=== PATIENT | female | born 1940 | race Caucasian/White ===

== ENCOUNTER 2019-11-12 07:20 | Outpatient (CLI) | payer OTHER, SELFPAY ==
[2019-11-12] VITALS (15 sets, daily range): BP systolic 104–143; BP diastolic 44–66; PULSE 58–80; RESP 18–24; TEMP 36.6–36.9; O2SAT 90–100; BMI 25.9
--- NOTE | 2019-11-12 10:11 | PC.NURSE ---
INFORMED BY BLOOD BANK THAT PATIENTS HGB IS 8.2. MOLLY DOMESTIC HOUSEKEEPER WAS CALLED AND INFORMED. MOLLY REQUESTS TO RESUME WRITTEN ORDERS TO TRANSFUSE 2 UNITS OF PRBC PER WRITTEN ORDERS.
[2019-11-12] MEDS: acetaminophen 325 mg Tablet 650 MG PO (10:40)
[2019-11-12] MEDS: diphenhydrAMINE 25 mg Capsule PO (10:40)
[2019-11-12] MEDS: sodium chloride 0.9% 50 ML 30 ML (10:45)
--- NOTE | 2019-11-12 11:56 | PC.NURSE ---
[facility] UNIT #[id number] STARTED AT 10:50 AM.
[2019-11-12] MEDS: FUROsemide 40 mg Tablet PO (12:46)
[2019-11-12] MEDS: ipratropium-albuterol 3 mL Neb INHALATION (15:12)
--- NOTE | 2019-11-12 15:17 | PC.NURSE ---
PT WITH WHEEZES. MOLLY TOWER OBSERVER INFORMED. BREATHING TREATMENT GIVEN.
[2019-11-16 18:02] LABS: Basophils % 0.2 %; Eosinophils # 0.1 10^3/uL (0.0-0.8); Eosinophils % 1.5 %; Hematocrit 35.3 % (37.0-47.0); Hemoglobin 10.7 g/dL (11.5-15.3); Lymphocytes # 1.9 10^3/uL (0.8-4.8); Lymphocytes % 30.8 %; Mean Corpuscular HGB Conc 30.3 g/dL (30.0-36.0); Mean Corpuscular Hemoglobin 33.2 pg (28.0-34.0); Mean Corpuscular Volume 109.6 fL (81-99); Mean Platelet Volume 11.1 fL (7.4-10.4); Monocytes # 0.7 10^3/uL (0.2-0.9); Monocytes % 11.8 %; Neutrophils # 3.3 10^3/uL (1.8-7.7); Neutrophils % 55.4 %; Nucleated Red Blood Cells % 0 %; Platelet Count 169 10^3/cmm (130-400); Red Blood Count 3.22 10^6/uL (4.1-5.3); Red Cell Distribution Width 15.3 % (12.1-15.1)
== END 2019-11-12 15:34 | disposition home or self-care (01) ==
LOC: GILAB 07:31
PROVIDERS: Family Provider Family Medicine; PCP Family Medicine; Visit Provider Nurse Practitioner Family
DX: D63.1 Anemia in chronic kidney disease (principal)
CPT/HCPCS: 36430; 85025; 86850; 86900; 94640; P9016

== ENCOUNTER 2019-12-03 12:46 | Emergency (ER) | payer MEDICARE, MEDICAID, SELFPAY ==
[2019-12-03] VITALS (7 sets, daily range): BP systolic 88–140; BP diastolic 41–58; PULSE 66–78; RESP 16–20; TEMP 36.9; O2SAT 100; BMI 29.0
--- NOTE | 2019-12-03 12:51 | ED_ITS ---
Entered by Jackie Palma, acting as scribe for HPI - General Adult General: Chief complaint: Recheck/Abnormal Lab/Rx Stated complaint: LOW SODIUM/ ABNORMAL LABS Time Seen by Provider: 12/03/19 12:52 Source: patient and EMS Mode of arrival: EMS Limitations: no limitations History of Present Illness: HPI narrative: 79 yo female presents with abnormal sodium levels per pt the home health nurse told her the labs were critical and they sent her to the ED to be checked out and redraw of labs. pt has had a cough productive with brown sputum. pt states she felt tired and did not want to do her exercises today. pt denies any other symptoms at this time. MD complaint: low sodium, cough Onset (ago): day(s) (today sent from [facility] for abnormal labs) Radiation: non-radiation Severity: mild Pain Consistency: constant Relieving factors: none Exacerbating factors: none Associated symptoms: Reports cough (productive with brown sputum), short of breath and weakness; Deny chest pain, nausea, rash or vomiting Treatments prior to arrival: none Review of Systems General: Reports: 10 or more systems reviewed and unremarkable except in HPI and below Const: Reports: fatigue ENMT: Denies: throat pain, ear pain, nasal discharge or nasal congestion Card: Denies: chest pain, edema, shortness of breath on exertion or shortness of breath when lying down Resp: Reports: productive cough (brown) GI: Denies: abdominal pain, nausea, vomiting, vomiting blood, coffee grounds in vomit, diarrhea, constipation, bloating, blood in stool or black tarry stool : Denies: flank pain, difficulty urinating, painful urination, urinary frequency or urinary urgency Skin/Breast: Denies: rash or itching PFSH ED PFSH: Statuses (acute, chronic, etc) shown below reflect problem list status as previously entered and may not be historically accurate Social History Smoking and tobacco status: former smoker Physical Exam Const: COMMON NORMALS: no apparent distress GENERAL APPEARANCE: cooperative and comfortable ORIENTATION/CONSCIOUSNESS: Yes awake, Yes oriented to person, Yes oriented to place and Yes oriented to time HENMT: COMMON NORMALS: normocephalic, head/scalp atraumatic, hearing grossly normal bilaterally, external ears normal, EAC's normal, TM's normal bilaterally, nasal mucous membranes and turbinates normal, moist oral mucous membranes and oropharynx normal HEAD & SCALP: normocephalic and atraumatic NOSE: nasal mucous membranes and turbinates normal EXTERNAL EAR: Yes external ears normal EXTERNAL AUDITORY CANAL: EAC's normal TYMPANIC MEMBRANE: TM's normal bilaterally Eye: COMMON NORMALS: PERRL, EOMs intact bilaterally, conjunctivae normal and no scleral icterus CONJUNCTIVA: Yes conjunctivae normal PUPIL: Yes PERRL Neck/C-Spine: COMMON NORMALS: full ROM, no lymphadenopathy, supple and no JVD Lymph: LYMPHATIC: no lymphadenopathy noted and no lymphedema noted Cardio: COMMON NORMALS: no JVD, regular rate, regular rhythm and no murmurs RATE: regular rate RHYTHM: regular rhythm GI: COMMON NORMALS: soft to palpation and no hepatosplenomegaly AUSCULTATION: Yes normoactive bowel sounds PALPATION: Yes soft, No tender, No guarding and Yes no hepatosplenomegaly Extremity: COMMON NORMALS: normal to inspection, normal capillary refill, no clubbing, cyanosis or edema, no calf tenderness and no pedal edema Neuro: SENSORIUM/ORIENTATION: Yes oriented to person, Yes oriented to place and Yes oriented to time Skin: COMMON NORMALS: no rashes or lesions noted GENERAL SKIN EXAM: no rashes or lesions noted Course ED course: Recheck labs her sodium is normal at 139 she is mildly hyperkalemic her renal function is elevated but that is actually been a chronic thing for her. Gave her some fluids and albuterol to help lower her potassium recheck with her primary care doctor next week. Vital Signs: Vital signs: Vital Signs Temperature 98.4 F 12/03/19 13:01 Pulse Rate 78 12/03/19 16:31 Respiratory Rate 16 12/03/19 16:18 Blood Pressure 125/52 12/03/19 16:18 Pulse Oximetry 100 12/03/19 16:18 MDM - General Adult Lab Data: Labs: Lab Results 12/03/19 12/03/19 Range/Units 13:32 13:32 WBC 10.5 H (4.0-10.0) 10^3/ uL RBC 3.50 L (4.1-5.3) 10^6/u L Hgb 11.3 L (11.5-15.3) g/dL Hct 36.5 L (37.0-47.0) % MCV 104.3 H (81-99) fL MCH 32.3 (28.0-34.0) pg MCHC 31.0 (30.0-36.0) g/dL RDW 14.2 (12.1-15.1) % Plt Count 145 (130-400) 10^3/c mm MPV 11.7 H (7.4-10.4) fL Neut % (Auto) 51.5 % Lymph % (Auto) 37.3 % [place] % (Auto) 9.9 % Eos % (Auto) 0.8 % Baso % (Auto) 0.2 % Neut # (Auto) 5.4 (1.8-7.7) 10^3/u L Lymph # (Auto) 3.9 (0.8-4.8) 10^3/u L [place] # (Auto) 1.0 H (0.2-0.9) 10^3/u L Eos # (Auto) 0.1 (0.0-0.8) 10^3/u L Baso # (Auto) 0.0 (0.0-0.1) 10^3/u L Nucleated RBC % (a uto) 0 % Nucleated RBCs # 0.0 /100WBC Sodium 139 (136-145) mmol/L Potassium 5.2 H (3.5-5.1) mmol/L Chloride 103 (98-107) mmol/L Carbon Dioxide 27 (22-29) mmol/L Anion Gap 14.2 (5-19) BUN 64 H (8-23) mg/dL Creatinine 2.4 H (0.5-0.9) mg/dL Glucose 95 (74-106) mg/dL Calcium 10.3 (8.5-10.5) mg/dL Total Bilirubin 0.3 (0.15-1.2) mg/dL AST 13 (0-32) U/L ALT 7 (0-33) U/L Alkaline Phosphata se 86 (35-105) IU/L Total Protein 5.9 L (6.6-8.7) g/dL Albumin 3.4 L (3.5-5.2) g/dL Globulin 2.5 (1.3-4.6) g/dL Discharge Plan Discharge Patient Disposition: Home, Self-Care Clinical Impression: Chronic renal failure, Hyperkalemia Condition: Stable Prescriptions: No Action budesonide 0.5 mg/2 mL Suspension For Nebulization RF: 0 folic acid 1 mg Tablet 1 mg PO DAILY RF: 0 atorvastatin 20 mg PO DAILY RF: 0 Tubersol 5 tub. unit /0.1 mL Solution INTRADERMAL RF: 0 divalproex 250 mg Tablet,Delayed Release (Dr/Ec) 250 mg PO BID RF: 0 bisacodyl 10 mg Suppository 10 mg KS DAILY PRN (Reason: Constipation) RF: 0 ranitidine HCl 150 mg Capsule 150 mg PO BID RF: 0 furosemide 20 mg Tablet 20 mg PO DAILY RF: 0 thiamine HCl (vitamin B1) 50 mg Tablet 50 mg PO DAILY RF: 0 Senna-S RF: 0 citalopram 40 mg Tablet RF: 0 allopurinol 100 mg Tablet 100 mg PO DAILY RF: 0 Singulair 10 mg Tablet 10 mg PO DAILY RF: 0 Singulair 10 mg Tablet 10 mg PO DAILY RF: 0 Xopenex HFA 45 mcg/actuation Hfa Aerosol Inhaler INHALATION RF: 0 Zemplar 1 mcg Capsule 1 mcg PO DAILY RF: 0 Incruse Ellipta 62.5 mcg/actuation Blister With Device 1 inh INHALATION DAILY RF: 0 acetaminophen 325 mg Tablet 325 mg PO QID PRN (Reason: Pain, Mild) RF: 0 metoprolol succinate 25 mg Capsule,Sprinkle,Er 24hr 25 mg PO DAILY RF: 0 Discharge Orders: Discharge Order (Routine); Ordered 12/03/19 Ordered By: Ahsan Lacey Referrals: Dunia Rowan MD [Primary Care Provider] - Patient Instructions: Hyponatremia (ED), Hyperkalemia (ED) Activity Restrictions/Additional Instructions: Follow-up with Dr. Rowan in 2 to 3 days to recheck your potassium Discharge Date/Time: 12/03/19 16:57 Coding Level of Care Code ED Director [employer] Fwd Exam Problem Focused The documentation recorded by the Louie connell Bridget Annette, accurately reflects the service I personally performed and the decisions made by Abhijit friedman Curtis L, DO Dec 03, 2019 12:46
--- NOTE | 2019-12-03 13:03 | ECG_ITS ---
Measurements Intervals [place] Rate: 69 P: 53 FL: 157 QRS: 49 QRSD: 83 T: 61 QT: 416 QTc: 446 SINUS RHYTHM Compared to ECG 10/27/2019 14:02:13 No significant changes Electronically Signed On 12-03-2019 15:27:11 BENCH MACHINE OPERATOR by Francois Candelaria M.D. [id number]
--- NOTE | 2019-12-03 13:09 | PC.NURSE ---
RESP REG NONLABORED COMPLAINING OF FEELING TIRED TODAY COUGH NOTED STATES HAS HAD FOR AWHILE WITH BROWNISH COLOR SPUTUM LUNGS CLEAR SHANNON SL DEMINISHED LOWER LOBES SHANNON NO EDEMA NOTED ALERT AND ORIENTED X 4
[2019-12-03] MEDS: sodium chloride 0.9% 500 ML 999 ML IV (13:30)
[2019-12-03 13:36] LABS: Basophils % 0.2 %; Eosinophils # 0.1 10^3/uL (0.0-0.8); Eosinophils % 0.8 %; Hematocrit 36.5 % (37.0-47.0); Hemoglobin 11.3 g/dL (11.5-15.3); Lymphocytes # 3.9 10^3/uL (0.8-4.8); Lymphocytes % 37.3 %; Mean Corpuscular Hemoglobin 32.3 pg (28.0-34.0); Mean Corpuscular Volume 104.3 fL (81-99); Mean Platelet Volume 11.7 fL (7.4-10.4); Monocytes % 9.9 %; Neutrophils # 5.4 10^3/uL (1.8-7.7); Neutrophils % 51.5 %; Nucleated Red Blood Cells % 0 %; Platelet Count 145 10^3/cmm (130-400); Red Cell Distribution Width 14.2 % (12.1-15.1); White Blood Count 10.5 10^3/uL (4.0-10.0)
[2019-12-03 13:50] LABS: Alanine Aminotransferase 7 U/L (0-33); Albumin Level 3.4 g/dL (3.5-5.2); Alkaline Phosphatase 86 IU/L (35-105); Anion Gap 14.2 (5-19); Aspartate Amino Transferase 13 U/L (0-32); Blood Urea Nitrogen 64 mg/dL (8-23); Calcium 10.3 mg/dL (8.5-10.5); Carbon Dioxide 27 mmol/L (22-29); Chloride 103 mmol/L (98-107); Globulin 2.5 g/dL (1.3-4.6); Glucose 95 mg/dL (74-106); Potassium 5.2 mmol/L (3.5-5.1); Sodium 139 mmol/L (136-145); Total Bilirubin 0.3 mg/dL (0.15-1.2); Total Protein 5.9 g/dL (6.6-8.7)
--- NOTE | 2019-12-03 15:49 | PC.NURSE ---
Pt given BSC for voiding
--- NOTE | 2019-12-03 16:01 | XRR_ITS ---
PROCEDURE INFORMATION: Exam: XR Chest, 1 View Exam date and time: 12/03/2019 4:28 PM Age: 79 years old Clinical indication: Cough TECHNIQUE: Imaging protocol: XR of the chest Views: 1 view. COMPARISON: CR Chest 1 [place] [id number] 10/27/2019 2:01 PM FINDINGS: Lungs: Unremarkable. No consolidation. Lungs are hyperinflated. Probable mild basilar fibrosis is unchanged. There are unchanged calcified granulomas. Pleural space: Unremarkable. No pleural effusion. No pneumothorax. Heart/Mediastinum: Unchanged mild cardiomegaly. Bones/joints: No acute abnormality. XR/XR chest 1V portable [id number] IMPRESSION: No acute findings.
[2019-12-03] MEDS: ipratropium-albuterol 3 mL Neb 6 ML INHALATION (16:07)
--- NOTE | 2019-12-03 16:14 | PC.NURSE ---
RT at bedside
--- NOTE | 2019-12-04 12:05 | DCPLANNER ---
clinical laboratory manager was asked by nurse to help arrange for oxygen for patient to take home. Patient forgot to bring a portable oxygen tank with her to hospital. Case manger called [employer], who patient has oxygen with, to ask if they could bring patient portable oxygen to the ED for patient. [facility] stated that they would bring a portable machine to the ED for patient. clinical laboratory manager informed nurse and family that a portable machine was being brought to the patient.
== END 2019-12-03 16:57 | disposition home or self-care (01) ==
LOC: ER 16:08
PROVIDERS: Emergency Provider Family Medicine; Family Provider Family Medicine; PCP Family Medicine
DX: N18.9 Chronic kidney disease, unspecified (principal); E87.5 Hyperkalemia; Z87.891 Personal history of nicotine dependence
CPT/HCPCS: 71045; 80053; 85025; 93005; 94640; 96360; 96361; 99283; J7040

== ENCOUNTER 2019-12-14 08:50 | Outpatient (CLI) | payer MEDICARE, MEDICAID, SELFPAY ==
[2019-12-14 18:40] LABS: Basophils % 0.1 %; Eosinophils # 0.2 10^3/uL (0.0-0.8); Eosinophils % 2.2 %; Hemoglobin 10.5 g/dL (11.5-15.3); Lymphocytes # 2.6 10^3/uL (0.8-4.8); Lymphocytes % 38.6 %; Mean Corpuscular Hemoglobin 30.9 pg (28.0-34.0); Mean Corpuscular Volume 102.9 fL (81-99); Mean Platelet Volume 12.1 fL (7.4-10.4); Monocytes # 0.5 10^3/uL (0.2-0.9); Monocytes % 6.8 %; Neutrophils # 3.5 10^3/uL (1.8-7.7); Neutrophils % 52.2 %; Nucleated Red Blood Cells % 0 %; Platelet Count 148 10^3/cmm (130-400); Red Cell Distribution Width 13.9 % (12.1-15.1); White Blood Count 6.8 10^3/uL (4.0-10.0)
[2019-12-14 21:02] LABS: Albumin Level 3.5 g/dL (3.5-5.2); Blood Urea Nitrogen 36 mg/dL (8-23); Chloride 99 mmol/L (98-107); Glucose 151 mg/dL (74-106); Iron 79 ug/dL (37-145); Phosphorus 3.5 mg/dL (2.5-4.5); Potassium 6.5 mmol/L (3.5-5.1); Sodium 138 mmol/L (136-145)
[2019-12-14 21:28] LABS: Free T4 Free Thyroxine 1.14 ng/dL (0.82-1.77); Thyroid Stimulating Hormone 2.39 uIU/mL (0.27-4.20)
[2019-12-14 21:50] LABS: Anion Gap 23.5 (5-19); Carbon Dioxide 22 mmol/L (22-29)
== END 2019-12-14 08:51 | disposition home or self-care (01) ==
LOC: LAB 17:42
PROVIDERS: Family Provider Family Medicine; PCP Family Medicine; Visit Provider Internal Medicine Nephrology
DX: E87.1 Hypo-osmolality and hyponatremia (principal); D63.1 Anemia in chronic kidney disease; N18.4 Chronic kidney disease, stage 4 (severe)
CPT/HCPCS: 80069; 83540; 84439; 84443; 85025

== ENCOUNTER 2019-12-14 17:30 | Outpatient (CLI) | payer MEDICARE, MEDICAID, SELFPAY | END 2019-12-14 17:31 | disposition home or self-care (01) | PROVIDERS: Family Provider Family Medicine; PCP Family Medicine; Visit Provider Internal Medicine Nephrology | DX: Z76.89 Persons encountering health services in other specified circumstances (principal) ==

== ENCOUNTER 2020-01-19 09:26 | Outpatient (CLI) | payer MEDICARE, MEDICAID, SELFPAY ==
[2020-01-19 09:58] LABS: Basophils % 0.2 %; Eosinophils # 0.1 10^3/uL (0.0-0.8); Eosinophils % 1.4 %; Hematocrit 32.9 % (37.0-47.0); Lymphocytes # 1.1 10^3/uL (0.8-4.8); Lymphocytes % 25.2 %; Mean Corpuscular HGB Conc 30.4 g/dL (30.0-36.0); Mean Corpuscular Hemoglobin 32.7 pg (28.0-34.0); Mean Corpuscular Volume 107.5 fL (81-99); Mean Platelet Volume 10.5 fL (7.4-10.4); Monocytes # 0.6 10^3/uL (0.2-0.9); Monocytes % 13.5 %; Neutrophils # 2.5 10^3/uL (1.8-7.7); Neutrophils % 59.5 %; Nucleated Red Blood Cells % 0 %; Platelet Count 132 10^3/cmm (130-400); Red Blood Count 3.06 10^6/uL (4.1-5.3); White Blood Count 4.2 10^3/uL (4.0-10.0)
[2020-01-19 10:12] LABS: Alanine Aminotransferase 8 U/L (0-33); Albumin Level 3.5 g/dL (3.5-5.2); Alkaline Phosphatase 78 IU/L (35-105); Anion Gap 17.4 (5-19); Aspartate Amino Transferase 18 U/L (0-32); Blood Urea Nitrogen 44 mg/dL (8-23); Calcium 10.3 mg/dL (8.5-10.5); Carbon Dioxide 23 mmol/L (22-29); Chloride 104 mmol/L (98-107); Globulin 3.4 g/dL (1.3-4.6); Glucose 105 mg/dL (65-115); Osmolality Calculated 286 mOsm/kg (285-295); Potassium 5.4 mmol/L (3.5-5.1); Sodium 139 mmol/L (136-145); Total Bilirubin 0.2 mg/dL (0.15-1.2); Total Protein 6.9 g/dL (6.6-8.7)
[2020-01-19 14:15] LABS: Iron 72 ug/dL (37-145); Percent Saturation 31.8 % (20-50); Total Iron Binding Capacity 226 mcg/dl; Unsaturated Iron Binding 154 ug/dL (112-347)
[2020-01-19 14:31] LABS: Vitamin B12 376 pg/mL (232-1245)
--- NOTE | 2020-01-23 14:03 | ONC FU_ITS ---
Dr. Frazier Patient Follow-Up Note Patient: Velasquez Montano Unit #: [id number]: [id number] Dicatated By: Carlitos Frazier M.D.Date of Visit:Jan 19, 2020 Onc Med Follow-up/Prog Note Chief Complaint: Metastatic adenocarcinoma. History of Present Illness: This is a 79 year-old woman with metastatic adenocarcinoma involving the mesentery with no documented primary. The malignancy was discovered at exploratory laparotomy/low anterior resection in September of 2009. At that time, she had an inflammatory mass in the sigmoid colon, suspected to have been related to perforated diverticulitis. The surgery included low anterior resection with resection of the inflammatory mass in the mesentery. Pathology showed metastatic adenocarcinoma, but the excised portion of bowel showed no mucosal involvement, and there has been no evidence of any other primary malignancy. I did not feel there was any definite indication for postoperative chemotherapy. She has otherwise just been managed with observation, thus far with no evidence of recurrence/progression. She had a followup colonoscopy in May 2012. Findings were limited to an adenomatous polyp in the distal sigmoid colon and a hyperplastic polyp in the rectum. Both were excised endoscopically. She had been admitted to the hospital in October of 2011 with acute renal failure in association with Clostridium difficile colitis. She did recover from that illness, but with residual stage IV chronic kidney disease. Her other medical illnesses include COPD, obstructive sleep apnea, bipolar disorder/depression, and GERD. She has additional history of a stage IA, ER/IN positive infiltrating ductal carcinoma of the left breast treated in 1999 with lumpectomy/axillary lymph node dissection and radiation. She also did receive 5 years of adjuvant tamoxifen. There has been no evidence of recurrence of the breast cancer. She had previously smoked a pack and a half to 2 packs of cigarettes daily. She quit smoking in 1994. She has had significant alcohol use in the past, but she quit drinking in the early . I had seen her in December 2015 with a new complaint of hallucinations. These were mainly occurring at night. I was not certain of the cause. At the time she was taking hydrocodone/APAP and she also had oxycodone available, and I did advise him to refrain from using it as much as possible, though it did not seem to be clearly related. She also had alprazolam available, but she had been taking it very infrequently. She was seen by Dr. Alaniz, and her subsequent evaluation included MRI of the brain on 01/18/2016. It showed no evidence of mass or acute intracranial abnormality. There were a moderate degree of chronic small vessel ischemic changes and a moderate degree of central and peripheral brain parenchymal loss. There was evidence of right mastoid effusion/mastoiditis and right maxillary chronic sinusitis. The only other finding was a right inferior temporal lobe porencephalic cyst. She had a subsequent follow-up visit with Dr. Alaniz, and he felt that she had Parkinson's disease. She tolerated medication poorly, though. During subsequent followup those symptoms gradually improved. She has just remained on observation/expectant management for the adenocarcinoma. INTERIM HISTORY: She is seen for a scheduled visit. She has not been feeling too good. She has been anemic. She says she is awfully tired. Her activity is very limited. ECOG score is 3. Her appetite has been good. She has gained weight. She has not had fever. She reports having a lot of sweating at night, but she thinks that may just be due to her mattress. She has a little bit of sinus drainage. Her daughter says she tends to drool at night. She has shortness of breath. She is on continuous oxygen. She has chronic cough. She has started on a new breathing treatment, apparently because of side effects with albuterol. She does not complain of chest pain. She has heartburn occasionally. She occasionally has loose stools. She has not been aware of any blood in the stool, and 3 stool Hemoccults were reportedly negative. She has urinary frequency and nocturia. She has some incontinence. She has chronic back pain, which she says is bad. She also has pain in her hips and legs. She has occasional headache. She has little bit of dizziness. She has no focal neurologic symptoms. Medications: Acetaminophen 2 Tablet (of 325 mg) Capsule Oral q 6 hours PRN, Allopurinol 1 Tablet (of 100 mg) Oral daily, Cholecalciferol 1 Tablet (of 1000 Units) Capsule Oral daily, Citalopram Hydrobromide 1 (40 mg) Tablet Oral daily, Divalproex Sodium 1 (250 mg) Tablet, enteric coated Oral b.i.d., Folic Acid 1 (1 mg) Tablet Oral b.i.d., Incruse Ellipta 1 (62.5 mcg/inh) Aerosol Powder, Breath Activated Inhalation daily, Ipratropium-Albuterol 2 [place](s) (of 0.5-2.5 (3) mg/3mL) Solution Inhalation four times a day, Lipitor 1 (20 mg) Tablet Oral daily, Metoprolol Succinate 0.5 Tablet Oral daily, Montelukast Sodium 1 Tablet (of 10 mg) Oral daily, Pantoprazole Sodium 1 Tablet (of 40 mg) Tablet, enteric coated Oral b.i.d., Zemplar 1 (1 mcg) Capsule Oral q 1 week Allergies: IV contrast and Penicillins. Review of Systems: Constitutional - She has been feeling awfully tired. She has very limited activity. Her appetite is good. She has gained significant weight. She has not had fever. She reports having a lot of sweating. She thinks it may be from her mattress pad. ECOG score is 3, ENMT -She has a little bit of sinus drainage. She has a little bit of soreness in the mouth and throat. Her daughter says she drools at night. She has no difficulty swallowing. Hematologic/Lymphatic - She bruises easily, Respiratory - She has shortness of breath with activity. She is on continuous oxygen. She has started on a new breathing treatment. She has some chronic cough. She has no pleuritic pain or hemoptysis, Cardiovascular - No angina pain. No palpitations, Gastrointestinal - No nausea or vomiting. She has heartburn depending on what she eats. She has occasional episodes of diarrhea. No constipation. No blood in the stool or black stools. A recent stool Hemoccult was reportedly negative, Genitourinary (F) - No dysuria or hematuria. No urinary frequency. She does have occasional incontinence, Musculoskeletal - She has pain in her back, Integumentary - No skin complications, Neurologic - She has occasional headaches. She has a little bit of dizziness. No numbness/paresthesias or other focal neurologic symptoms, Psychiatric - No anxiety. She has some depression. Her daughter states that she usually takes a Xanax when she is feeling more depressed and that helps alot. No insomnia. Vital Signs: Performed on Jan 19, 2020 11:14 Height - 60.00 in Weight - 145.0 lbs (LOW) BSA - 1.63 sq.m BMI - 28.32 Temperature - 98.8 F Pulse - 67 /min Respiration - 24 /min BP - 97/43 mm(hg) O2 Sat - 100 % Pain - 5 Physical Examination: Constitutional - She appears somewhat weak generally, Eyes - Sclerae nonicteric. Conjunctivae clear, ENMT - No lesions noted in the oral cavity, Hematologic/Lymphatic - No cervical, clavicular, or axillary adenopathy, Respiratory - Lungs sound clear with diminished air movement bilaterally, Cardiovascular - Heart rhythm is regular. There is no murmur, gallop, or rub noted, Abdomen - Mildly distended. Liver and spleen are not enlarged. There is no abdominal mass or ascites noted and there is no inguinal adenopathy, Extremities - Mild edema. There are multiple purpuric lesions, Neurologic - No focal neurologic deficits noted. Lab/Imaging: Test performed on Jan 19, 2020 09:40 Iron 72 ug/dL Sodium 139 mmol/L Vitamin B12 376 pg/mL Iron Binding Capacity (TIBC) 226 mcg/dl Potassium 5.4 mmol/L % Iron Saturation 31.8 % Chloride 104 mmol/L CO2 23 mmol/L UIBC 154 ug/dL Anion Gap 17.4 BUN 44 mg/dL Creatinine 2.8 mg/dL Cr Clearance (Est) 17.47 mL/min Glucose 105 mg/dL Calcium 10.3 mg/dL Protein, Total 6.9 g/dL Albumin 3.5 g/dL Globulin 3.4 g/dL Bilirubin, Total 0.2 mg/dL ALT (SGPT) 8 U/L AST (SGOT) 18 U/L Alkaline Phosphatase 78 IU/L WBC 4.2 10 3/uL RBC 3.06 10 6/uL HGB 10.0 g/dL HCT 32.9 % MCV 107.5 fL MCH 32.7 pg MCHC 30.4 g/dL RDW 15.0 % Platelet Count 132 10 3/cmm MPV 10.5 fL Neutrophils 2.5 10 3/uL Lymphocytes 1.1 10 3/uL Monocytes 0.6 10 3/uL Eosinophils 0.1 10 3/uL Basophils 0.0 10 3/uL Neutrophil % 59.5 % Lymphocyte % 25.2 % Monocyte % 13.5 % Eosinophil % 1.4 % Basophils % 0.2 % Impression: 1. Patient with metastatic adenocarcinoma involving the mesentery, discovered as an incidental finding at exploratory laparotomy/low anterior resection in September 2009 for what was thought to have been an inflammatory process involving the sigmoid colon and mesentery. There has been no documented primary source for the malignancy and she did not receive any additional treatment. 2. She did have an adenomatous polyp in the distal sigmoid colon on surveillance colonoscopy in May 2012. 3. She has a previous history of cancer of the left breast with no recurrence following lumpectomy/radiation in 1999 followed by adjuvant tamoxifen. 4. She developed stage IV chronic kidney disease following an episode of C. difficile colitis in October 2011. Her other medical illnesses which include: 5. COPD, oxygen dependent. 6. Chronic fatigue and chronic pain in the back and lower extremities. 7. She has a history of bipolar disorder/depression. 8. In December 2015 she had presented with hallucinations. A specific cause was not determined, but during subsequent followup those symptoms gradually improved. During followup she has continued to have somewhat marginal performance status. She had been showing some further decline in her renal function, but that stabilized. As of October 2019 she had moderately severe macrocytic anemia. A specific cause has not been determined, but her stools were Hemoccult negative. Overall, she appears stable clinically, but she does have very marginal performance status. Plan: I will add a B12 level, and serum iron studies with her current labs. If those are adequate, I will just plan to see her again in 6 months. If her stools are heme-negative, I do not see any compelling reason for her to have a repeat colonoscopy. Signed By: Carlitos Frazier M.D. <<Signature on File>>
== END 2020-01-19 09:27 | disposition home or self-care (01) ==
LOC: ONCMED 09:31
PROVIDERS: Family Provider Family Medicine; PCP Family Medicine; Visit Provider Internal Medicine Medical Oncology
DX: Z08 Encounter for follow-up examination after completed treatment for malignant neoplasm (principal); Z85.9 Personal history of malignant neoplasm, unspecified; R53.82 Chronic fatigue, unspecified; N18.4 Chronic kidney disease, stage 4 (severe); J44.9 Chronic obstructive pulmonary disease, unspecified; G47.33 Obstructive sleep apnea (adult) (pediatric); F32.9 Major depressive disorder, single episode, unspecified; K21.9 Gastro-esophageal reflux disease without esophagitis; D64.9 Anemia, unspecified; J32.0 Chronic maxillary sinusitis; G20 Parkinson's disease; G89.29 Other chronic pain; M54.9 Dorsalgia, unspecified; Z99.81 Dependence on supplemental oxygen; Z79.899 Other long term (current) drug therapy; Z85.3 Personal history of malignant neoplasm of breast; Z92.3 Personal history of irradiation; Z92.23 Personal history of estrogen therapy; Z87.891 Personal history of nicotine dependence
CPT/HCPCS: 80053; 82607; 83540; 83550; 85025; 99214

== ENCOUNTER 2020-07-21 18:23 | Emergency (ER) | payer MEDICARE, MEDICAID, SELFPAY ==
[2020-07-21 18:35] VITALS: BP 129/64; PULSE 80; RESP 24; TEMP 37.1; O2SAT 95; BMI 25.7
--- NOTE | 2020-07-21 19:41 | PC.NURSE ---
patient left after being triaged but before seen by physician or brought back to a room in the ED
== END 2020-07-21 19:07 | disposition left against medical advice (07) ==
LOC: ER 19:12
PROVIDERS: PCP Family Medicine
DX: Z53.21 Procedure and treatment not carried out due to patient leaving prior to being seen by health care provider (principal)
CPT/HCPCS: 99281

== ENCOUNTER 2020-07-25 14:16 | Outpatient (CLI) | payer MEDICARE, MEDICAID, SELFPAY ==
[2020-07-25 15:02] LABS: Add Urine Microscopic? NO
[2020-07-25 15:08] LABS: Basophils % 0.2 %; Eosinophils # 0.2 10^3/uL (0.0-0.8); Eosinophils % 2.3 %; Hematocrit 30.6 % (37.0-47.0); Hemoglobin 9.1 g/dL (11.5-15.3); Lymphocytes # 2.3 10^3/uL (0.8-4.8); Lymphocytes % 35.3 %; Mean Corpuscular HGB Conc 29.7 g/dL (30.0-36.0); Mean Corpuscular Hemoglobin 34.2 pg (28.0-34.0); Mean Platelet Volume 10.8 fL (7.4-10.4); Monocytes # 0.6 10^3/uL (0.2-0.9); Monocytes % 9.4 %; Neutrophils # 3.42 10^3/uL (1.8-7.7); Neutrophils % 52.3 %; Nucleated Red Blood Cells % 0 %; Platelet Count 161 10^3/cmm (130-400); Red Blood Count 2.66 10^6/uL (4.1-5.3); Red Cell Distribution Width 12.5 % (12.1-15.1); White Blood Count 6.5 10^3/uL (4.0-10.0)
[2020-07-25 15:25] LABS: Alanine Aminotransferase < 5 U/L (0-33); Albumin Level 3.8 g/dL (3.5-5.2); Alkaline Phosphatase 65 IU/L (35-105); Anion Gap 14.1 (5-19); Aspartate Amino Transferase 13 U/L (0-32); Blood Urea Nitrogen 29 mg/dL (8-23); Calcium 9.2 mg/dL (8.5-10.5); Carbon Dioxide 29 mmol/L (22-29); Chloride 103 mmol/L (98-107); Globulin 2.4 g/dL (1.3-4.6); Glucose 109 mg/dL (65-115); Osmolality Calculated 290 mOsm/kg (285-295); Potassium 5.1 mmol/L (3.5-5.1); Sodium 141 mmol/L (136-145); Total Bilirubin 0.2 mg/dL (0.15-1.2); Total Protein 6.2 g/dL (6.6-8.7)
[2020-07-25 15:26] LABS: Bilirubin Urine Neg (Negative); Blood Urine Neg (Negative); Glucose Urine UA Norm (Normal); Ketones Urine Negative (Negative); Leukocyte Esterase Urine Negative (Negative); Nitrate Urine Negative (Negative); Protein Urine Neg (Negative); Specific Gravity, Urine 1.015 (1.005-1.030); Urine Appearance Clear (CLEAR); Urine Color Yellow (Yellow); Urobilinogen Urine Norm (Negative); pH Urine 5 (5-7)
[2020-07-26 09:04] LABS: Iron 49 ug/dL (37-145); Percent Saturation 25.9 % (20-50); Total Iron Binding Capacity 189 mcg/dl; Unsaturated Iron Binding 140 ug/dL (112-347)
[2020-07-26 09:20] LABS: Vitamin B12 418 pg/mL (232-1245)
== END 2020-07-25 14:17 | disposition home or self-care (01) ==
LOC: ONCMED 14:22
PROVIDERS: PCP Family Medicine; Visit Provider Internal Medicine Medical Oncology
DX: R41.82 Altered mental status, unspecified (principal); D64.9 Anemia, unspecified
CPT/HCPCS: 80053; 81003; 82607; 83540; 83550; 85025; 87086

== ENCOUNTER 2020-08-28 21:27 | Inpatient (IN) | payer MEDICARE, MEDICAID, SELFPAY ==
[2020-08-28 21:33] VITALS: BP 198/128; PULSE 78; RESP 20; TEMP 36.8; O2SAT 99; BMI 26.4
--- NOTE | 2020-08-28 21:55 | ED_ITS ---
Documented by User: FRANKO Juarez 08/29/20 03:07 HPI - Altered Mental Status General: Chief Complaint: Altered Mental Status Stated Complaint: UTI, CONFUSION Time Seen by Provider: 08/28/20 21:34 History of Present Illness: HPI narrative: Patient is a 80-year-old female comes to the ED with UTI symptoms and confusion. Past medical history of colon cancer, CKD, COPD, hypertension. Patient was seen by provider approximately 4 d ays ago and diagnosed with a UTI. She was put on Bactrim. Patient was not tolerating Bactrim well after taking it for 2 days and with her CKD they switched her to Cipro and has been taking that for the last 2 days. Patient's daughter is present and states that she just had patient move in with her so they can help take care of her. Daughter says that patient has had some episodes of confusion and hallucinations the past couple days. While here in the ED daughter says patient seems to be at her baseline mental status but still occasionally has episodes where she seems confused. Patient complaining of increased urine frequency and urgency to go. She says she has burning every time she urinates. Denies any hematuria. Patient also having decreased oral intake today. Review of Systems Const: Denies: fever(s), chills or fatigue Eyes: Denies: change in vision or eye discomfort ENMT: Denies: throat pain, odynophagia, nasal discharge or nasal congestion Card: Denies: chest pain, palpitations, edema, swelling of feet/ankles, dyspnea on exertion or orthopnea Resp: Denies: dyspnea, productive cough or non-productive cough GI: Denies: abdominal pain, nausea, vomiting, diarrhea, constipation or hematochezia : Reports: dysuria, urinary frequency and urinary urgency; Denies: flank pain or hematuria Musc: Denies: neck pain, back pain or extremity swelling Skin/Breast: Denies: rash or new lesions Neuro: Reports: confusion; Denies: headache(s), numbness in extremities or weakness in extremities PFS ED PFSH: Medical History Adenomatous polyp 2011 found on surveillance colonoscopy Bipolar disorder Breast cancer Status post lumpectomy/radiation 1999 followed by adjuvant tamoxifen C. 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 Chronic fatigue CKD (chronic kidney disease), stage IV COPD (chronic obstructive pulmonary disease) Oxygen dependent DNR (do not resuscitate) Hallucinations Did not tolerate Parkinson's medications in the past when this diagnosis was being entertained, discontinued hydrocodone, no organic etiology found Mastoiditis Right-sided mastoiditis, present on MRI 2016 as well Porencephalic cyst Temporal lobe Senile dementia Daughter has requested that dementia should not be mentioned to her mother because of risk of worsening of her depression considering bipolar disorder Sleep apnea Surgical History History of low anterior resection of rectum Family History Other Family history non-contributory Social History Smoking and tobacco status: former smoker Alcohol intake: never Substance/Drug Use: never Household members: family Housing: House Physical Exam Const: COMMON NORMALS: patient oriented x3 and alert GENERAL APPEARANCE: cooperative and comfortable HENMT: COMMON NORMALS: normocephalic HEAD & SCALP: normocephalic MOUTH: Normal oral and palatal mucosa present THROAT: posterior oropharynx normal and uvula midline Eye: COMMON NORMALS: Equal, round and reactive pupils present PUPIL: Yes Equal, round and reactive pupils present Neck/C-Spine: COMMON NORMALS: supple GENERAL: Yes normal visual inspection Resp: COMMON NORMALS: normal respiratory effort, No retractions, No use of accessory muscles and clear to auscultation bilaterally AUSCULTATION: clear to auscultation bilaterally Cardio: COMMON NORMALS: regular rate, regular rhythm, S1 normal heart sound present, S2 normal heart sound present, No gallops present (Cardio), No clicks present (Cardio), No murmurs present (Cardio) and Peripheral pulses 2+ throughout RATE: regular rate RHYTHM: regular rhythm HEART SOUNDS: S1 normal heart sound present and S2 normal heart sound present PERIPHERAL PULSES: Peripheral pulses 2+ throughout GI: COMMON NORMALS: Normal to inspection, nondistended, normoactive bowel sounds present, Soft to palpation, non-tender and no masses PALPATION: Yes Soft to palpation : COMMON NORMALS: Yes no CVA tenderness BLADDER/KIDNEY EXAM: Yes no CVA tenderness Back/Pelvis: COMMON NORMALS: no CVA tenderness Extremity: COMMON NORMALS: normal to inspection and no pedal edema Neuro: COMMON NORMALS: patient oriented x3 SENSORIUM/ORIENTATION: Yes alert Skin: GENERAL SKIN EXAM: dry skin Course Vital Signs: Vital signs: Vital Signs Temperature 98.2 F 08/28/20 21:33 Pulse Rate 78 08/29/20 01:04 Respiratory Rate 18 08/29/20 01:04 Blood Pressure 197/73 08/29/20 01:04 Pulse Oximetry 100 08/29/20 01:04 MDM - Altered Mental Status Lab Data: Attestation: I reviewed the patient's lab results. Labs: Lab Results 08/28/20 08/28/20 08/28/20 Range/Units 22:10 22:35 22:35 WBC 6.4 (4.0-10.0) 10^3/ uL RBC 2.41 L (4.1-5.3) 10^6/u L Hgb 8.2 L (11.5-15.3) g/dL Hct 27.7 L (37.0-47.0) % MCV 114.9 H (81-99) fL MCH 34.0 (28.0-34.0) pg MCHC 29.6 L (30.0-36.0) g/dL RDW 12.3 (12.1-15.1) % Plt Count 125 L (130-400) 10^3/c mm MPV 11.3 H (7.4-10.4) fL Neut % (Auto) 53.6 % Lymph % (Auto) 33.5 % [place] % (Auto) 11.2 % Eos % (Auto) 1.1 % Baso % (Auto) 0.3 % Neut # (Auto) 3.45 (1.8-7.7) 10^3/u L Lymph # (Auto) 2.2 (0.8-4.8) 10^3/u L [place] # (Auto) 0.7 (0.2-0.9) 10^3/u L Eos # (Auto) 0.1 (0.0-0.8) 10^3/u L Baso # (Auto) 0.0 (0.0-0.1) 10^3/u L Nucleated RBC % (a uto) 0 % Nucleated RBCs # 0.0 /100WBC Sodium 143 (136-145) mmol/L Potassium 5.9 H (3.5-5.1) mmol/L Chloride 104 (98-107) mmol/L Carbon Dioxide 33 H (22-29) mmol/L Anion Gap 11.9 (5-19) BUN 27 H (8-23) mg/dL Creatinine 2.2 H (0.5-0.9) mg/dL GFR Calculation Not Reportable Glucose 115 (65-115) mg/dL Calculated Osmolal ity 302 H (285-295) mOsm/k g Lactic Acid (0.5-2.2) mmol/L Calcium 10.7 H (8.5-10.5) mg/dL Total Bilirubin 0.2 (0.15-1.2) mg/dL AST 16 (0-32) U/L ALT 6 (0-33) U/L Alkaline Phosphata se 64 (35-105) IU/L Total Protein 6.1 L (6.6-8.7) g/dL Albumin 3.4 L (3.5-5.2) g/dL Globulin 2.7 (1.3-4.6) g/dL Urine Color Yellow (Yellow) Urine Appearance Clear (CLEAR) Urine pH 7 (5-7) Ur Specific Gravit y 1.005 (1.005-1.030) Urine Protein Trace (Negative) Urine Glucose (UA) Norm (Normal) Urine Ketones Negative (Negative) Urine Blood Neg (Negative) Urine Nitrate Negative (Negative) Urine Bilirubin Neg (Negative) Urine Urobilinogen Norm (Negative) mg/dL Ur Leukocyte Myrna ase Negative (Negative) Urine RBC 0-4 H (0-2) /hpf Urine WBC 0-4 H (0-5) /hpf Ur Squamous Epith Cells 5-10 H (0-5) /hpf Amorphous Sediment Not Reportable Urine Bacteria Trace (NONE) /hpf Urine Mucus Trace /hpf Blood Type Rho(D) Type Antibody Screen 08/29/20 08/29/20 Range/Units 00:02 00:45 WBC (4.0-10.0) 10^3/ uL RBC (4.1-5.3) 10^6/u L Hgb (11.5-15.3) g/dL Hct (37.0-47.0) % MCV (81-99) fL MCH (28.0-34.0) pg MCHC (30.0-36.0) g/dL RDW (12.1-15.1) % Plt Count (130-400) 10^3/c mm MPV (7.4-10.4) fL Neut % (Auto) % Lymph % (Auto) % [place] % (Auto) % Eos % (Auto) % Baso % (Auto) % Neut # (Auto) (1.8-7.7) 10^3/u L Lymph # (Auto) (0.8-4.8) 10^3/u L [place] # (Auto) (0.2-0.9) 10^3/u L Eos # (Auto) (0.0-0.8) 10^3/u L Baso # (Auto) (0.0-0.1) 10^3/u L Nucleated RBC % (a uto) % Nucleated RBCs # /100WBC Sodium (136-145) mmol/L Potassium (3.5-5.1) mmol/L Chloride (98-107) mmol/L Carbon Dioxide (22-29) mmol/L Anion Gap (5-19) BUN (8-23) mg/dL Creatinine (0.5-0.9) mg/dL GFR Calculation Glucose (65-115) mg/dL Calculated Osmolal ity (285-295) mOsm/k g Lactic Acid 0.5 (0.5-2.2) mmol/L Calcium (8.5-10.5) mg/dL Total Bilirubin (0.15-1.2) mg/dL AST (0-32) U/L ALT (0-33) U/L Alkaline Phosphata se (35-105) IU/L Total Protein (6.6-8.7) g/dL Albumin (3.5-5.2) g/dL Globulin (1.3-4.6) g/dL Urine Color (Yellow) Urine Appearance (CLEAR) Urine pH (5-7) Ur Specific Gravit y (1.005-1.030) Urine Protein (Negative) Urine Glucose (UA) (Normal) Urine Ketones (Negative) Urine Blood (Negative) Urine Nitrate (Negative) Urine Bilirubin (Negative) Urine Urobilinogen (Negative) mg/dL Ur Leukocyte Myrna ase (Negative) Urine RBC (0-2) /hpf Urine WBC (0-5) /hpf Ur Squamous Epith Cells (0-5) /hpf Amorphous Sediment Urine Bacteria (NONE) /hpf Urine Mucus /hpf Blood Type O Positive Rho(D) Type Positive Antibody Screen Negative Imaging Data^: CT Head: Attestation: I personally reviewed and interpreted this imaging study as follows: Radiologist's impression: [address] [place] [address] CT Scan Report Signed Patient: Velasquez Montano Unit #: [id number] : 1940 Age/Sex: 80 / F ADM Date: 08/28/20 Loc: ER Room/Bed: Attending Dr: Ordering Provider/Ordering MD: Emmanuel Trinidad Date of Service: 08/28/20 Procedure(s): CT head wo con* [id number] Accession Number(s): [id number] Report Number: [id number] PROCEDURE INFORMATION: Exam: CT Head Without Contrast Exam date and time: 08/28/2020 9:58 PM Age: 80 years old Clinical indication: Altered mental status/memory loss; Confusion or disorientation; Patient HX: AMS confusion hallucinations TECHNIQUE: Imaging protocol: Computed tomography of the head without contrast. Radiation optimization: All CT scans at this facility use at least one of these dose optimization techniques: automated exposure control; mA and/or kV adjustment per patient size (includes targeted exams where dose is matched to clinical indication); or iterative reconstruction. ADDITIONAL STUDY INFORMATION: Total DLP (mGy-cm): 716.31 COMPARISON: CT head wo con* [id number] 07/07/2019 8:17 PM FINDINGS: There is moderate low density in the bilateral periventricular white matter which may represent chronic small vessel ischemic disease in the appropriate clinical setting. The possibility of superimposed acute infarctions cannot be excluded; consider MRI brain (including diffusion images) for further assessment if clinically warranted and if patient has no contraindication to MRI. There are prominent intracranial arterial calcifications. Mild basal ganglia calcifications are likely physiologic. There is [id number] cerebral cortical volume loss. Ventricles do not appear significantly dilated. No depressed calvarial fracture is demonstrated. There is prominent opacification in visualized right mastoid air cells, may indicate fluid from inflammation/infection. Visualized paranasal sinuses and left mastoid air cells demonstrate no significant opacification. CT/CT head wo con* [id number] IMPRESSION: Probable chronic ischemic changes as discussed above. There is prominent opacification in visualized right mastoid air cells, may indicate fluid from inflammation/infection. Radiation Dose CTDIVOL = (mGy): DLP = 716.31 (mGy-cm) Dictated By: Chuy Valverde MD Signed By: Chuy Valverde MD Signed Date/Time: 08/28/202229 DD/ 28 EKG Data^: EKG 1: Attestation: I personally reviewed and interpreted this EKG as follows: EKG interpretation date: 08/29/20 Interpretation: No ST segment elevation or depression seen. Normal sinus rhythm, 76 bpm. Discharge Plan Discharge Admit Provider: Liliana Toledo Coding Level of Care Code ED Sales Operations Manager for Chg Fwd Exam Comprehensive Documented by User: Manish Akbar DO 08/29/20 02:27 HPI - Altered Mental Status General: Chief Complaint: Altered Mental Status Stated Complaint: UTI, CONFUSION Time Seen by Provider: 08/28/20 21:34 PFS ED PFSH: Medical History Adenomatous polyp 2011 found on surveillance colonoscopy Bipolar disorder Breast cancer Status post lumpectomy/radiation 1999 followed by adjuvant tamoxifen C. 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 Chronic fatigue CKD (chronic kidney disease), stage IV COPD (chronic obstructive pulmonary disease) Oxygen dependent DNR (do not resuscitate) Hallucinations Did not tolerate Parkinson's medications in the past when this diagnosis was being entertained, discontinued hydrocodone, no organic etiology found Mastoiditis Right-sided mastoiditis, present on MRI 2015 as well Porencephalic cyst Temporal lobe Senile dementia Daughter has requested that dementia should not be mentioned to her mother because of risk of worsening of her depression considering bipolar disorder Sleep apnea Surgical History History of low anterior resection of rectum Family History Other Family history non-contributory Social History Smoking and tobacco status: former smoker Alcohol intake: never Substance/Drug Use: never Household members: family Housing: House Course Consultations: Consultation #1: arleen Time: 02:14 Vital Signs: Vital signs: Vital Signs Temperature 98.2 F 08/28/20 21:33 Pulse Rate 78 08/29/20 01:04 Respiratory Rate 18 08/29/20 01:04 Blood Pressure 197/73 08/29/20 01:04 Pulse Oximetry 100 08/29/20 01:04 MDM - Altered Mental Status MDM Narrative: Medical decision making narrative: This patient was originally seen and evaluated by Mr. Vivi PA-C. I agree with his history, evaluation, and work-up. She is a 80-year-old female with chronic renal insufficiency. She presents with worsening mental status. She had been treated as an outpatient for urinary tract infection 2 days ago, and has had a couple of doses of antibiotics. She continued to have mental status changes and generalized weakness. Her hemoglobin is 8.2. Her potassium is 5.9. Her creatinine is 2.2. She has received some IV fluid here. Her urinalysis looks improved in terms of infection, but may be incompletely treated. She will be observed, potassium rechecked, hemoglobin rechecked in case of need for transfusion. Lab Data: Labs: Lab Results 08/28/20 08/28/20 08/28/20 Range/Units 22:10 22:35 22:35 WBC 6.4 (4.0-10.0) 10^3/ uL RBC 2.41 L (4.1-5.3) 10^6/u L Hgb 8.2 L (11.5-15.3) g/dL Hct 27.7 L (37.0-47.0) % MCV 114.9 H (81-99) fL MCH 34.0 (28.0-34.0) pg MCHC 29.6 L (30.0-36.0) g/dL RDW 12.3 (12.1-15.1) % Plt Count 125 L (130-400) 10^3/c mm MPV 11.3 H (7.4-10.4) fL Neut % (Auto) 53.6 % Lymph % (Auto) 33.5 % [place] % (Auto) 11.2 % Eos % (Auto) 1.1 % Baso % (Auto) 0.3 % Neut # (Auto) 3.45 (1.8-7.7) 10^3/u L Lymph # (Auto) 2.2 (0.8-4.8) 10^3/u L [place] # (Auto) 0.7 (0.2-0.9) 10^3/u L Eos # (Auto) 0.1 (0.0-0.8) 10^3/u L Baso # (Auto) 0.0 (0.0-0.1) 10^3/u L Nucleated RBC % (a uto) 0 % Nucleated RBCs # 0.0 /100WBC Sodium 143 (136-145) mmol/L Potassium 5.9 H (3.5-5.1) mmol/L Chloride 104 (98-107) mmol/L Carbon Dioxide 33 H (22-29) mmol/L Anion Gap 11.9 (5-19) BUN 27 H (8-23) mg/dL Creatinine 2.2 H (0.5-0.9) mg/dL GFR Calculation Not Reportable Glucose 115 (65-115) mg/dL Calculated Osmolal ity 302 H (285-295) mOsm/k g Lactic Acid (0.5-2.2) mmol/L Calcium 10.7 H (8.5-10.5) mg/dL Total Bilirubin 0.2 (0.15-1.2) mg/dL AST 16 (0-32) U/L ALT 6 (0-33) U/L Alkaline Phosphata se 64 (35-105) IU/L Total Protein 6.1 L (6.6-8.7) g/dL Albumin 3.4 L (3.5-5.2) g/dL Globulin 2.7 (1.3-4.6) g/dL Urine Color Yellow (Yellow) Urine Appearance Clear (CLEAR) Urine pH 7 (5-7) Ur Specific Gravit y 1.005 (1.005-1.030) Urine Protein Trace (Negative) Urine Glucose (UA) Norm (Normal) Urine Ketones Negative (Negative) Urine Blood Neg (Negative) Urine Nitrate Negative (Negative) Urine Bilirubin Neg (Negative) Urine Urobilinogen Norm (Negative) mg/dL Ur Leukocyte Myrna ase Negative (Negative) Urine RBC 0-4 H (0-2) /hpf Urine WBC 0-4 H (0-5) /hpf Ur Squamous Epith Cells 5-10 H (0-5) /hpf Amorphous Sediment Not Reportable Urine Bacteria Trace (NONE) /hpf Urine Mucus Trace /hpf Blood Type Rho(D) Type Antibody Screen 08/29/20 08/29/20 Range/Units 00:02 00:45 WBC (4.0-10.0) 10^3/ uL RBC (4.1-5.3) 10^6/u L Hgb (11.5-15.3) g/dL Hct (37.0-47.0) % MCV (81-99) fL MCH (28.0-34.0) pg MCHC (30.0-36.0) g/dL RDW (12.1-15.1) % Plt Count (130-400) 10^3/c mm MPV (7.4-10.4) fL Neut % (Auto) % Lymph % (Auto) % [place] % (Auto) % Eos % (Auto) % Baso % (Auto) % Neut # (Auto) (1.8-7.7) 10^3/u L Lymph # (Auto) (0.8-4.8) 10^3/u L [place] # (Auto) (0.2-0.9) 10^3/u L Eos # (Auto) (0.0-0.8) 10^3/u L Baso # (Auto) (0.0-0.1) 10^3/u L Nucleated RBC % (a uto) % Nucleated RBCs # /100WBC Sodium (136-145) mmol/L Potassium (3.5-5.1) mmol/L Chloride (98-107) mmol/L Carbon Dioxide (22-29) mmol/L Anion Gap (5-19) BUN (8-23) mg/dL Creatinine (0.5-0.9) mg/dL GFR Calculation Glucose (65-115) mg/dL Calculated Osmolal ity (285-295) mOsm/k g Lactic Acid 0.5 (0.5-2.2) mmol/L Calcium (8.5-10.5) mg/dL Total Bilirubin (0.15-1.2) mg/dL AST (0-32) U/L ALT (0-33) U/L Alkaline Phosphata se (35-105) IU/L Total Protein (6.6-8.7) g/dL Albumin (3.5-5.2) g/dL Globulin (1.3-4.6) g/dL Urine Color (Yellow) Urine Appearance (CLEAR) Urine pH (5-7) Ur Specific Gravit y (1.005-1.030) Urine Protein (Negative) Urine Glucose (UA) (Normal) Urine Ketones (Negative) Urine Blood (Negative) Urine Nitrate (Negative) Urine Bilirubin (Negative) Urine Urobilinogen (Negative) mg/dL Ur Leukocyte Myrna ase (Negative) Urine RBC (0-2) /hpf Urine WBC (0-5) /hpf Ur Squamous Epith Cells (0-5) /hpf Amorphous Sediment Urine Bacteria (NONE) /hpf Urine Mucus /hpf Blood Type O Positive Rho(D) Type Positive Antibody Screen Negative Discharge Plan Discharge Admit Provider: Liliana Toledo Coding Level of Care Code ED Sales Operations Manager for Chg Fwd Exam Comprehensive
[2020-08-28 22:22] VITALS: BP 188/92; PULSE 77; RESP 18; O2SAT 100
[2020-08-28 22:44] LABS: Basophils % 0.3 %; Eosinophils # 0.1 10^3/uL (0.0-0.8); Eosinophils % 1.1 %; Hematocrit 27.7 % (37.0-47.0); Hemoglobin 8.2 g/dL (11.5-15.3); Lymphocytes # 2.2 10^3/uL (0.8-4.8); Lymphocytes % 33.5 %; Mean Corpuscular HGB Conc 29.6 g/dL (30.0-36.0); Mean Corpuscular Volume 114.9 fL (81-99); Mean Platelet Volume 11.3 fL (7.4-10.4); Monocytes # 0.7 10^3/uL (0.2-0.9); Monocytes % 11.2 %; Neutrophils # 3.45 10^3/uL (1.8-7.7); Neutrophils % 53.6 %; Nucleated Red Blood Cells % 0 %; Platelet Count 125 10^3/cmm (130-400); Red Blood Count 2.41 10^6/uL (4.1-5.3); Red Cell Distribution Width 12.3 % (12.1-15.1); White Blood Count 6.4 10^3/uL (4.0-10.0)
[2020-08-28] MEDS: sodium chloride 0.9% 500 ML IV (22:49)
[2020-08-28 23:00] LABS: Alanine Aminotransferase 6 U/L (0-33); Albumin Level 3.4 g/dL (3.5-5.2); Alkaline Phosphatase 64 IU/L (35-105); Anion Gap 11.9 (5-19); Aspartate Amino Transferase 16 U/L (0-32); Blood Urea Nitrogen 27 mg/dL (8-23); Calcium 10.7 mg/dL (8.5-10.5); Carbon Dioxide 33 mmol/L (22-29); Chloride 104 mmol/L (98-107); Globulin 2.7 g/dL (1.3-4.6); Glucose 115 mg/dL (65-115); Osmolality Calculated 302 mOsm/kg (285-295); Potassium 5.9 mmol/L (3.5-5.1); Sodium 143 mmol/L (136-145); Total Bilirubin 0.2 mg/dL (0.15-1.2); Total Protein 6.1 g/dL (6.6-8.7)
[2020-08-28 23:02] LABS: Bilirubin Urine Neg (Negative); Blood Urine Neg (Negative); Glucose Urine UA Norm (Normal); Ketones Urine Negative (Negative); Leukocyte Esterase Urine Negative (Negative); Nitrate Urine Negative (Negative); Protein Urine Trace (Negative); Specific Gravity, Urine 1.005 (1.005-1.030); Urine Appearance Clear (CLEAR); Urine Color Yellow (Yellow); Urobilinogen Urine Norm (Negative); pH Urine 7 (5-7)
[2020-08-28 23:03] LABS: Add Urine Culture? No; Bacteria Urine TRACE /hpf; Mucus Urine TRACE /hpf; RBC Urine 0-4 /hpf (0-2); WBC Urine 0-4 /hpf (0-5)
[2020-08-28 23:14] VITALS: BP 163/74; PULSE 78; O2SAT 100
--- NOTE | 2020-08-28 23:40 | ECG_ITS ---
[facility] Test Date: 2020-08-29 Pat Name: Velasquez Montano Department: Room: Gender: Female Leadership Intern: : 1940 Requested By: Emmanuel Trinidad Order Number: [id number] Caroline MD: Yanick Cash M.D. Measurements Intervals [place] Rate: 72 P: -1 VA: 135 QRS: 45 QRSD: 86 T: 53 QT: 390 QTc: 427 Interpretive Statements SINUS RHYTHM WITH SINUS ARRHYTHMIA Compared to ECG 12/03/2019 13:18:41 No significant changes Electronically Signed On 08-29-2020 21:37:59 CDT by Yanick Cash M.D. [id number] [email or web address]
[2020-08-29] VITALS (13 sets, daily range): BP systolic 133–197; BP diastolic 59–82; PULSE 69–90; RESP 15–20; TEMP 36.2–36.9; O2SAT 94–100
[2020-08-29 01:13] LABS: Lactic Sepsis W/Reflex 0.5 mmol/L (0.5-2.2)
--- NOTE | 2020-08-29 02:21 | PM.HP ---
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 Daughter is at the bedside who is endorsing that for last 1 week she has not been eating well, her p.o. intake has been decreased, she has been experiencing dysuria, to void urinary frequency and dysuria she has decreased her fluid intake, she has been experiencing visual hallucinations which are chronic, she is endorsing subjective fevers/hot flashes otherwise no nausea, vomiting, severe headache or blurry vision. No recent falls but has stumbled twice because of extreme weakness. No recent diarrhea, chest pain, shortness of breath. On Saturday she was put on Bactrim after 2-3 doses her antibiotics were changed to ciprofloxacin because of the chronic kidney disease history, daughter brought her here because of her worsening fatigue and lethargy Diagnostics in the ER revealed normal hemodynamics, she is afebrile, no leukocytosis, she is not septic, CT head shows chronic changes, patient is complaining of dysuria and frequency, no active signs of meningitis, Review of Systems Const: Reports: chills, body aches, change in appetite and fatigue; Denies: fever(s) Eyes: Denies: change in vision ENMT: Denies: throat pain Card: Denies: chest pain Resp: Denies: dyspnea GI: Reports: diarrhea; Denies: abdominal pain or nausea : Reports: difficulty voiding, dysuria, urinary frequency and urinary urgency; Denies: flank pain Musc: Reports: back pain, limited range of motion and muscle cramps Skin/Breast: Denies: rash Neuro: Reports: confusion and behavioral changes Psych: Reports: memory loss and visual hallucinations Endo: Reports: polyuria [place]/Lymph: Denies: easy bruising All/Imm: Denies: urticaria Medications/Allergies Home Medications Medication Instructions Recorded Confirmed Last Taken Type Senna-S 11/12/19 Unknown History acetaminophen 325 mg PO QID PRN 11/12/19 11/12/19 Unknown History allopurinol 100 mg PO DAILY 11/12/19 11/12/19 Unknown History atorvastatin 20 mg PO DAILY 11/12/19 11/12/19 Unknown History bisacodyl 10 mg [place] DAILY PRN 11/12/19 11/12/19 Unknown History budesonide 11/12/19 Unknown History citalopram mg 11/12/19 Unknown History divalproex 250 mg PO BID 11/12/19 11/12/19 Unknown History folic acid 1 mg PO DAILY 11/12/19 11/12/19 Unknown History furosemide 20 mg PO DAILY 11/12/19 11/12/19 Unknown History levalbuterol tartrate [Xopenex HFA] INHALATION 11/12/19 Unknown History metoprolol succinate 25 mg PO DAILY 11/12/19 11/12/19 Unknown History montelukast [Singulair] 10 mg PO DAILY 11/12/19 11/12/19 Unknown History montelukast [Singulair] 10 mg PO DAILY 11/12/19 11/12/19 Unknown History paricalcitol [Zemplar] 1 mcg PO DAILY 11/12/19 11/12/19 Unknown History ranitidine HCl 150 mg PO BID 11/12/19 11/12/19 Unknown History thiamine HCl (vitamin B1) 50 mg PO DAILY 11/12/19 11/12/19 Unknown History tuberculin PPD [Tubersol] INTRADERMAL 11/12/19 Unknown History umeclidinium [Incruse Ellipta] 1 inh INHALATION DAILY 11/12/19 11/12/19 Unknown History Allergies Allergy/AdvReac Type Severity Reaction Status Date / Time amoxicillin Allergy ALGY-Rash Verified 07/21/20 18:42 codeine Allergy ALGY-Rash Verified 07/21/20 18:42 Penicillins Allergy ALGY-Rash Verified 07/21/20 18:42 PFSH Acute PFSH: Medical History Adenomatous polyp 2011 found on surveillance colonoscopy Bipolar disorder Breast cancer Status post lumpectomy/radiation 1999 followed by adjuvant tamoxifen C. 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 Chronic fatigue CKD (chronic kidney disease), stage IV COPD (chronic obstructive pulmonary disease) Oxygen dependent Hallucinations Did not tolerate Parkinson's medications in the past when this diagnosis was being entertained, discontinued hydrocodone, no organic etiology found Mastoiditis Right-sided mastoiditis, present on MRI 2016 as well Porencephalic cyst Temporal lobe Senile dementia Daughter has requested that dementia should not be mentioned to her mother because of risk of worsening of her depression considering bipolar disorder Sleep apnea Surgical History History of low anterior resection of rectum Family History Other Family history non-contributory Social History Smoking and tobacco status: former smoker Alcohol intake: never Substance/Drug Use: never Household members: family Housing: House Vitals/I&O/Wt Last Vital Signs Temp 98.2 F 08/28/20 21:33 Pulse 78 08/29/20 01:04 Resp 18 08/29/20 01:04 BP 197/73 08/29/20 01:04 Pulse Ox 100 08/29/20 01:04 08/28/20 08/28/20 08/29/20 14:59 22:59 06:59 Intake Total 500 / 500 Balance 500 / 500 Weight last 48 hrs Weight 63.503 kg Physical Exam Narrative: EXAM NARRATIVE: Elderly female, lying comfortable in her bed She looks mildly dehydrated Negative Kernig's and Brudzinski sign Awake alert oriented x3 GCS 15, NIH score 0 Right mastoid area without tenderness, I did not appreciate pre or postauricular lymphadenopathy or any collection of abscess, S1, S2, sinus rhythm Abdomen soft nontender bowel sound present Lungs are clear to auscultation Skin does not show gangrene edema or ulcer Appropriate mood and affect Patient is able to tell me above-mentioned HPI, he seemed very concerned about her visual hallucinations and right ear tinnitus Data : 08/28/20 22:35 08/28/20 22:35 Micro: Microbiology 08/28/20 22:35 Blood Culture - Preliminary Blood SPECIMEN COLLECTED A&P Assessment and plan (1) UTI (urinary tract infection): Status: Acute (2) Visual hallucination: Status: Acute (3) Chronic mastoiditis: Status: Acute (4) Acute worsening of stage 4 chronic kidney disease: Status: Acute (5) Dehydration: Status: Acute (6) Hyperkalemia: Status: Acute Additional A&P Information UTI without sepsis Patient has been experiencing worsening of her visual hallucinations CT head showing chronic changes UA negative nitrites and leukocyte Estrace but patient is endorsing dysuria, urgency, frequency She is afebrile, I would use ceftriaxone for now, send urine culture Acute on chronic kidney disease stage IV Patient does not want to be on dialysis, acute worsening secondary to dehydration and recent use of, baseline creatinine seems to be around1.7-2 Avoid nephrotoxic agents, treat hyperkalemia with calcium gluconate, Kayexalate, no EKG changes of hyperkalemia Chronic mastoiditis: No otorrhea, She has been complaining of tinnitus, no signs of meningitis, she is not septic Might benefit from an ENT consult Senile dementia: Daughter is requesting that her mother should not be notified about dementia for risk of worsening of her depression considering bipolar history In the past Parkinson's disease diagnosis has been entertained, apparently she did not tolerate the medications well, Temporal porencephalic cyst noted Goals of care discussed with the patient and her daughter, DNR/DNI Regular diet DVT prophylaxis hep Attestations Medical Necessity Statement*: Anticipating discharge in less than 48 hours currently need management because of dehydration requiring IV fluids and ceftriaxone for UTI failed outpatient therapy Time Spent in Patient Care: (>than 50% of time spent in counselling and/or direct pt care on unit). 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
[2020-08-29] MEDS: sodium chloride 0.9% 1,000 ML 75 ML IV ×2 (04:56→17:37)
[2020-08-29] MEDS: heparin 5,000 unit/mL INJ 1 mL 5000 UNIT SUBCUT ×3 (04:56→20:13)
[2020-08-29] MEDS: sodium polystyrene sulfonate 15 gm/60 mL Btl PO (04:56)
[2020-08-29 06:35] LABS: Basophils % 0.2 %; Eosinophils # 0.1 10^3/uL (0.0-0.8); Eosinophils % 1.3 %; Hematocrit 28.4 % (37.0-47.0); Hemoglobin 8.3 g/dL (11.5-15.3); Lymphocytes # 2.4 10^3/uL (0.8-4.8); Lymphocytes % 36.9 %; Mean Corpuscular HGB Conc 29.2 g/dL (30.0-36.0); Mean Corpuscular Hemoglobin 34.2 pg (28.0-34.0); Mean Corpuscular Volume 116.9 fL (81-99); Mean Platelet Volume 10.9 fL (7.4-10.4); Monocytes # 0.7 10^3/uL (0.2-0.9); Monocytes % 10.2 %; Neutrophils # 3.27 10^3/uL (1.8-7.7); Neutrophils % 51.2 %; Nucleated Red Blood Cells % 0 %; Platelet Count 128 10^3/cmm (130-400); Red Blood Count 2.43 10^6/uL (4.1-5.3); Red Cell Distribution Width 12.4 % (12.1-15.1); White Blood Count 6.4 10^3/uL (4.0-10.0)
[2020-08-29] MEDS: hyDRALAzine 20 mg/mL INJ 1 mL 10 MG IVP ×2 (06:48→18:02)
[2020-08-29 06:59] LABS: Anion Gap 9.4 (5-19); Blood Urea Nitrogen 25 mg/dL (8-23); Calcium 11.2 mg/dL (8.5-10.5); Carbon Dioxide 35 mmol/L (22-29); Chloride 104 mmol/L (98-107); Glucose 101 mg/dL (65-115); Osmolality Calculated 301 mOsm/kg (285-295); Potassium 5.4 mmol/L (3.5-5.1); Sodium 143 mmol/L (136-145)
[2020-08-29] MEDS: cefTRIAXone 1,000 MG in sodium chloride 0.9% (plus) 50 ML 100 MG IV (08:25)
[2020-08-29] MEDS: phenazopyridine 100 mg Tablet PO ×2 (08:25→17:37)
[2020-08-29] MEDS: allopurinol 100 mg Tablet PO (08:25)
[2020-08-29] MEDS: cyanocobalamin 1,000 mcg Tablet 500 MCG PO (08:26)
[2020-08-29] MEDS: metoprolol succinate ER (24 HR) 25 mg Tablet PO (08:26)
[2020-08-29] MEDS: acetaminophen 325 mg Tablet 650 MG PO ×2 (08:40→22:08)
--- NOTE | 2020-08-29 09:51 | PC.CHAP ---
Pastoral Care Encounter/Spiritual Assessment Type of Contact [] Declined solar energy systems designer visit [] Patient/Family/Request visit [] Outpatient visit [] Follow-up visit [] Physician referral [] Code/Alert [x] Routine visit [] Staff referral [] Actively dying [] Patient sleeping [] Family support [] [] Out of room [] Palliative care [] [] Receiving care in room [] Pre-surgical visit [] Trauma [] Long length of stay [] ICU visit [] Other: Relational/Emotional Strength [] Patient feels connected with others/family/visitors/staff [] Distress [] Loneliness/isolation [] Abandonment Spirituality of Patient [] Person of Brandy [] Attends Christian of their Brandy [] Believes in Prayer [] Reads Bible or Scientology materials [] There are Spiritual issues to be addressed Office Service Coordinator Interventions [x] Prayer [x] Active listening [x] Non-anxious presence [x] Spiritual/emotional support [] Crisis/trauma care [] Spiritual counseling [] Bereavement support [] Provided bereavement packet [] Provided Bible/devotional materials [] Provided toy/stuffed animal, coloring book to patient or family member [] Provided Communion [] Anointing/[place] [] Salvation [x] Completed spiritual assessment [] Other: Impact on Illness or Injury [] Angry [] Fearful [] Anxious [] Often cries [] Exhaustion [] Unable to work [] Unable to attend adventist [] Unable to walk/stand [] Unable to read [] Unable to drive [] Unable to eat/drink [] Unable to sleep [] Unable to be with family [] Patient intubated [] Other: Summary delightful patient. prayed for clarity and strength Time spent with patient 10 min
--- NOTE | 2020-08-29 11:31 | P.PN_ITS ---
Subjective Subjective: Interval history: Patient reports feeling much better. She is alert and oriented x3. She was able to recall name of president. Reports that she continues to have burning on urination. Denies shortness of breath or chest pain. Vitals/I&O/Wt Last Vital Signs Temp 98.3 F 08/29/20 11:14 Pulse 71 08/29/20 11:14 Resp 20 H 08/29/20 11:14 BP 135/59 08/29/20 11:14 Pulse Ox 98 08/29/20 11:14 08/28/20 08/29/20 08/29/20 22:59 06:59 14:59 Intake Total 500 / 500 120 / 120 Output Total 100 / 100 700 / 700 Balance 400 / 400 -580 / -580 Weight last 48 hrs Weight 63.503 kg Physical Exam Const: COMMON NORMALS: no acute distress and patient oriented x3 Resp: COMMON NORMALS: normal respiratory effort and clear to auscultation bilaterally AUSCULTATION: clear to auscultation bilaterally Cardio: COMMON NORMALS: regular rate, regular rhythm and S2 normal heart sound present RATE: regular rate RHYTHM: regular rhythm HEART SOUNDS: S2 normal heart sound present OTHER: No lower extremity edema GI: COMMON NORMALS: Normal to inspection, nondistended, normoactive bowel soun ds present, Soft to palpation and non-tender PALPATION: Yes Soft to palpation Neuro: COMMON NORMALS: patient oriented x3 and no focal motor deficits Data : 08/29/20 06:26 08/29/20 06:26 Micro: Microbiology 08/28/20 22:35 Blood Culture - Preliminary Blood SPECIMEN COLLECTED A&P Assessment and plan (1) UTI (urinary tract infection): Failed outpatient therapy. Status: Acute (2) Visual hallucination: This is likely due to UTI related toxic metabolic encephalopathy Status: Acute (3) Chronic mastoiditis: Status: Acute (4) Dehydration: Status: Acute (5) Hyperkalemia: Status: Acute (6) Acute kidney injury superimposed on chronic kidney disease: Present on admission. Status: Acute Additional A&P Information UTI without sepsis Patient has been experiencing worsening of her visual hallucinations CT head showing chronic changes UA negative nitrites and leukocyte Estrace but patient is endorsing dysuria, urgency, frequency She is afebrile, I would use ceftriaxone for now, send urine culture Acute on chronic kidney disease stage IV Patient does not want to be on dialysis, acute worsening secondary to dehydration and recent use of, baseline creatinine seems to be around1.7-2 Avoid nephrotoxic agents, treat hyperkalemia with calcium gluconate, Kayexalate, no EKG changes of hyperkalemia Chronic mastoiditis: No otorrhea, She has been complaining of tinnitus, no signs of meningitis, she is not septic Might benefit from an ENT consult Senile dementia: Daughter is requesting that her mother should not be notified about dementia for risk of worsening of her depression considering bipolar history In the past Parkinson's disease diagnosis has been entertained, apparently she did not tolerate the medications well, Temporal porencephalic cyst noted Thrombocytopenia, likely secondary to infection Chronic macrocytic anemia. Hypercalcemia, most likely due to dehydration Goals of care discussed with the patient and her daughter, DNR/DNI Regular diet DVT prophylaxis hep PLAN: Patient failed outpatient therapy therefore I will change admission status to inpatient as I expect patient will require more than 2 midnights. Request physical therapy and continue close monitoring and treatment. Switch B12 to injections while she is hospitalized. Continue ceftriaxone and monitoring patient's response to try transitioning to oral antibiotic. If blood pressure improves will try Flomax to hopefully avoid future UTIs. Continue IV fluids and monitor urinary output. Attestations Medical Necessity Statement*: Patient with UTI failing outpatient therapy as well as what appears to be related toxic metabolic encephalopathy requires close inpatient monitoring and treatment. 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 Fwd Diagnoses UTI (urinary tract infection) N39.0 Visual hallucination R44.1 Chronic mastoiditis H70.10 Dehydration E86.0 Hyperkalemia E87.5 Acute kidney injury superimposed on chronic kidney disease N17.9; N18.9
--- NOTE | 2020-08-29 11:46 | PC.RESP ---
PULMONARY REHAB INFORMATION SENT TO PATIENT.
--- NOTE | 2020-08-29 18:00 | PC.PT ---
PT NOTE; UNABLE TO AROUSE Pt X 2 ATTEMPTS,SLEEPING SOUNDLY,WILL RE-ATTEMPT IN AM.
--- NOTE | 2020-08-29 18:06 | PC.NURSE ---
End of Shift note: Patient is alert and oriented x4. BP has been elevated and received a PRN order to treat BP's above 160/100. One dose was given at 1800. Patient has c/o headache x2 today and given tylenol. Patient remains tired and has slept off and on all day today. Side note is that patient was in ER until 4am. Physical Therapy will see patient tomorrow due to patients fatigue. Patient is up to commode with assistance and walker. She is continent of bowels and bladder. Patient did have a medium formed BM this shift. Patient did not eat breakfast well only 25% and Lunch only 25% with good oral intake. Patient did eat 75% of dinner and oral intake was 720ml. Daughter called patient and this nurse was in the room and daughter Funmilayo spoke with me and requested to be called tonight with any updates or increased confusion. She states she does not know she Dementia and states she asked physician last noc to not say Dementia in front of the patient. Will continue to closely monitor patient. DERECK, SUMIT
[2020-08-30] VITALS (8 sets, daily range): BP systolic 124–177; BP diastolic 57–74; PULSE 74–87; RESP 14–22; TEMP 36.5–37; O2SAT 97–100
[2020-08-30] MEDS: hyDRALAzine 20 mg/mL INJ 1 mL 10 MG IVP (01:16)
[2020-08-30] MEDS: heparin 5,000 unit/mL INJ 1 mL 5000 UNIT SUBCUT ×3 (03:17→20:52)
[2020-08-30] MEDS: acetaminophen 325 mg Tablet 650 MG PO (03:50)
[2020-08-30] MEDS: sodium chloride 0.9% 1,000 ML 75 ML IV ×2 (05:26→20:51)
--- NOTE | 2020-08-30 05:28 | PC.NURSE ---
SHIFT SUMMARY Has rested for intervals. Has c/o throbbing headache and received po Tylenol X2. prn Hydralazine was given X1 for BP with good result. Says she just generally does not feel well and sometimes just asks that the nurse stay with her for awhile. Is easily SOB when up to BSC. Unsteady with walker and one assist. IV infusing at 75ml/hr rate. Has not been confused.
[2020-08-30 09:31] LABS: Basophils % 0.2 %; Eosinophils # 0.1 10^3/uL (0.0-0.8); Eosinophils % 1.2 %; Hematocrit 28.8 % (37.0-47.0); Hemoglobin 8.4 g/dL (11.5-15.3); Lymphocytes # 1.4 10^3/uL (0.8-4.8); Lymphocytes % 25.5 %; Mean Corpuscular HGB Conc 29.2 g/dL (30.0-36.0); Mean Corpuscular Hemoglobin 34.3 pg (28.0-34.0); Mean Corpuscular Volume 117.6 fL (81-99); Mean Platelet Volume 11.1 fL (7.4-10.4); Monocytes # 0.4 10^3/uL (0.2-0.9); Monocytes % 7.5 %; Neutrophils # 3.66 10^3/uL (1.8-7.7); Neutrophils % 65.2 %; Nucleated Red Blood Cells % 0 %; Platelet Count 140 10^3/cmm (130-400); Red Blood Count 2.45 10^6/uL (4.1-5.3); Red Cell Distribution Width 12.6 % (12.1-15.1); White Blood Count 5.6 10^3/uL (4.0-10.0)
--- NOTE | 2020-08-30 09:46 | PC.CHAP ---
Pastoral Care Encounter/Spiritual Assessment Type of Contact [] Declined brand ambassadors promotional sales visit [] Patient/Family/Request visit [] Outpatient visit [] Follow-up visit [] Physician referral [] Code/Alert x[x] Routine visit [] Staff referral [] Actively dying [] Patient sleeping [] Family support [] [] Out of room [] Palliative care [] [] Receiving care in room [] Pre-surgical visit [] Trauma [] Long length of stay [] ICU visit [] Other: Relational/Emotional Strength [x] Patient feels connected with others/family/visitors/staff [] Distress [] Loneliness/isolation [] Abandonment Spirituality of Patient [] Person of Brandy [] Attends Orthodox of their Brandy [x] Believes in Prayer [] Reads Bible or Sikhism materials [] There are Spiritual issues to be addressed Wound/Ostomy Clinical Nurse Specialist Interventions [x] Prayer [] Active listening [] Non-anxious presence [] Spiritual/emotional support [] Crisis/trauma care [] Spiritual counseling [] Bereavement support [] Provided bereavement packet [] Provided Bible/devotional materials [] Provided toy/stuffed animal, coloring book to patient or family member [] Provided Communion [] Anointing/[place] [] Salvation [] Completed spiritual assessment [] Other: Impact on Illness or Injury [] Angry [] Fearful [] Anxious [] Often cries [] Exhaustion [] Unable to work [] Unable to attend adventist [] Unable to walk/stand [] Unable to read [] Unable to drive [] Unable to eat/drink [] Unable to sleep [] Unable to be with family [] Patient intubated [] Other: Summary patient eating better today and feel better Time spent with patient 20 min
[2020-08-30 09:53] LABS: Alanine Aminotransferase 6 U/L (0-33); Albumin Level 3.5 g/dL (3.5-5.2); Alkaline Phosphatase 62 IU/L (35-105); Anion Gap 11.6 (5-19); Aspartate Amino Transferase 15 U/L (0-32); Blood Urea Nitrogen 24 mg/dL (8-23); Calcium 10.5 mg/dL (8.5-10.5); Carbon Dioxide 32 mmol/L (22-29); Chloride 104 mmol/L (98-107); Globulin 2.6 g/dL (1.3-4.6); Glucose 123 mg/dL (65-115); Osmolality Calculated 301 mOsm/kg (285-295); Potassium 4.6 mmol/L (3.5-5.1); Sodium 143 mmol/L (136-145); Total Bilirubin 0.2 mg/dL (0.15-1.2); Total Protein 6.1 g/dL (6.6-8.7)
[2020-08-30] MEDS: cyanocobalamin 1,000 mcg Tablet 500 MCG PO (10:06)
[2020-08-30] MEDS: cyanocobalamin 1,000 mcg/mL SDV 1000 MCG IM (10:06)
[2020-08-30] MEDS: metoprolol succinate ER (24 HR) 25 mg Tablet PO (10:07)
[2020-08-30] MEDS: cefTRIAXone 1,000 MG in sodium chloride 0.9% (plus) 50 ML 100 MG IV (10:07)
[2020-08-30] MEDS: phenazopyridine 100 mg Tablet PO ×2 (10:07→18:59)
[2020-08-30] MEDS: allopurinol 100 mg Tablet PO (10:07)
--- NOTE | 2020-08-30 14:24 | P.PN_ITS ---
Subjective Subjective: Interval history: Denies shortness of breath or chest pain. Reports generally being weak but otherwise denies any complaints. She required assistance per PT notes. Reports normal appetite and was eating breakfast this morning during my evaluation. Platelets further improved and appears that patient is responding to antibiotic well. Vitals/I&O/Wt Last Vital Signs Temp 98.4 F 08/30/20 12:00 Pulse 77 08/30/20 12:00 Resp 14 08/30/20 12:00 BP 154/71 08/30/20 12:00 Pulse Ox 100 08/30/20 12:00 08/29/20 08/30/20 08/30/20 22:59 06:59 14:59 Intake Total 1791.25 / 1961.25 1086.25 / 3047.50 480 / 480 Output Total 500 / 1500 500 / 2000 300 / 300 Balance 1291.25 / 461.25 586.25 / 1047.50 180 / 180 Weight last 48 hrs Weight 63.503 kg Physical Exam Const: COMMON NORMALS: no acute distress and patient oriented x3 Resp: COMMON NORMALS: normal respiratory effort and clear to auscultation bilaterally AUSCULTATION: clear to auscultation bilaterally Cardio: COMMON NORMALS: regular rate, regular rhythm and S2 normal heart sound present RATE: regular rate RHYTHM: regular rhythm HEART SOUNDS: S2 normal heart sound present OTHER: No lower extremity edema GI: COMMON NORMALS: Normal to inspection, nondistended, normoactive bowel sounds present, Soft to palpation and non-tender PALPATION: Yes Soft to palpation Neuro: COMMON NORMALS: patient oriented x3 and no focal motor deficits Data : 08/30/20 09:20 08/30/20 09:20 Micro: Microbiology 08/28/20 22:35 Blood Culture - Preliminary Blood NEGATIVE TO DATE A&P Assessment and plan (1) UTI (urinary tract infection): Failed outpatient therapy. Status: Acute (2) Visual hallucination: This is likely due to UTI related toxic metabolic encephalopathy Status: Acute (3) Chronic mastoiditis: Status: Acute (4) Dehydration: Status: Acute (5) Hyperkalemia: Status: Acute (6) Acute kidney injury superimposed on chronic kidney disease: Present on admission. Status: Acute Additional A&P Information UTI without sepsis Patient has been experiencing worsening of her visual hallucinations CT head showing chronic changes UA negative nitrites and leukocyte Estrace but patient is endorsing dysuria, urgency, frequency She is afebrile, I would use ceftriaxone for now, send urine culture Acute on chronic kidney disease stage IV Patient does not want to be on dialysis, acute worsening secondary to dehydration and recent use of, baseline creatinine seems to be around1.7-2 Avoid nephrotoxic agents, treat hyperkalemia with calcium gluconate, Kayexalate, no EKG changes of hyperkalemia Chronic mastoiditis: No otorrhea, She has been complaining of tinnitus, no signs of meningitis, she is not septic Might benefit from an ENT consult Senile dementia: Daughter is requesting that her mother should not be notified about dementia for risk of worsening of her depression considering bipolar history In the past Parkinson's disease diagnosis has been entertained, apparently she did not tolerate the medications well, Temporal porencephalic cyst noted Thrombocytopenia, likely secondary to infection Chronic macrocytic anemia. Hypercalcemia, most likely due to dehydration Generalized weakness. Goals of care discussed with the patient and her daughter, DNR/DNI Regular diet DVT prophylaxis hep PLAN: Continue current antibiotic. Discontinue IV fluids. Encouraged oral intake. Continue physical therapy. Attestations Medical Necessity Statement*: Patient with generalized weakness and UTI requires close inpatient monitoring and treatment till deemed safe for discharge. Coding Level of Care Code Acute Package Delivery Driver for [facility] [place] Diagnoses UTI (urinary tract infection) N39.0 Visual hallucination R44.1 Chronic mastoiditis H70.10 Dehydration E86.0 Hyperkalemia E87.5 Acute kidney injury superimposed on chronic kidney disease N17.9; N18.9
[2020-08-31] VITALS (9 sets, daily range): BP systolic 153–185; BP diastolic 61–76; PULSE 65–92; RESP 16–23; TEMP 36.4–37.2; O2SAT 94–100
[2020-08-31] MEDS: heparin 5,000 unit/mL INJ 1 mL 5000 UNIT SUBCUT ×2 (03:16→11:02)
[2020-08-31] MEDS: acetaminophen 325 mg Tablet 650 MG PO (04:15)
[2020-08-31 04:46] LABS: Basophils % 0.4 %; Eosinophils # 0.1 10^3/uL (0.0-0.8); Eosinophils % 1.1 %; Hematocrit 27.2 % (37.0-47.0); Hemoglobin 7.8 g/dL (11.5-15.3); Lymphocytes # 1.5 10^3/uL (0.8-4.8); Lymphocytes % 27.2 %; Mean Corpuscular HGB Conc 28.7 g/dL (30.0-36.0); Mean Corpuscular Hemoglobin 34.2 pg (28.0-34.0); Mean Corpuscular Volume 119.3 fL (81-99); Mean Platelet Volume 11.9 fL (7.4-10.4); Monocytes # 0.5 10^3/uL (0.2-0.9); Monocytes % 8.8 %; Neutrophils # 3.45 10^3/uL (1.8-7.7); Neutrophils % 62.1 %; Nucleated Red Blood Cells % 0 %; Platelet Count 109 10^3/cmm (130-400); Red Blood Count 2.28 10^6/uL (4.1-5.3); Red Cell Distribution Width 12.7 % (12.1-15.1); White Blood Count 5.6 10^3/uL (4.0-10.0)
[2020-08-31 05:08] LABS: Alanine Aminotransferase 12 U/L (0-33); Albumin Level 3.3 g/dL (3.5-5.2); Alkaline Phosphatase 62 IU/L (35-105); Blood Urea Nitrogen 23 mg/dL (8-23); Calcium 9.9 mg/dL (8.5-10.5); Carbon Dioxide 31 mmol/L (22-29); Chloride 105 mmol/L (98-107); Globulin 2.4 g/dL (1.3-4.6); Glucose 101 mg/dL (65-115); Magnesium 1.5 mg/dL (1.7-2.3); Osmolality Calculated 296 mOsm/kg (285-295); Sodium 141 mmol/L (136-145); Total Bilirubin 0.2 mg/dL (0.15-1.2); Total Protein 5.7 g/dL (6.6-8.7)
[2020-08-31 05:12] LABS: Anion Gap 9.6 (5-19); Aspartate Amino Transferase 15 U/L (0-32); Potassium 4.6 mmol/L (3.5-5.1)
[2020-08-31] MEDS: cyanocobalamin 1,000 mcg Tablet 500 MCG PO (08:29)
[2020-08-31] MEDS: cefTRIAXone 1,000 MG in sodium chloride 0.9% (plus) 50 ML 100 MG IV (08:29)
[2020-08-31] MEDS: phenazopyridine 100 mg Tablet PO ×2 (08:30→17:09)
[2020-08-31] MEDS: metoprolol succinate ER (24 HR) 25 mg Tablet PO (08:30)
[2020-08-31] MEDS: cyanocobalamin 1,000 mcg/mL SDV 1000 MCG IM (08:30)
[2020-08-31] MEDS: allopurinol 100 mg Tablet PO (08:30)
[2020-08-31] MEDS: sodium chloride 0.9% 1,000 ML 75 ML IV (08:41)
--- NOTE | 2020-08-31 09:12 | PC.RESP ---
PULMONARY REHAB INFORMATION SENT TO PATIENT.
--- NOTE | 2020-08-31 11:04 | PM.PN ---
Subjective Subjective: Interval history: Patient had some episodes of confusion this morning as per nursing personnel. She thought that she went down to eat. During my evaluation patient denies any shortness of breath or chest pain. Denies any abdominal pain. Reports that she has diarrhea although she did not have any bowel movement in the last 2 days per nursing personnel. She has been unsteady with physical therapy. She denies lightheadedness or dizziness. Reports that her appetite is getting better. She noted to have decline in her hemoglobin and platelets. Her kidney function slightly improved. Patient's history also significant for breast cancer and colon cancer. She had 30 radiation therapy to her breast. She had only partial colectomy but did not have any chemoradiation for her colon cancer. It appears that the patient's hallucinations improved. Patient likely has some dementia related episodic confusion which appears to be at baseline. I had discussion with patient's daughter Deb and updated her of patient's progress. Vitals/I&O/Wt Last Vital Signs Temp 97.9 F 08/31/20 11:02 Pulse 65 08/31/20 11:02 Resp 18 08/31/20 11:02 BP 153/75 08/31/20 11:02 Pulse Ox 100 08/31/20 11:02 08/30/20 08/31/20 08/31/20 22:59 06:59 14:59 Intake Total 925 / 1455 1007.5 / 1007.5 Output Total 400 / 700 900 / 1600 200 / 200 Balance 525 / 755 -900 / -145 807.5 / 807.5 Physical Exam Const: COMMON NORMALS: no acute distress and patient oriented x3 Resp: COMMON NORMALS: normal respiratory effort and clear to auscultation bilaterally AUSCULTATION: clear to auscultation bilaterally Cardio: COMMON NORMALS: regular rate, regular rhythm and S2 normal heart sound present RATE: regular rate RHYTHM: regular rhythm HEART SOUNDS: S2 normal heart sound present OTHER: No lower extremity edema GI: COMMON NORMALS: Normal to inspection, nondistended, normoactive bowel sounds present, Soft to palpation and non-tender PALPATION: Yes Soft to palpation Neuro: COMMON NORMALS: patient oriented x3 and no focal motor deficits Data : 08/31/20 04:14 08/31/20 04:14 A&P Assessment and plan (1) UTI (urinary tract infection): Failed outpatient therapy. Status: Acute (2) Visual hallucination: This is likely due to UTI related toxic metabolic encephalopathy Status: Acute (3) Chronic mastoiditis: Status: Acute (4) Dehydration: Status: Acute (5) Hyperkalemia: Status: Acute (6) Acute kidney injury superimposed on chronic kidney disease: Present on admission. Status: Acute Additional A&P Information UTI without sepsis Patient has been experiencing worsening of her visual hallucinations CT head showing chronic changes UA negative nitrites and leukocyte Estrace but patient is endorsing dysuria, urgency, frequency She is afebrile, I would use ceftriaxone for now, send urine culture Acute on chronic kidney disease stage IV Patient does not want to be on dialysis, acute worsening secondary to dehydration and recent use of, baseline creatinine seems to be around1.7-2 Avoid nephrotoxic agents, treat hyperkalemia with calcium gluconate, Kayexalate, no EKG changes of hyperkalemia Chronic mastoiditis: No otorrhea, She has been complaining of tinnitus, no signs of meningitis, she is not septic Might benefit from an ENT consult 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 Acute GI bleed on top of chronic anemia cannot be ruled out. Hypercalcemia, most likely due to dehydration Generalized weakness. Goals of care discussed with the patient and her daughter, DNR/DNI Regular diet DVT prophylaxis hep PLAN: Continue current antibiotic. We will try to call Dr. Rowan's office to find out urine culture results. Will discontinue heparin and continue monitoring hemoglobin and platelets. Patient's daughter Crystal reports that occasionally patient requires blood transfusion. If hemoglobin or platelets continue to decline will consider giving patient 1 unit of PRBC. Patient had previous history of folic acid deficiency therefore will start on replacement considering worsening macrocytosis Continue physical therapy. We will request patient's daughter be allowed to visit patient. Attestations Medical Necessity Statement*: Patient with complicated UTI and generalized weakness requires close inpatient monitoring and treatment until placement to nursing facility is arranged. Coding Level of Care Code Acute Equine Pharmacology Technician for g Fwd Diagnoses UTI (urinary tract infection) N39.0 Visual hallucination R44.1 Chronic mastoiditis H70.10 Dehydration E86.0 Hyperkalemia E87.5 Acute kidney injury superimposed on chronic kidney disease N17.9; N18.9
[2020-08-31] MEDS: magnesium sulfate premix 2 GM/50 ML PIGGYBACK IV (11:44)
[2020-08-31] MEDS: folic acid 1 mg Tablet PO (11:44)
[2020-08-31 14:09] LABS: SARS Covid-2 Antigen Negative (Negative)
[2020-09-01] VITALS (11 sets, daily range): BP systolic 107–190; BP diastolic 50–78; PULSE 65–91; RESP 16–32; TEMP 36.4–36.9; O2SAT 96–100
[2020-09-01] MEDS: hyDRALAzine 25 mg Tablet PO ×3 (01:05→14:24)
[2020-09-01] MEDS: sodium chloride 0.9% 1,000 ML 75 ML IV (01:05)
[2020-09-01] MEDS: acetaminophen 325 mg Tablet 650 MG PO ×2 (01:05→16:49)
--- NOTE | 2020-09-01 01:08 | PC.NURSE ---
Patient's blood pressure elevated. Nurse notified
[2020-09-01 05:13] LABS: Basophils % 0.1 %; Eosinophils % 0.1 %; Hematocrit 28.4 % (37.0-47.0); Hemoglobin 8.2 g/dL (11.5-15.3); Lymphocytes # 1.1 10^3/uL (0.8-4.8); Lymphocytes % 16.3 %; Mean Corpuscular HGB Conc 28.9 g/dL (30.0-36.0); Mean Corpuscular Volume 117.8 fL (81-99); Mean Platelet Volume 11.6 fL (7.4-10.4); Monocytes # 0.5 10^3/uL (0.2-0.9); Monocytes % 7.9 %; Neutrophils # 5.09 10^3/uL (1.8-7.7); Neutrophils % 74.9 %; Nucleated Red Blood Cells % 0 %; Platelet Count 124 10^3/cmm (130-400); Red Blood Count 2.41 10^6/uL (4.1-5.3); Red Cell Distribution Width 12.6 % (12.1-15.1); White Blood Count 6.8 10^3/uL (4.0-10.0)
[2020-09-01 05:45] LABS: Alanine Aminotransferase 17 U/L (0-33); Albumin Level 3.4 g/dL (3.5-5.2); Alkaline Phosphatase 70 IU/L (35-105); Anion Gap 10.7 (5-19); Aspartate Amino Transferase 23 U/L (0-32); Blood Urea Nitrogen 19 mg/dL (8-23); Calcium 10.6 mg/dL (8.5-10.5); Carbon Dioxide 31 mmol/L (22-29); Chloride 105 mmol/L (98-107); Globulin 2.7 g/dL (1.3-4.6); Glucose 131 mg/dL (65-115); Magnesium 1.9 mg/dL (1.7-2.3); Osmolality Calculated 298 mOsm/kg (285-295); Potassium 4.7 mmol/L (3.5-5.1); Sodium 142 mmol/L (136-145); Total Bilirubin 0.2 mg/dL (0.15-1.2); Total Protein 6.1 g/dL (6.6-8.7)
[2020-09-01] MEDS: ipratropium-albuterol 3 mL Neb INHALATION ×2 (07:57→15:20)
--- NOTE | 2020-09-01 08:03 | P.PN_ITS ---
Subjective Subjective: Interval history: Patient reports feeling better although noticed today to have audible expiratory wheezing. On exam she has significantly decreased air movement. She denies being in pain. Hemoglobin and platelets slightly improved. Vitals/I&O/Wt Last Vital Signs Temp 97.5 F L 09/01/20 07:36 Pulse 82 09/01/20 07:36 Resp 24 H 09/01/20 07:36 BP 178/76 09/01/20 07:36 Pulse Ox 96 09/01/20 07:36 08/31/20 09/01/20 09/01/20 22:59 06:59 14:59 Intake Total 1120 / 2127.5 230 / 2357.5 Output Total 300 / 700 250 / 950 100 / 100 Balance 820 / 1427.5 -20 / 1407.5 -100 / -100 Physical Exam Const: COMMON NORMALS: no acute distress and patient oriented x3 Resp: COMMON NORMALS: normal respiratory effort OTHER: Significant decreased air movement throughout with very mild expiratory wheezing. Cardio: COMMON NORMALS: regular rate, regular rhythm and S2 normal heart sound present RATE: regular rate RHYTHM: regular rhythm HEART SOUNDS: S2 normal heart sound present OTHER: Trace bilateral lower extremity edema GI: COMMON NORMALS: Normal to inspection, nondistended, normoactive bowel s ounds present, Soft to palpation and non-tender PALPATION: Yes Soft to palpation Neuro: COMMON NORMALS: patient oriented x3 and no focal motor deficits Data : 09/01/20 04:41 09/01/20 04:41 A&P Assessment and plan (1) UTI (urinary tract infection): Failed outpatient therapy. Status: Acute (2) Visual hallucination: This is likely due to UTI related toxic metabolic encephalopathy Status: Acute (3) Chronic mastoiditis: Status: Acute (4) Dehydration: Status: Acute (5) Hyperkalemia: Status: Acute (6) Acute kidney injury superimposed on chronic kidney disease: Present on admission. Status: Acute (7) COPD with acute exacerbation: Not present on admission. Status: Acute Additional A&P Information UTI without sepsis Patient has been experiencing worsening of her visual hallucinations CT head showing chronic changes UA negative nitrites and leukocyte Estrace but patient is endorsing dysuria, urgency, frequency She is afebrile, I would use ceftriaxone for now, send urine culture Acute on chronic kidney disease stage IV Patient does not want to be on dialysis, acute worsening secondary to dehydration and recent use of, baseline creatinine seems to be around1.7-2 Avoid nephrotoxic agents, treat hyperkalemia with calcium gluconate, Kayexalate, no EKG changes of hyperkalemia Chronic mastoiditis: No otorrhea, She has been complaining of tinnitus, no signs of meningitis, she is not septic Might benefit from an ENT consult 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 Acute GI bleed on top of chronic anemia cannot be ruled out. Hypercalcemia, most likely due to dehydration Generalized weakness. Goals of care discussed with the patient and her daughter, DNR/DNI Regular diet DVT prophylaxis hep PLAN: Continue current antibiotic but discontinue IV fluids Continue nebulized respiratory treatments which patient was receiving during my evaluation. Continue monitoring CBC. Continue physical therapy Attestations Medical Necessity Statement*: Patient with acute COPD exacerbation requires close inpatient monitoring and treatment. Coding Level of Care Code Acute Director Of Search Engine Marketing for Chg Fwd Diagnoses UTI (urinary tract infection) N39.0 Visual hallucination R44.1 Chronic mastoiditis H70.10 Dehydration E86.0 Hyperkalemia E87.5 Acute kidney injury superimposed on chronic kidney disease N17.9; N18.9 COPD with acute exacerbation J44.1
--- NOTE | 2020-09-01 08:51 | DCPLANNER ---
Pg 2 of IM updated and reviewed with Pt. She does not have questions. Copy provided.
[2020-09-01] MEDS: cefTRIAXone 1,000 MG in sodium chloride 0.9% (plus) 50 ML 100 MG IV (08:58)
[2020-09-01] MEDS: allopurinol 100 mg Tablet PO (08:58)
[2020-09-01] MEDS: cyanocobalamin 1,000 mcg/mL SDV 1000 MCG IM (09:00)
[2020-09-01] MEDS: metoprolol succinate ER (24 HR) 25 mg Tablet PO (09:01)
[2020-09-01] MEDS: phenazopyridine 100 mg Tablet PO (09:01)
[2020-09-01] MEDS: folic acid 1 mg Tablet PO (09:01)
[2020-09-01] MEDS: citalopram 20 mg Tablet 40 MG PO (16:07)
[2020-09-01] MEDS: divalproex DR 500 mg Tablet PO (16:07)
[2020-09-01] MEDS: ondansetron 2 mg/ML SDV 2 mL 4 MG IVP (18:16)
[2020-09-02] VITALS (15 sets, daily range): BP systolic 136–169; BP diastolic 56–77; PULSE 73–115; RESP 15–24; TEMP 36.5–37.1; O2SAT 92–100
[2020-09-02 05:30] LABS: Basophils % 0.2 %; Eosinophils # 0.1 10^3/uL (0.0-0.8); Eosinophils % 1.2 %; Hematocrit 24.3 % (37.0-47.0); Hemoglobin 7.1 g/dL (11.5-15.3); Lymphocytes # 1.6 10^3/uL (0.8-4.8); Lymphocytes % 30.7 %; Mean Corpuscular HGB Conc 29.2 g/dL (30.0-36.0); Mean Corpuscular Hemoglobin 34.1 pg (28.0-34.0); Mean Corpuscular Volume 116.8 fL (81-99); Mean Platelet Volume 11.4 fL (7.4-10.4); Monocytes # 0.5 10^3/uL (0.2-0.9); Monocytes % 9.9 %; Neutrophils # 2.91 10^3/uL (1.8-7.7); Neutrophils % 57.6 %; Nucleated Red Blood Cells % 0 %; Platelet Count 126 10^3/cmm (130-400); Red Blood Count 2.08 10^6/uL (4.1-5.3); Red Cell Distribution Width 12.8 % (12.1-15.1); White Blood Count 5.1 10^3/uL (4.0-10.0)
[2020-09-02 06:15] LABS: Alanine Aminotransferase 16 U/L (0-33); Alkaline Phosphatase 56 IU/L (35-105); Anion Gap 9.6 (5-19); Aspartate Amino Transferase 21 U/L (0-32); Blood Urea Nitrogen 21 mg/dL (8-23); Carbon Dioxide 31 mmol/L (22-29); Chloride 105 mmol/L (98-107); Globulin 2.3 g/dL (1.3-4.6); Glucose 99 mg/dL (65-115); Magnesium 1.8 mg/dL (1.7-2.3); Osmolality Calculated 295 mOsm/kg (285-295); Potassium 4.6 mmol/L (3.5-5.1); Sodium 141 mmol/L (136-145); Total Bilirubin 0.2 mg/dL (0.15-1.2); Total Protein 5.3 g/dL (6.6-8.7)
[2020-09-02 06:42] LABS: Valproic Acid Level 26.2 ug/mL (50-100)
--- NOTE | 2020-09-02 08:31 | P.PN_ITS ---
Subjective Subjective: Interval history: Patient reports feeling slightly better. She reports chronic shortness of breath which is unchanged. Denies chest pain or abdominal pain although noted this morning to have tender upper abdominal on exam. She reports that her headache is better this morning. Because of persistent headache for many month decision was made yesterday to proceed with MRI after discussion with patient's family. Unfortunately patient was unable to tolerate procedure. Reports this morning again that she will not be able to get it done. She is somnolent but oriented x3 and was able to recall name of president. Patient did not have bowel movement for several days. This morning reports that she needs to urinate. Her hemoglobin dropped down to 7.1. Platelets slightly improved. Kidney function further improving. Vitals/I&O/Wt Last Vital Signs Temp 98.4 F 09/02/20 07:12 Pulse 77 09/02/20 07:12 Resp 15 09/02/20 07:12 BP 169/68 09/02/20 07:12 Pulse Ox 93 09/02/20 07:12 09/01/20 09/02/20 09/02/20 22:59 06:59 14:59 Intake Total 100 / 1510 Output Total 350 / 850 Balance 100 / 1010 -350 / 660 Physical Exam Const: COMMON NORMALS: no acute distress and patient oriented x3 Resp: COMMON NORMALS: normal respiratory effort OTHER: Significant decreased air movement throughout with very mild expiratory wheezing. Cardio: COMMON NORMALS: regular rate, regular rhythm and S2 normal heart sound present RATE: regular rate RHYTHM: regular rhythm HEART SOUNDS: S2 normal heart sound present OTHER: Trace bilateral lower extremity edema GI: COMMON NORMALS: Normal to inspection, nondistended, normoactive bowel sounds present and Soft to palpation PALPATION: Yes Soft to palpation OTHER: Tender mostly upper abdomen. Neuro: COMMON NORMALS: patient oriented x3 and no focal motor deficits Data : 09/02/20 05:00 09/02/20 05:00 A&P Assessment and plan (1) UTI (urinary tract infection): Failed outpatient therapy. Status: Acute (2) Visual hallucination: This is likely due to UTI related toxic metabolic encephalopathy Status: Acute (3) Chronic mastoiditis: Status: Acute (4) Dehydration: Status: Acute (5) Hyperkalemia: Status: Acute (6) Acute kidney injury superimposed on chronic kidney disease: Present on admission. Status: Acute (7) COPD with acute exacerbation: Not present on admission. Status: Acute Additional A&P Information UTI without sepsis Patient has been experiencing worsening of her visual hallucinations CT head showing chronic changes UA negative nitrites and leukocyte Estrace but patient is endorsing dysuria, urgency, frequency She is afebrile, I would use ceftriaxone for now, send urine culture Acute on chronic kidney disease stage IV Patient does not want to be on dialysis, acute worsening secondary to dehydration and recent use of, baseline creatinine seems to be around1.7-2 Avoid nephrotoxic agents, treat hyperkalemia with calcium gluconate, Kayexalate, no EKG changes of hyperkalemia Chronic mastoiditis: No otorrhea, She has been complaining of tinnitus, no signs of meningitis, she is not septic Might benefit from an ENT consult 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 Acute GI bleed on top of chronic anemia cannot be ruled out. Hypercalcemia, most likely due to dehydration Generalized weakness. Goals of care discussed with the patient and her daughter, DNR/DNI Regular diet DVT prophylaxis hep PLAN: We will gently hydrate patient with half-normal saline. Proceed with CT scan of abdomen pelvis with contrast given previous history of malignancy. We will give patient 1 unit of PRBC and switch H2 jemima to PPI. Continue physical therapy. We will also request occupational therapy. Continue antibiotic for now. Attestations Medical Necessity Statement*: Patient with generalized weakness as well as abdominal pain and previous history of cancer requires close inpatient monitoring, treatment and evaluation. Coding Level of Care Code Acute Venetian Blind Cleaner And Repairer for Chg Fwd Diagnoses UTI (urinary tract infection) N39.0 Visual hallucination R44.1 Chronic mastoiditis H70.10 Dehydration E86.0 Hyperkalemia E87.5 Acute kidney injury superimposed on chronic kidney disease N17.9; N18.9 COPD with acute exacerbation J44.1
--- NOTE | 2020-09-02 08:39 | CTR_ITS ---
PROCEDURE INFORMATION: Exam: CT Abdomen And Pelvis With Contrast Exam date and time: 09/02/2020 10:43 AM Age: 80 years old Clinical indication: Abdominal pain; Prior surgery; Surgery type: Rectal resection; Additional info: Abdominal pain, previous history of abdominal malignancy TECHNIQUE: Imaging protocol: Computed tomography of the abdomen and pelvis with intravenous contrast. Radiation optimization: All CT scans at this facility use at least one of these dose optimization techniques: automated exposure control; mA and/or kV adjustment per patient size (includes targeted exams where dose is matched to clinical indication); or iterative reconstruction. Contrast material: VISIPAQUE; Contrast volume: 95 ml; Contrast route: INTRAVENOUS (IV); COMPARISON: CT Abdomen/Pelvis Renal [id number] 10/27/2019 5:38 PM RADIATION DOSE METRICS: Total DLP (mGy-cm): 602.14 FINDINGS: Pleural space: Bilateral moderate pleural effusions are present with bibasilar atelectasis. A benign calcified granuloma is present in the right base. Liver: Small benign calcified granulomas are present in the liver which is otherwise unremarkable. Gallbladder and bile ducts: Small stones calliope player on the dependent wall of the gallbladder. The bile ducts are normal. Pancreas: Normal. No ductal dilation. Spleen: Small benign cysts are present in the spleen along with a tiny benign calcified granuloma. Adrenals: There are stable bilateral adrenal nodules consistent with bilateral adenomas and a left mild lipoma. Kidneys and ureters: There is stable lobulated contour of the kidneys with a small benign right renal cyst. There is a punctate nonobstructing calcification in the right kidney. There is no hydronephrosis.. Stomach and bowel: The patient has undergone a sigmoid resection. Few diverticuli present on the colon. Bowel is otherwise unremarkable with no obstruction or dilatation. Appendix: No evidence of appendicitis. Intraperitoneal space: Unremarkable. No free air. No significant fluid collection. Vasculature: The aorta is calcified but there is no aneurysm. Lymph nodes: Unremarkable. No enlarged lymph nodes. Urinary bladder: Unremarkable as visualized. Reproductive: Unremarkable as visualized. Bones/joints: Degenerative changes are present in the spine with sclerosis and osteophyte formation. Soft tissues: Unremarkable. CT/CT abdomen pelvis w con* [id number] IMPRESSION: 1. Bilateral pleural effusions with bibasilar atelectasis. 2. Right nephrolithiasis. 3. Cholelithiasis. 4. No acute abnormalities are seen in the abdomen and pelvis. Radiation Dose CTDIVOL = (mGy): DLP = 602.14 (mGy-cm)
[2020-09-02] MEDS: ipratropium-albuterol 3 mL Neb INHALATION ×3 (08:44→23:50)
[2020-09-02] MEDS: dextrose 5%-sod chloride 0.45% 1,000 ML 30 ML IV (09:12)
[2020-09-02] MEDS: cyanocobalamin 1,000 mcg/mL SDV 1000 MCG IM (09:12)
[2020-09-02] MEDS: polyethylene glycol 3350 Pkt 17 gm PO (09:13)
[2020-09-02] MEDS: folic acid 1 mg Tablet PO (09:13)
[2020-09-02] MEDS: pantoprazole DR 40 mg Tablet PO ×2 (09:13→18:06)
[2020-09-02] MEDS: citalopram 20 mg Tablet 40 MG PO (09:13)
[2020-09-02] MEDS: metoprolol succinate ER (24 HR) 25 mg Tablet PO (09:13)
[2020-09-02] MEDS: allopurinol 100 mg Tablet PO (09:13)
[2020-09-02] MEDS: divalproex DR 250 mg Tablet PO ×2 (09:13→18:06)
[2020-09-02] MEDS: cefTRIAXone 1,000 MG in sodium chloride 0.9% (plus) 50 ML 100 MG IV (09:14)
[2020-09-02] MEDS: iodixanol 320 mg/mL 100mL Btl IV (11:08)
[2020-09-03] VITALS (9 sets, daily range): BP systolic 154–188; BP diastolic 64–69; PULSE 72–87; RESP 17–28; TEMP 36.7–37.1; O2SAT 95–98
[2020-09-03] MEDS: hyDRALAzine 25 mg Tablet PO ×2 (02:27→06:19)
[2020-09-03 04:52] LABS: Basophils % 0.3 %; Eosinophils # 0.1 10^3/uL (0.0-0.8); Eosinophils % 1.4 %; Hematocrit 31.1 % (37.0-47.0); Hemoglobin 9.2 g/dL (11.5-15.3); Lymphocytes # 1.7 10^3/uL (0.8-4.8); Lymphocytes % 28.5 %; Mean Corpuscular HGB Conc 29.6 g/dL (30.0-36.0); Mean Corpuscular Hemoglobin 32.2 pg (28.0-34.0); Mean Corpuscular Volume 108.7 fL (81-99); Mean Platelet Volume 11.1 fL (7.4-10.4); Monocytes # 0.6 10^3/uL (0.2-0.9); Monocytes % 10.9 %; Neutrophils # 3.46 10^3/uL (1.8-7.7); Neutrophils % 58.7 %; Nucleated Red Blood Cells % 0 %; Platelet Count 123 10^3/cmm (130-400); Red Blood Count 2.86 10^6/uL (4.1-5.3); Red Cell Distribution Width 17.7 % (12.1-15.1); White Blood Count 5.9 10^3/uL (4.0-10.0)
[2020-09-03 05:17] LABS: Alanine Aminotransferase 22 U/L (0-33); Albumin Level 3.1 g/dL (3.5-5.2); Alkaline Phosphatase 66 IU/L (35-105); Anion Gap 7.2 (5-19); Aspartate Amino Transferase 22 U/L (0-32); Blood Urea Nitrogen 21 mg/dL (8-23); Carbon Dioxide 36 mmol/L (22-29); Chloride 103 mmol/L (98-107); Globulin 2.6 g/dL (1.3-4.6); Glucose 89 mg/dL (65-115); Magnesium 1.8 mg/dL (1.7-2.3); Osmolality Calculated 294 mOsm/kg (285-295); Potassium 5.2 mmol/L (3.5-5.1); Sodium 141 mmol/L (136-145); Total Bilirubin 0.2 mg/dL (0.15-1.2); Total Protein 5.7 g/dL (6.6-8.7)
--- NOTE | 2020-09-03 07:51 | USCV_ITS ---
Velasquez Montano Age: 80 Gender: F : 1940 Exam Date: 09/03/2020 12:08 Ordering Phys: Demetri Santacruz MD Technologist: Walker Isidro Exam Location: [facility] [place] Indication: CHF BP: 132 / 68 HR: 80 Rhythm: Sinus Technical Quality: Poor MEASUREMENTS (Male / Female) Normal Values 2D ECHO LV Diastolic Diameter PLAX 3.5 cm 4.2 - 5.9 / 3.9 - 5.3 cm LV Systolic Diameter PLAX 2.7 cm IVS Diastolic Thickness 1.0 cm 0.6 - 1.0 / 0.6 - 0.9 cm IVS Systolic Thickness 1.6 cm LVPW Diastolic Thickness 0.9 cm 0.6 - 1.0 / 0.6 - 0.9 cm LVPW Systolic Thickness 1.4 cm LVOT Diameter 2.0 cm LV Ejection Fraction 2D Teich 47.7 % LV Ejection Fraction MOD 2C 65.3 % LV Ejection Fraction 2C AL 65.0 % LA Diameter 3.8 cm LA Width 3.9 cm LA Height 4.7 cm RA Width 3.9 cm RA Height 5.2 cm Aorta at Sinotubular Diameter 0.8 cm M-MODE LV Diastolic Diameter MM 4.0 cm 4.2 - 5.9 / 3.9 - 5.3 cm LV Systolic Diameter MM 2.5 cm LV Ejection Fraction MM Teich 67.5 % IVS Diastolic Thickness MM 0.8 cm 0.6 - 1.0 / 0.6 - 0.9 cm IVS Systolic Thickness MM 1.6 cm LVPW Diastolic Thickness MM 1.1 cm 0.6 - 1.0 / 0.6 - 0.9 cm LVPW Systolic Thickness MM 1.5 cm RV Diastolic Diameter MM 1.5 cm Aortic Annulus Diameter 3.1 cm LA Ao Ratio MM 1.3 MV E Point Septal Separation 0.7 cm DOPPLER AV Peak Velocity 155.0 cm/s LVOT Peak Velocity 129.7 cm/s AV Area Cont Eq vti 2.3 cm squared AV Area Cont Eq pk 2.6 cm squared MV Area PHT 5.0 cm squared Mitral E to A Ratio 0.9 MV E' Velocity 56.0 cm/s Mitral E to MV E' Ratio 14.6 Mitral E to LV E' Lateral Ratio 13.6 Mitral E to LV E' Septal Ratio 15.7 TR Peak Velocity 154.7 cm/s TR Peak Gradient 9.6 mmHg TV Peak E Velocity 85.0 cm/s Right Atrial Pressure 3.0 mmHg Pulmonary Artery Systolic Pressu 12.6 mmHg FINDINGS Left Ventricle Normal left ventricular size, systolic function and wall thickness, with no regional wall motion abnormalities. Left ventricular ejection fraction is estimated at 70 %. Normal diastolic function. Right Ventricle Probably normal right ventricular size and systolic function. Right ventricular systolic pressure 12.6 mmHg. Right Atrium Normal right atrial size. Right atrial pressure estimated at 3 mmHg. Left Atrium Left atrium not well visualized. Mitral Valve Mildly thickened mitral valve. No mitral valve stenosis. No mitral valve regurgitation. Aortic Valve Aortic valve not well visualized. No aortic valve stenosis. No aortic valve regurgitation. Tricuspid Valve Tricuspid valve not well visualized. Pulmonic Valve Pulmonic valve not well visualized. Pericardium No pericardial effusion. Aorta Aorta not well visualized. CONCLUSIONS 1. Normal left ventricular size, systolic function and wall thickness, with no regional wall motion abnormalities. Left ventricular ejection fraction is estimated at 70 %. Normal diastolic function. 2. Probably normal right ventricular size and systolic function. 3. Normal pulmonary artery pressure. 4. No prior similar studies to compare. Vicky Ness MD (Electronically Signed) Final Date: 04 September 2020 12:19 S
[2020-09-03] MEDS: ipratropium-albuterol 3 mL Neb INHALATION (08:00)
[2020-09-03] MEDS: cyanocobalamin 1,000 mcg/mL SDV 1000 MCG IM (08:32)
[2020-09-03] MEDS: polyethylene glycol 3350 Pkt 17 gm PO (08:32)
[2020-09-03] MEDS: pantoprazole DR 40 mg Tablet PO ×2 (08:33→17:44)
[2020-09-03] MEDS: metoprolol succinate ER (24 HR) 25 mg Tablet PO (08:33)
[2020-09-03] MEDS: citalopram 20 mg Tablet 40 MG PO (08:33)
[2020-09-03] MEDS: allopurinol 100 mg Tablet PO (08:33)
[2020-09-03] MEDS: folic acid 1 mg Tablet PO (08:33)
[2020-09-03] MEDS: divalproex DR 250 mg Tablet PO ×2 (08:33→17:44)
[2020-09-03] MEDS: cefTRIAXone 1,000 MG in sodium chloride 0.9% (plus) 50 ML 100 MG IV (08:41)
[2020-09-03] MEDS: FUROsemide 10 mg/mL SDV 4mL 40 MG IVP (09:46)
--- NOTE | 2020-09-03 10:00 | PC.SOCIAL ---
IMM Updated Page 2 of IMM updated and given to patient. Initialed, dated, and timed and placed back in chart.
--- NOTE | 2020-09-03 10:49 | P.PN_ITS ---
Subjective Subjective: Interval history: Patient is doing much better this morning. Denies chest or abdominal pain. Slightly short of breath. She did well eating her breakfast. Reports that she does not like dry uribe but otherwise ate most of her eggs. She walked with physical therapy which is a significant improvement. She denies headache this morning. She is alert and oriented x3. She is able to recall name of president. Hemoglobin nicely responded to blood transfusion. Platelets are stable. Vitals/I&O/Wt Last Vital Signs Temp 98.3 F 09/03/20 07:27 Pulse 81 09/03/20 08:07 Resp 17 09/03/20 08:00 BP 159/64 09/03/20 07:27 Pulse Ox 95 09/03/20 08:00 09/02/20 09/03/20 09/03/20 22:59 06:59 14:59 Intake Total 350 / 880 360 / 1240 Output Total 600 / 1000 1175 / 2175 200 / 200 Balance -250 / -120 -815 / -935 -200 / -200 Physical Exam Const: COMMON NORMALS: no acute distress and patient oriented x3 Resp: COMMON NORMALS: normal respiratory effort OTHER: Much improved air movement. Very minimal bibasilar Rales. Cardio: COMMON NORMALS: regular rate, regular rhythm and S2 normal heart sound present RATE: regular rate RHYTHM: regular rhythm HEART SOUNDS: S2 normal heart sound present OTHER: No lower extremity edema GI: COMMON NORMALS: Normal to inspection, nondistended, normoactive bowel sounds present, Soft to palpation and non-tender PALPATION: Yes Soft to palpation Neuro: COMMON NORMALS: patient oriented x3 and no focal motor deficits Data : 09/03/20 04:15 09/03/20 04:15 Micro: Microbiology 08/28/20 22:35 Blood Culture - Final Blood NO GROWTH AFTER 5 DAYS A&P Assessment and plan (1) UTI (urinary tract infection): Failed outpatient therapy. Status: Acute (2) Visual hallucination: This is likely due to UTI related toxic metabolic encephalopathy Status: Acute (3) Chronic mastoiditis: Status: Acute (4) Dehydration: Status: Acute (5) Hyperkalemia: Status: Acute (6) Acute kidney injury superimposed on chronic kidney disease: Present on admission. Status: Acute (7) COPD with acute exacerbation: Not present on admission. Status: Acute Additional A&P Information UTI without sepsis Patient has been experiencing worsening of her visual hallucinations CT head showing chronic changes UA negative nitrites and leukocyte Estrace but patient is endorsing dysuria, urgency, frequency She is afebrile, I would use ceftriaxone for now, send urine culture Acute on chronic kidney disease stage IV Patient does not want to be on dialysis, acute worsening secondary to dehydration and recent use of, baseline creatinine seems to be around1.7-2 Avoid nephrotoxic agents, treat hyperkalemia with calcium gluconate, Kayexalate, no EKG changes of hyperkalemia Chronic mastoiditis: No otorrhea, She has been complaining of tinnitus, no signs of meningitis, she is not septic Might benefit from an ENT consult 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 Acute GI bleed on top of chronic anemia cannot be ruled out. Hypercalcemia, most likely due to dehydration Generalized weakness. Goals of care discussed with the patient and her daughter, DNR/DNI Regular diet DVT prophylaxis hep PLAN: We will hold IV fluids and give patient 1 dose of Lasix. Further evaluate wall motion ejection fraction with echocardiogram. Continue physical therapy. If continues to improve we can likely discharge patient to nursing facility tomorrow. Attestations Medical Necessity Statement*: Patient with suspected CHF requires close inpatient monitoring, treatment and evaluation. Coding Level of Care Code Acute Linux Admin Engineer for g Fwd Diagnoses UTI (urinary tract infection) N39.0 Visual hallucination R44.1 Chronic mastoiditis H70.10 Dehydration E86.0 Hyperkalemia E87.5 Acute kidney injury superimposed on chronic kidney disease N17.9; N18.9 COPD with acute exacerbation J44.1
[2020-09-04] VITALS (8 sets, daily range): BP systolic 131–187; BP diastolic 50–81; PULSE 74–118; RESP 16–24; TEMP 36.3–36.8; O2SAT 90–99
[2020-09-04] MEDS: hyDRALAzine 25 mg Tablet PO (00:12)
[2020-09-04] MEDS: hyDRALAzine 20 mg/mL INJ 1 mL 10 MG IVP (01:47)
[2020-09-04] MEDS: ipratropium-albuterol 3 mL Neb INHALATION (02:04)
[2020-09-04 06:18] LABS: Alanine Aminotransferase 16 U/L (0-33); Albumin Level 3.1 g/dL (3.5-5.2); Alkaline Phosphatase 62 IU/L (35-105); Aspartate Amino Transferase 18 U/L (0-32); Blood Urea Nitrogen 23 mg/dL (8-23); Calcium 11.3 mg/dL (8.5-10.5); Carbon Dioxide 37 mmol/L (22-29); Chloride 100 mmol/L (98-107); Globulin 2.6 g/dL (1.3-4.6); Glucose 94 mg/dL (65-115); Magnesium 1.8 mg/dL (1.7-2.3); Osmolality Calculated 297 mOsm/kg (285-295); Sodium 142 mmol/L (136-145); Total Bilirubin 0.2 mg/dL (0.15-1.2); Total Protein 5.7 g/dL (6.6-8.7)
[2020-09-04 06:19] LABS: Anion Gap 9.5 (5-19); Potassium 4.5 mmol/L (3.5-5.1)
[2020-09-04 07:20] LABS: Basophils % 0.4 %; Eosinophils # 0.1 10^3/uL (0.0-0.8); Eosinophils % 1.5 %; Hemoglobin 8.9 g/dL (11.5-15.3); Lymphocytes # 1.7 10^3/uL (0.8-4.8); Lymphocytes % 35.3 %; Mean Corpuscular HGB Conc 29.7 g/dL (30.0-36.0); Mean Corpuscular Hemoglobin 32.5 pg (28.0-34.0); Mean Corpuscular Volume 109.5 fL (81-99); Mean Platelet Volume 10.9 fL (7.4-10.4); Monocytes # 0.6 10^3/uL (0.2-0.9); Monocytes % 13.3 %; Neutrophils # 2.37 10^3/uL (1.8-7.7); Neutrophils % 49.3 %; Nucleated Red Blood Cells % 0 %; Platelet Count 143 10^3/cmm (130-400); Red Blood Count 2.74 10^6/uL (4.1-5.3); Red Cell Distribution Width 16.2 % (12.1-15.1); White Blood Count 4.8 10^3/uL (4.0-10.0)
[2020-09-04 08:01] LABS: Blood Urea Nitrogen 23 mg/dL (8-23); Calcium 10.8 mg/dL (8.5-10.5); Carbon Dioxide 34 mmol/L (22-29); Chloride 100 mmol/L (98-107); Glucose 93 mg/dL (65-115); Osmolality Calculated 295 mOsm/kg (285-295); Sodium 141 mmol/L (136-145)
[2020-09-04 08:23] LABS: Anion Gap 11.3 (5-19); Potassium 4.3 mmol/L (3.5-5.1)
[2020-09-04] MEDS: polyethylene glycol 3350 Pkt 17 gm PO (08:42)
[2020-09-04] MEDS: metoprolol succinate ER (24 HR) 25 mg Tablet PO (08:43)
[2020-09-04] MEDS: citalopram 20 mg Tablet 40 MG PO (08:43)
[2020-09-04] MEDS: folic acid 1 mg Tablet PO (08:43)
[2020-09-04] MEDS: allopurinol 100 mg Tablet PO (08:43)
[2020-09-04] MEDS: pantoprazole DR 40 mg Tablet PO ×2 (08:43→17:43)
[2020-09-04] MEDS: divalproex DR 250 mg Tablet PO ×2 (08:43→17:45)
[2020-09-04] MEDS: cyanocobalamin 1,000 mcg/mL SDV 1000 MCG IM (08:44)
[2020-09-04] MEDS: cefTRIAXone 1,000 MG in sodium chloride 0.9% (plus) 50 ML 100 MG IV (08:44)
--- NOTE | 2020-09-04 09:22 | PM.PN ---
Subjective Subjective: Interval history: Patient reports that she has right mastoid process tenderness. She was eating breakfast this morning. Her kidney function is stable. Hemoglobin is slightly down to 8.9. Platelets appear to be gradually improving. Overall patient appears to be responding to antibiotic treatment well. Discussed with patient's daughter yesterday who wants patient to be discharged to a specific nursing facility. Social workers are trying to arrange placement. Vitals/I&O/Wt Last Vital Signs Temp 98.1 F 09/04/20 07:26 Pulse 118 H 09/04/20 07:26 Resp 20 H 09/04/20 07:26 BP 142/59 09/04/20 07:26 Pulse Ox 99 09/04/20 07:26 09/03/20 09/04/20 09/04/20 22:59 06:59 14:59 Intake Total 480 / 530 100 / 100 Output Total 1000 / 1800 725 / 2525 Balance -520 / -1270 -725 / -1995 100 / 100 Physical Exam Const: COMMON NORMALS: no acute distress and patient oriented x3 Neck/C-Spine: OTHER: Tenderness on palpation of the right mastoid process. Left side nontender. Resp: COMMON NORMALS: normal respiratory effort OTHER: Much improved air movement. Very minimal bibasilar Rales. Cardio: COMMON NORMALS: regular rate, regular rhythm and S2 normal heart sound present RATE: regular rate RHYTHM: regular rhythm HEART SOUNDS: S2 normal heart sound present OTHER: No lower extremity edema GI: COMMON NORMALS: Normal to inspection, nondistended, normoactive bowel sounds present, Soft to palpation and non-tender PALPATION: Yes Soft to palpation Neuro: COMMON NORMALS: patient oriented x3 and no focal motor deficits Data : 09/04/20 06:57 09/04/20 06:57 A&P Assessment and plan (1) UTI (urinary tract infection): Failed outpatient therapy. Status: Acute (2) Visual hallucination: This is likely due to UTI related toxic metabolic encephalopathy Status: Acute (3) Chronic mastoiditis: Status: Acute (4) Dehydration: Status: Acute (5) Hyperkalemia: Status: Acute (6) Acute kidney injury superimposed on chronic kidney disease: Present on admission. Status: Acute (7) COPD with acute exacerbation: Not present on admission. Status: Acute Additional A&P Information UTI without sepsis Patient has been experiencing worsening of her visual hallucinations CT head showing chronic changes UA negative nitrites and leukocyte Estrace but patient is endorsing dysuria, urgency, frequency She is afebrile, I would use ceftriaxone for now, send urine culture Acute on chronic kidney disease stage IV Patient does not want to be on dialysis, acute worsening secondary to dehydration and recent use of, baseline creatinine seems to be around1.7-2 Avoid nephrotoxic agents, treat hyperkalemia with calcium gluconate, Kayexalate, no EKG changes of hyperkalemia Chronic mastoiditis related right-sided headache: No otorrhea, She has been complaining of tinnitus, no signs of meningitis, she is not septic Might benefit from an ENT consult 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 Acute GI bleed on top of chronic anemia cannot be ruled out. Hypercalcemia, most likely due to dehydration Generalized weakness. Goals of care discussed with the patient and her daughter, DNR/DNI Regular diet DVT prophylaxis hep PLAN: We will continue current monitoring and treatment including antibiotic. Awaiting echocardiogram. Trying again MRI of the head on outpatient basis could be considered if patient continues to have headache. Consider outpatient ID follow-up. May consider small dose Soma. Attestations Medical Necessity Statement*: Patient with what appears to be mastoiditis requires close inpatient monitoring and treatment till placement to nursing facility is arranged. Coding Level of Care Code Acute Bonding And Composite Fabricator for g Fwd Diagnoses UTI (urinary tract infection) N39.0 Visual hallucination R44.1 Chronic mastoiditis H70.10 Dehydration E86.0 Hyperkalemia E87.5 Acute kidney injury superimposed on chronic kidney disease N17.9; N18.9 COPD with acute exacerbation J44.1
--- NOTE | 2020-09-04 11:19 | PC.PT ---
Patient refused Physical Therapy at 9:22 due to fatigue. Returned at 10:33, but patient unable to be aroused to participate.
--- NOTE | 2020-09-04 15:27 | PC.NURSE ---
Patient's daughter had brought in outside food from [employer] and requested that scientific technical writer try to get patient to eat around 3 pm. Spinning Supervisor finds patient asleep in bed. When patient was woken up and told that her daughter wanted her to try to eat something patient refused and said maybe later . Will continue to monitor.
[2020-09-05] VITALS (9 sets, daily range): BP systolic 113–171; BP diastolic 63–77; PULSE 69–84; RESP 15–24; TEMP 36.4–37; O2SAT 93–100
[2020-09-05] MEDS: ipratropium-albuterol 3 mL Neb INHALATION (05:45)
[2020-09-05 05:49] LABS: Basophils % 0.2 %; Eosinophils # 0.1 10^3/uL (0.0-0.8); Eosinophils % 2.5 %; Hematocrit 31.5 % (37.0-47.0); Hemoglobin 9.2 g/dL (11.5-15.3); Lymphocytes # 1.6 10^3/uL (0.8-4.8); Lymphocytes % 33.5 %; Mean Corpuscular HGB Conc 29.2 g/dL (30.0-36.0); Mean Corpuscular Hemoglobin 32.3 pg (28.0-34.0); Mean Corpuscular Volume 110.5 fL (81-99); Monocytes # 0.7 10^3/uL (0.2-0.9); Monocytes % 13.4 %; Neutrophils # 2.43 10^3/uL (1.8-7.7); Neutrophils % 50.2 %; Nucleated Red Blood Cells % 0 %; Platelet Count 157 10^3/cmm (130-400); Red Blood Count 2.85 10^6/uL (4.1-5.3); Red Cell Distribution Width 15.2 % (12.1-15.1); White Blood Count 4.8 10^3/uL (4.0-10.0)
[2020-09-05 06:09] LABS: Alanine Aminotransferase 13 U/L (0-33); Alkaline Phosphatase 62 IU/L (35-105); Aspartate Amino Transferase 17 U/L (0-32); Blood Urea Nitrogen 29 mg/dL (8-23); Calcium 10.8 mg/dL (8.5-10.5); Carbon Dioxide 38 mmol/L (22-29); Chloride 100 mmol/L (98-107); Globulin 2.8 g/dL (1.3-4.6); Glucose 94 mg/dL (65-115); Magnesium 1.9 mg/dL (1.7-2.3); Osmolality Calculated 298 mOsm/kg (285-295); Sodium 141 mmol/L (136-145); Total Bilirubin 0.2 mg/dL (0.15-1.2); Total Protein 5.8 g/dL (6.6-8.7)
--- NOTE | 2020-09-05 06:17 | PC.NURSE ---
SHIFT SUMMARY c/o being very weak and tired tonight. Is SOB with exertion and then gets quite anxious and wants nurse to stay with her. Gets up to BSC with assist and is quite weak. Coughing up alot of clear phlegm this am and says chokes her trying to get it up. Keeps saying she is goiong to from all this Had breathing tx this am per request and helped her get secretions up but pt wants her inhaler. She says it works twice as fast as the neb tx.
[2020-09-05] MEDS: cefTRIAXone 1,000 MG in sodium chloride 0.9% (plus) 50 ML 100 MG IV (08:13)
[2020-09-05] MEDS: allopurinol 100 mg Tablet PO (08:13)
[2020-09-05] MEDS: divalproex DR 250 mg Tablet PO ×2 (08:14→18:03)
[2020-09-05] MEDS: folic acid 1 mg Tablet PO (08:14)
[2020-09-05] MEDS: citalopram 20 mg Tablet 40 MG PO (08:14)
[2020-09-05] MEDS: polyethylene glycol 3350 Pkt 17 gm PO (08:14)
[2020-09-05] MEDS: pantoprazole DR 40 mg Tablet PO ×2 (08:14→18:03)
[2020-09-05] MEDS: metoprolol succinate ER (24 HR) 25 mg Tablet PO (08:14)
[2020-09-05] MEDS: cyanocobalamin 1,000 mcg/mL SDV 1000 MCG IM (08:14)
--- NOTE | 2020-09-05 09:26 | P.PN_ITS ---
Subjective Subjective: Interval history: Patient lying in bed this morning. She reported that she was having pain in her head and neck and into her ears and eyes. She stated that this is been going on for months. She reports that it seems to be unchanged, agreeable to MRI at this time. Denies any chest pain or shortness of breath. Vitals/I&O/Wt Last Vital Signs Temp 98.5 F 09/05/20 07:33 Pulse 76 09/05/20 07:33 Resp 15 09/05/20 07:33 BP 129/77 09/05/20 07:33 Pulse Ox 99 09/05/20 07:33 09/04/20 09/05/20 09/05/20 22:59 06:59 14:59 Intake Total 120 / 510 Output Total 200 / 200 675 / 875 Balance -200 / 190 -555 / -365 Physical Exam Const: COMMON NORMALS: alert GENERAL APPEARANCE: cooperative ORIENTATION/CONSCIOUSNESS: Yes awake, Yes oriented to person and Yes oriented to place HENMT: OTHER: Normocephalic, atraumatic, patient has tenderness to palpation over the frontal, maxillary sinuses. Also has tenderness over the anterior and posterior neck and along the temporomandibular joint bilaterally Eye: COMMON NORMALS: Equal, round and reactive pupils present PUPIL: Yes Equal, round and reactive pupils present Neck/C-Spine: COMMON NORMALS: supple GENERAL: Yes normal visual inspection Resp: COMMON NORMALS: normal respiratory effort and clear to auscultation bilaterally EFFORT & INSPECTION: Yes able to speak in complete sentences AUSCULTATION: clear to auscultation bilaterally, no rhonchi and no wheezes Cardio: COMMON NORMALS: regular rate and regular rhythm RATE: regular rate RHYTHM: regular rhythm OTHER: No appreciable murmur GI: COMMON NORMALS: Soft to palpation and non-tender INSPECTION: No abdominal distension AUSCULTATION: Yes normoactive bowel sounds PALPATION: Yes Soft to palpation Extremity: COMMON NORMALS: no clubbing, cyanosis or edema Neuro: COMMON NORMALS: CN's II-XII intact bilaterally and no focal motor deficits SENSORIUM/ORIENTATION: Yes alert, Yes oriented to person and Yes oriented to place SPEECH: speech normal Psych: COMMON NORMALS: cooperative OTHER: Cooperative, anxious Data : 09/05/20 04:20 09/05/20 04:20 A&P Assessment and plan (1) UTI (urinary tract infection): Has been on IV rocephin and urine culture shows no growth Continue antibiotics for below concern but UTI ruled out. Status: Acute (2) Visual hallucination: Reported no hallucinations today. CT head showing chronic changes MRI head ordered Status: Acute (3) Chronic mastoiditis: Has been on Rocephin, more continued pain we will add vancomycin and plan for MRI of the head, patient is agreeable today. Would benefit from ENT evaluation after discharge No otorrhea Status: Acute (4) Dehydration: Gentle IVF NS @ 50ml/hr Status: Acute (5) Hyperkalemia: Resolved Status: Acute (6) Acute kidney injury superimposed on chronic kidney disease: Creatinine at baseline, increased BUN today. Gentle IVF as above Status: Acute Additional A&P Information Senile dementia: Daughter had requested that her mother should not be notified about dementia for risk of worsening of her depression considering bipolar history. Has been worked up for Parkinson's in the past but did not tolerate medication. Thrombocytopenia: Resolved Chronic macrocytic anemia of folate deficiency. Continue to monitor for any evidence of active bleeding. Recheck folate and B12. Hypercalcemia: Secondary to dehydration, improved to 10.8 Generalized weakness: Continue physical therapy and Occupational Therapy. Patient will require detention facility placement Code status: DNR/DNI Diet: Regular diet DVT prophylaxis: SCDs, no pharmacologic prophylaxis due to concern for anemia, thrombocytopenia and fall risk Attestations Medical Necessity Statement*: Patient requires continued hospitalization due to concern for mastoiditis Coding Level of Care Code Acute Semi Truck Driver for Chg Fwd Exam Comprehensive Diagnoses UTI (urinary tract infection) N39.0 Visual hallucination R44.1 Chronic mastoiditis H70.10 Dehydration E86.0 Hyperkalemia E87.5 Acute kidney injury superimposed on chronic kidney disease N17.9; N18.9
[2020-09-05] MEDS: vancomycin 1,000 MG in sodium chloride 0.9% 250 ML 250 MG IV (10:22)
[2020-09-05] MEDS: sodium chloride 0.9% 1,000 ML 50 ML IV (12:10)
--- NOTE | 2020-09-05 12:36 | PC.SOCIAL ---
IMM Updated Page 2 of IMM updated with daughter by phone. Initialed, dated, and timed and placed back in chart and copy provided to patient's bedside.
[2020-09-05 14:42] LABS: C Reactive Protein 3.3 mg/L (0.0-4.9)
[2020-09-05 14:54] LABS: Erythrocyte Sedimentation Rate 39 mm/hr (0-15)
[2020-09-05] MEDS: albuterol 8 gm MDI 2 PUFF INHALATION (15:06)
[2020-09-05 15:23] LABS: Folate Level > 20.0 ng/mL (4.8-37.3)
[2020-09-05 15:24] LABS: Vitamin B12 > 2000 pg/mL (232-1245)
[2020-09-06] VITALS (8 sets, daily range): BP systolic 146–185; BP diastolic 62–84; PULSE 73–82; RESP 18–24; TEMP 36.5–36.9; O2SAT 93–100
[2020-09-06 05:42] LABS: Basophils % 0.5 %; Eosinophils # 0.1 10^3/uL (0.0-0.8); Eosinophils % 2.7 %; Hematocrit 30.4 % (37.0-47.0); Hemoglobin 8.7 g/dL (11.5-15.3); Lymphocytes # 1.5 10^3/uL (0.8-4.8); Lymphocytes % 32.9 %; Mean Corpuscular HGB Conc 28.6 g/dL (30.0-36.0); Mean Corpuscular Hemoglobin 32.5 pg (28.0-34.0); Mean Corpuscular Volume 113.4 fL (81-99); Mean Platelet Volume 10.4 fL (7.4-10.4); Monocytes # 0.6 10^3/uL (0.2-0.9); Monocytes % 14.1 %; Neutrophils # 2.19 10^3/uL (1.8-7.7); Neutrophils % 49.6 %; Nucleated Red Blood Cells % 0 %; Platelet Count 158 10^3/cmm (130-400); Red Blood Count 2.68 10^6/uL (4.1-5.3); Red Cell Distribution Width 14.8 % (12.1-15.1); White Blood Count 4.4 10^3/uL (4.0-10.0)
[2020-09-06 06:16] LABS: Alanine Aminotransferase 9 U/L (0-33); Albumin Level 3.2 g/dL (3.5-5.2); Alkaline Phosphatase 59 IU/L (35-105); Anion Gap 6.7 (5-19); Aspartate Amino Transferase 11 U/L (0-32); Blood Urea Nitrogen 27 mg/dL (8-23); Calcium 10.8 mg/dL (8.5-10.5); Carbon Dioxide 38 mmol/L (22-29); Chloride 103 mmol/L (98-107); Globulin 2.1 g/dL (1.3-4.6); Glucose 87 mg/dL (65-115); Osmolality Calculated 300 mOsm/kg (285-295); Potassium 4.7 mmol/L (3.5-5.1); Sodium 143 mmol/L (136-145); Total Bilirubin 0.2 mg/dL (0.15-1.2); Total Protein 5.3 g/dL (6.6-8.7)
[2020-09-06] MEDS: albuterol 8 gm MDI 2 PUFF INHALATION (08:38)
[2020-09-06] MEDS: polyethylene glycol 3350 Pkt 17 gm PO (08:55)
[2020-09-06] MEDS: citalopram 20 mg Tablet 40 MG PO (08:56)
[2020-09-06] MEDS: folic acid 1 mg Tablet PO (08:56)
[2020-09-06] MEDS: divalproex DR 250 mg Tablet PO ×2 (08:56→17:10)
[2020-09-06] MEDS: allopurinol 100 mg Tablet PO (08:56)
[2020-09-06] MEDS: cyanocobalamin 1,000 mcg/mL SDV 1000 MCG IM (08:57)
[2020-09-06] MEDS: metoprolol succinate ER (24 HR) 25 mg Tablet PO (08:57)
[2020-09-06] MEDS: pantoprazole DR 40 mg Tablet PO ×2 (08:57→17:10)
[2020-09-06] MEDS: cefTRIAXone 1,000 MG in sodium chloride 0.9% (plus) 50 ML 100 MG IV (09:02)
[2020-09-06] MEDS: sodium chloride 0.9% 1,000 ML 50 ML IV (09:04)
--- NOTE | 2020-09-06 20:26 | P.PN_ITS ---
Subjective Subjective: Interval history: 80-year-old female with a past medical history significant for dementia, O2 dependent COPD, adenocarcinoma of the sigmoid colon, breast cancer, obstructive sleep apnea, hypertension, dyslipidemia, chronic stage 3 to 4 kidney disease, bipolar disorder, C diff colitis, porencephaic cyst and chronic mastoiditis who presented to the hospital with altered mental status. Patient was recently treated with bactrim which was subsequently changed to ciprofloxacin for urinary. It appeared patient was complaining of dysuria.Upon arrival to ER her initial laboratory workup showed a WBC 6.4, hemoglobin 8.2, hematocrit 27.7 and platelet count of 125. Sodium 143, potassium 5.9, chloride 104, bicarb 33, BUN 27 and creatinine of 2.2. Glucose was 115. Urinalysis was negative for WBC, nitrate or leukocyte esterase. imaging studies included a CT head which did not show any evidence of chronic changes. Patient was started on IV Rocephin 1 g Q 24 hour on 08/29/2020. This was continued throughout hospitalization. 08/28/2020 blood cultures had not shown an y growth. No urine culture was sent due to normal urine analysis. On 09/05 vancomycin was added to regimen. Patient remained afebrile with out any leukocytosis. Further imaging studies performed during hospitalization included a abdominal CT which showed bilateral pleural effusion with bibasilar atelectasis, right nephrolithiasis, cholelithiasis without any evidence of acute abnormality. On ECHO was performed which showed EF of 70%. 09/06/2020 In discussion with patient's daughter who was at bedside patient has progressively worsened as far as her mental status and confusion. Medications: Reviewed: Yes Vitals/I&O/Wt Last Vital Signs Temp 98.3 F 09/06/20 19:36 Pulse 82 09/06/20 19:36 Resp 21 H 09/06/20 19:36 BP 162/62 09/06/20 19:36 Pulse Ox 93 09/06/20 19:36 09/06/20 09/06/20 09/06/20 06:59 14:59 22:59 Intake Total 180 / 605 1240 / 1240 200 / 1440 Output Total 400 / 400 100 / 100 Balance -220 / 205 1240 / 1240 100 / 1340 Physical Exam Narrative: EXAM NARRATIVE: General : Alert, awake however confused. HEENT : EOMI, PERR, no mastoid tenderness Chest : Decreased at bases, No wheezing, crackles or rales CVS: RRR, No obvious murmurs Abd: Soft non-tenderness, non-distended Extremity: Edema trace bilateral LE Data : 09/06/20 04:43 09/06/20 04:43 A&P Assessment and plan (1) Acute encephalopathy: Status: Acute (2) Acute worsening of stage 4 chronic kidney disease: Status: Acute (3) Chronic mastoiditis: Status: Acute (4) Bipolar 1 disorder, depressed: Status: Acute (5) COPD (chronic obstructive pulmonary disease): Status: Acute (6) Hypertension: Status: Acute (7) Dyslipidemia: Status: Acute (8) UTI (urinary tract infection): Status: Acute (9) Visual hallucination: Status: Acute (10) Dehydration: Status: Acute (11) Hyperkalemia: Status: Acute (12) Acute kidney injury superimposed on chronic kidney disease: Status: Acute Additional A&P Information Altered mental status - Etiology multifactorial - infectious vs metabolic - Underlying dementia - Similar complaint in 2016 with hallucination - Previously suspected parkinson disease - Avoid any benzo / narcotics - CT head - no acute abnormality - May consider MRI - See below for management of differential dx Chronic Mastoiditis / Sinusitis - MRI 2016 - right mastoid effsuion. - No mastoid pain/tenderness - Afebrile / No leukocytosis / ESR 39 - 09/05 - Vancomycin started pharmacy to dose - Unlikely acute even as previously noted - Will discuss with ENT in AM - Low threshold to discontinue vancomycin Suspected Urinary tract infection - Dx prior to arrival. - Culture not avaiable - Bactrim x 3 days, Ciprofloxacin - unknown number of days prior to arrival. - Rocephin 1g IV q24hr on day 10 - UA - negative on arrival - Blood culture x 2 - NGTD - Stop Rocephin and monitor off abx - SARs - CoV - ag negative. Acute on chronic stage 4 kidney disease - Creatinine baseline around 2.0 - 2.3 - Cr. 2.2 on arrival - Improved to 1.4 - Monitor u/o - Renally dose medication - On NS IVF at 50 cc/hr - Can likely stop IVF - Repeat BMP in AM Hypertension - Metoprolol 25 mg XL daily Bipolar Disorder / Depression / Anxiety - Celexa 40 mg PO daily - Depakote 250 mg PO BID - 09/02/20 - Level 26.2 O2 dependent COPD - No exacerbation - Continue 2L of o2 via NC - Bronchodilator PRN Dyslipidemia - Lipitor 20 mg po daily Chronic Macrocytic anemia - Hb of 8.9 - Vit. B12 level > 2000 - D/C 1,000 mch IM daily - Folic acid 1 g daily - Check Iron studies in am - Check stool for occult blood Additional medical history Adenocarcinoma of sigmoid Breast cancer DVT ppx - Currently on SCD only Disposition: Patient will require work up for management of persistent mental change. Anticipate additional 1-2 days in hospital.Consider discharge to SNF Assessment and Plan (1) UTI (urinary tract infection): Status: Acute (2) Visual hallucination: Status: Acute (3) Chronic mastoiditis: Status: Acute (4) Dehydration: Status: Acute (5) Hyperkalemia: Status: Acute (6) Acute kidney injury superimposed on chronic kidney disease: Status: Acute Attestations Medical Necessity Statement*: As mentioned above in additional A&P Coding Level of Care Code Acute School Bus Driver/Teacher Assistant for g Fwd Diagnoses Acute encephalopathy G93.40 Acute worsening of stage 4 chronic kidney disease N18.4 Chronic mastoiditis H70.10 Bipolar 1 disorder, depressed F31.9 COPD (chronic obstructive pulmonary disease) J44.9 Hypertension I10 Dyslipidemia E78.5 UTI (urinary tract infection) N39.0 Visual hallucination R44.1 Dehydration E86.0 Hyperkalemia E87.5 Acute kidney injury superimposed on chronic kidney disease N17.9; N18.9
[2020-09-06] MEDS: vancomycin 1,000 MG in sodium chloride 0.9% 250 ML 250 MG IV (22:56)
[2020-09-07] VITALS (8 sets, daily range): BP systolic 144–190; BP diastolic 65–84; PULSE 77–87; RESP 16–20; TEMP 36.2–37.1; O2SAT 96–98
[2020-09-07 02:49] LABS: Basophils % 0.2 %; Eosinophils # 0.1 10^3/uL (0.0-0.8); Eosinophils % 2.8 %; Hematocrit 31.3 % (37.0-47.0); Lymphocytes # 1.7 10^3/uL (0.8-4.8); Lymphocytes % 32.7 %; Mean Corpuscular HGB Conc 28.8 g/dL (30.0-36.0); Mean Corpuscular Volume 111.4 fL (81-99); Mean Platelet Volume 10.8 fL (7.4-10.4); Monocytes # 0.8 10^3/uL (0.2-0.9); Monocytes % 15.1 %; Neutrophils # 2.47 10^3/uL (1.8-7.7); Nucleated Red Blood Cells % 0 %; Platelet Count 149 10^3/cmm (130-400); Red Blood Count 2.81 10^6/uL (4.1-5.3); Red Cell Distribution Width 14.5 % (12.1-15.1)
[2020-09-07 03:24] LABS: Ammonia 42 umol/L (11-51)
[2020-09-07 03:29] LABS: Alanine Aminotransferase 11 U/L (0-33); Albumin Level 3.1 g/dL (3.5-5.2); Alkaline Phosphatase 70 IU/L (35-105); Anion Gap 6.9 (5-19); Aspartate Amino Transferase 15 U/L (0-32); Blood Urea Nitrogen 29 mg/dL (8-23); Carbon Dioxide 39 mmol/L (22-29); Chloride 103 mmol/L (98-107); Globulin 2.6 g/dL (1.3-4.6); Glucose 102 mg/dL (65-115); Osmolality Calculated 304 mOsm/kg (285-295); Potassium 4.9 mmol/L (3.5-5.1); Sodium 144 mmol/L (136-145); Thyroid Stimulating Hormone 3.39 uIU/mL (0.27-4.20); Total Bilirubin 0.2 mg/dL (0.15-1.2); Total Protein 5.7 g/dL (6.6-8.7)
[2020-09-07] MEDS: metoprolol succinate ER (24 HR) 25 mg Tablet PO (05:18)
--- NOTE | 2020-09-07 05:20 | PC.NURSE ---
Elevated blood pressure Patients blood pressure was 190/75. Dr. Plaza was notified. She allowed metoprolol to be given early.
[2020-09-07] MEDS: hyDRALAzine 25 mg Tablet PO ×2 (06:47→19:44)
[2020-09-07] MEDS: divalproex DR 250 mg Tablet PO ×2 (08:37→17:04)
[2020-09-07] MEDS: allopurinol 100 mg Tablet PO (08:37)
[2020-09-07] MEDS: polyethylene glycol 3350 Pkt 17 gm PO (08:37)
[2020-09-07] MEDS: citalopram 20 mg Tablet 40 MG PO (08:37)
[2020-09-07] MEDS: pantoprazole DR 40 mg Tablet PO ×2 (08:37→17:05)
[2020-09-07] MEDS: folic acid 1 mg Tablet PO (08:37)
[2020-09-07] MEDS: ipratropium-albuterol 3 mL Neb INHALATION (09:40)
--- NOTE | 2020-09-07 11:01 | PC.SOCIAL ---
IMM Update Pg. 2 of IMM updated. Initialed, dated, and timed and placed in chart. Copy provided.
--- NOTE | 2020-09-07 12:21 | PM.PN ---
Subjective Subjective: Interval history: 80-year-old female with a past medical history significant for dementia, O2 dependent COPD, adenocarcinoma of the sigmoid colon, breast cancer, obstructive sleep apnea, hypertension, dyslipidemia, chronic stage 3 to 4 kidney disease, bipolar disorder, C diff colitis, porencephaic cyst and chronic mastoiditis who presented to the hospital with altered mental status. Patient was recently treated with bactrim which was subsequently changed to ciprofloxacin for urinary. It appeared patient was complaining of dysuria.Upon arrival to ER her initial laboratory workup showed a WBC 6.4, hemoglobin 8.2, hematocrit 27.7 and platelet count of 125. Sodium 143, potassium 5.9, chloride 104, bicarb 33, BUN 27 and creatinine of 2.2. Glucose was 115. Urinalysis was negative for WBC, nitrate or leukocyte esterase. imaging studies included a CT head which did not show any evidence of chronic changes. Patient was started on IV Rocephin 1 g Q 24 hour on 08/29/2020. This was continued throughout hospitalization. 08/28/2020 blood cultures had not shown any growth. No urine culture was sent due to normal urine analysis. On 09/05 vancomycin was added to regimen. Patient remained afebrile with out any leukocytosis. Further imaging studies performed during hospitalization included a abdominal CT which showed bilateral pleural effusion with bibasilar atelectasis, right nephrolithiasis, cholelithiasis without any evidence of acute abnormality. On 09/03 ECHO was performed which showed EF of 70%. 09/06/2020 In discussion with patient's daughter who was at bedside patient has progressively worsened as far as her mental status and confusion. 09/06/2020 No new clinical events overnight. Patient remained comfortable with out any distress. No fever, chills, nausea or vomiting. Medications: Reviewed: Yes Vitals/I&O/Wt Last Vital Signs Temp 97.8 F 09/07/20 10:58 Pulse 87 09/07/20 10:58 Resp 20 H 09/07/20 10:58 BP 178/70 09/07/20 10:58 Pulse Ox 97 09/07/20 10:58 09/06/20 09/07/20 09/07/20 22:59 06:59 14:59 Intake Total 200 / 1440 240 / 240 Output Total 350 / 350 250 / 600 Balance -150 / 1090 -250 / 840 240 / 240 Physical Exam Narrative: EXAM NARRATIVE: General : Alert, awake however pleasently confused. HEENT : EOMI, PERR, no mastoid tenderness Chest : Decreased at bases, No wheezing, crackles or rales CVS: RRR, No obvious murmurs Abd: Soft non-tenderness, non-distended Extremity: Edema trace bilateral LE Data : 09/07/20 02:20 09/07/20 02:20 A&P Assessment and plan (1) Acute encephalopathy: Status: Acute (2) Acute worsening of stage 4 chronic kidney disease: Status: Acute (3) Chronic mastoiditis: Status: Acute (4) Bipolar 1 disorder, depressed: Status: Acute (5) COPD (chronic obstructive pulmonary disease): Status: Acute (6) Hypertension: Status: Acute (7) Dyslipidemia: Status: Acute (8) UTI (urinary tract infection): Status: Acute (9) Visual hallucination: Status: Acute (10) Dehydration: Status: Acute (11) Hyperkalemia: Status: Acute (12) Acute kidney injury superimposed on chronic kidney disease: Status: Acute Additional A&P Information Altered mental status - Etiology multi-factorial - infectious vs metabolic - Underlying dementia - Similar complaint in 2016 with hallucination - Previously suspected parkinson disease - Avoid any benzo / narcotics - CT head - no acute abnormality - May consider MRI as outpatiet - no urgent need - Appears to likely be as baseline - See below for management of differential dx Chronic Mastoiditis / Sinusitis - MRI 2016 - right mastoid effsuion. - No mastoid pain/tenderness - Afebrile / No leukocytosis / ESR 39 - 09/05 - Vancomycin started pharmacy to dose - discontinue - Unlikely acute even as previously noted - Can follow up with ENT as outpatient - Monitor off abx - No tenderness or erythema of r. mastoid process. - Inconsistent exam however Hx of Urinary tract infection - Dx prior to arrival. - Culture not reported in EMR - Bactrim x 3 days, Ciprofloxacin - unknown number of days prior to arrival. - Rocephin 1g IV q24hr s/p 10 days - UA - negative on arrival - Blood culture x 2 - NGTD - Stop Rocephin and monitor off abx - SARs - CoV - ag negative. Acute on chronic stage 4 kidney disease - Creatinine baseline around 2.0 - 2.3 - Cr. 2.2 on arrival - Improved to 1.4 - Monitor u/o - Renally dose medication - D/C NS IVF at 50 cc/hr - Repeat BMP in AM if remains in hospital Hypertension - Metoprolol 25 mg XL daily Bipolar Disorder / Depression / Anxiety - Celexa 40 mg PO daily - Depakote 250 mg PO BID - 09/02/20 - Level 26.2 O2 dependent COPD - No exacerbation - Continue 2L of o2 via NC - Bronchodilator PRN Dyslipidemia - Lipitor 20 mg po daily Chronic Macrocytic anemia - Hb of 8.9 - Vit. B12 level > 2000 - D/C 1,000 mch IM daily - Folic acid 1 g daily - Check Iron studies in am - Check stool for occult blood Additional medical history Adenocarcinoma of sigmoid Breast cancer DVT ppx - Currently on SCD only Disposition: Discharge orderes placed - to discuss with family regarding home with home care vs SNF Attestations Medical Necessity Statement*: Patient likely to discharge today. Coding Level of Care Code Acute Cashier Host/Hostess for Rosario [employer] Diagnoses Acute encephalopathy G93.40 Acute worsening of stage 4 chronic kidney disease N18.4 Chronic mastoiditis H70.10 Bipolar 1 disorder, depressed F31.9 COPD (chronic obstructive pulmonary disease) J44.9 Hypertension I10 Dyslipidemia E78.5 UTI (urinary tract infection) N39.0 Visual hallucination R44.1 Dehydration E86.0 Hyperkalemia E87.5 Acute kidney injury superimposed on chronic kidney disease N17.9; N18.9
--- NOTE | 2020-09-07 13:50 | P.DS_ITS ---
Discharge Providers Date of Admission: 08/29/20 11:49 Date of Discharge: September 07, 2020 Attending Provider at Admission: Liliana Toledo MD Attending Provider at Discharge: Cherelle Wagner Primary Care Provider: Dunia Rowan MD Diagnoses at Discharge Discharge Diagnosis (1) Acute encephalopathy: Status: Acute (2) Acute worsening of stage 4 chronic kidney disease: Status: Acute (3) Chronic mastoiditis: Status: Acute (4) Bipolar 1 disorder, depressed: Status: Acute (5) COPD (chronic obstructive pulmonary disease): Status: Acute (6) Hypertension: Status: Acute (7) Dyslipidemia: Status: Acute (8) UTI (urinary tract infection): Status: Acute (9) Visual hallucination: Status: Acute (10) Dehydration: Status: Acute (11) Hyperkalemia: Status: Acute (12) Acute kidney injury superimposed on chronic kidney disease: Status: Acute Reason for Visit Reason for Visit: UTI, CONFUSION 26261 n39.0 r44.1 Hospital Course Hospital Course: 80-year-old female with a past medical history significant for dementia, O2 dependent COPD, adenocarcinoma of the sigmoid colon, breast cancer, obstructive sleep apnea, hypertension, dyslipidemia, chronic stage 3 to 4 kidney disease, bipolar disorder, C diff colitis, porencephaic cyst and chronic mastoiditis who presented to the hospital with altered mental status. Patient was recently treated with bactrim which was subsequently changed to ciprofloxacin for urinary. It appeared patient was complaining of dysuria.Upon arrival to ER her initial laboratory workup showed a WBC 6.4, hemoglobin 8.2, hematocrit 27.7 and platelet count of 125. Sodium 143, potassium 5.9, chloride 104, bicarb 33, BUN 27 and creatinine of 2.2. Glucose was 115. Urinalysis was negative for WBC, nitrate or leukocyte esterase. imaging studies included a CT head which did not show any evidence of chronic changes. Further imaging studies performed during hospitalization included a abdominal CT which showed bilateral pleural effusion with bibasilar atelectasis, right nephrolithiasis, cholelithiasis without any evidence of acute abnormality. On 09/03 ECHO was performed which showed EF of 70%. Patient was started on IV Rocephin 1 g Q 24 hour on 08/29/2020. This was continued throughout hospitalization. 08/28/2020 blood cultures had not shown any growth. No urine culture was sent due to normal urine analysis. On 09/05 vancomycin was added to regimen. Patient remained afebrile with out any leukocytosis. Patient did not have any notable tenderness or erythema overlying mastoid process on right or left. With similar findings noted to on 2016 imaging and now new abscess or mastoid distruction acute infection was less likely. Provencal patients mental status is likley at baseline. Vancomycin was discontinued. MRI was ordered multiple times however discontinued as patient would require sedatives to perform. No lateralizing neurological deficits were noted. Recommended to be follow up with neurology as well as ENT soon after discharge. Additionally patients renal function returned to below previously known baseline to 1.4. She was tolerating PO intake. Physical Exam Narrative: EXAM NARRATIVE: General : Alert, awake however pleasently confused. HEENT : EOMI, PERR, no mastoid tenderness Chest : Decreased at bases, No wheezing, crackles or rales CVS: RRR, No obvious murmurs Abd: Soft non-tenderness, non-distended Extremity: Edema trace bilateral LE Discharge Data Data Completed and Pending: Completed Studies During Hospitalization Category Date Time Status CT abdomen pelvis w con* [id number] Rout ine Cat Scan 09/02/20 08:[address] head wo con* [id number] Urgent Cat Scan 08/28/20 21:53 Completed CV echo complete* [id number] Routine Ultrasound 09/03/20 07:51 Completed Pending at discharge Category Date Time Status MR head wo con* [id number] Routine MRI 09/01/20 18:00 Unverified MR head wo con* [id number] Routine MRI 09/07/20 10:15 Unverified Labs from last 24 hours 09/07/20 09/07/20 09/07/20 02:20 02:20 02:20 WBC 5.0 RBC 2.81 L Hgb 9.0 L Hct 31.3 L MCV 111.4 H MCH 32.0 MCHC 28.8 L RDW 14.5 Plt Count 149 MPV 10.8 H Neut % (Auto) 49.0 Lymph % (Auto) 32.7 Kemper % (Auto) 15.1 Eos % (Auto) 2.8 Baso % (Auto) 0.2 Neut # (Auto) 2.47 Lymph # (Auto) 1.7 Kemper # (Auto) 0.8 Eos # (Auto) 0.1 Baso # (Auto) 0.0 Nucleated RBC % (a uto) 0 Nucleated RBCs # 0.0 Sodium 144 Potassium 4.9 Chloride 103 Carbon Dioxide 39 H Anion Gap 6.9 BUN 29 H Creatinine 1.4 H GFR Calculation Not Reportable Glucose 102 Calculated Osmolal ity 304 H Calcium 11.0 H Total Bilirubin 0.2 AST 15 ALT 11 Alkaline Phosphata se 70 Ammonia 42 Total Protein 5.7 L Albumin 3.1 L Globulin 2.6 TSH 3.39 Vitals: Last Vital Signs Temp 97.8 F 09/07/20 10:58 Pulse 87 09/07/20 10:58 Resp 20 H 09/07/20 10:58 BP 178/70 09/07/20 10:58 Pulse Ox 97 09/07/20 10:58 Discharge Plan Discharge Patient Disposition: Xfer SNF Condition: Stable Prescriptions: New metoprolol succinate 25 mg Tablet Extended Release 24 Hr 25 mg PO DAILY 30 Days Qty: 30 RF: 0 Paricalcitol [Z 1 mcg PO DAILY 30 Days RF: 0 Continued pantoprazole [Protonix] 40 mg Tablet,Delayed Release (Dr/Ec) 40 mg PO BID RF: 0 atorvastatin [Lipitor] 20 mg Tablet 20 mg PO DAILY RF: 0 levalbuterol tartrate [Xopenex HFA] 45 mcg/actuation Hfa Aerosol Inhaler 1 puff INHALATION Q6H RF: 0 Vitamin D3 tablet 250 mcg PO DAILY RF: 0 folic acid 1 mg Tablet 100 mg PO BID RF: 0 divalproex 250 mg Tablet,Delayed Release (Dr/Ec) 250 mg PO BID RF: 0 citalopram 40 mg Tablet 40 mg PO DAILY RF: 0 allopurinol 100 mg Tablet 100 mg PO DAILY RF: 0 montelukast [Singulair] 10 mg Tablet 10 mg PO DAILY RF: 0 Discontinued metoprolol succinate 12.5 mg PO DAILY RF: 0 Discharge Orders: Discharge Order (Routine); Ordered 09/07/20 Ordered By: Cherelle Wagner Referrals: [facility] [Outside] Discharge Diet: Regular Discharge Activity: Resume usual activity and Oxygen as instructed Discharge Attestations Time Spent in Discharge Care*: greater than 30 min Quality Metrics Clinical Quality Measures During this hospital stay, did patient experience: None Coding Level of Care Code Acute [employer] for [employer] Diagnoses Acute encephalopathy G93.40 Acute worsening of stage 4 chronic kidney disease N18.4 Chronic mastoiditis H70.10 Bipolar 1 disorder, depressed F31.9 COPD (chronic obstructive pulmonary disease) J44.9 Hypertension I10 Dyslipidemia E78.5 UTI (urinary tract infection) N39.0 Visual hallucination R44.1 Dehydration E86.0 Hyperkalemia E87.5 Acute kidney injury superimposed on chronic kidney disease N17.9; N18.9
[2020-09-08] VITALS (13 sets, daily range): BP systolic 160–198; BP diastolic 63–79; PULSE 64–92; RESP 15–24; TEMP 36.1–36.7; O2SAT 96–99
--- NOTE | 2020-09-08 02:21 | PC.NURSE ---
Blood pressure elevated. Nurse notified.
[2020-09-08] MEDS: hyDRALAzine 25 mg Tablet PO ×2 (05:39→14:55)
--- NOTE | 2020-09-08 05:44 | PC.NURSE ---
SHIFT SUMMARY Has done well tonight. Remains weak and tired but getting up better with one assist. Had couple of soft BM's tonight. Have medicated with po Hydralazine X2 for BP tonight. Has not c/o any pain or headache tonight. Is confused but pleasant. Have observered her talking to herself and people who are not in the room on occasion.
[2020-09-08] MEDS: divalproex DR 250 mg Tablet PO ×2 (08:37→17:50)
[2020-09-08] MEDS: pantoprazole DR 40 mg Tablet PO ×2 (08:38→17:50)
[2020-09-08] MEDS: citalopram 20 mg Tablet 40 MG PO (08:39)
[2020-09-08] MEDS: metoprolol succinate ER (24 HR) 25 mg Tablet PO (08:40)
[2020-09-08] MEDS: allopurinol 100 mg Tablet PO (08:40)
[2020-09-08] MEDS: acetaminophen 325 mg Tablet 650 MG PO (08:41)
[2020-09-08] MEDS: folic acid 1 mg Tablet PO (08:41)
[2020-09-08] MEDS: albuterol 8 gm MDI 2 PUFF INHALATION ×2 (09:26→21:10)
--- NOTE | 2020-09-08 10:26 | CT_ITS ---
WS: [id number] CT HEAD NONCONTRAST HISTORY: rule out stroke TECHNIQUE: Contiguous axial imaging performed through the brain in 2.5 mm imaging. Bone and soft tiss ue windows. Sagittal and coronal reformats reviewed. All CT scans at [facility] use at ast one of these dose optimization techniques: automated exposure control; mA and/or kV adjustment pe r patient size (includes targeted exams where dose is matched to clinical indication); or iterative r econstruction. DLP: 805.94 mGy.cm COMPARISON: 08/28/2020 No acute intracranial hemorrhage, midline shift or mass effect. Mild atrophy and moderate chronic microvascular ischemic changes. Extensive confluent white matter ch anges surrounding the ventricles. Ventricles: Mildly dilated ventricles and extra-axial spaces on the basis of atrophy. Paranasal sinuses: As visualized are clear. Mastoid air cells: Mildly sclerotic mastoid air cells. Calvarium and scalp: Skull is intact with no soft tissue edema or swelling.
--- NOTE | 2020-09-08 10:30 | PC.OT ---
OT treatment attempted twice today. First time she was to tired to wake up, and second time the Doctor was in the room and ordered a stat MRI due to her relative unresponsiveness. OT will hold treatment today and attempt again tomorrow. Co-sign: SOLIS Fay/Mariella
--- NOTE | 2020-09-08 11:00 | USCV_ITS ---
Charmaine Stew Age: 80 Gender: F : 1940 Exam Date: 09/08/2020 13:28 Ordering Phys: Reilly Ferrari MD Technologist: Walker Isidro Exam Location: [facility] [place] Indication: AMS Risk Factors: Previous Vascular Surgery: Right Brachial BP: / Left Brachial BP: / Right Left Velocity (cm/s) Spectral Plaque Velocity (cm/s) Spectral Plaque Syst/Diast Broadening Syst/Diast Broadening 81.60/ 14.30 Prox CCA 69.70 / 21.00 90.40/ 18.70 Mid CCA 90.70 / 18.40 148.10/50.10 Distal CCA 82.80 / 21.00 186.80/52.40 Prox ICA 165.25/ 38.70 184.60/52.40 Mid ICA 232.40/ 54.70 180.00/57.00 Distal ICA 218.80/ 57.00 116.20 ECA 131.50 1.26 ICA/CCA 2.56 Antegrade Vertebral Antegrade 85.40/ 18.40 cm/s 109.4/ 31.90 cm/s 0 Tri Subclavian Tri 80.20 164.1 0 FINDINGS Comparison: none available. Mixture of calcified and noncalcified plaque in the bifurcations. Moderate elevation of left ICA velocity, with turbulence. Bilateral antegrade vertebral arteries. CONCLUSIONS Left ICA stenosis 50-69%. Right ICA stenosis < 50%. Dr. Maite Kline DO (Electronically Signed) Final Date: 08 September 2020 14:40 S
[2020-09-08 11:38] LABS: Basophils % 0.3 %; Eosinophils # 0.1 10^3/uL (0.0-0.8); Hematocrit 30.1 % (37.0-47.0); Hemoglobin 8.7 g/dL (11.5-15.3); Lymphocytes # 2.3 10^3/uL (0.8-4.8); Lymphocytes % 39.3 %; Mean Corpuscular HGB Conc 28.9 g/dL (30.0-36.0); Mean Corpuscular Volume 110.7 fL (81-99); Mean Platelet Volume 10.3 fL (7.4-10.4); Monocytes # 0.7 10^3/uL (0.2-0.9); Monocytes % 11.7 %; Neutrophils # 2.71 10^3/uL (1.8-7.7); Neutrophils % 47.5 %; Nucleated Red Blood Cells % 0 %; Platelet Count 153 10^3/cmm (130-400); Red Blood Count 2.72 10^6/uL (4.1-5.3); Red Cell Distribution Width 14.7 % (12.1-15.1); White Blood Count 5.7 10^3/uL (4.0-10.0)
[2020-09-08 11:58] LABS: Lactic Sepsis W/Reflex 0.4 mmol/L (0.5-2.2)
--- NOTE | 2020-09-08 12:00 | MR_ITS ---
WS: [id number] MRI BRAIN WITHOUT CONTRAST HISTORY: ams COMPARISON: 01/18/2016 and 08/28/2020 TECHNIQUE: Diffusion imaging, multiplanar T1, T2 and FLAIR imaging obtained. Examination is limited by motion artifact. No evidence for acute infarct or hemorrhage. Sharpe-white matter differentiation is normal. Moderate atrophy and moderate chronic microvascular ischemic changes throughout the white matter. No prior large territory infarct. Prior lacunar infarct or perivascular space in the RIGHT inferior temp oral region. Present on the prior study from 2016. Ventricles and extra-axial spaces are prominent on the basis of atrophy. No inferior displacement of cerebellar tonsils. The sella turcica and pituitary gland are unremarkabl e. Posterior fossa is also unremarkable. Dural venous sinuses and [employer] demonstrate no abnormality on this unenhanced studies. Paranasal sinuses: Mucoperiosteal thickening RIGHT maxillary sinus. Mastoid air cells: Severe RIGHT mastoiditis. Calvarium and scalp: Intact. MR/MR head wo con* [id number] IMPRESSION: 1. No acute infarct or hemorrhage. 2. Moderate atrophy and chronic ischemic microvascular disease. Mild progressi on of the chronic microvascular changes since 01/18/2016. 3. RIGHT mastoiditis.
[2020-09-08 12:08] LABS: Procalcitonin 0.21 ng/mL (0-0.5)
[2020-09-08 12:19] LABS: Alanine Aminotransferase 9 U/L (0-33); Albumin Level 3.1 g/dL (3.5-5.2); Alkaline Phosphatase 60 IU/L (35-105); Anion Gap 5.9 (5-19); Aspartate Amino Transferase 14 U/L (0-32); Blood Urea Nitrogen 27 mg/dL (8-23); C Reactive Protein 1.7 mg/L (0.0-4.9); Calcium 11.1 mg/dL (8.5-10.5); Chloride 102 mmol/L (98-107); Globulin 2.3 g/dL (1.3-4.6); Glucose 89 mg/dL (65-115); Magnesium 1.8 mg/dL (1.7-2.3); Osmolality Calculated 303 mOsm/kg (285-295); Phosphorus 2.2 mg/dL (2.5-4.5); Potassium 4.9 mmol/L (3.5-5.1); Sodium 144 mmol/L (136-145); Total Bilirubin 0.2 mg/dL (0.15-1.2); Total Protein 5.4 g/dL (6.6-8.7)
[2020-09-08 12:40] LABS: Erythrocyte Sedimentation Rate 35 mm/hr (0-15)
[2020-09-08 12:45] LABS: Carbon Dioxide 41 mmol/L (22-29)
--- NOTE | 2020-09-08 13:06 | P.PN_ITS ---
Subjective Subjective: Interval history: This morning patient was examined with nursing staff at bedside patient remained afebrile overnight, hypertensive, saturating high 90s on 3 L, early in the morning she was able to get up to the commode with nursing staff, they did not notice any changes in her behavior, however during my examination, patient would only say a few words, said she was okay, but does not respond to questions at other times, I have to really stimulate her for her to open up her eyes, she did follow commands such as sticking out her tongue, squeezing my fingers bilaterally, wiggling her toes, but is fairly withdrawn, not acting appropriately, I am not sure of her baseline status, but according to family members she is alert oriented x3, lives alone with her daughter, has been complaining of weakness, poor appetite Vitals/I&O/Wt Last Vital Signs Temp 97.9 F 09/08/20 11:11 Pulse 65 09/08/20 11:11 Resp 15 09/08/20 11:11 BP 170/79 09/08/20 11:11 Pulse Ox 99 09/08/20 11:11 09/07/20 09/08/20 09/08/20 22:59 06:59 14:59 Intake Total 300 / 1020 150 / 1170 100 / 100 Output Total 625 / 625 650 / 1275 Balance -325 / 395 -500 / -105 100 / 100 Physical Exam Const: COMMON NORMALS: no acute distress ORIENTATION/CONSCIOUSNESS: Yes awake, Yes oriented to person and Yes confused; not oriented to place and not oriented to time HENMT: COMMON NORMALS: normocephalic HEAD & SCALP: normocephalic Neck/C-Spine: COMMON NORMALS: no JVD Resp: COMMON NORMALS: normal respiratory effort, No retractions, No use of accessory muscles and clear to auscultation bilaterally AUSCULTATION: clear to auscultation bilaterally Cardio: COMMON NORMALS: no JVD, regular rate, regular rhythm, S1 normal heart sound present and S2 normal heart sound present RATE: regular rate RHYTHM: regular rhythm HEART SOUNDS: S1 normal heart sound present and S2 normal heart sound present GI: COMMON NORMALS: Normal to inspection, nondistended, normoactive bowel sounds present, Soft to palpation, non-tender, No hepatosplenomegaly present, no masses and no bruits PALPATION: Yes Soft to palpation and Yes No hepatosplenomegaly present Extremity: COMMON NORMALS: capillary refill normal, no clubbing, cyanosis or edema, no calf tenderness and no pedal edema Neuro: SENSORIUM/ORIENTATION: Yes oriented to person, No oriented to place and No oriented to time OTHER: Does not follow a full neurologic exam, but does squeeze my fingers bilaterally, she sticks out her tongue, she wiggles her toes, pupils are equal round reactive to light, she says a couple of words here and there, no facial droop, no seizure-like episodes that I can notice Psych: COMMON NORMALS: mental status grossly normal Data : 09/08/20 11:23 09/08/20 11:23 A&P Assessment and plan (1) Acute encephalopathy: Status: Acute (2) Acute worsening of stage 4 chronic kidney disease: Status: Acute (3) Chronic mastoiditis: Has been on Rocephin, more continued pain we will add vancomycin and plan for MRI of the head, patient is agreeable today. Would benefit from ENT evaluation after discharge No otorrhea Status: Acute (4) Bipolar 1 disorder, depressed: Status: Acute (5) COPD (chronic obstructive pulmonary disease): Status: Acute (6) Hypertension: Status: Acute (7) Dyslipidemia: Status: Acute (8) UTI (urinary tract infection): Has been on IV rocephin and urine culture shows no growth Continue antibiotics for below concern but UTI ruled out. Status: Acute (9) Visual hallucination: Reported no hallucinations today. CT head showing chronic changes MRI head ordered Status: Acute (10) Dehydration: Gentle IVF NS @ 50ml/hr Status: Acute (11) Hyperkalemia: Resolved Status: Acute (12) Acute kidney injury superimposed on chronic kidney disease: Creatinine at baseline, increased BUN today. Gentle IVF as above Status: Acute Additional A&P Information Altered mental status - Etiology multi-factorial - infectious, metabolic, dementia - Underlying dementia - Similar complaint in 2016 with hallucination - Previously suspected parkinson disease - Avoid any benzo / narcotics - CT head - no acute abnormality -MRI no acute infarct or hemorrhage -Carotid ultrasound pending -This morning is quite confused, she does follow commands - See below for management of differential dx -We will start her on broad-spectrum antibiotics vancomycin and Primaxin, neurochecks, seizure precautions Chronic Mastoiditis / Sinusitis - MRI 2016 - right mastoid effsuion. - No mastoid pain/tenderness - Afebrile / No leukocytosis / ESR 39 - 09/05 - Vancomycin started pharmacy to dose - Unlikely acute even as previously noted - Can follow up with ENT as outpatient - Monitor off abx - No tenderness or erythema of r. mastoid process. - Inconsistent exam however Hx of Urinary tract infection - Dx prior to arrival. - Culture not reported in EMR - Bactrim x 3 days, Ciprofloxacin - unknown number of days prior to arrival. - Rocephin 1g IV q24hr s/p 10 days - UA - negative on arrival - Blood culture x 2 - NGTD -A full - SARs - CoV - ag negative. Acute on chronic stage 4 kidney disease - Creatinine baseline around 2.0 - 2.3 - Cr. 2.2 on arrival - Improved to 1.3 - Monitor u/o - Renally dose medication - D/C NS IVF at 50 cc/hr - Repeat BMP in AM if remains in hospital Hypertension - Metoprolol 25 mg XL daily Bipolar Disorder / Depression / Anxiety - Celexa 40 mg PO daily - Depakote 250 mg PO BID - 09/02/20 - Level 26.2 O2 dependent COPD - No exacerbation - Continue 2L of o2 via NC - Bronchodilator PRN Dyslipidemia - Lipitor 20 mg po daily Chronic Macrocytic anemia - Hb of 8.9 - Vit. B12 level > 2000 - D/C 1,000 mch IM daily - Folic acid 1 g daily - Check Iron studies in am - Check stool for occult blood Additional medical history Adenocarcinoma of sigmoid Breast cancer DVT ppx - Currently on SCD only Disposition: Discharge orderes placed - to discuss with family regarding home with home care vs SNF Attestations Medical Necessity Statement*: Patient requires hospitalization, inpatient for altered mental status, etiology unclear at this point Coding Level of Care Code Acute Fast Food Shift Lead for [facility] Fwd Diagnoses Acute encephalopathy G93.40 Acute worsening of stage 4 chronic kidney disease N18.4 Chronic mastoiditis H70.10 Bipolar 1 disorder, depressed F31.9 COPD (chronic obstructive pulmonary disease) J44.9 Hypertension I10 Dyslipidemia E78.5 UTI (urinary tract infection) N39.0 Visual hallucination R44.1 Dehydration E86.0 Hyperkalemia E87.5 Acute kidney injury superimposed on chronic kidney disease N17.9; N18.9
[2020-09-08] MEDS: vancomycin 1,000 MG in sodium chloride 0.9% 250 ML 250 MG IV (14:57)
[2020-09-08] MEDS: ipratropium-albuterol 3 mL Neb INHALATION ×2 (15:50→21:06)
--- NOTE | 2020-09-08 16:40 | PC.SOCIAL ---
Krystyna from [facility] returned call and indicates Physician reviewer does agree with determination of services. Patient can be discharged anytime on 09/09/2020 if provider still feels is appropriate. Anytime after charges may incur. Updated Aimee Cornell RN CM and patient daughter in room.
[2020-09-08] MEDS: methylphenidate 10 mg Tablet 5 MG PO (17:50)
[2020-09-08] MEDS: predniSONE 20 mg Tablet 40 MG PO (17:51)
--- NOTE | 2020-09-08 18:53 | PC.NURSE ---
SHIFT SUMMARY PT RESTED MOST OF THE DAY AND WAS HARD TO AROSE, BUT WOULD FOLLOW COMMANDS WHEN ASKED TO SQUEEZE HANDS AND MOVE LEGS. PT HAD MRI SCAN DONE, RESULTS ARE IN REPORTS, FAMILY NOTIFIED AND UPDATED OF RESULTS AND PLAN OF PT CARE BY DR DOSHI. PT WAS AWAKE, ALERT, AND ORIENTED WHILE DAUGHTER TAQUERIA WAS HERE WITH . DIET WAS CHANGED TO DYSPHASIA.
[2020-09-09] VITALS: BP 174/64; PULSE 74; RESP 20; TEMP 36.6; O2SAT 100
[2020-09-09 04:00] VITALS: BP 162/64; PULSE 89; RESP 19; TEMP 36.4; O2SAT 98
[2020-09-09 05:34] LABS: Basophils % 0.3 %; Eosinophils % 0.3 %; Hemoglobin 8.5 g/dL (11.5-15.3); Lymphocytes # 0.6 10^3/uL (0.8-4.8); Lymphocytes % 16.4 %; Mean Corpuscular HGB Conc 28.3 g/dL (30.0-36.0); Mean Corpuscular Hemoglobin 31.5 pg (28.0-34.0); Mean Corpuscular Volume 111.1 fL (81-99); Mean Platelet Volume 10.8 fL (7.4-10.4); Monocytes # 0.1 10^3/uL (0.2-0.9); Monocytes % 2.7 %; Neutrophils # 2.98 10^3/uL (1.8-7.7); Nucleated Red Blood Cells % 0 %; Platelet Count 152 10^3/cmm (130-400); Red Cell Distribution Width 14.4 % (12.1-15.1); White Blood Count 3.7 10^3/uL (4.0-10.0)
[2020-09-09 06:21] LABS: Alanine Aminotransferase 8 U/L (0-33); Alkaline Phosphatase 59 IU/L (35-105); Anion Gap 9.3 (5-19); Aspartate Amino Transferase 12 U/L (0-32); Blood Urea Nitrogen 29 mg/dL (8-23); Calcium 10.9 mg/dL (8.5-10.5); Carbon Dioxide 37 mmol/L (22-29); Chloride 98 mmol/L (98-107); Globulin 2.5 g/dL (1.3-4.6); Glucose 127 mg/dL (65-115); Magnesium 1.8 mg/dL (1.7-2.3); Osmolality Calculated 295 mOsm/kg (285-295); Phosphorus 3.1 mg/dL (2.5-4.5); Potassium 5.3 mmol/L (3.5-5.1); Sodium 139 mmol/L (136-145); Total Bilirubin 0.2 mg/dL (0.15-1.2); Total Protein 5.5 g/dL (6.6-8.7)
[2020-09-09 06:32] LABS: Procalcitonin 0.17 ng/mL (0-0.5)
[2020-09-09 07:10] VITALS: BP 155/64; PULSE 66; RESP 18; TEMP 37.1; O2SAT 98
[2020-09-09 08:20] VITALS: PULSE 71; RESP 16; O2SAT 96
[2020-09-09] MEDS: albuterol 8 gm MDI 2 PUFF INHALATION (08:35)
[2020-09-09] MEDS: predniSONE 20 mg Tablet 40 MG PO (10:39)
[2020-09-09] MEDS: citalopram 20 mg Tablet 40 MG PO (10:39)
[2020-09-09] MEDS: pantoprazole DR 40 mg Tablet PO (10:40)
[2020-09-09] MEDS: folic acid 1 mg Tablet PO (10:40)
[2020-09-09] MEDS: methylphenidate 10 mg Tablet 5 MG PO (10:40)
[2020-09-09] MEDS: allopurinol 100 mg Tablet PO (10:40)
[2020-09-09] MEDS: metoprolol succinate ER (24 HR) 25 mg Tablet PO (10:41)
[2020-09-09] MEDS: divalproex DR 250 mg Tablet PO (10:41)
--- NOTE | 2020-09-09 11:13 | PM.DCS ---
Discharge Providers Date of Admission: 08/29/20 11:49 Date of Discharge: September 09, 2020 Attending Provider at Admission: Liliana Toledo MD Attending Provider at Discharge: Reilly Ferrari MD Primary Care Provider: Dunia Rowan MD Diagnoses at Discharge Discharge Diagnosis (1) Acute encephalopathy: Status: Acute (2) Acute worsening of stage 4 chronic kidney disease: Status: Acute (3) Chronic mastoiditis: Status: Acute (4) Bipolar 1 disorder, depressed: Status: Acute (5) COPD (chronic obstructive pulmonary disease): Status: Acute (6) Hypertension: Status: Acute (7) Dyslipidemia: Status: Acute (8) UTI (urinary tract infection): Status: Acute (9) Visual hallucination: Status: Acute (10) Dehydration: Status: Acute (11) Hyperkalemia: Status: Acute (12) Acute kidney injury superimposed on chronic kidney disease: Status: Acute Reason for Visit Reason for Visit: UTI, CONFUSION 25216 n39.0 r44.1 Hospital Course Hospital Course: 80-year-old female with a past medical history significant for dementia, O2 dependent COPD, adenocarcinoma of the sigmoid colon, breast cancer, obstructive sleep apnea, hypertension, dyslipidemia, chronic stage 3 to 4 kidney disease, bipolar disorder, C diff colitis, porencephaic cyst and chronic mastoiditis who presented to the hospital with altered mental status. Patient was recently treated with bactrim which was subsequently changed to ciprofloxacin for urinary. It appeared patient was complaining of dysuria.Upon arrival to ER her initial laboratory workup showed a WBC 6.4, hemoglobin 8.2, hematocrit 27.7 and platelet count of 125. Sodium 143, potassium 5.9, chloride 104, bicarb 33, BUN 27 and creatinine of 2.2. Glucose was 115. Urinalysis was negative for WBC, nitrate or leukocyte esterase. imaging studies included a CT head which did not show any evidence of chronic changes. Further imaging studies performed during hospitalization included a abdominal CT which showed bilateral pleural effusion with bibasilar atelectasis, right nephrolithiasis, cholelithiasis without any evidence of acute abnormality. On 09/03 ECHO was performed which showed EF of 70%. Patient was started on IV Rocephin 1 g Q 24 hour on 08/29/2020. This was continued throughout hospitalization. 08/28/2020 blood cultures had not shown any growth. No urine culture was sent due to normal urine analysis. On 09/05 vancomycin was added to regimen. Patient remained afebrile with out any leukocytosis. Patient did not have any notable tenderness or erythema overlying mastoid process on right or left. With similar findings noted to on 2016 imaging and now new abscess or mastoid distruction acute infection was less likely. [place] patients mental status is likley at baseline. Vancomycin was discontinued. MRI was ordered multiple times however discontinued as patient would require sedatives to perform. No lateralizing neurological deficits were noted. Recommended to be follow up with neurology as well as ENT soon after discharge. Additionally patients renal function returned to below previously known baseline to 1.4. She was tolerating PO intake. Discharge Data Data Completed and Pending: Completed Studies During Hospitalization Category Date Time Status CT abdomen pelvis w con* [id number] Rout ine Cat Scan 09/02/20 08:[address] head wo con* 7 0450 Urgent Cat Scan 08/28/20 21:53 Completed FL barium swallow modifd 04521 Rout ine Exams 09/09/20 16:39 Completed MR head wo con* 7 0551 Stat MRI 09/08/20 12:00 Completed CV carotid duplex BI* [id number] Stat Ultrasound 09/08/20 11:00 Completed CV echo complete* [id number] Routine Ultrasound 09/03/20 07:51 Completed Pending at discharge Category Date Time Status Blood Culture Sta t Lab 09/08/20 14:15 Results Complete Blood Co unt w/Auto AM LABS Lab 09/10/20 04:00 Ordered Complete Blood Co unt w/Auto AM LABS Lab 09/11/20 04:00 Ordered Comprehensive Met abolic Panel AM LA BS Lab 09/10/20 04:00 Ordered Comprehensive Met abolic Panel AM LA BS Lab 09/11/20 04:00 Ordered Magnesium AM LABS Lab 09/10/20 04:00 Ordered Magnesium AM LABS Lab 09/11/20 04:00 Ordered Phosphorus AM LAB S Lab 09/10/20 04:00 Ordered Phosphorus AM LAB S Lab 09/11/20 04:00 Ordered Procalcitonin AM LABS Lab 09/10/20 04:00 Ordered Procalcitonin AM LABS Lab 09/11/20 04:00 Ordered Urine Culture Sta t Lab 09/08/20 13:22 Uncollected MR head wo con* 7 [id number] Routine MRI 09/01/20 18:00 Unverified MR head wo con* 7 0551 Routine MRI 09/07/20 10:15 Unverified MR head wo con* 7 0551 Stat MRI 09/08/20 12:00 Unverified Labs from last 24 hours 09/09/20 09/09/20 09/09/20 04:18 04:18 04:18 WBC 3.7 L RBC 2.70 L Hgb 8.5 L Hct 30.0 L MCV 111.1 H MCH 31.5 MCHC 28.3 L RDW 14.4 Plt Count 152 MPV 10.8 H Neut % (Auto) 80.0 Lymph % (Auto) 16.4 [place] % (Auto) 2.7 Eos % (Auto) 0.3 Baso % (Auto) 0.3 Neut # (Auto) 2.98 Lymph # (Auto) 0.6 L [place] # (Auto) 0.1 L Eos # (Auto) 0.0 Baso # (Auto) 0.0 Nucleated RBC % (a uto) 0 Nucleated RBCs # 0.0 ESR Sodium 139 Potassium 5.3 H Chloride 98 Carbon Dioxide 37 H Anion Gap 9.3 BUN 29 H Creatinine 1.3 H GFR Calculation Not Reportable Glucose 127 H Calculated Osmolal ity 295 Lactic Acid Calcium 10.9 H Phosphorus 3.1 Magnesium 1.8 Total Bilirubin 0.2 AST 12 ALT 8 Alkaline Phosphata se 59 C-Reactive Protein Total Protein 5.5 L Albumin 3.0 L Globulin 2.5 Procalcitonin 0.17 09/08/20 09/08/20 09/08/20 11:23 11:23 11:23 WBC RBC Hgb Hct MCV MCH MCHC RDW Plt Count MPV Neut % (Auto) Lymph % (Auto) [place] % (Auto) Eos % (Auto) Baso % (Auto) Neut # (Auto) Lymph # (Auto) [place] # (Auto) Eos # (Auto) Baso # (Auto) Nucleated RBC % (a uto) Nucleated RBCs # ESR 35 H Sodium 144 Potassium 4.9 Chloride 102 Carbon Dioxide 41 H Anion Gap 5.9 BUN 27 H Creatinine 1.3 H GFR Calculation Not Reportable Glucose 89 Calculated Osmolal ity 303 H Lactic Acid 0.4 L Calcium 11.1 H Phosphorus 2.2 L Magnesium 1.8 Total Bilirubin 0.2 AST 14 ALT 9 Alkaline Phosphata se 60 C-Reactive Protein 1.7 Total Protein 5.4 L Albumin 3.1 L Globulin 2.3 Procalcitonin 0.21 09/08/20 11:23 WBC 5.7 RBC 2.72 L Hgb 8.7 L Hct 30.1 L MCV 110.7 H MCH 32.0 MCHC 28.9 L RDW 14.7 Plt Count 153 MPV 10.3 Neut % (Auto) 47.5 Lymph % (Auto) 39.3 [place] % (Auto) 11.7 Eos % (Auto) 1.0 Baso % (Auto) 0.3 Neut # (Auto) 2.71 Lymph # (Auto) 2.3 [place] # (Auto) 0.7 Eos # (Auto) 0.1 Baso # (Auto) 0.0 Nucleated RBC % (a uto) 0 Nucleated RBCs # 0.0 ESR Sodium Potassium Chloride Carbon Dioxide Anion Gap BUN Creatinine GFR Calculation Glucose Calculated Osmolal ity Lactic Acid Calcium Phosphorus Magnesium Total Bilirubin AST ALT Alkaline Phosphata se C-Reactive Protein Total Protein Albumin Globulin Procalcitonin Vitals: Last Vital Signs Temp 98.7 F 09/09/20 07:10 Pulse 71 09/09/20 08:20 Resp 16 09/09/20 08:20 BP 155/64 09/09/20 07:10 Pulse Ox 96 09/09/20 08:20 Discharge Plan Discharge Patient Disposition: Xfer SNF Condition: Stable Prescriptions: New metoprolol succinate 25 mg Tablet Extended Release 24 Hr 25 mg PO DAILY 30 Days Qty: 30 RF: 0 Paricalcitol [Z 1 mcg PO DAILY 30 Days RF: 0 folic acid 1 mg Tablet 1 mg PO DAILY 30 Days Qty: 30 RF: 0 cyanocobalamin (vitamin B-12) 1,000 mcg capsule 1,000 mcg PO BID 30 Days Qty: 60 RF: 0 clindamycin HCl 300 mg capsule 450 mg PO TID 5 Days Qty: 22.5 RF: 0 prednisone 20 mg tablet 20 mg PO BID 5 Days Qty: 10 RF: 0 Continued pantoprazole [Protonix] 40 mg Tablet,Delayed Release (Dr/Ec) 40 mg PO BID RF: 0 atorvastatin [Lipitor] 20 mg Tablet 20 mg PO DAILY RF: 0 levalbuterol tartrate [Xopenex HFA] 45 mcg/actuation Hfa Aerosol Inhaler 1 puff INHALATION Q6H RF: 0 Vitamin D3 tablet 250 mcg PO DAILY RF: 0 divalproex 250 mg Tablet,Delayed Release (Dr/Ec) 250 mg PO BID RF: 0 citalopram 40 mg Tablet 40 mg PO DAILY RF: 0 allopurinol 100 mg Tablet 100 mg PO DAILY RF: 0 montelukast [Singulair] 10 mg Tablet 10 mg PO DAILY RF: 0 Discontinued metoprolol succinate 12.5 mg PO DAILY RF: 0 folic acid 1 mg Tablet 100 mg PO BID RF: 0 Discharge Orders: Discharge Order (Routine); Ordered 09/07/20 Ordered By: Cherelle Wagner Other Ambulatory Orders: Complete Blood Count w/Auto (Routine) Timeframe: 1 Day Location: Determined by Patient Ordered By: Reilly Ferrari Comprehensive Metabolic Panel (Routine) Timeframe: 1 Day Facility: [facility] - Location: Lab - Main Lab Ordered By: Reilly Ferrari Referrals: [facility] [Outside] Silverio Frazier [Referring] - 1 week Discharge Diet: Regular Discharge Activity: Resume usual activity and Oxygen as instructed Discharge Attestations Time Spent in Discharge Care*: less than 30 min Quality Metrics Clinical Quality Measures During this hospital stay, did patient experience: None Coding Level of Care Code Acute 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
--- NOTE | 2020-09-09 11:14 | PC.NURSE ---
Carey, daughter, called this nurse into room and requested pt not to be transferred until all of the family arrives.
--- NOTE | 2020-09-09 11:26 | PC.CHAP ---
Pastoral Care Encounter/Spiritual Assessment Type of Contact [] Declined kosher dietary service supervisor visit [] Patient/Family/Request visit [] Outpatient visit [xx] Follow-up visit [] Physician referral [] Code/Alert [] Routine visit [] Staff referral [] Actively dying [xx] Patient sleeping [] Family support [] [] Out of room [] Palliative care [] [] Receiving care in room [] Pre-surgical visit [] Trauma [xx] Long length of stay [] ICU visit [xx] Other: Follow up needed Relational/Emotional Strength [] Patient feels connected with others/family/visitors/staff [] Distress [] Loneliness/isolation [] Abandonment Spirituality of Patient [] Person of Brandy [] Attends Orthodox of their Brandy [] Believes in Prayer [] Reads Bible or Taoist materials [] There are Spiritual issues to be addressed Nurse'S Assistant Interventions [] Prayer [] Active listening [] Non-anxious presence [] Spiritual/emotional support [] Crisis/trauma care [] Spiritual counseling [] Bereavement support [] Provided bereavement packet [] Provided Bible/devotional materials [] Provided toy/stuffed animal, coloring book to patient or family member [] Provided Communion [] Anointing/[place] [] Salvation [] Completed spiritual assessment [] Other: Impact on Illness or Injury [] Angry [] Fearful [] Anxious [] Often cries [] Exhaustion [] Unable to work [] Unable to attend mandaen [] Unable to walk/stand [] Unable to read [] Unable to drive [] Unable to eat/drink [] Unable to sleep [] Unable to be with family [] Patient intubated [] Other: Summary Pt has been in hospital nearly 2 weeks. Nurse'S Assistant attempted to visit but patient was asleep. Medical staff said she sleeps most of the time. Another attempt at follow up should be made. Time spent with patient 2 minutes Nurse'S Assistant Belinda Hammonds
[2020-09-09 11:48] VITALS: BP 119/51; PULSE 75; RESP 18; TEMP 36.7; O2SAT 100
--- NOTE | 2020-09-09 15:36 | PC.NURSE ---
MENA Zarate, notified family of pts transportation to [facility]. this nurse witnessed. all questions answered.
--- NOTE | 2020-09-09 15:37 | PC.NURSE ---
Carey, daughter, notified MENA Zarate, and this nurse that she would be bringing pts clothes to [facility].
--- NOTE | 2020-09-09 15:53 | PC.NURSE ---
pt leaving with medical transportation with custodial packet, necklace, hanna bear, blanket, lotion, cream, and all other personal belongings in pts hand. family notified of pts transportation. all questions answered.
[2020-09-09 15:55] VITALS: BP 119/51; PULSE 75; RESP 18; TEMP 36.7; O2SAT 100
--- NOTE | 2020-09-09 16:39 | FL_ITS ---
WS: [id number] MODIFIED BARIUM SWALLOW HISTORY: Oral dysphagia FLUOROSCOPY TIME: 1 minutes. Modified barium swallow was performed by the speech pathologist. Fluoroscopy was provided with the pa tient in a lateral projection. Multiple food consistencies were provided. Patient swallowed all food consistencies. There is minimal delay in emptying the piriform sinuses. No aspiration or laryngeal penetration. Patient swallowed the barium tablet without difficulty. FL/FL barium swallow modifd 28893 IMPRESSION: No aspiration or laryngeal penetration. Please see speech therapist report also for recommendations.
== END 2020-09-09 15:57 | disposition skilled nursing facility (03) | DRG 689 ==
LOC: ER 08-29 02:25 → MEDSURG 08-29 02:58
PROVIDERS: Family Medicine; Hospitalist; Internal Medicine; Physician Assistant; Admitting Provider Internal Medicine; PCP Family Medicine; Visit Provider Family Medicine
DX: N39.0 Urinary tract infection, site not specified (principal); G93.41 Metabolic encephalopathy; C18.9 Malignant neoplasm of colon, unspecified; C78.6 Secondary malignant neoplasm of retroperitoneum and peritoneum; E87.3 Alkalosis; Q04.6 Congenital cerebral cysts; N18.4 Chronic kidney disease, stage 4 (severe); J44.1 Chronic obstructive pulmonary disease with (acute) exacerbation; J90 Pleural effusion, not elsewhere classified; N17.9 Acute kidney failure, unspecified; D53.9 Nutritional anemia, unspecified; E86.0 Dehydration; Z90.49 Acquired absence of other specified parts of digestive tract; Z85.3 Personal history of malignant neoplasm of breast; J32.8 Other chronic sinusitis; F31.9 Bipolar disorder, unspecified; R53.82 Chronic fatigue, unspecified; I12.9 Hypertensive chronic kidney disease with stage 1 through stage 4 chronic kidney disease, or unspecified chronic kidney disease; Z99.81 Dependence on supplemental oxygen; F03.90 Unspecified dementia, unspecified severity, without behavioral disturbance, psychotic disturbance, mood disturbance, and anxiety; G47.30 Sleep apnea, unspecified; Z87.891 Personal history of nicotine dependence; I65.22 Occlusion and stenosis of left carotid artery; E78.5 Hyperlipidemia, unspecified; K80.20 Calculus of gallbladder without cholecystitis without obstruction; N20.0 Calculus of kidney; Z66 Do not resuscitate; D69.59 Other secondary thrombocytopenia
CPT/HCPCS: 12345; 36415; 36430; 70450; 70551; 74177; 74230; 80048; 80053; 80164; 81001; 82140; 82607; 82746; 83605; 83735; 84100; 84145; 84443; 85025; 85651; 86140; 86850; 86900; 86920; 87040; 87426; 92611; 93005; 93306; 93880; 94640; 96372; 96375; 97110; 97116; 97161; 97167; 97530; 97535; 99284; G0378; J0360; J0610; J0696; J0743; J1644; J1940; J2405; J3370; J3420; J3475; J3535; J7030; J7040; J7050; J7512; J7799; P9016; Q9967

== ENCOUNTER 2020-09-27 02:20 | Emergency (ER) | payer MEDICARE, MEDICAID, SELFPAY ==
[2020-09-27 02:26] VITALS: BP 184/52; PULSE 63; RESP 18; TEMP 37; O2SAT 100; BMI 25.4
--- NOTE | 2020-09-27 02:38 | W.ED.FALL ---
Documented by User: [email or web address] Cordova 09/27/20 19:24 HPI - Fall General: Chief Complaint: Fall Stated Complaint: fall Time Seen by Provider: 09/27/20 02:26 Source: patient and EMS Mode of arrival: EMS Limitations: no limitations History of Present Illness: HPI Narrative: 80-year-old female patient presents to the emergency department with head injury status post fall. She reports was trying to get back in bed when her foot got caught causing her to fall, she reports hit her head on something hard. Reports egg-shaped not to the back of her head. She reports does not take blood thinners, But is on aspirin she did not lose consciousness. Reports became nauseated but did not vomit. She is also complaining with mild neck tenderness as well. Denies loss of bladder or bowel, denies extremity weakness. complaint: fall Onset (ago): minute(s) (45) Fall from: out of bed Fall witnessed: no Place fall occurred: home Loss of consciousness: None Symptoms prior to fall: none Context: tripped/slipped Location of injury: head and neck Severity: moderate Quality: aching Associated symptoms-after fall: Reports no associated symptoms, headache(s) and neck pain; Denies abdominal pain, chest pain or confusion Review of Systems General: Reports: 10 or more systems reviewed and unremarkable except in HPI and below Const: Denies: fever(s), chills or diaphoresis Eyes: Denies: blurry vision or eye redness ENMT: Denies: throat pain, dental pain or disequilibrium Card: Denies: chest pain, palpitations or irregular heart rhythm Resp: Denies: dyspnea, productive cough, non-productive cough or wheezing GI: Denies: abdominal pain, nausea or vomiting : Denies: difficulty voiding or dysuria Musc: Reports: neck pain; Denies: back pain, joint swelling, joint warmth or joint stiffness Skin/Breast: Denies: rash or pruritus Neuro: Reports: headache(s); Denies: weakness in extremities, confusion, behavioral changes, Slurred speech present or difficulty communicating thoughts Psych: Denies: anxiety or depression [place]/Lymph: Denies: easy bruising PFSH ED PFSH: Medical History (Updated 09/27/20 @ 03:46 by Alisha Fuentes MD) Adenomatous polyp 2012 found on surveillance colonoscopy Bipolar disorder Breast cancer Status post lumpectomy/radiation 1999 followed by adjuvant tamoxifen C. 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 Chronic fatigue CKD (chronic kidney disease), stage IV COPD (chronic obstructive pulmonary disease) Oxygen dependent DNR (do not resuscitate) Hallucinations Did not tolerate Parkinson's medications in the past when this diagnosis was being entertained, discontinued hydrocodone, no organic etiology found Mastoiditis Right-sided mastoiditis, present on MRI 2015 as well Porencephalic cyst Temporal lobe Senile dementia Daughter has requested that dementia should not be mentioned to her mother because of risk of worsening of her depression considering bipolar disorder Sleep apnea Surgical History History of low anterior resection of rectum Family History Other Family history non-contributory Social History Smoking and tobacco status: former smoker Alcohol intake: never Household members: family Housing: House Physical Exam Const: COMMON NORMALS: no acute distress, patient oriented x3, healthy appearing and alert GENERAL APPEARANCE: cooperative, comfortable and well hydrated HENMT: COMMON NORMALS: Normal external nose present and moist oral mucous membranes HEAD & SCALP: contusion (4 cm x 4 cm hematoma to the left occipital scalp) FACE & SINUS: normal facial exam, sinuses nontender and face symmetric NOSE: Normal external nose present MOUTH: Normal oral and palatal mucosa present Eye: COMMON NORMALS: Equal, round and reactive pupils present and EOMs intact bilaterally GENERAL EYE: appearance normal, both eyes and all related structures ALIGNMENT: Yes alignment normal EYELID: eyelids normal PUPIL: Yes Equal, round and reactive pupils present Neck/C-Spine: COMMON NORMALS: full ROM and no lymphadenopathy GENERAL: Yes normal visual inspection and Yes trachea midline CERVICAL SPINE: Yes cervical ROM normal, No pain with cervical ROM, No Cervical spine tenderness, Yes Paracervical muscle tenderness left>right, No Paracervical spasm and No Trapezius muscle tenderness Lymph: LYMPHATIC: no lymphadenopathy noted Chest: COMMONS NORMALS: normal inspection of the chest and normal palpation of entire chest wall Resp: COMMON NORMALS: normal respiratory effort and clear to auscultation bilaterally EFFORT & INSPECTION: Yes able to speak in complete sentences AUSCULTATION: clear to auscultation bilaterally Cardio: COMMON NORMALS: regular rhythm, S1 normal heart sound present, S2 normal heart sound present and Peripheral pulses 2+ throughout RHYTHM: regular rhythm HEART SOUNDS: S1 normal heart sound present and S2 normal heart sound present PERIPHERAL PULSES: Peripheral pulses 2+ throughout GI: COMMON NORMALS: Normal to inspection, nondistended, normoactive bowel sounds present, Soft to palpation and non-tender INSPECTION: Yes normal to inspection PALPATION: Yes Soft to palpation : COMMON NORMALS: Yes no CVA tenderness BLADDER/KIDNEY EXAM: Yes no CVA tenderness Back/Pelvis: COMMON NORMALS: no CVA tenderness and thoracic and lumbar spine normal to inspection Extremity: COMMON NORMALS: normal to inspection and capillary refill normal Neuro: SUE COMA SCALE: document GCS findings Lohn coma scale eye opening: Spontaneous Lohn coma scale verbal response: Orientated Sue coma scale motor response: Obey commands Sue coma scale total score: 15 COMMON NORMALS: patient oriented x3 and no focal motor deficits SENSORIUM/ORIENTATION: Yes alert GAIT: Yes Unable to assess gait Psych: COMMON NORMALS: mental status grossly normal, Normal thought process present and cooperative ACTIVITY/MOTOR BEHAVIOR: Yes appropriate eye contact THOUGHT PROCESS: Normal thought process present Skin: COMMON NORMALS: no rashes or lesions noted and turgor normal GENERAL SKIN EXAM: no rashes or lesions noted and turgor normal Course ED course: 80-year-old female patient presents to the emergency department with head injury. CT scan of the head and neck pending at this time. Transfer of care to Dr. Fuentes. Patient administered Tylenol for pain. Vital Signs: Vital signs: Vital Signs Temperature 98.6 F 09/27/20 02:26 Pulse Rate 61 09/27/20 04:27 Respiratory Rate 16 09/27/20 04:11 Blood Pressure 157/47 09/27/20 04:27 Pulse Oximetry 92 09/27/20 04:27 MDM - Fall Lab Data: Labs: Lab Results 09/27/20 09/27/20 09/27/20 Range/Units 02:50 02:50 02:50 WBC 5.5 (4.0-10.0) 10^3/ uL RBC 2.43 L (4.1-5.3) 10^6/u L Hgb 7.7 L (11.5-15.3) g/dL Hct 26.6 L (37.0-47.0) % MCV 109.5 H (81-99) fL MCH 31.7 (28.0-34.0) pg MCHC 28.9 L (30.0-36.0) g/dL RDW 14.1 (12.1-15.1) % Plt Count 116 L (130-400) 10^3/c mm MPV 11.3 H (7.4-10.4) fL Neut % (Auto) 53.0 % Lymph % (Auto) 34.6 % Elliott % (Auto) 10.0 % Eos % (Auto) 2.0 % Baso % (Auto) 0.2 % Neut # (Auto) 2.91 (1.8-7.7) 10^3/u L Lymph # (Auto) 1.9 (0.8-4.8) 10^3/u L Elliott # (Auto) 0.6 (0.2-0.9) 10^3/u L Eos # (Auto) 0.1 (0.0-0.8) 10^3/u L Baso # (Auto) 0.0 (0.0-0.1) 10^3/u L Nucleated RBC % (a uto) 0 % Nucleated RBCs # 0.0 /100WBC Sodium 145 (136-145) mmol/L Potassium 4.3 (3.5-5.1) mmol/L Chloride 104 (98-107) mmol/L Carbon Dioxide 40 H (22-29) mmol/L Anion Gap 5.3 (5-19) BUN 19 (8-23) mg/dL Creatinine 1.6 H (0.5-0.9) mg/dL GFR Calculation Not Reportable Glucose 100 (65-115) mg/dL Calculated Osmolal ity 302 H (285-295) mOsm/k g Calcium 10.7 H (8.5-10.5) mg/dL Total Bilirubin 0.2 (0.15-1.2) mg/dL AST 12 (0-32) U/L ALT < 5 (0-33) U/L Alkaline Phosphata se 66 (35-105) IU/L Total Protein 5.4 L (6.6-8.7) g/dL Albumin 3.3 L (3.5-5.2) g/dL Globulin 2.1 (1.3-4.6) g/dL Valproic Acid 48.2 L (50-100) ug/mL Discharge Plan Discharge Patient Disposition: Home Clinical Impression: Acute kidney injury superimposed on chronic kidney disease Fall Qualifiers: Encounter type: initial encounter Qualified Code(s): W19.XXXA - Unspecified fall, initial encounter Hematoma of scalp Qualifiers: Encounter type: initial encounter Qualified Code(s): S00.03XA - Contusion of scalp, initial encounter Anemia Qualifiers: Anemia type: unspecified type Qualified Code(s): D64.9 - Anemia, unspecified Condition: Stable Prescriptions: No Action pantoprazole [Protonix] 40 mg Tablet,Delayed Release (Dr/Ec) 40 mg PO BID RF: 0 levalbuterol tartrate [Xopenex HFA] 45 mcg/actuation Hfa Aerosol Inhaler 1 puff INHALATION Q6H RF: 0 Vitamin D3 tablet 250 mcg PO DAILY RF: 0 metoprolol succinate 25 mg Tablet Extended Release 24 Hr 25 mg PO DAILY 30 Days Qty: 30 RF: 0 Paricalcitol [Z 1 mcg PO DAILY 30 Days RF: 0 folic acid 1 mg Tablet 1 mg PO DAILY 30 Days Qty: 30 RF: 0 cyanocobalamin (vitamin B-12) 1,000 mcg capsule 1,000 mcg PO BID 30 Days Qty: 60 RF: 0 aspirin 81 mg tablet,delayed release (DR/EC) 81 mg PO DAILY 30 Days Qty: 30 RF: 0 Lipitor 20 mg Tablet 40 mg PO DAILY Qty: 0 RF: 0 divalproex 250 mg Tablet,Delayed Release (Dr/Ec) 250 mg PO BID RF: 0 citalopram 40 mg Tablet 40 mg PO DAILY RF: 0 allopurinol 100 mg Tablet 100 mg PO DAILY RF: 0 montelukast [Singulair] 10 mg Tablet 10 mg PO DAILY RF: 0 Discharge Orders: Discharge Order (Routine); Ordered 09/27/20 Ordered By: Alisha Fuentes Referrals: Dunia Rowan MD [Primary Care Provider] - Discharge Diet: Advance as tolerated Discharge Activity: Resume usual activity Patient Instructions: Fall Prevention for Older Adults (ED) Activity Restrictions/Additional Instructions: Follow-up with your primary care doctor regarding your kidney function and anemia. Return to the ER if any new or worse symptoms occur. Coding Level of Care Code ED Operator/Assistant Foreman for Chg Fwd Exam Comprehensive Documented by User: Alisha Fuentes MD 09/27/20 04:19 HPI - Fall General: Chief Complaint: Fall Stated Complaint: fall Time Seen by Provider: 09/27/20 02:26 PFS ED PFSH: Medical History (Updated 09/27/20 @ 03:46 by Alisha Fuentes MD) Adenomatous polyp 2011 found on surveillance colonoscopy Bipolar disorder Breast cancer Status post lumpectomy/radiation 1999 followed by adjuvant tamoxifen C. 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 Chronic fatigue CKD (chronic kidney disease), stage IV COPD (chronic obstructive pulmonary disease) Oxygen dependent DNR (do not resuscitate) Hallucinations Did not tolerate Parkinson's medications in the past when this diagnosis was being entertained, discontinued hydrocodone, no organic etiology found Mastoiditis Right-sided mastoiditis, present on MRI 2015 as well Porencephalic cyst Temporal lobe Senile dementia Daughter has requested that dementia should not be mentioned to her mother because of risk of worsening of her depression considering bipolar disorder Sleep apnea Surgical History History of low anterior resection of rectum Family History Other Family history non-contributory Social History Smoking and tobacco status: former smoker Alcohol intake: never Household members: family Housing: House Course ED course: I saw this patient with Adelaide Kinney nurse practitioner. The patient fell at home while trying to get back in bed. Her daughter says that she just recently took her home from [facility] residential where she had been for rehab. She is very unhappy that the patient was discharged from the residential and she feels like she was not ready to be discharged. She said she has too much trouble getting around. The patient's daughter works and is not able to be there 24 hours a day with her. She would like her to go back to the residential or be admitted. We discussed that there were really no indications for admission. She does have some anemia but it is chronic and that can be managed as an outpatient. She also can get back into the residential at this hour and I offered to let her remain in the ER until morning when we can have her counter caser work on that. She understands that there would be no guarantees that that would be successful effort. The patient's daughter decided that she would take the patient home tonight and will follow up through their primary care provider. Vital Signs: Vital signs: Vital Signs Temperature 98.6 F 09/27/20 02:26 Pulse Rate 61 09/27/20 04:27 Respiratory Rate 16 09/27/20 04:11 Blood Pressure 157/47 09/27/20 04:27 Pulse Oximetry 92 09/27/20 04:27 MDM - Fall Lab Data: Labs: Lab Results 09/27/20 09/27/20 09/27/20 Range/Units 02:50 02:50 02:50 WBC 5.5 (4.0-10.0) 10^3/ uL RBC 2.43 L (4.1-5.3) 10^6/u L Hgb 7.7 L (11.5-15.3) g/dL Hct 26.6 L (37.0-47.0) % MCV 109.5 H (81-99) fL MCH 31.7 (28.0-34.0) pg MCHC 28.9 L (30.0-36.0) g/dL RDW 14.1 (12.1-15.1) % Plt Count 116 L (130-400) 10^3/c mm MPV 11.3 H (7.4-10.4) fL Neut % (Auto) 53.0 % Lymph % (Auto) 34.6 % Elliott % (Auto) 10.0 % Eos % (Auto) 2.0 % Baso % (Auto) 0.2 % Neut # (Auto) 2.91 (1.8-7.7) 10^3/u L Lymph # (Auto) 1.9 (0.8-4.8) 10^3/u L Elliott # (Auto) 0.6 (0.2-0.9) 10^3/u L Eos # (Auto) 0.1 (0.0-0.8) 10^3/u L Baso # (Auto) 0.0 (0.0-0.1) 10^3/u L Nucleated RBC % (a uto) 0 % Nucleated RBCs # 0.0 /100WBC Sodium 145 (136-145) mmol/L Potassium 4.3 (3.5-5.1) mmol/L Chloride 104 (98-107) mmol/L Carbon Dioxide 40 H (22-29) mmol/L Anion Gap 5.3 (5-19) BUN 19 (8-23) mg/dL Creatinine 1.6 H (0.5-0.9) mg/dL GFR Calculation Not Reportable Glucose 100 (65-115) mg/dL Calculated Osmolal ity 302 H (285-295) mOsm/k g Calcium 10.7 H (8.5-10.5) mg/dL Total Bilirubin 0.2 (0.15-1.2) mg/dL AST 12 (0-32) U/L ALT < 5 (0-33) U/L Alkaline Phosphata se 66 (35-105) IU/L Total Protein 5.4 L (6.6-8.7) g/dL Albumin 3.3 L (3.5-5.2) g/dL Globulin 2.1 (1.3-4.6) g/dL Valproic Acid 48.2 L (50-100) ug/mL Discharge Plan Discharge Patient Disposition: Home Clinical Impression: Acute kidney injury superimposed on chronic kidney disease Fall Qualifiers: Encounter type: initial encounter Qualified Code(s): W19.XXXA - Unspecified fall, initial encounter Hematoma of scalp Qualifiers: Encounter type: initial encounter Qualified Code(s): S00.03XA - Contusion of scalp, initial encounter Anemia Qualifiers: Anemia type: unspecified type Qualified Code(s): D64.9 - Anemia, unspecified Condition: Stable Prescriptions: No Action pantoprazole [Protonix] 40 mg Tablet,Delayed Release (Dr/Ec) 40 mg PO BID RF: 0 levalbuterol tartrate [Xopenex HFA] 45 mcg/actuation Hfa Aerosol Inhaler 1 puff INHALATION Q6H RF: 0 Vitamin D3 tablet 250 mcg PO DAILY RF: 0 metoprolol succinate 25 mg Tablet Extended Release 24 Hr 25 mg PO DAILY 30 Days Qty: 30 RF: 0 Paricalcitol [Z 1 mcg PO DAILY 30 Days RF: 0 folic acid 1 mg Tablet 1 mg PO DAILY 30 Days Qty: 30 RF: 0 cyanocobalamin (vitamin B-12) 1,000 mcg capsule 1,000 mcg PO BID 30 Days Qty: 60 RF: 0 aspirin 81 mg tablet,delayed release (DR/EC) 81 mg PO DAILY 30 Days Qty: 30 RF: 0 Lipitor 20 mg Tablet 40 mg PO DAILY Qty: 0 RF: 0 divalproex 250 mg Tablet,Delayed Release (Dr/Ec) 250 mg PO BID RF: 0 citalopram 40 mg Tablet 40 mg PO DAILY RF: 0 allopurinol 100 mg Tablet 100 mg PO DAILY RF: 0 montelukast [Singulair] 10 mg Tablet 10 mg PO DAILY RF: 0 Discharge Orders: Discharge Order (Routine); Ordered 09/27/20 Ordered By: Alisha Fuentes Referrals: Dunia Rowan MD [Primary Care Provider] - Discharge Diet: Advance as tolerated Discharge Activity: Resume usual activity Patient Instructions: Fall Prevention for Older Adults (ED) Activity Restrictions/Additional Instructions: Follow-up with your primary care doctor regarding your kidney function and anemia. Return to the ER if any new or worse symptoms occur. Coding Level of Care Code ED Operator/Assistant Foreman for Rosario Woodard Exam Comprehensive
--- NOTE | 2020-09-27 02:39 | CTR_ITS ---
PROCEDURE INFORMATION: Exam: CT Head Without Contrast Exam date and time: 09/27/2020 2:45 AM Age: 80 years old Clinical indication: Injury or trauma; Fall; Blunt trauma (contusions or hematomas); Without loss of consciousness; Additional info: Head injury TECHNIQUE: Imaging protocol: Computed tomography of the head without contrast. Radiation optimization: All CT scans at this facility use at least one of these dose optimization techniques: automated exposure control; mA and/or kV adjustment per patient size (includes targeted exams where dose is matched to clinical indication); or iterative reconstruction. COMPARISON: CT head wo con* [id number] 08/28/2020 10:09 PM RADIATION DOSE METRICS: Total DLP (mGy-cm): 739.55 FINDINGS: Brain: Hypodensity is seen in the periventricular cerebral white matter. This change is nonspecific but is most likely secondary to chronic ischemia within microvascular distributions. Sharpe white matter distinction is maintained throughout the brain. No radiographic evidence of intracranial hemorrhage. Cerebral ventricles: Ventricles are enlarged on the basis of mild diffuse cerebral volume loss. Bones/joints: Unremarkable. No acute fracture. Paranasal sinuses: Visualized sinuses are unremarkable. No fluid levels. Mastoid air cells: Visualized mastoid air cells are well aerated. Soft tissues: Unremarkable. Other findings: No intra or extra-axial masses, lesions or collections. CT/CT head wo con* [id number] IMPRESSION: No radiographic evidence of acute intracranial pathology. Radiation Dose CTDIVOL = (mGy): DLP = 739.55 (mGy-cm)
--- NOTE | 2020-09-27 02:47 | CTR_ITS ---
PROCEDURE INFORMATION: Exam: CT Cervical Spine Without Contrast Exam date and time: 09/27/2020 2:57 AM Age: 80 years old Clinical indication: Injury or trauma; Fall; Blunt trauma; Additional info: Fall, cerivcal spine point tenderness TECHNIQUE: Imaging protocol: Computed tomography images of the cervical spine without contrast. Radiation optimization: All CT scans at this facility use at least one of these dose optimization techniques: automated exposure control; mA and/or kV adjustment per patient size (includes targeted exams where dose is matched to clinical indication); or iterative reconstruction. COMPARISON: CT Cervical Spine wo* [id number] 07/07/2019 8:20 PM RADIATION DOSE METRICS: Total DLP (mGy-cm): 446.41 FINDINGS: Bones/joints: alignment is normal. posterior vertebral line and the spinal laminar line normal odontoid process normal no fracture Prior avulsion injuries spinous process of C7 Discs/Spinal canal/Neural foramina: Degenerative disc disease C5-C6 Soft tissues: Unremarkable. Lungs: The lung apices are normal. CT/CT cervical spin wo con* [id number] IMPRESSION: No acute fracture. Radiation Dose CTDIVOL = (mGy): DLP = 446.41 (mGy-cm)
[2020-09-27 02:56] VITALS: BP 157/51; PULSE 61; O2SAT 100
[2020-09-27] MEDS: acetaminophen 325 mg Tablet 650 MG PO (03:00)
[2020-09-27 03:05] LABS: Basophils % 0.2 %; Eosinophils # 0.1 10^3/uL (0.0-0.8); Hematocrit 26.6 % (37.0-47.0); Hemoglobin 7.7 g/dL (11.5-15.3); Lymphocytes # 1.9 10^3/uL (0.8-4.8); Lymphocytes % 34.6 %; Mean Corpuscular HGB Conc 28.9 g/dL (30.0-36.0); Mean Corpuscular Hemoglobin 31.7 pg (28.0-34.0); Mean Corpuscular Volume 109.5 fL (81-99); Mean Platelet Volume 11.3 fL (7.4-10.4); Monocytes # 0.6 10^3/uL (0.2-0.9); Neutrophils # 2.91 10^3/uL (1.8-7.7); Nucleated Red Blood Cells % 0 %; Platelet Count 116 10^3/cmm (130-400); Red Blood Count 2.43 10^6/uL (4.1-5.3); Red Cell Distribution Width 14.1 % (12.1-15.1); White Blood Count 5.5 10^3/uL (4.0-10.0)
[2020-09-27 03:22] LABS: Valproic Acid Level 48.2 ug/mL (50-100)
[2020-09-27 03:23] LABS: Alanine Aminotransferase < 5 U/L (0-33); Albumin Level 3.3 g/dL (3.5-5.2); Alkaline Phosphatase 66 IU/L (35-105); Anion Gap 5.3 (5-19); Aspartate Amino Transferase 12 U/L (0-32); Blood Urea Nitrogen 19 mg/dL (8-23); Calcium 10.7 mg/dL (8.5-10.5); Carbon Dioxide 40 mmol/L (22-29); Chloride 104 mmol/L (98-107); Globulin 2.1 g/dL (1.3-4.6); Glucose 100 mg/dL (65-115); Osmolality Calculated 302 mOsm/kg (285-295); Potassium 4.3 mmol/L (3.5-5.1); Sodium 145 mmol/L (136-145); Total Bilirubin 0.2 mg/dL (0.15-1.2); Total Protein 5.4 g/dL (6.6-8.7)
[2020-09-27 04:11] VITALS: BP 157/47; PULSE 60; RESP 16; O2SAT 100
--- NOTE | 2020-09-27 04:24 | PC.NURSE ---
pt requires O2, but pt daughter refused to travel home to get O2 tank. stated her mother would do fine. notified. pt test performed pt statting in the s without O2. PT sent home with daughter
[2020-09-27 04:27] VITALS: BP 157/47; PULSE 61; O2SAT 92
== END 2020-09-27 04:29 | disposition home or self-care (01) ==
PROVIDERS: Emergency Provider Nurse Practitioner Family; PCP Family Medicine
DX: S00.03XA Contusion of scalp, initial encounter (principal); D64.9 Anemia, unspecified; N17.9 Acute kidney failure, unspecified; N18.4 Chronic kidney disease, stage 4 (severe); Z85.3 Personal history of malignant neoplasm of breast; Z85.038 Personal history of other malignant neoplasm of large intestine; J44.9 Chronic obstructive pulmonary disease, unspecified; F03.90 Unspecified dementia, unspecified severity, without behavioral disturbance, psychotic disturbance, mood disturbance, and anxiety; Z90.49 Acquired absence of other specified parts of digestive tract; Z87.891 Personal history of nicotine dependence; W19.XXXA Unspecified fall, initial encounter
CPT/HCPCS: 12345; 70450; 72125; 80053; 80164; 85025; 99283

== ENCOUNTER 2020-10-03 13:30 | Outpatient (CLI) | payer MEDICARE, MEDICAID, SELFPAY ==
--- NOTE | 2020-10-05 07:30 | ONC FU_ITS ---
Dr. Frazier Patient Follow-Up Note Patient: Velasquez Montano Unit #: [id number]: 1940 Dicatated By: Carlitos Frazier M.D.Date of Visit:Oct 03, 2020 Onc Med Follow-up/Prog Note Chief Complaint: Metastatic adenocarcinoma. History of Present Illness: This is a 80 year-old woman with metastatic adenocarcinoma involving the mesentery with no documented primary. The malignancy was discovered at exploratory laparotomy/low anterior resection in September of 2009. At that time, she had an inflammatory mass in the sigmoid colon, suspected to have been related to perforated diverticulitis. The surgery included low anterior resection with resection of the inflammatory mass in the mesentery. Pathology showed metastatic adenocarcinoma, but the excised portion of bowel showed no mucosal involvement, and there has been no evidence of any other primary malignancy. I did not feel there was any definite indication for postoperative chemotherapy. She has otherwise just been managed with observation, thus far with no evidence of recurrence/progression. She had a followup colonoscopy in May 2012. Findings were limited to an adenomatous polyp in the distal sigmoid colon and a hyperplastic polyp in the rectum. Both were excised endoscopically. She had been admitted to the hospital in October of 2011 with acute renal failure in association with Clostridium difficile colitis. She did recover from that illness, but with residual stage IV chronic kidney disease. Her other medical illnesses include COPD, obstructive sleep apnea, bipolar disorder/depression, and GERD. She has additional history of a stage IA, ER/AR positive infiltrating ductal carcinoma of the left breast treated in 1999 with lumpectomy/axillary lymph node dissection and radiation. She also did receive 5 years of adjuvant tamoxifen. There has been no evidence of recurrence of the breast cancer. She had previously smoked a pack and a half to 2 packs of cigarettes daily. She quit smoking in 1994. She has had significant alcohol use in the past, but she quit drinking in the early . I had seen her in December 2015 with a new complaint of hallucinations. These were mainly occurring at night. I was not certain of the cause. At the time she was taking hydrocodone/APAP and she also had oxycodone available, and I did advise him to refrain from using it as much as possible, though it did not seem to be clearly related. She also had alprazolam available, but she had been taking it very infrequently. She was seen by Dr. Alaniz, and her subsequent evaluation included MRI of the brain on 01/18/2016. It showed no evidence of mass or acute intracranial abnormality. There were a moderate degree of chronic small vessel ischemic changes and a moderate degree of central and peripheral brain parenchymal loss. There was evidence of right mastoid effusion/mastoiditis and right maxillary chronic sinusitis. The only other finding was a right inferior temporal lobe porencephalic cyst. She had a subsequent follow-up visit with Dr. Alaniz, and he felt that she had Parkinson's disease. She tolerated medication poorly, though. During subsequent followup those symptoms gradually improved. As of her follow-up visit on 01/19/2020 she still had very marginal performance status, but she appeared stable clinically with no evidence of recurrence of the adenocarcinoma. She is continued on observation/expectant management. INTERIM HISTORY: On 08/29/2020 she was admitted to the hospital with acute encephalopathy. She had recently started Bactrim for urinary tract infection, that had been changed to ciprofloxacin after 2-3 doses. During the hospitalization she improved on antibiotic coverage with IV Rocephin, though a specific infection was not identified. It was suspected that she was having aspiration. Her abdominal CT scan did show evidence of bilateral pleural effusion with by basilar atelectasis. It did not show any acute abdominal findings. Her brain MRI showed moderate atrophy and moderate chronic microvascular ischemic changes throughout the white matter. There was prior lacunar infarct or perivascular space in the right inferior temporal region, but unchanged compared to a prior study from 2016. There was evidence of severe right mastoiditis and there was mucoperiosteal thickening in the right maxillary sinus. Her modified barium swallow failed to document any aspiration or laryngeal penetration. Her laboratory studies did show that she was significantly anemic with her hemoglobin levels typically in the range of 9 to 10 g. She had significantly macrocytic red blood cell indices, But her B12 level is greater than 2000 pg/mL. She had mild hypercalcemia, thought to be related to dehydration. She was transfused a total of 3 units of PRBC. She was initially discharged home with her daughter, but she was subsequently admitted to [facility], as her daughter was not able to adequately provide care for her. She is seen for a followup visit. She is still very weak generally and her activity is very limited. Her ECOG score is 3. Her appetite comes and goes. Her weight is down just a couple pounds since January. She has not had fever. She does tend to feel cold at night, she sometimes has sweating. Her breathing has been okay with oxygen and an inhaler. She has a little bit of cough. She sometimes chokes on food. She does not complain of chest pain. She sometimes has nausea. She has had constipation intermittently, but her bowels have been okay the past 3 days. She says her bladder is running like crazy. She is urinary frequency and some urgency/incontinence. She has pain in her neck and back. At times she aches all over. She has had pain in the back of her head on both sides, recently worse on the right. She has dizziness. She reports having some numbness in her hands. Her daughter indicates that she has poor mobility. She has had confusion, and she is having issues with memory. She sometimes has hallucinations. Medications: Acetaminophen 2 Tablet (of 325 mg) Capsule Oral q 6 hours PRN, Allopurinol 1 Tablet (of 100 mg) Oral daily, Bisacodyl 1 Suppository (of 10 mg) Rectal daily PRN, Cholecalciferol 2 Capsule Oral daily, Cholecalciferol 1 Tablet (of 1000 Units) Capsule Oral daily, Citalopram Hydrobromide 1 (40 mg) Tablet Oral daily, Divalproex Sodium 1 (250 mg) Tablet, enteric coated Oral b.i.d., Enema Disposable 1 Enema Rectal daily PRN, Folic Acid 1 (1 mg) Tablet Oral b.i.d., Levalbuterol Tartrate 1 Puff(s) (of 45 mcg/act) Aerosol Inhalation q 6 hours, Lipitor 1 (20 mg) Tablet Oral daily, Metoprolol Succinate ER 1 Tablet (of 25 mg) Tablet SR 24 HR Oral daily, MiraLax 1 Dose(s) (of 17 ) Powder Oral daily PRN, Montelukast Sodium 1 Tablet (of 10 mg) Oral daily, Pantoprazole Sodium 1 Tablet (of 40 mg) Tablet, enteric coated Oral b.i.d., Paricalcitol 1 Capsule (of 1 mcg) Oral daily, Senna S 1 Tablet (of 8.6-50 mg) Oral b.i.d. PRN, Tubersol 1 Dose(s) (of 5 Units/0.1 mL) Solution Intradermal once Allergies: IV contrast and Penicillins. Review of Systems: Constitutional - She is generally weak and she has very limited activity. Appetite comes and goes. She has not had fever. She complains that she feels cold at night. She sometimes has a little sweating. ECOG score is 3, ENMT - She complains that her nose runs a lot. No mouth sores. No sore throat. She sometimes has difficulty swallowing, Hematologic/Lymphatic - She has easy bruising, Respiratory - She has some shortness of breath, but her breathing is generally okay with oxygen and with her inhaler. She has only a little bit of cough. No pleuritic pain or hemoptysis, Cardiovascular - No angina pain. No palpitations, Gastrointestinal - She sometimes has nausea. She has heartburn at times. She has had constipation intermittently. Her bowel function has been okay for the past 3 days. No blood in the stool or black stools, Genitourinary (F) - He says her bladder is running crazy . She has frequency and she has some urgency/incontinence. No dysuria or hematuria, Musculoskeletal - She has pain in her neck and back and she sometimes aches all over, Integumentary - No skin rash, Neurologic - She has had headache in the back of her head on both sides, recently more on the right. She has dizziness. She has some numbness in her hands. Her daughter indicates that her mobility is not very good and she also has been having some problems with memory. She has had occasional hallucinations, Psychiatric - She has prior history of anxiety/depression. She has been sleeping okay, and she has not recently been having vivid dreams or nightmares. Vital Signs: Performed on Oct 03, 2020 15:30 Height - 60.00 in Weight - 143.0 lbs (LOW) BSA - 1.62 sq.m BMI - 27.93 Temperature - 97.4 F (LOW) Pulse - 73 /min Respiration - 18 /min BP - 182/77 mm(hg) (HIGH) O2 Sat - 97 % Pain - 0 Physical Examination: Constitutional - She appears generally weak, but not acutely ill, Eyes - Sclerae nonicteric. Conjunctivae clear, ENMT - No lesions noted in the oral cavity, Hematologic/Lymphatic - No cervical, clavicular, or axillary adenopathy, Respiratory - Lungs sound clear with diminished air movement bilaterally, Cardiovascular - Heart rhythm is regular. There is no murmur, gallop, or rub noted, Abdomen - Soft and non-tender. Liver and spleen are not enlarged. There is no abdominal mass or ascites noted and there is no inguinal adenopathy, Extremities - No edema, Integumentary - No rashes. No suspicious skin lesions noted, Neurologic - She does not appear to have any focal neurologic deficit. Lab/Imaging: Test performed on Oct 03, 2020 06:58 Sed Rate 36 mm/hr WBC 5.5 10^9/L RBC 2.5 10^12/L HGB 8.1 g/dL HCT 26.3 % MCV 104.0 fl MCH 32.0 pg MCHC 30.8 g/dL RDW 13.6 % Platelet Count 146.0 10^9/L MPV 8.6 fL Neutrophils (Gran) 2.91 10^9/L Lymphocytes 1.94 10^9/L Monocytes 0.52 10^9/L Eosinophils 0.7 10^9/L Basophils 0.02 10^9/L Manual Lymphocytes 35.6 % Manual Monocytes 9.5 % Manual Eosinophils 1.3 % Manual Basophils 0.3 % Test performed on Jul 25, 2020 14:30 Iron 49 mcg/dL Sodium 141 mmol/L Vitamin B12 418 pg/mL Iron Binding Capacity (TIBC) 189 mcg/dl Potassium 5.1 mmol/L % Iron Saturation 25.9 % Chloride 103 mmol/L CO2 29 mmol/L UIBC 140 mcg/dL Anion Gap 14.1 BUN 29 mg/dL Creatinine 1.7 mg/dL Cr Clearance (Est) 28.3200 mL/min Glucose 109 mg/dL Calcium 9.2 mg/dL Osmolality - Calculated 290 mOsm/kg Protein, Total 6.2 g/dL Albumin 3.8 g/dL Globulin 2.4 g/dL Bilirubin, Total 0.2 mg/dL ALT (SGPT) < 5 U/L AST (SGOT) 13 U/L Alkaline Phosphatase 65 IU/L Neutrophil % 52.3 % Lymphocyte % 35.3 % Monocyte % 9.4 % Eosinophil % 2.3 % Basophils % 0.2 % NRBC % 0 % Impression: 1. Patient with metastatic adenocarcinoma involving the mesentery, discovered as an incidental finding at exploratory laparotomy/low anterior resection in September 2009 for what was thought to have been an inflammatory process involving the sigmoid colon and mesentery. There has been no documented primary source for the malignancy and she did not receive any additional treatment. 2. She did have an adenomatous polyp in the distal sigmoid colon on surveillance colonoscopy in May 2012. 3. She has a previous history of cancer of the left breast with no recurrence following lumpectomy/radiation in 1999 followed by adjuvant tamoxifen. 4. She developed stage IV chronic kidney disease following an episode of C. difficile colitis in October 2011. Her other medical illnesses which include: 5. COPD, oxygen dependent. 6. Chronic fatigue and chronic pain in the back and lower extremities. 7. She has a history of bipolar disorder/depression. 8. In December 2015 she had presented with hallucinations. A specific cause was not determined, but during subsequent followup those symptoms gradually improved. During followup she has continued to have somewhat marginal performance status. She had been showing some further decline in her renal function, but that stabilized. As of October 2019 she had moderately severe macrocytic anemia. A specific cause was not determined. Her stools were Hemoccult negative. As of her follow-up visit in January 2020 she continued to have very marginal performance status, but she appeared stable clinically. Since then she has become more severely anemic. The red cell indices are macrocytic. A specific cause has not been determined, but with her B12 level being normal, the most likely cause would be myelodysplastic syndrome. Associated with this, there has been further decline in her cognitive function and in her performance status. Plan: I will request additional laboratory studies to be done next week. However, if there is no indication as to a specific cause for the anemia, we will have to decide whether to proceed with bone marrow aspiration/biopsy or to just manage her symptomatically with transfusion. Signed By: Carlitos Frazier M.D. <<Signature on File>>
== END 2020-10-03 13:31 | disposition home or self-care (01) ==
LOC: ONCMED 13:33
PROVIDERS: PCP Family Medicine; Visit Provider Internal Medicine Medical Oncology
DX: D64.9 Anemia, unspecified (principal); Z85.3 Personal history of malignant neoplasm of breast; Z85.89 Personal history of malignant neoplasm of other organs and systems; J44.9 Chronic obstructive pulmonary disease, unspecified; N18.4 Chronic kidney disease, stage 4 (severe); R53.82 Chronic fatigue, unspecified; M79.605 Pain in left leg; M79.604 Pain in right leg; M54.9 Dorsalgia, unspecified; F32.9 Major depressive disorder, single episode, unspecified; Z99.81 Dependence on supplemental oxygen; Z92.3 Personal history of irradiation
CPT/HCPCS: 99214

== ENCOUNTER 2020-10-13 14:57 | Inpatient (IN) | payer MEDICARE, MEDICAID, SELFPAY ==
--- NOTE | 2020-10-13 15:04 | XR_ITS ---
WS: [id number] Portable AP upright chest, 10/13/2020 Clinical Data: sob Comparison: Portable chest, 12/03/2019. Findings: No nodules, masses or effusions are seen. The heart is normal. The pulmonary vascularity is not increased. No pneumonia or pneumothorax is seen. The aortic arch shows minimal calcification XR/XR chest 1V portable [id number] Impression: Atherosclerosis.
[2020-10-13 15:07] VITALS: BP 125/67; PULSE 77; RESP 20; TEMP 36.2; O2SAT 100; BMI 26.2
[2020-10-13 16:00] VITALS: BP 124/68; PULSE 81; RESP 18; O2SAT 94
--- NOTE | 2020-10-13 16:19 | ECG_ITS ---
[facility] Test Date: 2020-10-13 Pat Name: Velasquez Montano Department: Room: Gender: Female Pest Locator: : 1940 Requested By: Elly Fraire I Order Number: [id number] Caroline MD: Harley Santana M.D. Measurements Intervals Keller Rate: 73 P: -36 UT: 164 QRS: -43 QRSD: 85 T: 15 QT: 410 QTc: 454 Interpretive Statements SINUS RHYTHM WITH OCCASIONAL SUPRAVENTRICULAR PREMATURE COMPLEXES LEFT AXIS DEVIATION [QRS AXIS < -30] POSSIBLE RIGHT VENTRICULAR CONDUCTION DELAY [RSR (QR) IN V1/V2] Compared to ECG 08/29/2020 00:01:04 Left-axis deviation now present Sinus arrhythmia no longer present Electronically Signed On 10-13-2020 17:13:43 RN OFFICE by Harley Santana M.D. [id number]
--- NOTE | 2020-10-13 16:45 | ED_ITS ---
HPI - SOB/Dyspnea General: Chief Complaint: Shortness of Breath/Dyspnea Stated Complaint: Pneumonia/Trouble SOB Time Seen by Provider: 10/13/20 15:54 Source: patient and family (daughter) Mode of arrival: ambulatory Limitations: no limitations History of Present Illness: HPI Narrative: Patient was brought in to the ED by her daughter with complaints of shortness of breath. She was recently treated for pneumonia in a hospital and discharged to a NH. In the NH she says she has not been feeling well and yesterday when her daughter spoke to her she sounded really bad, was coughing and complained of shortness of breath. No fever. No chest pain MD elicited complaint: shortness of breath Pertinent past history: pneumonia Associated symptoms: Reports chest congestion and cough; Deny abdominal pain, chest pain, diaphoresis, dizziness, extremity pain, fever(s), hemoptysis, lightheadedness, myalgias, nausea, orthopnea, palpitations, paresthesias, polydipsia, polyuria, rash, syncope or vomiting Review of Systems General: Reports: 10 or more systems reviewed and unremarkable except in HPI and below Const: Denies: fever(s) or diaphoresis Eyes: Denies: change in vision or blurry vision ENMT: Denies: throat pain, enlarged tonsils, odynophagia, hoarseness, mouth pain or swelling of lips/tongue Card: Denies: chest pain, palpitations, lightheadedness, syncope or orthopnea Resp: Reports: chest congestion; Denies: hemoptysis GI: Denies: abdominal pain, nausea or vomiting : Denies: flank pain, difficulty voiding, dysuria, urinary frequency, urinary urgency or urinary hesitancy Musc: Denies: extremity pain Skin/Breast: Denies: rash, pruritus or erythema Neuro: Reports: confusion; Denies: dizziness Endo: Denies: polyuria or polydipsia PFSH ED PFSH: Medical History (Updated 10/13/20 @ 23:06 by Elly Fraire [place] [facility] [place] Adenomatous polyp 2011 found on surveillance colonoscopy Bipolar disorder Breast cancer Status post lumpectomy/radiation 1999 followed by adjuvant tamoxifen C. 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 Chronic fatigue CKD (chronic kidney disease), stage IV COPD (chronic obstructive pulmonary disease) Oxygen dependent DNR (do not resuscitate) Hallucinations Did not tolerate Parkinson's medications in the past when this diagnosis was being entertained, discontinued hydrocodone, no organic etiology found Mastoiditis Right-sided mastoiditis, present on MRI 2016 as well Porencephalic cyst Temporal lobe Senile dementia Daughter has requested that dementia should not be mentioned to her mother because of risk of worsening of her depression considering bipolar disorder Sleep apnea Surgical History History of low anterior resection of rectum Family History Other Family history non-contributory Social History Smoking and tobacco status: former smoker Alcohol intake: never Household members: family Housing: House Physical Exam Const: COMMON NORMALS: no acute distress, average body habitus, patient oriented x3, no limitations, healthy appearing, alert and well nourished HENMT: COMMON NORMALS: normocephalic, atraumatic and moist oral mucous membranes HEAD & SCALP: normocephalic and atraumatic Neck/C-Spine: COMMON NORMALS: no meningeal signs and no JVD Resp: COMMON NORMALS: normal respiratory effort, No retractions, No use of accessory muscles and percussion normal AUSCULTATION: rales PERCUSSION: percussion normal Cardio: COMMON NORMALS: no JVD, regular rate, regular rhythm, S1 normal heart sound present, S2 normal heart sound present, No gallops present (Cardio), No clicks present (Cardio), No murmurs present (Cardio), No rub (Cardio) and Peripheral pulses 2+ throughout RATE: regular rate RHYTHM: regular rhythm HEART SOUNDS: S1 normal heart sound present and S2 normal heart sound present PERIPHERAL PULSES: Peripheral pulses 2+ throughout GI: COMMON NORMALS: Normal to inspection, nondistended, normoactive bowel sounds present, Soft to palpation, non-tender, No hepatosplenomegaly present, no masses and no bruits PALPATION: Yes Soft to palpation and Yes No hepatosplenomegaly present Extremity: COMMON NORMALS: normal to inspection, full ROM, capillary refill normal, no calf tenderness and no pedal edema Neuro: COMMON NORMALS: patient oriented x3 SENSORIUM/ORIENTATION: Yes alert MENINGEAL SIGNS: Yes no meningeal signs Skin: COMMON NORMALS: no rashes or lesions noted, no wounds, turgor normal, no jaundice, no petechiae and no mottling GENERAL SKIN EXAM: no rashes or lesions noted and turgor normal Course ED course: 80 year old female with COPD and 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 She is also with some mild confusion. She is admitted to the hospital for further evaluation and management. Consultations: Consultation #1: Discussed the patient with Dr. Alaniz and he kindly accepted the patient to his service. Time: 19:31 Vital Signs: Vital signs: Vital Signs Temperature 98.2 F 10/13/20 22:30 Pulse Rate 68 10/13/20 22:30 Respiratory Rate 18 10/13/20 22:30 Blood Pressure 187/71 10/13/20 22:30 Pulse Oximetry 100 10/13/20 22:30 MDM - SOB/Dyspnea MDM Narrative: Medical decision making narrative: 80 year od high risk patient with COVID-19 pneumonia and worsening hypoxia and confusion. Risk factors are malignancy and COPD on home oxygen. She is admitted to the hospital for further evaluation and management. Differential Diagnosis: Shortness of Breath Differential Diagnosis: Likely acute exacerbation of chronic obstructive airways disease, congestive heart failure and community acquired pneumonia Medical Records: Attestation: I reviewed the patient's medical records. Lab Data: Attestation: I reviewed the patient's lab results. Labs: Lab Results 10/13/20 10/13/20 10/13/20 Range/Units 17:36 17:38 17:38 WBC 5.7 (4.0-10.0) 10^3/ uL RBC 2.37 L (4.1-5.3) 10^6/u L Hgb 7.7 L (11.5-15.3) g/dL Hct 25.5 L (37.0-47.0) % MCV 107.6 H (81-99) fL MCH 32.5 (28.0-34.0) pg MCHC 30.2 (30.0-36.0) g/dL RDW 14.6 (12.1-15.1) % Plt Count 104 L (130-400) 10^3/c mm MPV 11.4 H (7.4-10.4) fL Neut % (Auto) 49.3 % Lymph % (Auto) 31.8 % [place] % (Auto) 18.3 % Eos % (Auto) 0.2 % Baso % (Auto) 0.2 % Neut # (Auto) 2.83 (1.8-7.7) 10^3/u L Lymph # (Auto) 1.8 (0.8-4.8) 10^3/u L [place] # (Auto) 1.1 H (0.2-0.9) 10^3/u L Eos # (Auto) 0.0 (0.0-0.8) 10^3/u L Baso # (Auto) 0.0 (0.0-0.1) 10^3/u L Nucleated RBC % (a uto) 0 % Nucleated RBCs # 0.0 /100WBC Sodium 139 (136-145) mmol/L Potassium 5.1 (3.5-5.1) mmol/L Chloride 96 L (98-107) mmol/L Carbon Dioxide 38 H (22-29) mmol/L Anion Gap 10.1 (5-19) BUN 25 H (8-23) mg/dL Creatinine 2.0 H (0.5-0.9) mg/dL GFR Calculation Not Reportable Glucose 75 (65-115) mg/dL Calculated Osmolal ity 291 (285-295) mOsm/k g Lactate (0.5-2.2) mmol/L Calcium 11.3 H (8.5-10.5) mg/dL Total Bilirubin 0.2 (0.15-1.2) mg/dL AST 11 (0-32) U/L ALT < 5 (0-33) U/L Alkaline Phosphata se 66 (35-105) IU/L Troponin T Baselin e (0-10) ng/L Troponin T 120 Min benton (0-10) ng/L Delta Troponin T (0-10) ABS# C-Reactive Protein 6.7 H (0.0-4.9) mg/L NT-Pro-B Natriuret Pep 636 H (0-450) pg/mL Total Protein 5.3 L (6.6-8.7) g/dL Albumin 3.5 (3.5-5.2) g/dL Globulin 1.8 (1.3-4.6) g/dL Urine Color (Yellow) Urine Appearance (CLEAR) Urine pH (5-7) Ur Specific Gravit y (1.005-1.030) Urine Protein (Negative) Urine Glucose (UA) (Normal) Urine Ketones (Negative) Urine Blood (Negative) Urine Nitrate (Negative) Urine Bilirubin (Negative) Prot Sulfosalicyli c Acd (Negative) Urine Urobilinogen (Negative) mg/dL Ur Leukocyte Myrna ase (Negative) Influenza Type A A g (Negative) Influenza Type B A g (Negative) SARS-CoV-2 Ag (Rap id) Positive H (Negative) 10/13/20 10/13/20 10/13/20 Range/Units 17:38 17:38 17:38 WBC (4.0-10.0) 10^3/ uL RBC (4.1-5.3) 10^6/u L Hgb (11.5-15.3) g/dL Hct (37.0-47.0) % MCV (81-99) fL MCH (28.0-34.0) pg MCHC (30.0-36.0) g/dL RDW (12.1-15.1) % Plt Count (130-400) 10^3/c mm MPV (7.4-10.4) fL Neut % (Auto) % Lymph % (Auto) % [place] % (Auto) % Eos % (Auto) % Baso % (Auto) % Neut # (Auto) (1.8-7.7) 10^3/u L Lymph # (Auto) (0.8-4.8) 10^3/u L [place] # (Auto) (0.2-0.9) 10^3/u L Eos # (Auto) (0.0-0.8) 10^3/u L Baso # (Auto) (0.0-0.1) 10^3/u L Nucleated RBC % (a uto) % Nucleated RBCs # /100WBC Sodium (136-145) mmol/L Potassium (3.5-5.1) mmol/L Chloride (98-107) mmol/L Carbon Dioxide (22-29) mmol/L Anion Gap (5-19) BUN (8-23) mg/dL Creatinine (0.5-0.9) mg/dL GFR Calculation Glucose (65-115) mg/dL Calculated Osmolal ity (285-295) mOsm/k g Lactate 0.7 (0.5-2.2) mmol/L Calcium (8.5-10.5) mg/dL Total Bilirubin (0.15-1.2) mg/dL AST (0-32) U/L ALT (0-33) U/L Alkaline Phosphata se (35-105) IU/L Troponin T Baselin e 53 H (0-10) ng/L Troponin T 120 Min benton (0-10) ng/L Delta Troponin T (0-10) ABS# C-Reactive Protein (0.0-4.9) mg/L NT-Pro-B Natriuret Pep (0-450) pg/mL Total Protein (6.6-8.7) g/dL Albumin (3.5-5.2) g/dL Globulin (1.3-4.6) g/dL Urine Color (Yellow) Urine Appearance (CLEAR) Urine pH (5-7) Ur Specific Gravit y (1.005-1.030) Urine Protein (Negative) Urine Glucose (UA) (Normal) Urine Ketones (Negative) Urine Blood (Negative) Urine Nitrate (Negative) Urine Bilirubin (Negative) Prot Sulfosalicyli c Acd (Negative) Urine Urobilinogen (Negative) mg/dL Ur Leukocyte Myrna ase (Negative) Influenza Type A A g Negative (Negative) Influenza Type B A g Negative (Negative) SARS-CoV-2 Ag (Rap id) (Negative) 10/13/20 10/13/20 Range/Units 19:10 19:35 WBC (4.0-10.0) 10^3/ uL RBC (4.1-5.3) 10^6/u L Hgb (11.5-15.3) g/dL Hct (37.0-47.0) % MCV (81-99) fL MCH (28.0-34.0) pg MCHC (30.0-36.0) g/dL RDW (12.1-15.1) % Plt Count (130-400) 10^3/c mm MPV (7.4-10.4) fL Neut % (Auto) % Lymph % (Auto) % [place] % (Auto) % Eos % (Auto) % Baso % (Auto) % Neut # (Auto) (1.8-7.7) 10^3/u L Lymph # (Auto) (0.8-4.8) 10^3/u L [place] # (Auto) (0.2-0.9) 10^3/u L Eos # (Auto) (0.0-0.8) 10^3/u L Baso # (Auto) (0.0-0.1) 10^3/u L Nucleated RBC % (a uto) % Nucleated RBCs # /100WBC Sodium (136-145) mmol/L Potassium (3.5-5.1) mmol/L Chloride (98-107) mmol/L Carbon Dioxide (22-29) mmol/L Anion Gap (5-19) BUN (8-23) mg/dL Creatinine (0.5-0.9) mg/dL GFR Calculation Glucose (65-115) mg/dL Calculated Osmolal ity (285-295) mOsm/k g Lactate (0.5-2.2) mmol/L Calcium (8.5-10.5) mg/dL Total Bilirubin (0.15-1.2) mg/dL AST (0-32) U/L ALT (0-33) U/L Alkaline Phosphata se (35-105) IU/L Troponin T Baselin e (0-10) ng/L Troponin T 120 Min benton 54.33 H (0-10) ng/L Delta Troponin T 1.33 (0-10) ABS# C-Reactive Protein (0.0-4.9) mg/L NT-Pro-B Natriuret Pep (0-450) pg/mL Total Protein (6.6-8.7) g/dL Albumin (3.5-5.2) g/dL Globulin (1.3-4.6) g/dL Urine Color Straw (Yellow) Urine Appearance Clear (CLEAR) Urine pH 8 H (5-7) Ur Specific Gravit y 1.010 (1.005-1.030) Urine Protein Neg (Negative) Urine Glucose (UA) Norm (Normal) Urine Ketones Negative (Negative) Urine Blood Neg (Negative) Urine Nitrate Negative (Negative) Urine Bilirubin Neg (Negative) Prot Sulfosalicyli c Acd Positive (Negative) Urine Urobilinogen Norm (Negative) mg/dL Ur Leukocyte Myrna ase Negative (Negative) Influenza Type A A g (Negative) Influenza Type B A g (Negative) SARS-CoV-2 Ag (Rap id) (Negative) Imaging Data^: CXR: Attestation: I personally reviewed and interpreted this imaging study as follows: Radiologist's impression: [place] [address] XRay Report Signed Patient: Velasquez Montano #: [id number] : 1940cct#:[id number] Age/Sex: 80 / FADM Date: 10/13/20 [facility] Attending Dr: Ordering Provider/Ordering MD: Jermaine Cherry MD Date of Service: 10/13/20 Procedure(s): XR chest 1V portable [id number] Accession Number(s): [id number] Report Number: [id number] WS: [id number] Portable AP upright chest, 10/13/2020 Clinical Data: sob Comparison: Portable chest, 12/03/2019. Findings: No nodules, masses or effusions are seen. The heart is normal. The pulmonary vascularity is not increased. No pneumonia or pneumothorax is seen. The aortic arch shows minimal calcification XR/XR chest 1V portable [id number] Impression: Atherosclerosis. Dictated By:Sandra Maynard MD Signed By:Sandra Maynard MDSigned Date/Time:10/13/20 161 DD/ 1611 CT Chest: Radiologist's impression: [facility] [address] [address] Scan Report Signed Patient: Velasquez Montano AUnit #: [id number] : 1940cct#:[id number] Age/Sex: 80 / FADM Date: 10/13/20 Loc: [facility]/Bed: [facility] Attending Dr: Yoan Alaniz MD Ordering Provider/Ordering MD: Elly Fraire [place] [facility] [place] of Service: 10/13/20 Procedure(s): CT chest wo con [id number] Accession Number(s): [id number] Report Number: [id number] PROCEDURE INFORMATION: Exam: CT Chest Without Contrast; Diagnostic Exam date and time: 10/13/2020 9:59 PM Age: 80 years old Clinical indication: Shortness of breath; Additional info: Hypoxia, covid + TECHNIQUE: Imaging protocol: Diagnostic computed tomography of the chest without contrast. Radiation optimization: All CT scans at this facility use at least one of these dose optimization techniques: automated exposure control; mA and/or kV adjustment per patient size (includes targeted exams where dose is matched to clinical indication); or iterative reconstruction. COMPARISON: CR XR chest 1V portable [id number] 10/13/2020 3:25 PM RADIATION DOSE METRICS: Total DLP (mGy-cm): 585.8 FINDINGS: Lungs: 5 mm calcified granuloma right lung base. Noncalcified 3 mm nodule, left lower lobe, series 2, image 26. 3 mm left upper lobe calcified granuloma. No ground-glass pulmonary infiltrates demonstrated. Pleural space: No pneumothorax. No pleural effusion. Heart: Mild cardiomegaly is noted. Aorta: Atherosclerosis of the thoracic aorta without aneurysm. Lymph nodes: Calcified mediastinal and hilar lymph nodes, consistent with old granulomatous disease. Bones/joints: Degenerative thoracic spine changes are noted. No acute fracture. Soft tissues: No acute abnormality. CT/CT chest con [id number] IMPRESSION: 1. Mild cardiomegaly is noted. 2. The lungs appear clear. No ground-glass pulmonary infiltrates demonstrated. No CT findings present to indicate pneumonia. (Note: CT may be negative in the early stages of COVID-19.) (Reference: Goyo) 3. Changes of old granulomatous disease are identified. 4. Single noncalcified left lower lobe pulmonary nodule. All of the visualized nodules are calcified. No further follow-up required regarding the small noncalcified nodule. REFERENCES: [place] Underwood, et al., Radiological Society of [place] Expert Consensus Statement on Reporting Chest CT Findings Related to COVID-19. Endorsed by the Society of Thoracic Radiology, the [place] [employer], and RSNA. Published February 03, 2020. Radiation Dose CTDIVOL = (mGy): DLP = 585.8 (mGy-cm) Dictated By:Xavier Fraser MD Signed By:Xavier Fraser MDSigned Date/Time:10/13/202242 DD/ 40 EKG Data^: EKG 1: Attestation: I personally reviewed and interpreted this EKG as follows: EKG Interpretation Date: 10/13/20 EKG interpretation time: 16:02 Prior EKG tracings: not available for review Interpretation: sinus rhythm with ocassional premature complexes HR [address] changes EKG 2: Attestation: I personally reviewed and interpreted this EKG as follows: EKG Interpretation Date: 10/13/20 EKG interpretation time: 18:52 Prior EKG tracings: available for review Interpretation: NSR with sinus arrhythmia HR [address] changes normal axis Discharge Plan Discharge Patient Disposition: Admitted As Inpatient Admit Provider: Yoan Alaniz Clinical Impression: Pneumonia due to 2019 novel coronavirus, Hypoxia Condition: Stable Coding Level of Care Code ED Casting Operator for Chg Fwd Exam Comprehensive
[2020-10-13 18:08] LABS: Basophils % 0.2 %; Eosinophils % 0.2 %; Hematocrit 25.5 % (37.0-47.0); Hemoglobin 7.7 g/dL (11.5-15.3); Lymphocytes # 1.8 10^3/uL (0.8-4.8); Lymphocytes % 31.8 %; Mean Corpuscular HGB Conc 30.2 g/dL (30.0-36.0); Mean Corpuscular Hemoglobin 32.5 pg (28.0-34.0); Mean Corpuscular Volume 107.6 fL (81-99); Mean Platelet Volume 11.4 fL (7.4-10.4); Monocytes # 1.1 10^3/uL (0.2-0.9); Monocytes % 18.3 %; Neutrophils # 2.83 10^3/uL (1.8-7.7); Neutrophils % 49.3 %; Nucleated Red Blood Cells % 0 %; Platelet Count 104 10^3/cmm (130-400); Red Blood Count 2.37 10^6/uL (4.1-5.3); Red Cell Distribution Width 14.6 % (12.1-15.1); White Blood Count 5.7 10^3/uL (4.0-10.0)
[2020-10-13 18:15] LABS: Lactate (Lactic Acid level) 0.7 mmol/L (0.5-2.2)
[2020-10-13 18:17] LABS: Influenza A by IFA Negative (Negative); Influenza B by IFA Negative (Negative)
[2020-10-13 18:17] LABS: SARS Covid-2 Antigen Positive (Negative)
--- NOTE | 2020-10-13 18:19 | ECG_ITS ---
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 Measurements Intervals [place] Rate: 72 P: 33 SC: 152 QRS: 62 QRSD: 91 T: 65 QT: 405 QTc: 445 Interpretive Statements SINUS RHYTHM WITH SINUS ARRHYTHMIA Compared to ECG 10/13/2020 16:01:55 Left-axis deviation no longer present Electronically Signed On 10-14-2020 19:36:24 MULTISENSOR INTELLIGENCE OFFICER by Yanick Cash M.D. [id number] f
[2020-10-13 18:29] LABS: Alanine Aminotransferase < 5 U/L (0-33); Albumin Level 3.5 g/dL (3.5-5.2); Alkaline Phosphatase 66 IU/L (35-105); Anion Gap 10.1 (5-19); Aspartate Amino Transferase 11 U/L (0-32); Blood Urea Nitrogen 25 mg/dL (8-23); C Reactive Protein 6.7 mg/L (0.0-4.9); Calcium 11.3 mg/dL (8.5-10.5); Carbon Dioxide 38 mmol/L (22-29); Chloride 96 mmol/L (98-107); Globulin 1.8 g/dL (1.3-4.6); Glucose 75 mg/dL (65-115); NT Pro B Type Natriuretic Pept 636 pg/mL (0-450); Osmolality Calculated 291 mOsm/kg (285-295); Potassium 5.1 mmol/L (3.5-5.1); Sodium 139 mmol/L (136-145); Total Bilirubin 0.2 mg/dL (0.15-1.2); Total Protein 5.3 g/dL (6.6-8.7)
[2020-10-13 18:45] LABS: Troponin(5th) Baseline 53 ng/L (0-10)
[2020-10-13 19:15] VITALS: BP 170/78; PULSE 78; RESP 18; O2SAT 100
[2020-10-13 19:18] LABS: Add Urine Microscopic? NO
[2020-10-13 19:22] LABS: Bilirubin Urine Neg (Negative); Blood Urine Neg (Negative); Glucose Urine UA Norm (Normal); Ketones Urine Negative (Negative); Leukocyte Esterase Urine Negative (Negative); Nitrate Urine Negative (Negative); Protein Urine Neg (Negative); Sulfosalicylic Acid Urine Positive (Negative); Urine Appearance Clear (CLEAR); Urine Color Straw (Yellow); Urobilinogen Urine Norm (Negative); pH Urine 8 (5-7)
--- NOTE | 2020-10-13 19:37 | CTR_ITS ---
PROCEDURE INFORMATION: Exam: CT Chest Without Contrast; Diagnostic Exam date and time: 10/13/2020 9:59 PM Age: 80 years old Clinical indication: Shortness of breath; Additional info: Hypoxia, covid + TECHNIQUE: Imaging protocol: Diagnostic computed tomography of the chest without contrast. Radiation optimization: All CT scans at this facility use at least one of these dose optimization techniques: automated exposure control; mA and/or kV adjustment per patient size (includes targeted exams where dose is matched to clinical indication); or iterative reconstruction. COMPARISON: CR XR chest 1V portable [id number] 10/13/2020 3:25 PM RADIATION DOSE METRICS: Total DLP (mGy-cm): 585.8 FINDINGS: Lungs: 5 mm calcified granuloma right lung base. Noncalcified 3 mm nodule, left lower lobe, series 2, image 26. 3 mm left upper lobe calcified granuloma. No ground-glass pulmonary infiltrates demonstrated. Pleural space: No pneumothorax. No pleural effusion. Heart: Mild cardiomegaly is noted. Aorta: Atherosclerosis of the thoracic aorta without aneurysm. Lymph nodes: Calcified mediastinal and hilar lymph nodes, consistent with old granulomatous disease. Bones/joints: Degenerative thoracic spine changes are noted. No acute fracture. Soft tissues: No acute abnormality. CT/CT chest wo con [id number] IMPRESSION: 1. Mild cardiomegaly is noted. 2. The lungs appear clear. No ground-glass pulmonary infiltrates demonstrated. No CT findings present to indicate pneumonia. (Note: CT may be negative in the early stages of COVID-19.) (Reference: Goyo) 3. Changes of old granulomatous disease are identified. 4. Single noncalcified left lower lobe pulmonary nodule. All of the visualized nodules are calcified. No further follow-up required regarding the small noncalcified nodule. REFERENCES: [place] Underwood et al., Radiological Society of [place] Expert Consensus Statement on Reporting Chest CT Findings Related to COVID-19. Endorsed by the Society of Thoracic Radiology, the [place] [employer], and RSNA. Published February 03, 2020. Radiation Dose CTDIVOL = (mGy): DLP = 585.8 (mGy-cm)
[2020-10-13 20:07] LABS: Troponin 5 2HR 54.33 ng/L (0-10); Troponin 5 2HR Delta 1.33 ABS# (0-10)
[2020-10-13] MEDS: dexamethasone 4 mg/mL INJ 6 MG IVP (21:13)
[2020-10-13 21:56] VITALS: BP 141/58; PULSE 85; RESP 18; TEMP 36.8; O2SAT 99
--- NOTE | 2020-10-13 22:05 | P.HP_ITS ---
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 Upon arrival in the ER she was worked up for pneumonia. Rapid Covid test is positive, influenza is negative, her prior rapid Covid test done on 1020 was negative. Of note: History taking was a little difficult as the patient is currently slightly confused likely secondary to sundowning Pertinent imaging studies: CT chest without contrast: Mild cardiomegaly is noted. The lungs appear clear. No ground-glass pulmonary infiltrates demonstrated. EKG: SINUS RHYTHM WITH SINUS ARRHYTHMIA Pertinent labs: D-dimer: 1.02 ESR: 46, ferritin: 600 , CRP: 8 troponin: 53, 2-hour: 54, delta: 1.33 6-hour: 50 delta 6-hour: - 2.49, proBNP: 652 BUN/creatinine: 25/2 (baseline serum creatinine: 1.2-1.7 ) H&H: 7.7/ 25 , ECA medication: She was started on remdesivir and Decadron Review of Systems Const: Denies: change in appetite or diaphoresis Card: Denies: edema, swelling of feet/ankles or leg pain with exertion Resp: Denies: dyspnea or pain on inspiration GI: Denies: abdominal pain, nausea, vomiting, diarrhea or constipation : Denies: flank pain Musc: Denies: back pain, extremity pain or extremity swelling Neuro: Denies: headache(s), difficulty walking or confusion Medications/Allergies Home Medications Medication Instructions Recorded Confirmed Last Taken Type allopurinol 100 mg PO DAILY@11/12/19 10/13/20 10/13/20 History citalopram 40 mg PO DAILY@11/12/19 10/13/20 10/13/20 History divalproex 250 mg PO BID@11/12/19 10/13/20 10/13/20 08:00 History montelukast [Singulair] 10 mg PO DAILY@11/12/19 10/13/20 10/13/20 History levalbuterol tartrate [Xopenex HFA] 1 puff INHALATION Q6H 08/29/20 10/13/20 10/13/20 12:00 History pantoprazole [Protonix] 40 mg PO BID@08/29/20 10/13/20 10/13/20 08:00 History Lipitor 20 mg PO DAILY@10/13/20 10/13/20 10/12/20 History acetaminophen 650 mg PO Q6H PRN 10/13/20 10/13/20 Unknown History amino acids-protein hydrolys See Rx Instructions .ROUTE .COMPLEX 10/13/20 10/13/20 10/13/20 08:00 History [Pro-Stat AWC] bisacodyl 10 mg TX DAILY PRN 10/13/20 10/13/20 Unknown History cholecalciferol (vitamin D3) 250 mcg PO DAILY@10/13/20 10/13/20 10/12/20 Hi story [Vitamin D3] folic acid 1 mg PO BID@10/13/20 10/13/20 10/13/20 08:00 History metoprolol succinate 25 mg PO DAILY@08 10/13/20 10/13/20 10/13/20 History paricalcitol 1 mcg PO DAILY@10/13/20 10/13/20 10/13/20 History polyethylene glycol 3350 [Miralax] 17 g PO DAILY PRN 10/13/20 10/13/20 Unknown History sennosides-docusate sodium 1 tab PO BID PRN 10/13/20 10/13/20 Unknown History [Senna-S] sodium phosphates [Enema 118 ml TX DAILY PRN 10/13/20 10/13/20 Unknown History Disposable] Allergies Allergy/AdvReac Type Severity Reaction Status Date / Time amoxicillin Allergy ALGY-Rash Verified 10/13/20 17:13 codeine Allergy ALGY-Rash Verified 10/13/20 17:13 Penicillins Allergy ALGY-Rash Verified 10/13/20 17:13 sulfamethoxazole Allergy Unknown Verified 10/13/20 17:13 [From Bactrim] trimethoprim [From Bactrim] Allergy Unknown Verified 10/13/20 17:13 PFSH Acute PFSH: Medical History (Updated 10/14/20 @ 01:39 by Yoan Alaniz MD) Adenomatous polyp 2011 found on surveillance colonoscopy Bipolar disorder Breast cancer Status post lumpectomy/radiation 1999 followed by adjuvant tamoxifen C. 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 Chronic fatigue CKD (chronic kidney disease), stage IV COPD (chronic obstructive pulmonary disease) Oxygen dependent DNR (do not resuscitate) Hallucinations Did not tolerate Parkinson's medications in the past when this diagnosis was being entertained, discontinued hydrocodone, no organic etiology found Mastoiditis Right-sided mastoiditis, present on MRI 2015 as well Porencephalic cyst Temporal lobe Senile dementia Daughter has requested that dementia should not be mentioned to her mother because of risk of worsening of her depression considering bipolar disorder Sleep apnea Surgical History History of low anterior resection of rectum Family History Other Family history non-contributory Social History Smoking and tobacco status: former smoker Alcohol intake: never Household members: family Housing: House Vitals/I&O/Wt Last Vital Signs Temp 98.3 F 10/13/20 21:56 Pulse 85 10/13/20 21:56 Resp 18 10/13/20 21:56 BP 141/58 10/13/20 21:56 Pulse Ox 99 10/13/20 21:56 Weight last 48 hrs Weight 63.049 kg Physical Exam Narrative: EXAM NARRATIVE: Currently alert oriented x2(self and place) HENMT: COMMON NORMALS: normocephalic, atraumatic and hearing grossly normal bilaterally HEAD & SCALP: normocephalic and atraumatic Eye: COMMON NORMALS: no scleral icterus Chest: CHEST: Yes Symmetrical chest wall rise Resp: COMMON NORMALS: normal respiratory effort, No retractions, No use of accessory muscles and clear to auscultation bilaterally EFFORT & INSPECTION: Yes symmetric chest movement AUSCULTATION: clear to auscultation bilaterally Cardio: COMMON NORMALS: regular rate, regular rhythm, S1 normal heart sound present, S2 normal heart sound present, No gallops present (Cardio), No murmurs present (Cardio), No rub (Cardio) and Peripheral pulses 2+ throughout RATE: regular rate RHYTHM: regular rhythm HEART SOUNDS: S1 normal heart sound present and S2 normal heart sound present PERIPHERAL PULSES: Peripheral pulses 2+ throughout GI: COMMON NORMALS: Normal to inspection, nondistended, normoactive bowel sounds present, Soft to palpation, non-tender, No hepatosplenomegaly present and no masses AUSCULTATION: Yes normoactive bowel sounds PALPATION: Yes Soft to palpation and Yes No hepatosplenomegaly present RECTAL EXAM: deferred Extremity: COMMON NORMALS: no clubbing, cyanosis or edema and no pedal edema Neuro: COMMON NORMALS: patient oriented x3 Data : 10/13/20 17:38 10/13/20 17:38 A&P Assessment and plan (1) Pneumonia due to 2019 novel coronavirus: Patient came in with chief complaint of worsening shortness of breath and increasing oxygen requirement. On Covid protocol (REM, DEXA) Continue azithromycin 500 mg IV daily Trend markers of cytokine rich Supplemental oxygen as needed Zinc Vitamin C Nebs Status: Acute (2) COPD (chronic obstructive pulmonary disease): Supplemental oxygen as needed Nebs as needed Dexamethasone Status: Acute (3) Hypertension: Continue metoprolol 25 mg oral daily Status: Acute (4) Gout: Continue allopurinol 100 mg orally Status: Acute (5) Bipolar 1 disorder, depressed: Continue citalopram 40 mg p.o. daily Status: Acute (6) CKD (chronic kidney disease): Avoid nephrotoxic Monitor BMP Status: Acute (7) Cancer of sigmoid: Status: Acute (8) Breast cancer: Status: Acute Additional A&P Information DVT prophylaxis: Heparin 5000 every 12 h daily CODE STATUS: AND Disposition: residential Attestations Medical Necessity Statement*: Patient needs to be in hospital for management of Covid pneumonia. Anticipated length of stay greater than 2 midnight Coding Level of Care Code Acute School Custodian for Rosario Fwlibrado Diagnoses Pneumonia due to 2019 novel coronavirus U07.1; J12.89 COPD (chronic obstructive pulmonary disease) J44.9 Hypertension I10 Gout M10.9 Bipolar 1 disorder, depressed F31.9 CKD (chronic kidney disease) N18.9 Cancer of sigmoid C18.7 Breast cancer C50.919
[2020-10-13 22:30] VITALS: BP 187/71; PULSE 68; RESP 18; TEMP 36.8; O2SAT 100
[2020-10-13 22:50] LABS: Troponin 5 6HR 50.51 ng/L (0-10)
[2020-10-13 22:53] LABS: Troponin 5 6HR Delta -2.49 ng/L (0-12)
[2020-10-13 22:57] VITALS: BP 187/71; PULSE 68; RESP 18; TEMP 36.8; O2SAT 100
[2020-10-13 23:12] LABS: D Dimer 1.02 ug/mIFEU (0-0.59)
[2020-10-13 23:27] LABS: NT Pro B Type Natriuretic Pept 652 pg/mL (0-450)
[2020-10-13 23:44] LABS: Erythrocyte Sedimentation Rate 46 mm/hr (0-15)
[2020-10-13 23:59] LABS: Ferritin 600 ng/mL (15-150)
[2020-10-14] VITALS (13 sets, daily range): BP systolic 130–191; BP diastolic 52–76; PULSE 3–87; RESP 17–22; TEMP 36.5–36.9; O2SAT 91–100
[2020-10-14] MEDS: azithromycin 500 MG in sodium chloride 0.9% 250 ML 250 MG IV (00:02)
[2020-10-14] MEDS: heparin 5,000 unit/mL INJ 1 mL 5000 UNIT SUBCUT ×2 (00:14→10:29)
[2020-10-14] MEDS: albuterol 8 gm MDI 2 PUFF INHALATION ×4 (00:35→21:05)
[2020-10-14 05:01] LABS: Hematocrit 24.9 % (37.0-47.0); Hemoglobin 7.5 g/dL (11.5-15.3); Lymphocytes # 0.8 10^3/uL (0.8-4.8); Lymphocytes % 31.7 %; Mean Corpuscular HGB Conc 30.1 g/dL (30.0-36.0); Mean Corpuscular Hemoglobin 32.2 pg (28.0-34.0); Mean Corpuscular Volume 106.9 fL (81-99); Monocytes # 0.1 10^3/uL (0.2-0.9); Monocytes % 4.5 %; Neutrophils # 1.54 10^3/uL (1.8-7.7); Neutrophils % 63.4 %; Nucleated Red Blood Cells % 0 %; Platelet Count 95 10^3/cmm (130-400); Red Blood Count 2.33 10^6/uL (4.1-5.3); Red Cell Distribution Width 14.2 % (12.1-15.1); White Blood Count 2.4 10^3/uL (4.0-10.0)
[2020-10-14 05:13] LABS: INR 0.94 (0.8-1.2)
[2020-10-14 05:14] LABS: Partial Thromboplastin Time 31.2 SECONDS (23.9-36.7)
[2020-10-14 05:25] LABS: Alanine Aminotransferase < 5 U/L (0-33); Albumin Level 3.1 g/dL (3.5-5.2); Alkaline Phosphatase 54 IU/L (35-105); Anion Gap 8.3 (5-19); Aspartate Amino Transferase 18 U/L (0-32); Blood Urea Nitrogen 25 mg/dL (8-23); Calcium 11.1 mg/dL (8.5-10.5); Carbon Dioxide 37 mmol/L (22-29); Chloride 101 mmol/L (98-107); Globulin 2.5 g/dL (1.3-4.6); Glucose 142 mg/dL (65-115); Magnesium 1.6 mg/dL (1.7-2.3); Osmolality Calculated 297 mOsm/kg (285-295); Phosphorus 3.7 mg/dL (2.5-4.5); Potassium 6.3 mmol/L (3.5-5.1); Sodium 140 mmol/L (136-145); Total Bilirubin 0.2 mg/dL (0.15-1.2); Total Protein 5.6 g/dL (6.6-8.7)
[2020-10-14] MEDS: FUROsemide 10 mg/mL SDV 2mL 20 MG IVP (06:01)
[2020-10-14] MEDS: metoprolol succinate ER (24 HR) 25 mg Tablet PO (09:03)
[2020-10-14] MEDS: montelukast sodium 10 mg Tablet PO (09:03)
[2020-10-14] MEDS: citalopram 20 mg Tablet 40 MG PO (09:03)
[2020-10-14] MEDS: allopurinol 100 mg Tablet PO (09:03)
[2020-10-14] MEDS: divalproex DR 250 mg Tablet PO ×2 (09:03→20:10)
[2020-10-14] MEDS: zinc gluconate 50 mg Tablet PO (09:03)
[2020-10-14] MEDS: ascorbic acid 500 mg Tablet PO (09:03)
[2020-10-14] MEDS: folic acid 1 mg Tablet PO ×2 (09:03→20:10)
[2020-10-14] MEDS: pantoprazole DR 40 mg Tablet PO ×2 (09:10→20:10)
[2020-10-14] MEDS: sennosides-docusate Tablet 1 TAB PO (09:10)
[2020-10-14] MEDS: dextrose 50% syringe 50 mL 25 ML IVP (10:26)
[2020-10-14 10:42] LABS: LAB Peripheral Smear Sent for Review
--- NOTE | 2020-10-14 13:26 | P.PN_ITS ---
Subjective Subjective: Interval history: This morning patient is quite surprised when I tell her that she has Covid pneumonia, she is here for hospital Covid pneumonia, she tells me that nobody told me had Covid, she is on 2 L, denying any shortness of breath, no fevers, chills, no nausea, no vomiting she does feel weak and fatigued, has a poor appetite which she attributes to Covid, she is complaining of severe left knee pain Vitals/I&O/Wt Last Vital Signs Temp 98.1 F 10/14/20 12:00 Pulse 61 10/14/20 12:00 Resp 18 10/14/20 12:00 BP 130/52 10/14/20 12:00 Pulse Ox 100 10/14/20 12:00 10/13/20 10/14/20 10/14/20 22:59 06:59 14:59 Intake Total 240 / 240 Output Total 350 / 350 425 / 425 Balance -350 / -350 -185 / -185 Weight last 48 hrs Weight 59.783 kg Weight 63.049 kg Physical Exam Const: COMMON NORMALS: no acute distress ORIENTATION/CONSCIOUSNESS: Yes awake, Yes oriented to person and Yes oriented to place; not oriented to time HENMT: COMMON NORMALS: normocephalic HEAD & SCALP: normocephalic Neck/C-Spine: COMMON NORMALS: no JVD Resp: COMMON NORMALS: normal respiratory effort, No retractions and No use of accessory muscles AUSCULTATION: crackles Cardio: COMMON NORMALS: no JVD, regular rate, regular rhythm, S1 normal heart sound present and S2 normal heart sound present RATE: regular rate RHYTHM: regular rhythm HEART SOUNDS: S1 normal heart sound present and S2 normal heart sound present GI: COMMON NORMALS: Normal to inspection, nondistended, normoactive bowel sounds present, Soft to palpation, non-tender, No hepatosplenomegaly present, no masses and no bruits PALPATION: Yes Soft to palpation and Yes No hepatosplenomegaly present Extremity: COMMON NORMALS: capillary refill normal, no clubbing, cyanosis or edema, no calf tenderness and no pedal edema Neuro: SENSORIUM/ORIENTATION: Yes oriented to person, Yes oriented to place and No oriented to time Psych: COMMON NORMALS: mental status grossly normal Data : 10/14/20 04:45 10/14/20 04:45 A&P Assessment and plan (1) Pneumonia due to 2019 novel coronavirus: Patient came in with chief complaint of worsening shortness of breath and increasing oxygen requirement. Currently on 2 L, denying any shortness of breath Continue Decadron 6 mg IV push daily Hold remdesivir, as creatinine clearance less than 30 Continue azithromycin 500 mg IV daily, will consider expanding antibiotic coverage for secondary bacterial infection if clinical status worsens Vitamin C, zinc, incentive spirometer, flutter valve Albuterol, Advair, spriva Trend markers of cytokine rich Supplemental oxygen as needed Zinc Vitamin C Anticoagulated with heparin twice daily, for hypercoagulability prophylaxis for COVID-19, however patient's thrombocytopenia, anemia, which is concerning, will continue to monitor Status: Acute (2) COPD (chronic obstructive pulmonary disease): Supplemental oxygen as needed Nebs as needed Dexamethasone Status: Acute (3) Hypertension: Continue metoprolol 25 mg oral daily Status: Acute (4) Gout: Continue allopurinol 100 mg orally Status: Acute (5) Bipolar 1 disorder, depressed: Continue citalopram 40 mg p.o. daily Status: Acute (6) CKD (chronic kidney disease): Creatinine down to 1.8 today Avoid nephrotoxic Monitor BMP Status: Acute (7) Cancer of sigmoid: Status: Acute (8) Breast cancer: Status: Acute (9) Pancytopenia: -Hemoglobin 7.5, baseline is between 8-9, no hemodynamic compromise, no bloody or black stools -White blood cell count 2.4, neutropenia -Platelet count 95 -Etiology concerning for bone marrow suppression related to COVID-19, some could be related to remdesivir -Protonix 40 twice daily, peripheral smear, vitamin B12, folic acid Status: Acute (10) NSTEMI (non-ST elevated myocardial infarction): -6-hour troponin 50.5, 6-hour 2.49 -EKG no acute ST-T wave changes -Echo on last admission shows EF of 70%, no regional wall motion abnormalities -Continue statin, continue aspirin 81 Status: Acute Additional A&P Information DVT prophylaxis: Heparin 5000 every 12 h daily CODE STATUS: AND Disposition: senior care Left knee pain: Ultram, topical Voltaren gel Attestations 2 Medical Necessity Statement*: Patient requires hospitalization, inpatient, greater than 2 midnights, for COVID-19 pneumonia, NSTEMI, pancytopenia Time Spent in Patient Care: Greater than 35 minutes (>than 50% of time spent in counselling and/or direct pt care on unit) . Coding Level of Care Code Acute Alarm Mechanism Adjuster for Chg Fwd Diagnoses Pneumonia due to 2019 novel coronavirus U07.1; J12.89 COPD (chronic obstructive pulmonary disease) J44.9 Hypertension I10 Gout M10.9 Bipolar 1 disorder, depressed F31.9 CKD (chronic kidney disease) N18.9 Cancer of sigmoid C18.7 Breast cancer C50.919 Pancytopenia D61.818 NSTEMI (non-ST elevated myocardial infarction) I21.4
[2020-10-14 13:37] LABS: Alanine Aminotransferase 6 U/L (0-33); Albumin Level 3.6 g/dL (3.5-5.2); Alkaline Phosphatase 66 IU/L (35-105); Anion Gap 11.3 (5-19); Aspartate Amino Transferase 14 U/L (0-32); Blood Urea Nitrogen 29 mg/dL (8-23); Calcium 11.9 mg/dL (8.5-10.5); Carbon Dioxide 37 mmol/L (22-29); Chloride 96 mmol/L (98-107); Globulin 2.6 g/dL (1.3-4.6); Glucose 57 mg/dL (65-115); Osmolality Calculated 294 mOsm/kg (285-295); Potassium 4.3 mmol/L (3.5-5.1); Sodium 140 mmol/L (136-145); Total Bilirubin 0.2 mg/dL (0.15-1.2); Total Protein 6.2 g/dL (6.6-8.7)
[2020-10-14 14:13] LABS: D Dimer 1.41 ug/mIFEU (0-0.59)
[2020-10-14 15:17] LABS: Basophils % 0.2 %; Hematocrit 24.9 % (37.0-47.0); Hemoglobin 7.6 g/dL (11.5-15.3); Lymphocytes # 1.5 10^3/uL (0.8-4.8); Lymphocytes % 33.3 %; Mean Corpuscular HGB Conc 30.5 g/dL (30.0-36.0); Mean Corpuscular Hemoglobin 32.5 pg (28.0-34.0); Mean Corpuscular Volume 106.4 fL (81-99); Mean Platelet Volume 11.3 fL (7.4-10.4); Monocytes # 0.8 10^3/uL (0.2-0.9); Monocytes % 17.3 %; Neutrophils # 2.18 10^3/uL (1.8-7.7); Nucleated Red Blood Cells % 0 %; Platelet Count 107 10^3/cmm (130-400); Red Blood Count 2.34 10^6/uL (4.1-5.3); Red Cell Distribution Width 14.2 % (12.1-15.1); White Blood Count 4.5 10^3/uL (4.0-10.0)
[2020-10-14] MEDS: aspirin 81 mg EC Tablet PO (20:09)
[2020-10-14] MEDS: cholecalciferol (vitamin D3) 5,000 unit Tablet 5000 UNIT PO (20:10)
[2020-10-14] MEDS: atorvastatin 40 mg Tablet 20 MG PO (20:10)
[2020-10-14] MEDS: dexamethasone 4 mg/mL INJ 6 MG IVP (22:12)
[2020-10-15] VITALS (12 sets, daily range): BP systolic 154–191; BP diastolic 62–75; PULSE 62–78; RESP 16–18; TEMP 36.6–37; O2SAT 92–100
[2020-10-15] MEDS: heparin 5,000 unit/mL INJ 1 mL 5000 UNIT SUBCUT ×3 (00:44→23:09)
[2020-10-15] MEDS: azithromycin 500 MG in sodium chloride 0.9% 250 ML 250 MG IV ×2 (00:44→23:09)
[2020-10-15] MEDS: nitrofurantoin SR (BID) 100 mg Capsule PO ×3 (00:47→17:44)
[2020-10-15 00:58] LABS: Add Urine Microscopic? YES; Bilirubin Urine Neg (Negative); Blood Urine Neg (Negative); Glucose Urine UA Norm (Normal); Ketones Urine Negative (Negative); Leukocyte Esterase Urine Negative (Negative); Nitrate Urine Negative (Negative); Protein Urine Trace (Negative); Urine Appearance Clear (CLEAR); Urine Color Straw (Yellow); Urobilinogen Urine Norm (Negative); pH Urine 6.5 (5-7)
[2020-10-15 01:36] LABS: Add Urine Culture? No; Bacteria Urine TRACE /hpf; Calcium Oxalate Crystals Urine 0-4 /hpf; RBC Urine 0-4 /hpf (0-2); Squamous Epithelial Cell Urine 0-4 /hpf (0-5)
--- NOTE | 2020-10-15 05:40 | PC.NURSE ---
SHIFT SUMMARY: THE PATIENT SHOWED SIGNS OF A POTENTIAL UTI WITH URINARY FREQUENCY AND URGENCY, BUT DENIED ANY BURNING WITH URINATION. BUTTON CUTTER PHYSICIAN NOTIFIED AND HE PLACED ORDERS FOR MACROBID TO BE STARTED. THE PATIENT IS MAINTAINING WNL V/S AND DENIES ANY DISTRESS OR DIFFICULTY BREATHING.
[2020-10-15 05:44] LABS: Hematocrit 25.3 % (37.0-47.0); Hemoglobin 7.6 g/dL (11.5-15.3); Lymphocytes # 0.7 10^3/uL (0.8-4.8); Lymphocytes % 26.1 %; Mean Corpuscular Hemoglobin 31.9 pg (28.0-34.0); Mean Corpuscular Volume 106.3 fL (81-99); Mean Platelet Volume 12.3 fL (7.4-10.4); Monocytes # 0.1 10^3/uL (0.2-0.9); Neutrophils # 1.77 10^3/uL (1.8-7.7); Neutrophils % 69.9 %; Nucleated Red Blood Cells % 0 %; Platelet Count 85 10^3/cmm (130-400); Red Blood Count 2.38 10^6/uL (4.1-5.3); Red Cell Distribution Width 13.9 % (12.1-15.1); White Blood Count 2.5 10^3/uL (4.0-10.0)
[2020-10-15 06:40] LABS: Alanine Aminotransferase 6 U/L (0-33); Alkaline Phosphatase 57 IU/L (35-105); Blood Urea Nitrogen 35 mg/dL (8-23); Calcium 11.5 mg/dL (8.5-10.5); Carbon Dioxide 31 mmol/L (22-29); Chloride 98 mmol/L (98-107); Globulin 2.5 g/dL (1.3-4.6); Glucose 126 mg/dL (65-115); Magnesium 1.5 mg/dL (1.7-2.3); Osmolality Calculated 296 mOsm/kg (285-295); Phosphorus 3.1 mg/dL (2.5-4.5); Sodium 138 mmol/L (136-145); Total Bilirubin 0.2 mg/dL (0.15-1.2); Total Protein 5.5 g/dL (6.6-8.7)
[2020-10-15 06:47] LABS: Anion Gap 14.7 (5-19)
[2020-10-15 06:48] LABS: Aspartate Amino Transferase 17 U/L (0-32); Potassium 5.7 mmol/L (3.5-5.1)
[2020-10-15 06:50] LABS: D Dimer 1.97 ug/mIFEU (0-0.59)
[2020-10-15 06:53] LABS: NT Pro B Type Natriuretic Pept 393 pg/mL (0-450)
--- NOTE | 2020-10-15 07:00 | XRR_ITS ---
PROCEDURE INFORMATION: Exam: XR Chest, 1 View Exam date and time: 10/15/2020 7:04 AM Age: 80 years old Clinical indication: Shortness of breath; Additional info: SOB TECHNIQUE: Imaging protocol: XR of the chest Views: 1 view. COMPARISON: CT chest [facility] [id number] 10/13/2020 10:09 PM FINDINGS: Lungs: Unremarkable. No consolidation. Pleural space: Unremarkable. No pleural effusion. No pneumothorax. Heart/Mediastinum: Unremarkable. No cardiomegaly. Bones/joints: Unremarkable. XR/XR chest 1V portable [id number] IMPRESSION: No acute findings.
[2020-10-15 07:47] LABS: Creatine Phosphokinase 47 U/L (26-192); Ferritin 668 ng/mL (15-150); Procalcitonin 0.17 ng/mL (0-0.5)
[2020-10-15] MEDS: albuterol 8 gm MDI 2 PUFF INHALATION (08:20)
[2020-10-15] MEDS: metoprolol succinate ER (24 HR) 25 mg Tablet PO (08:26)
[2020-10-15] MEDS: divalproex DR 250 mg Tablet PO ×2 (08:26→19:32)
[2020-10-15] MEDS: pantoprazole DR 40 mg Tablet PO ×2 (08:26→19:33)
[2020-10-15] MEDS: folic acid 1 mg Tablet PO ×2 (08:26→19:33)
[2020-10-15] MEDS: citalopram 20 mg Tablet 40 MG PO (08:26)
[2020-10-15] MEDS: montelukast sodium 10 mg Tablet PO (08:26)
[2020-10-15] MEDS: ascorbic acid 500 mg Tablet PO (08:27)
[2020-10-15] MEDS: aspirin 81 mg EC Tablet PO (08:27)
[2020-10-15] MEDS: cyanocobalamin 1,000 mcg Tablet 1000 MCG PO (08:27)
[2020-10-15] MEDS: allopurinol 100 mg Tablet PO (08:27)
[2020-10-15] MEDS: zinc gluconate 50 mg Tablet PO (08:27)
[2020-10-15] MEDS: magnesium oxide 400 mg tablet PO ×2 (09:51→20:23)
[2020-10-15] MEDS: sodium chloride 0.9% 1,000 ML 75 ML IV (09:51)
[2020-10-15] MEDS: sodium polystyrene sulfonate 15 gm/60 mL Btl PO ×2 (09:51→20:23)
[2020-10-15] MEDS: dextrose 50% syringe 50 mL 25 ML IVP (10:45)
--- NOTE | 2020-10-15 11:03 | P.PN_ITS ---
Subjective Subjective: Interval history: This morning patient was examined, she tells me that she just feels weak, fatigue, tired, poor appetite, multiple joint aches or pains Vitals/I&O/Wt Last Vital Signs Temp 97.8 F 10/15/20 08:00 Pulse 65 10/15/20 08:28 Resp 18 10/15/20 08:26 BP 188/63 10/15/20 08:00 Pulse Ox 98 10/15/20 08:26 10/14/20 10/15/20 10/15/20 22:59 06:59 14:59 Output Total 200 / 625 340 / 965 500 / 500 Balance -200 / -385 -340 / -725 -500 / -500 Weight last 48 hrs Weight 63.049 kg Weight 59.783 kg Weight 63.049 kg Physical Exam Const: COMMON NORMALS: no acute distress and patient oriented x3 HENMT: COMMON NORMALS: normocephalic HEAD & SCALP: normocephalic Neck/C-Spine: COMMON NORMALS: no JVD Resp: COMMON NORMALS: normal respiratory effort, No retractions, No use of accessory muscles and clear to auscultation bilaterally AUSCULTATION: clear to auscultation bilaterally Cardio: COMMON NORMALS: no JVD, regular rate, regular rhythm, S1 normal heart sound present and S2 normal heart sound present RATE: regular rate RHYTHM: regular rhythm HEART SOUNDS: S1 normal heart sound present and S2 normal heart sound present GI: COMMON NORMALS: Normal to inspection, nondistended, normoactive bowel sounds present, Soft to palpation, non-tender, No hepatosplenomegaly present, no masses and no bruits PALPATION: Yes Soft to palpation and Yes No hepatosplenomegaly present Extremity: COMMON NORMALS: capillary refill normal, no clubbing, cyanosis or edema, no calf tenderness and no pedal edema Neuro: COMMON NORMALS: patient oriented x3 Psych: COMMON NORMALS: mental status grossly normal Data : 10/15/20 05:20 10/15/20 05:20 A&P Assessment and plan (1) Pneumonia due to 2019 novel coronavirus: Patient came in with chief complaint of worsening shortness of breath and increasing oxygen requirement. Currently on 2 L, denying any shortness of breath Continue Decadron 6 mg IV push daily Not a candidate for remdesivir as creatinine clearance less than 30 Will give 2 doses of convalescent plasma today Continue azithromycin 500 mg IV daily, will consider expanding antibiotic coverage for secondary bacterial infection if clinical status worsens Vitamin C, zinc, incentive spirometer, flutter valve Albuterol, Advair, spriva Trend markers of cytokine rich Supplemental oxygen as needed Zinc Vitamin C Anticoagulated with heparin twice daily, for hypercoagulability prophylaxis for COVID-19, however patient's thrombocytopenia, anemia, which is concerning, will continue to monitor Status: Acute (2) COPD (chronic obstructive pulmonary disease): Supplemental oxygen as needed Nebs as needed Dexamethasone Status: Acute (3) Hypertension: Continue metoprolol 25 mg oral daily Status: Acute (4) Gout: Continue allopurinol 100 mg orally Status: Acute (5) Bipolar 1 disorder, depressed: Continue citalopram 40 mg p.o. daily Status: Acute (6) CKD (chronic kidney disease): Creatinine down to 2.0 today Avoid nephrotoxic Monitor BMP Status: Acute (7) Cancer of sigmoid: Status: Acute (8) Breast cancer: Status: Acute (9) Pancytopenia: -Hemoglobin 7.6, baseline is between 8-9, no hemodynamic compromise, no bloody or black stools -White blood cell count 2.5, neutropenia -Platelet count 85 -Etiology concerning for bone marrow suppression related to COVID-19, some could be related to remdesivir -Protonix 40 twice daily, peripheral smear, vitamin B12, folic acid Status: Acute (10) NSTEMI (non-ST elevated myocardial infarction): -6-hour troponin 50.5, 6-hour 2.49 -EKG no acute ST-T wave changes -Echo on last admission shows EF of 70%, no regional wall motion abnormalities -Continue statin, continue aspirin 81 Status: Acute Additional A&P Information DVT prophylaxis: Heparin 5000 every 12 h daily CODE STATUS: AND Disposition: skilled nursing Left knee pain: Ultram, topical Voltaren gel Plan for today monitor clinical status, start convalescent plasma, replaced magnesium, up to a bed, incentive spirometer use Attestations Medical Necessity Statement*: Patient requires hospitalization for COVID-19 pneumonia, pancytopenia, DHRUV Time Spent in Patient Care: Greater than 35 minutes (>than 50% of time spent in counselling and/or direct pt care on unit) . Coding Level of Care Code Acute Repairer Finished Metal for Chg Fwd Exam Comprehensive Diagnoses Pneumonia due to 2019 novel coronavirus U07.1; J12.89 COPD (chronic obstructive pulmonary disease) J44.9 Hypertension I10 Gout M10.9 Bipolar 1 disorder, depressed F31.9 CKD (chronic kidney disease) N18.9 Cancer of sigmoid C18.7 Breast cancer C50.919 Pancytopenia D61.818 NSTEMI (non-ST elevated myocardial infarction) I21.4
[2020-10-15] MEDS: TRAMadol 50 mg Tablet 25 MG PO ×2 (17:44→21:44)
[2020-10-15] MEDS: amlodipine 10 mg Tablet PO (19:32)
[2020-10-15] MEDS: atorvastatin 40 mg Tablet 20 MG PO (19:33)
[2020-10-15] MEDS: cholecalciferol (vitamin D3) 5,000 unit Tablet 5000 UNIT PO (19:33)
[2020-10-15] MEDS: dexamethasone 4 mg/mL INJ 6 MG IVP (22:10)
--- NOTE | 2020-10-15 22:11 | PC.NURSE ---
patient going little bits at a time and asking to be changed
[2020-10-16] VITALS (15 sets, daily range): BP systolic 153–176; BP diastolic 50–85; PULSE 56–105; RESP 16–18; TEMP 36.4–37.2; O2SAT 91–100
--- NOTE | 2020-10-16 03:30 | PC.NURSE ---
wets bed then asks for bedpan
--- NOTE | 2020-10-16 05:04 | PC.NURSE ---
void once on pad and once in bedpan
[2020-10-16 05:40] LABS: Basophils % 0.3 %; Hematocrit 27.9 % (37.0-47.0); Lymphocytes # 0.8 10^3/uL (0.8-4.8); Lymphocytes % 24.4 %; Mean Corpuscular HGB Conc 28.7 g/dL (30.0-36.0); Mean Corpuscular Hemoglobin 32.4 pg (28.0-34.0); Mean Platelet Volume 11.5 fL (7.4-10.4); Monocytes # 0.1 10^3/uL (0.2-0.9); Monocytes % 2.3 %; Neutrophils # 2.25 10^3/uL (1.8-7.7); Neutrophils % 72.4 %; Nucleated Red Blood Cells % 0 %; Platelet Count 95 10^3/cmm (130-400); Red Blood Count 2.47 10^6/uL (4.1-5.3); Red Cell Distribution Width 13.8 % (12.1-15.1); White Blood Count 3.1 10^3/uL (4.0-10.0)
[2020-10-16 06:09] LABS: Alanine Aminotransferase 9 U/L (0-33); Alkaline Phosphatase 60 IU/L (35-105); Anion Gap 10.8 (5-19); Aspartate Amino Transferase 18 U/L (0-32); Blood Urea Nitrogen 30 mg/dL (8-23); Calcium 10.7 mg/dL (8.5-10.5); Carbon Dioxide 34 mmol/L (22-29); Chloride 98 mmol/L (98-107); Creatinine Clr Calc Pharmacy 21.6225; Globulin 2.5 g/dL (1.3-4.6); Glucose 111 mg/dL (65-115); Magnesium 1.4 mg/dL (1.7-2.3); Osmolality Calculated 293 mOsm/kg (285-295); Phosphorus 3.2 mg/dL (2.5-4.5); Potassium 4.8 mmol/L (3.5-5.1); Sodium 138 mmol/L (136-145); Total Bilirubin 0.2 mg/dL (0.15-1.2); Total Protein 5.5 g/dL (6.6-8.7)
[2020-10-16 06:20] LABS: NT Pro B Type Natriuretic Pept 689 pg/mL (0-450); Procalcitonin 0.19 ng/mL (0-0.5)
[2020-10-16 06:31] LABS: Creatine Phosphokinase 30 U/L (26-192); Ferritin 870 ng/mL (15-150)
[2020-10-16 06:32] LABS: D Dimer 0.86 ug/mIFEU (0-0.59)
[2020-10-16] MEDS: sodium chloride 0.9% 1,000 ML 50 ML IV (07:38)
[2020-10-16] MEDS: cyanocobalamin 1,000 mcg Tablet 1000 MCG PO (08:05)
[2020-10-16] MEDS: zinc gluconate 50 mg Tablet PO (08:05)
[2020-10-16] MEDS: allopurinol 100 mg Tablet PO (08:05)
[2020-10-16] MEDS: citalopram 20 mg Tablet 40 MG PO (08:05)
[2020-10-16] MEDS: ascorbic acid 500 mg Tablet PO (08:05)
[2020-10-16] MEDS: metoprolol succinate ER (24 HR) 25 mg Tablet PO (08:05)
[2020-10-16] MEDS: montelukast sodium 10 mg Tablet PO (08:05)
[2020-10-16] MEDS: nitrofurantoin SR (BID) 100 mg Capsule PO ×2 (08:05→18:09)
[2020-10-16] MEDS: aspirin 81 mg EC Tablet PO (08:05)
[2020-10-16] MEDS: divalproex DR 250 mg Tablet PO ×2 (08:15→20:04)
[2020-10-16] MEDS: pantoprazole DR 40 mg Tablet PO ×2 (08:15→20:05)
[2020-10-16] MEDS: folic acid 1 mg Tablet PO ×2 (08:16→20:04)
[2020-10-16] MEDS: albuterol 8 gm MDI 2 PUFF INHALATION ×3 (08:47→23:59)
--- NOTE | 2020-10-16 10:42 | PM.PN ---
Subjective Subjective: Interval history: This morning patient was examined, she sitting in a chair, she is on 2 L nasal cannula, she says that she continues to feel fatigued, weak, has joint pains, muscle aches, does not really feel short of breath, no fevers overnight, no cough. She is really worried about her daughter, she also tested positive for Covid Vitals/I&O/Wt Last Vital Signs Temp 98.1 F 10/16/20 08:00 Pulse 71 10/16/20 08:55 Resp 18 10/16/20 08:49 BP 164/73 10/16/20 08:00 Pulse Ox 95 10/16/20 08:49 10/15/20 10/16/20 10/16/20 22:59 06:59 14:59 Intake Total 684 / 924 250 / 1174 500 / 500 Output Total 401 / 1251 100 / 100 Balance 283 / -327 250 / -77 400 / 400 Weight last 48 hrs Weight 61.235 kg Weight 63.049 kg Physical Exam Const: COMMON NORMALS: no acute distress and patient oriented x3 HENMT: COMMON NORMALS: normocephalic HEAD & SCALP: normocephalic Neck/C-Spine: COMMON NORMALS: no JVD Resp: COMMON NORMALS: normal respiratory effort, No retractions, No use of accessory muscles and clear to auscultation bilaterally AUSCULTATION: clear to auscultation bilaterally Cardio: COMMON NORMALS: no JVD, regular rate, regular rhythm, S1 normal heart sound present and S2 normal heart sound present RATE: regular rate RHYTHM: regular rhythm HEART SOUNDS: S1 normal heart sound present and S2 normal heart sound present GI: COMMON NORMALS: Normal to inspection, nondistended, normoactive bowel sounds present, Soft to palpation, non-tender, No hepatosplenomegaly present, no masses and no bruits PALPATION: Yes Soft to palpation and Yes No hepatosplenomegaly present Extremity: COMMON NORMALS: capillary refill normal, no clubbing, cyanosis or edema, no calf tenderness and no pedal edema Neuro: COMMON NORMALS: patient oriented x3 Psych: COMMON NORMALS: mental status grossly normal Data : 10/16/20 05:00 10/16/20 05:00 A&P Assessment and plan (1) Pneumonia due to 2019 novel coronavirus: Patient came in with chief complaint of worsening shortness of breath and increasing oxygen requirement. Currently on 2 L, denying any shortness of breath Continue Decadron 6 mg IV push daily Not a candidate for remdesivir as creatinine clearance less than 30 Convalescent plasma day to 2 Continue azithromycin 500 mg IV daily, will consider expanding antibiotic coverage for secondary bacterial infection if clinical status worsens Vitamin C, zinc, incentive spirometer, flutter valve Albuterol, Advair, spriva Trend markers of cytokine rich Supplemental oxygen as needed Zinc Vitamin C Anticoagulated with heparin twice daily, for hypercoagulability prophylaxis for COVID-19, however patient's thrombocytopenia, anemia, which is concerning, will continue to monitor Status: Acute (2) COPD (chronic obstructive pulmonary disease): Supplemental oxygen as needed Nebs as needed Dexamethasone Status: Acute (3) Hypertension: Blood pressures got as high as 190s over 70s yesterday Continue metoprolol 25 mg oral daily Norvasc 10 mg daily Clonidine 0.1 twice daily Monitor blood pressures carefully Status: Acute (4) Gout: Continue allopurinol 100 mg orally Status: Acute (5) Bipolar 1 disorder, depressed: Continue citalopram 40 mg p.o. daily Status: Acute (6) CKD (chronic kidney disease): Creatinine down to 1.8 today, discontinue fluids Avoid nephrotoxic Monitor BMP Status: Acute (7) Cancer of sigmoid: Status: Acute (8) Breast cancer: Status: Acute (9) Pancytopenia: -Hemoglobin 8.0, baseline is between 8-9, no hemodynamic compromise, no bloody or black stools -White blood cell count 3.1, neutropenia -Platelet count 95 -Etiology concerning for bone marrow suppression related to COVID-19, some could be related to remdesivir dose that she received in the ER -No hemodynamic compromise, no bloody or black stools, no fevers -Protonix 40 twice daily, peripheral smear, vitamin B12, folic acid Status: Acute (10) NSTEMI (non-ST elevated myocardial infarction): -6-hour troponin 50.5, 6-hour 2.49 -EKG no acute ST-T wave changes -Echo on last admission shows EF of 70%, no regional wall motion abnormalities -Continue statin, continue aspirin 81 Status: Acute Additional A&P Information DVT prophylaxis: Heparin 5000 every 12 h daily CODE STATUS: AND Disposition: detention Left knee pain: Ultram, topical Voltaren gel Plan for today monitor clinical status, continue convalescent plasma, replace magnesium, up out of bed, incentive spirometer use, monitor blood pressures Attestations Medical Necessity Statement*: Patient requires hospitalization for COVID-19 pneumonia, pancytopenia, DHRUV Time Spent in Patient Care: Greater than 35 minutes (>than 50% of time spent in counselling and/or direct pt care on unit). Coding Level of Care Code Acute Metal Melter for Rosario Woodard Diagnoses Pneumonia due to 2019 novel coronavirus U07.1; J12.89 COPD (chronic obstructive pulmonary disease) J44.9 Hypertension I10 Gout M10.9 Bipolar 1 disorder, depressed F31.9 CKD (chronic kidney disease) N18.9 Cancer of sigmoid C18.7 Breast cancer C50.919 Pancytopenia D61.818 NSTEMI (non-ST elevated myocardial infarction) I21.4
--- NOTE | 2020-10-16 10:46 | PC.SOCIAL ---
IMM Update PG. 2 of IMM updated. Voicemail left for daughter.
[2020-10-16] MEDS: amlodipine 10 mg Tablet PO (11:18)
[2020-10-16] MEDS: heparin 5,000 unit/mL INJ 1 mL 5000 UNIT SUBCUT ×2 (11:18→23:17)
[2020-10-16] MEDS: cloNIDine 0.1 mg Tablet PO ×2 (11:19→23:17)
[2020-10-16] MEDS: magnesium oxide 400 mg tablet PO (18:09)
[2020-10-16] MEDS: cholecalciferol (vitamin D3) 5,000 unit Tablet 5000 UNIT PO (20:04)
[2020-10-16] MEDS: atorvastatin 40 mg Tablet 20 MG PO (20:05)
[2020-10-16] MEDS: dexamethasone 4 mg/mL INJ 6 MG IVP (21:22)
[2020-10-16] MEDS: azithromycin 500 MG in sodium chloride 0.9% 250 ML 250 MG IV (23:17)
[2020-10-17] VITALS (15 sets, daily range): BP systolic 121–185; BP diastolic 49–73; PULSE 58–79; RESP 15–24; TEMP 36.4–37.2; O2SAT 94–100
[2020-10-17 06:56] LABS: Alanine Aminotransferase 10 U/L (0-33); Albumin Level 3.2 g/dL (3.5-5.2); Alkaline Phosphatase 66 IU/L (35-105); Anion Gap 13.6 (5-19); Aspartate Amino Transferase 16 U/L (0-32); Blood Urea Nitrogen 30 mg/dL (8-23); C Reactive Protein 1.7 mg/L (0.0-4.9); Calcium 10.7 mg/dL (8.5-10.5); Carbon Dioxide 33 mmol/L (22-29); Chloride 98 mmol/L (98-107); D Dimer 0.73 ug/mIFEU (0-0.59); Globulin 2.5 g/dL (1.3-4.6); Glucose 152 mg/dL (65-115); Magnesium 1.4 mg/dL (1.7-2.3); Osmolality Calculated 299 mOsm/kg (285-295); Phosphorus 2.9 mg/dL (2.5-4.5); Potassium 4.6 mmol/L (3.5-5.1); Sodium 140 mmol/L (136-145); Total Bilirubin 0.2 mg/dL (0.15-1.2); Total Protein 5.7 g/dL (6.6-8.7)
[2020-10-17 07:06] LABS: NT Pro B Type Natriuretic Pept 828 pg/mL (0-450); NT Pro B Type Natriuretic Pept 903 pg/mL (0-450); Procalcitonin 0.15 ng/mL (0-0.5)
[2020-10-17 07:17] LABS: Creatine Phosphokinase 22 U/L (26-192); Ferritin 813 ng/mL (15-150)
[2020-10-17 07:26] LABS: Hematocrit 25.6 % (37.0-47.0); Hemoglobin 7.8 g/dL (11.5-15.3); Lymphocytes # 0.6 10^3/uL (0.8-4.8); Lymphocytes % 23.4 %; Mean Corpuscular HGB Conc 30.5 g/dL (30.0-36.0); Mean Corpuscular Hemoglobin 32.2 pg (28.0-34.0); Mean Corpuscular Volume 105.8 fL (81-99); Mean Platelet Volume 12.3 fL (7.4-10.4); Monocytes # 0.1 10^3/uL (0.2-0.9); Monocytes % 1.9 %; Neutrophils # 1.97 10^3/uL (1.8-7.7); Neutrophils % 74.3 %; Nucleated Red Blood Cells % 0 %; Platelet Count 106 10^3/cmm (130-400); Red Blood Count 2.42 10^6/uL (4.1-5.3); Red Cell Distribution Width 13.6 % (12.1-15.1); White Blood Count 2.7 10^3/uL (4.0-10.0)
[2020-10-17] MEDS: albuterol 8 gm MDI 2 PUFF INHALATION ×2 (07:40→20:31)
[2020-10-17] MEDS: allopurinol 100 mg Tablet PO (08:45)
[2020-10-17] MEDS: pantoprazole DR 40 mg Tablet PO ×2 (08:46→20:39)
[2020-10-17] MEDS: citalopram 20 mg Tablet 40 MG PO (08:46)
[2020-10-17] MEDS: divalproex DR 250 mg Tablet PO ×2 (08:46→20:39)
[2020-10-17] MEDS: folic acid 1 mg Tablet PO ×2 (08:46→20:39)
[2020-10-17] MEDS: montelukast sodium 10 mg Tablet PO (08:46)
[2020-10-17] MEDS: amlodipine 10 mg Tablet PO (08:47)
[2020-10-17] MEDS: nitrofurantoin SR (BID) 100 mg Capsule PO ×2 (08:47→18:27)
[2020-10-17] MEDS: aspirin 81 mg EC Tablet PO (08:47)
[2020-10-17] MEDS: cyanocobalamin 1,000 mcg Tablet 1000 MCG PO (08:47)
[2020-10-17] MEDS: ascorbic acid 500 mg Tablet PO (08:47)
[2020-10-17] MEDS: magnesium oxide 400 mg tablet PO (08:47)
[2020-10-17] MEDS: zinc gluconate 50 mg Tablet PO (08:48)
--- NOTE | 2020-10-17 09:28 | PC.NURSE ---
pt stated that she was seeing things fly in the room again , stated she either seen something fly across the room or she was asleep and dreaming again .
[2020-10-17] MEDS: heparin 5,000 unit/mL INJ 1 mL 5000 UNIT SUBCUT ×2 (11:25→23:05)
[2020-10-17] MEDS: cloNIDine 0.1 mg Tablet PO ×2 (11:28→23:04)
--- NOTE | 2020-10-17 17:15 | P.PN_ITS ---
Subjective Subjective: Interval history: No new complaints today, patient has been asleep for most of the day, wakes up easily to calling name and answers to simple questions, though is confused at baseline. Medications: Reviewed: Yes Vitals/I&O/Wt Last Vital Signs Temp 97.8 F 10/17/20 15:58 Pulse 63 10/17/20 15:58 Resp 15 10/17/20 15:58 BP 131/68 10/17/20 15:58 Pulse Ox 100 10/17/20 15:58 10/17/20 10/17/20 10/17/20 06:59 14:59 22:59 Intake Total 250 / 1820 0 / 0 Output Total 500 / 1500 400 / 400 Balance -250 / 320 -400 / -400 Weight last 48 hrs Weight 61.235 kg Weight 61.235 kg Physical Exam Narrative: EXAM NARRATIVE: GEN: Awake, alert, no distress CVS: S1S2 N RS: CTA B/L except crackles over RUL Abd: Soft, nt/nd , bs+ Data : 10/17/20 04:00 10/17/20 04:00 A&P Assessment and plan (1) Pneumonia due to 2019 novel coronavirus: Patient came in with chief complaint of worsening shortness of breath and increasing oxygen requirement. Currently on 2 L, denying any shortness of breath Continue Decadron 6 mg IV push daily Not a candidate for remdesivir as creatinine clearance less than 30 Convalescent plasma given over 2 days, tolerated well Vitamin C, zinc, incentive spirometer, flutter valve Albuterol, Advair, spriva Trend markers of cytokine rich Supplemental oxygen as needed Zinc Vitamin C Anticoagulated with heparin twice daily, for hypercoagulability prophylaxis for COVID-19, however patient's thrombocytopenia, anemia, which is concerning, will continue to monitor Status: Acute (2) COPD (chronic obstructive pulmonary disease): Supplemental oxygen as needed Nebs as needed Dexamethasone Status: Acute (3) Hypertension: Blood pressures got as high as 190s over 70s yesterday Continue metoprolol 25 mg oral daily Norvasc 10 mg daily Clonidine 0.1 twice daily Monitor blood pressures carefully Status: Acute (4) Gout: Continue allopurinol 100 mg orally Status: Acute (5) Bipolar 1 disorder, depressed: Continue citalopram 40 mg p.o. daily Status: Acute (6) CKD (chronic kidney disease): Creatinine down to 1.8 today, discontinue fluids Avoid nephrotoxic Monitor BMP Status: Acute (7) Cancer of sigmoid: Status: Acute (8) Breast cancer: Status: Acute (9) Pancytopenia: -Hemoglobin 8.0, baseline is between 8-9, no hemodynamic compromise, no bloody or black stools -White blood cell count 3.1, neutropenia -Platelet count 95 Status: Acute (10) NSTEMI (non-ST elevated myocardial infarction): -6-hour troponin 50.5, 6-hour 2.49 -EKG no acute ST-T wave changes -Echo on last admission shows EF of 70%, no regional wall motion abnormalities -Continue statin, continue aspirin 81 Status: Acute Additional A&P Information DVT prophylaxis: Heparin 5000 every 12 h daily CODE STATUS: AND Disposition: shelter Left knee pain: Ultram, topical Voltaren gel Plan for today monitor clinical status, if remains stable to improving, anticipate discharge in the upcoming 24 Attestations Medical Necessity Statement*: Completed convulsant plasma for COVID-19, thus far with stable oxygen requirement, anticipate discharge in the upcoming 24 hours if remaining stable Coding Level of Care Code Acute Account Development Manager for [facility] Fwd Diagnoses Pneumonia due to 2019 novel coronavirus U07.1; J12.89 COPD (chronic obstructive pulmonary disease) J44.9 Hypertension I10 Gout M10.9 Bipolar 1 disorder, depressed F31.9 CKD (chronic kidney disease) N18.9 Cancer of sigmoid C18.7 Breast cancer C50.919 Pancytopenia D61.818 NSTEMI (non-ST elevated myocardial infarction) I21.4
[2020-10-17] MEDS: sodium chloride 0.9% 1,000 ML 50 ML IV ×2 (18:26→20:41)
--- NOTE | 2020-10-17 18:35 | PC.NURSE ---
SHIFT SUMMARY PT HAS BEEN CONFUSED AT TIMES, THIS AM SHE WAS HALLUCINATING AND SEEING THINGS FLY ACROSS THE ROOM, BUT KNEW WHERE SHE WAS. WHEREAS LATER IN THE DAY SHE TOLD ME SHE WAS IN [facility], BUT WAS NOT HALLUCINATING AT ALL. SHE HAS BEEN CONTINENT MOST OF THE DAY WITH HAVING 500 ML OUTPUT THIS SHIFT. NO OTHER CHANGES THIS SHIFT.
[2020-10-17] MEDS: cholecalciferol (vitamin D3) 5,000 unit Tablet 5000 UNIT PO (20:38)
[2020-10-17] MEDS: atorvastatin 40 mg Tablet 20 MG PO (20:38)
[2020-10-17] MEDS: dexamethasone 4 mg/mL INJ 6 MG IVP (21:34)
[2020-10-17] MEDS: azithromycin 500 MG in sodium chloride 0.9% 250 ML 250 MG IV (23:05)
[2020-10-18] VITALS (9 sets, daily range): BP systolic 148–176; BP diastolic 68–77; PULSE 55–70; RESP 15–24; TEMP 36.6–36.8; O2SAT 95–100
[2020-10-18 04:58] LABS: Hematocrit 23.1 % (37.0-47.0); Hemoglobin 7.1 g/dL (11.5-15.3); Lymphocytes # 0.5 10^3/uL (0.8-4.8); Lymphocytes % 13.7 %; Mean Corpuscular HGB Conc 30.7 g/dL (30.0-36.0); Mean Corpuscular Hemoglobin 31.7 pg (28.0-34.0); Mean Corpuscular Volume 103.1 fL (81-99); Monocytes # 0.1 10^3/uL (0.2-0.9); Monocytes % 1.8 %; Neutrophils # 2.74 10^3/uL (1.8-7.7); Neutrophils % 83.6 %; Nucleated Red Blood Cells % 0 %; Platelet Count 112 10^3/cmm (130-400); Red Blood Count 2.24 10^6/uL (4.1-5.3); Red Cell Distribution Width 13.9 % (12.1-15.1); White Blood Count 3.3 10^3/uL (4.0-10.0)
[2020-10-18 05:10] LABS: D Dimer 0.78 ug/mIFEU (0-0.59)
[2020-10-18 05:25] LABS: NT Pro B Type Natriuretic Pept 992 pg/mL (0-450); Procalcitonin 0.15 ng/mL (0-0.5)
[2020-10-18 05:59] LABS: Alanine Aminotransferase 9 U/L (0-33); Alkaline Phosphatase 59 IU/L (35-105); Anion Gap 16.3 (5-19); Aspartate Amino Transferase 12 U/L (0-32); Blood Urea Nitrogen 30 mg/dL (8-23); C Reactive Protein 0.9 mg/L (0.0-4.9); Calcium 10.3 mg/dL (8.5-10.5); Carbon Dioxide 28 mmol/L (22-29); Chloride 100 mmol/L (98-107); Globulin 2.1 g/dL (1.3-4.6); Glucose 129 mg/dL (65-115); Magnesium 1.3 mg/dL (1.7-2.3); Osmolality Calculated 298 mOsm/kg (285-295); Phosphorus 2.5 mg/dL (2.5-4.5); Potassium 4.3 mmol/L (3.5-5.1); Sodium 140 mmol/L (136-145); Total Bilirubin 0.2 mg/dL (0.15-1.2); Total Protein 5.1 g/dL (6.6-8.7)
[2020-10-18] MEDS: albuterol 8 gm MDI 2 PUFF INHALATION (08:19)
[2020-10-18] MEDS: divalproex DR 250 mg Tablet PO ×2 (08:40→20:41)
[2020-10-18] MEDS: metoprolol succinate ER (24 HR) 25 mg Tablet PO (08:40)
[2020-10-18] MEDS: pantoprazole DR 40 mg Tablet PO ×2 (08:40→20:41)
[2020-10-18] MEDS: amlodipine 10 mg Tablet PO (08:40)
[2020-10-18] MEDS: cyanocobalamin 1,000 mcg Tablet 1000 MCG PO (08:40)
[2020-10-18] MEDS: folic acid 1 mg Tablet PO ×2 (08:40→20:41)
[2020-10-18] MEDS: citalopram 20 mg Tablet 40 MG PO (08:40)
[2020-10-18] MEDS: zinc gluconate 50 mg Tablet PO (08:41)
[2020-10-18] MEDS: montelukast sodium 10 mg Tablet PO (08:41)
[2020-10-18] MEDS: nitrofurantoin SR (BID) 100 mg Capsule PO ×2 (08:41→16:57)
[2020-10-18] MEDS: ascorbic acid 500 mg Tablet PO (08:41)
[2020-10-18] MEDS: aspirin 81 mg EC Tablet PO (08:41)
[2020-10-18] MEDS: allopurinol 100 mg Tablet PO (08:41)
--- NOTE | 2020-10-18 09:09 | PC.SOCIAL ---
IMM Update Pg. 2 of IMM Updated and reviewed with patient's daughter over the phone.
[2020-10-18] MEDS: cloNIDine 0.1 mg Tablet PO (11:40)
[2020-10-18] MEDS: heparin 5,000 unit/mL INJ 1 mL 5000 UNIT SUBCUT ×2 (11:44→22:14)
[2020-10-18] MEDS: FUROsemide 10 mg/mL SDV 4mL 40 MG IVP (12:53)
--- NOTE | 2020-10-18 16:38 | P.PN_ITS ---
Subjective Subjective: Interval history: Appears more dyspneic today, tachypnea at 25- 20/min , states feeling very weak and fatigued, does not get out of bed today Medications: Reviewed: Yes Vitals/I&O/Wt Last Vital Signs Temp 98.1 F 10/18/20 12:00 Pulse 65 10/18/20 12:00 Resp 17 10/18/20 12:00 BP 176/77 10/18/20 12:00 Pulse Ox 99 10/18/20 12:00 10/18/20 10/18/20 10/18/20 06:59 14:59 22:59 Intake Total 490 / 722.5 360 / 360 Output Total 550 / 1850 400 / 400 Balance -60 / -1127.5 -40 / -40 Weight last 48 hrs Weight 66.814 kg Weight 61.235 kg Physical Exam Narrative: EXAM NARRATIVE: GEN: Awake, alert and oriented, tachypneic CVS: S1S2 N RS: Crepts to auscultation B/L axillary areas Abd: Soft, nt/nd , bs+ ORACLE MANUFACTURING CONSULTANT: no focal neuro deficits Data : 10/19/20 03:45 10/19/20 03:45 A&P Assessment and plan (1) Pneumonia due to 2019 novel coronavirus: Patient came in with chief complaint of worsening shortness of breath and increasing oxygen requirement. 02 requirements stable this morning at 1.5lpm however visibly more tachypenic today and with reales on exam D/c IVF today, lasix 40mg IVP CXR without gross progression Continue Decadron 6 mg IV push daily Not a candidate for remdesivir as creatinine clearance less than 30 Convalescent plasma given over 2 days, tolerated well Vitamin C, zinc, incentive spirometer, flutter valve Albuterol, Advair, spriva Trend markers of cytokine rich Supplemental oxygen as needed Zinc Vitamin C Anticoagulated with heparin twice daily, for hypercoagulability prophylaxis for COVID-19, however patient's thrombocytopenia, anemia, which is concerning, will continue to monitor Status: Acute (2) COPD (chronic obstructive pulmonary disease): Supplemental oxygen as needed Nebs as needed Dexamethasone Status: Acute (3) Hypertension: Blood pressure better controlled today Continue metoprolol 25 mg oral daily Norvasc 10 mg daily Clonidine 0.1 twice daily Status: Acute (4) Gout: Continue allopurinol 100 mg orally Status: Acute (5) Bipolar 1 disorder, depressed: Continue citalopram 40 mg p.o. daily Status: Acute (6) CKD (chronic kidney disease): Creatinine down to 1.8 today, discontinue fluids Avoid nephrotoxic Monitor BMP Status: Acute (7) Cancer of sigmoid: Status: Acute (8) Breast cancer: Status: Acute (9) Pancytopenia: -Hemoglobin 8.0, baseline is between 8-9, no hemodynamic compromise, no bloody or black stools -White blood cell count 3.1, neutropenia -thrombocytopenia, stable Status: Acute (10) NSTEMI (non-ST elevated myocardial infarction): -6-hour troponin 50.5, 6-hour 2.49 -EKG no acute ST-T wave changes -Echo on last admission shows EF of 70%, no regional wall motion abnormalities -Continue statin, continue aspirin 81 Status: Acute Additional A&P Information DVT prophylaxis: Heparin 5000 every 12 h daily CODE STATUS: AND Disposition: assisted Left knee pain: Ultram, topical Voltaren gel Visibly more tachypneic today, crepts on exam,stop IVF, lasix 40mg IVP, fatigued from multiple attempts to move to commode for urination, Hoff for now with aim for early removal, encouraged PT/OT Attestations Medical Necessity Statement*: more dyspneic today, needs iv diuresis , increased fatigue, encouraging PT and ambulation Coding Level of Care Code Acute Quality Assurance Specialist for [facility] Fwd Diagnoses Pneumonia due to 2019 novel coronavirus U07.1; J12.89 COPD (chronic obstructive pulmonary disease) J44.9 Hypertension I10 Gout M10.9 Bipolar 1 disorder, depressed F31.9 CKD (chronic kidney disease) N18.9 Cancer of sigmoid C18.7 Breast cancer C50.919 Pancytopenia D61.818 NSTEMI (non-ST elevated myocardial infarction) I21.4
--- NOTE | 2020-10-18 18:08 | PC.NURSE ---
SHIFT SUMMARY PT FLUIDS WERE STOPPED, LASIX 40MG IVP WAS GIVEN ALONG WITH TOMLINSON CATHETER WAS PLACED DUE TO PT BEING VERY INCONTINENT AND HAVING TO USE TO BEDPAN DUE TO PT STATING SHE IS VERY WEAK. PT HAD 1900 ML OUT AFTER TOMLINSON WAS PLACED AT APPROXIMATELY 1200. PT IN THE AM WAS AWARE OF TIME OF DAY, MONTH, YEAR, AND WHO SHE WAS, BUT THOUGHT SHE WAS IN [place]. NO OTHER CHANGES AT THIS TIME.
[2020-10-18] MEDS: cholecalciferol (vitamin D3) 5,000 unit Tablet 5000 UNIT PO (20:41)
[2020-10-18] MEDS: CLONazepam 0.5 mg Tablet 0.25 MG PO (20:41)
[2020-10-18] MEDS: atorvastatin 40 mg Tablet 20 MG PO (20:41)
[2020-10-18] MEDS: azithromycin 250 mg Tablet 500 MG PO (22:13)
[2020-10-18] MEDS: dexamethasone 4 mg/mL INJ 6 MG IVP (23:11)
[2020-10-19] VITALS (12 sets, daily range): BP systolic 130–172; BP diastolic 62–68; PULSE 51–72; RESP 16–20; TEMP 35.9–37.2; O2SAT 92–98
[2020-10-19 04:15] LABS: Hematocrit 23.7 % (37.0-47.0); Hemoglobin 7.6 g/dL (11.5-15.3); Lymphocytes # 0.7 10^3/uL (0.8-4.8); Lymphocytes % 17.1 %; Mean Corpuscular HGB Conc 32.1 g/dL (30.0-36.0); Mean Corpuscular Hemoglobin 32.3 pg (28.0-34.0); Mean Corpuscular Volume 100.9 fL (81-99); Mean Platelet Volume 11.4 fL (7.4-10.4); Monocytes # 0.1 10^3/uL (0.2-0.9); Monocytes % 3.2 %; Neutrophils # 3.24 10^3/uL (1.8-7.7); Nucleated Red Blood Cells % 0 %; Platelet Count 131 10^3/cmm (130-400); Red Blood Count 2.35 10^6/uL (4.1-5.3); Red Cell Distribution Width 13.9 % (12.1-15.1); White Blood Count 4.1 10^3/uL (4.0-10.0)
[2020-10-19 04:31] LABS: D Dimer 0.91 ug/mIFEU (0-0.59)
[2020-10-19 04:40] LABS: Alanine Aminotransferase 8 U/L (0-33); Albumin Level 3.1 g/dL (3.5-5.2); Alkaline Phosphatase 61 IU/L (35-105); Anion Gap 11.2 (5-19); Aspartate Amino Transferase 12 U/L (0-32); Blood Urea Nitrogen 33 mg/dL (8-23); C Reactive Protein 0.6 mg/L (0.0-4.9); Calcium 10.9 mg/dL (8.5-10.5); Carbon Dioxide 32 mmol/L (22-29); Chloride 96 mmol/L (98-107); Globulin 2.3 g/dL (1.3-4.6); Glucose 120 mg/dL (65-115); Magnesium 1.7 mg/dL (1.7-2.3); Osmolality Calculated 288 mOsm/kg (285-295); Phosphorus 2.5 mg/dL (2.5-4.5); Potassium 4.2 mmol/L (3.5-5.1); Sodium 135 mmol/L (136-145); Total Bilirubin 0.3 mg/dL (0.15-1.2); Total Protein 5.4 g/dL (6.6-8.7)
[2020-10-19 04:49] LABS: NT Pro B Type Natriuretic Pept 1056 pg/mL (0-450); Procalcitonin 0.17 ng/mL (0-0.5)
--- NOTE | 2020-10-19 08:06 | PC.NURSE ---
nurse notified about patients blood pressure
[2020-10-19] MEDS: albuterol 8 gm MDI 2 PUFF INHALATION ×2 (10:00→19:50)
[2020-10-19] MEDS: nitrofurantoin SR (BID) 100 mg Capsule PO (10:22)
[2020-10-19] MEDS: montelukast sodium 10 mg Tablet PO (10:22)
[2020-10-19] MEDS: ascorbic acid 500 mg Tablet PO (10:22)
[2020-10-19] MEDS: zinc gluconate 50 mg Tablet PO (10:23)
[2020-10-19] MEDS: amlodipine 10 mg Tablet PO (10:23)
[2020-10-19] MEDS: divalproex DR 250 mg Tablet PO ×2 (10:23→20:42)
[2020-10-19] MEDS: aspirin 81 mg EC Tablet PO (10:24)
[2020-10-19] MEDS: citalopram 20 mg Tablet 40 MG PO (10:24)
[2020-10-19] MEDS: cyanocobalamin 1,000 mcg Tablet 1000 MCG PO (10:24)
[2020-10-19] MEDS: allopurinol 100 mg Tablet PO (10:24)
[2020-10-19] MEDS: folic acid 1 mg Tablet PO ×2 (10:24→20:42)
[2020-10-19] MEDS: heparin 5,000 unit/mL INJ 1 mL 5000 UNIT SUBCUT ×2 (10:25→22:25)
[2020-10-19] MEDS: pantoprazole DR 40 mg Tablet PO ×2 (10:29→20:43)
--- NOTE | 2020-10-19 11:10 | PC.NURSE ---
Pt's HR consistently in low 50's. Multiple blood pressure meds due. Dr Plaza notified. Clonidine and Metoprolol to be held. Norvasc safe to be given. Also inquired about Divalproex administration and lab results. Med to be given.
--- NOTE | 2020-10-19 16:41 | P.PN_ITS ---
Subjective Subjective: Interval history: c/o increasing cough and generalized weakness, refusing to get out of bed to chair stating she is tired, had a coghing bout while being examined ,has difficulty expectiratng. Medications: Reviewed: Yes Vitals/I&O/Wt Last Vital Signs Temp 96.6 F L 10/19/20 15:39 Pulse 54 L 10/19/20 15:39 Resp 16 10/19/20 15:39 BP 156/63 10/19/20 15:39 Pulse Ox 95 10/19/20 15:39 10/19/20 10/19/20 10/19/20 06:59 14:59 22:59 Intake Total 60 / 60 Output Total 1000 / 3800 Balance -1000 / -3440 60 / 60 Weight last 48 hrs Weight 64.728 kg Weight 66.814 kg Physical Exam Narrative: EXAM NARRATIVE: GEN: Awake, alert and oriented, patient had a bout of cough while being examined with difficulty expectorating CVS: S1S2 N RS: CTA B/L Abd: Soft, nt/nd , bs+ DIGITAL RETOUCHER: Overall appears fatigued and deconditioned today, does not wish to get out of bed Urinary Catheter Management^: Hoff: Cath Placed During This Visit: no Reason for Continuing Indwelling Catheter: Other Data : 10/19/20 03:45 10/19/20 03:45 A&P Assessment and plan (1) Pneumonia due to 2019 novel coronavirus: Patient came in with chief complaint of worsening shortness of breath and increasing oxygen requirement. 02 requirements stable this morning at 1 lpm C/o worsened cough, inaility to expectorate, refusing to get out of bed today stating fatigue, start PT/OT , encurage OOBt o chair Add ceftriaxone 1g iv q24 CXRP in am add robitussin-DM CXR without gross progression Continue Decadron 6 mg IV push daily Not a candidate for remdesivir as creatinine clearance less than 30 Convalescent plasma given over 2 days, tolerated well Vitamin C, zinc, incentive spirometer, flutter valve Albuterol, Advair, spriva Trend markers of cytokine rich Supplemental oxygen as needed Zinc Vitamin C Anticoagulated with heparin twice daily, for hypercoagulability prophylaxis for COVID-19, however patient's thrombocytopenia, anemia, which is concerning, will continue to monitor Status: Acute (2) COPD (chronic obstructive pulmonary disease): Supplemental oxygen as needed Nebs as needed Dexamethasone Status: Acute (3) Hypertension: Blood pressure better controlled today Continue metoprolol 25 mg oral daily Norvasc 10 mg daily Clonidine 0.1 twice daily Status: Acute (4) Gout: Continue allopurinol 100 mg orally Status: Acute (5) Bipolar 1 disorder, depressed: Continue citalopram 40 mg p.o. daily Status: Acute (6) CKD (chronic kidney disease): Creatinine down to 1.8 today, discontinue fluids Avoid nephrotoxic Monitor BMP Status: Acute (7) Cancer of sigmoid: Status: Acute (8) Breast cancer: Status: Acute (9) Pancytopenia: -Hemoglobin 8.0, baseline is between 8-9, no hemodynamic compromise, no bloody or black stools -White blood cell count 3.1, neutropenia -thrombocytopenia, stable Status: Acute (10) NSTEMI (non-ST elevated myocardial infarction): -6-hour troponin 50.5, 6-hour 2.49 -EKG no acute ST-T wave changes -Echo on last admission shows EF of 70%, no regional wall motion abnormalities -Continue statin, continue aspirin 81 Status: Acute Additional A&P Information DVT prophylaxis: Heparin 5000 every 12 h daily CODE STATUS: AND Disposition: senior care Left knee pain: Ultram, topical Voltaren gel Attestations Medical Necessity Statement*: worsening cough and deconditioing, encoyrage OOB, added iv today for worsening cough Coding Level of Care Code Acute 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
[2020-10-19] MEDS: acetaminophen 325 mg Tablet 650 MG PO ×2 (17:09→20:50)
[2020-10-19] MEDS: benzonatate 100 mg Capsule PO (17:11)
[2020-10-19] MEDS: cefTRIAXone 1,000 MG in sodium chloride 0.9% (plus) 50 ML 100 MG IV (17:11)
--- NOTE | 2020-10-19 19:00 | PC.NURSE ---
Daughter Emani called. Stated pt has only been at [facility] for 1.5 weeks and the facility doesn't know her well enough to dictate pt's norm. States pt typically feeds herself and ambulates without assistance. Today she has been extremely weak with poor appetite. Pt required to be fed because she had no desire to eat. Ate minimally. Pt states she does not feel well enough to be discharged. PT evaluated and tx pt.
[2020-10-19] MEDS: cholecalciferol (vitamin D3) 5,000 unit Tablet 5000 UNIT PO (20:42)
[2020-10-19] MEDS: atorvastatin 40 mg Tablet 20 MG PO (20:42)
[2020-10-19] MEDS: dexamethasone 4 mg/mL INJ 6 MG IVP (21:48)
[2020-10-19] MEDS: azithromycin 250 mg Tablet 500 MG PO (22:24)
[2020-10-19] MEDS: cloNIDine 0.1 mg Tablet PO (22:54)
[2020-10-20] VITALS (11 sets, daily range): BP systolic 115–179; BP diastolic 61–74; PULSE 53–78; RESP 17–22; TEMP 36.5–37.1; O2SAT 92–99
--- NOTE | 2020-10-20 04:00 | XR_ITS ---
WS: [id number] PORTABLE CHEST HISTORY: f/up chest infiltrates COMPARISON: 10/13/2020 CT and 10/15/2020 radiographs Mild interstitial thickening at the LEFT lung base. No evidence for dense consolidation. This interst itial thickening is new since 10/13/2020. No pleural effusion or pneumothorax. Cardiac size: Normal. Mediastinum/Aorta: Normal mediastinum. No osseous abnormality seen. XR/XR chest 1V portable [id number] IMPRESSION: New interstitial thickening at the LEFT lung base.
--- NOTE | 2020-10-20 05:49 | PC.NURSE ---
Spoke with patient's daughter Briseyda. She has requested that the doctor call her if they are not able to get ahold of her sister. Briseyda is very concerned about her mother returning to the [facility] and says her and her sister do not feel comfortable with her being discharged at this time.
[2020-10-20] MEDS: albuterol 8 gm MDI 2 PUFF INHALATION ×2 (08:04→19:47)
[2020-10-20] MEDS: cloNIDine 0.1 mg Tablet PO ×2 (10:14→22:56)
[2020-10-20] MEDS: cyanocobalamin 1,000 mcg Tablet 1000 MCG PO (10:15)
[2020-10-20] MEDS: aspirin 81 mg EC Tablet PO (10:15)
[2020-10-20] MEDS: montelukast sodium 10 mg Tablet PO (10:15)
[2020-10-20] MEDS: metoprolol succinate ER (24 HR) 25 mg Tablet PO (10:15)
[2020-10-20] MEDS: zinc gluconate 50 mg Tablet PO (10:15)
[2020-10-20] MEDS: amlodipine 10 mg Tablet PO (10:15)
[2020-10-20] MEDS: allopurinol 100 mg Tablet PO (10:16)
[2020-10-20] MEDS: heparin 5,000 unit/mL INJ 1 mL 5000 UNIT SUBCUT ×2 (10:16→22:55)
[2020-10-20] MEDS: citalopram 20 mg Tablet 40 MG PO (10:16)
[2020-10-20] MEDS: pantoprazole DR 40 mg Tablet PO ×2 (10:26→20:12)
[2020-10-20] MEDS: divalproex DR 250 mg Tablet PO ×2 (10:26→20:12)
[2020-10-20] MEDS: ascorbic acid 500 mg Tablet PO (10:26)
[2020-10-20] MEDS: folic acid 1 mg Tablet PO ×2 (10:26→20:13)
--- NOTE | 2020-10-20 10:33 | DCPLANNER ---
Pg 2 of IM updated and reviewed with Daughter; Funmilayo via the phone. She states that she understands and also knows that her mom isn't ready for d/c.
[2020-10-20] MEDS: cefTRIAXone 1,000 MG in sodium chloride 0.9% (plus) 50 ML 100 MG IV (16:38)
--- NOTE | 2020-10-20 17:04 | P.PN_ITS ---
Subjective Subjective: Interval history: There is new interstitial thickening noted on her left lung base which may represent an area of developing consolidation especially given her worsening cough and increasing lethargy. Alternatively it may represent areas of atelectasis given that patient does not ambulating out of bed. Medications: Reviewed: Yes Vitals/I&O/Wt Last Vital Signs Temp 98.1 F 10/20/20 16:00 Pulse 55 L 10/20/20 16:00 Resp 18 10/20/20 16:00 BP 124/61 10/20/20 16:00 Pulse Ox 96 10/20/20 16:00 10/20/20 10/20/20 10/20/20 06:59 14:59 22:59 Intake Total 530 / 530 Output Total 350 / 1250 Balance -350 / -950 530 / 530 Weight last 48 hrs Weight 60.373 kg Weight 64.728 kg Physical Exam Narrative: EXAM NARRATIVE: GEN: Awake, alert and oriented, mildly tachypneic CVS: S1S2 N RS: CTA B/L Abd: Soft, nt/nd , bs+ GAME PRESERVE MANAGER: Overall appears fatigued and deconditioned Urinary Catheter Management^: Hoff: Cath Placed During This Visit: no Reason for Continuing Indwelling Catheter: Accurate Measurement of Urinary Output in Critically Ill Patients Data : 10/19/20 03:45 10/19/20 03:45 A&P Assessment and plan (1) Pneumonia due to 2019 novel coronavirus: Patient came in with chief complaint of worsening shortness of breath and increasing oxygen requirement. 02 requirements stable however chest x-ray with interval development of left lower lobe infiltrate which may represent developing consolidation C/o worsened cough, inaility to expectorate, Continue empiric antibiotics with cefepime, spoke to daughter extensively today. It is possible that patient could be developing COVID-19 pneumonitis. She has received convalescent plasma x2 doses however with the development of infiltrates while being on steroids, we could consider resuming remdesivir. Discussed with her the risks and benefits of doing the same. Remdesivir has not been well studied in clinical trials in patient population with CKD and creatinine clearance less than 35. If we do start remdesivir there is a potential risk of SPECT accumulation resulting in liver necrosis and renal tubule obstruction. We did talk about her mom's multiple comorbidities and should the liver or kidney function continue to worsen it may mean hastening her clinical deterioration. I discussed the option of continuing with the same treatment without any further additions or escalations and discharge back to [facility] where she could continue to get physical therapy, oxygen, antibiotics and supportive care from a respiratory standpoint vs starting remdisivir which still remains an investigational drug and may or may not prevent clinical progression ultimately. Her daughter Crystal Mitchell discussed these options with her other family members including her half-sister and daughter and called me back later this evening to state that the family has decided to proceed with remdesivir at this present time understanding the risks. Should her kidney or liver function start to deteriorate we will discontinue this medication. Possibility of hemodialysis was also discussed, but it has at this present time be decided that this would be going against patient's wishes and we would not proceed to HD should it become indicated. Continue Decadron 6 mg IV push daily Convalescent plasma given over 2 days, tolerated well Vitamin C, zinc, incentive spirometer, flutter valve Albuterol, Advair, spriva Trend markers of cytokine rich Supplemental oxygen as needed Zinc Vitamin C Anticoagulated with heparin twice daily, for hypercoagulability prophylaxis for COVID-19, however patient's thrombocytopenia, anemia, which is concerning, will continue to monitor Status: Acute (2) COPD (chronic obstructive pulmonary disease): Supplemental oxygen as needed Nebs as needed Dexamethasone Status: Acute (3) Hypertension: Blood pressure better controlled today Continue metoprolol 25 mg oral daily Norvasc 10 mg daily Clonidine 0.1 twice daily Status: Acute (4) Gout: Continue allopurinol 100 mg orally Status: Acute (5) Bipolar 1 disorder, depressed: Continue citalopram 40 mg p.o. daily Status: Acute (6) CKD (chronic kidney disease): Creatinine down to 1.8 today, discontinue fluids Avoid nephrotoxic Monitor BMP Status: Acute (7) Cancer of sigmoid: Status: Acute (8) Breast cancer: Status: Acute (9) Pancytopenia: -Hemoglobin 8.0, baseline is between 8-9, no hemodynamic compromise, no bloody or black stools -White blood cell count 3.1, neutropenia -thrombocytopenia, stable Status: Acute (10) NSTEMI (non-ST elevated myocardial infarction): -6-hour troponin 50.5, 6-hour 2.49 -EKG no acute ST-T wave changes -Echo on last admission shows EF of 70%, no regional wall motion abnormalities -Continue statin, continue aspirin 81 Status: Acute Additional A&P Information DVT prophylaxis: Heparin 5000 every 12 h daily CODE STATUS: AND Disposition: care home Left knee pain: Ultram, topical Voltaren gel Attestations Medical Necessity Statement*: new devleoping infiltartes over left lower lobe Coding Level of Care Code Acute [employer] for [employer] Fwd Diagnoses Pneumonia due to 2019 novel coronavirus U07.1; J12.89 COPD (chronic obstructive pulmonary disease) J44.9 Hypertension I10 Gout M10.9 Bipolar 1 disorder, depressed F31.9 CKD (chronic kidney disease) N18.9 Cancer of sigmoid C18.7 Breast cancer C50.919 Pancytopenia D61.818 NSTEMI (non-ST elevated myocardial infarction) I21.4
[2020-10-20] MEDS: remdesivir 100 MG in sodium chloride 0.9% (100 ml) 100 ML IV (17:58)
[2020-10-20] MEDS: acetaminophen 325 mg Tablet 650 MG PO (20:06)
[2020-10-20] MEDS: atorvastatin 40 mg Tablet 20 MG PO (20:07)
[2020-10-20] MEDS: cholecalciferol (vitamin D3) 5,000 unit Tablet 5000 UNIT PO (20:13)
[2020-10-20] MEDS: dexamethasone 4 mg/mL INJ 6 MG IVP (21:23)
[2020-10-20] MEDS: ALPRAZolam 0.25 mg Tablet PO (21:26)
[2020-10-20] MEDS: azithromycin 250 mg Tablet 500 MG PO (22:55)
[2020-10-21] VITALS (11 sets, daily range): BP systolic 106–149; BP diastolic 58–68; PULSE 57–76; RESP 16–22; TEMP 36.7–37.1; O2SAT 92–97
[2020-10-21 05:45] LABS: Hematocrit 23.7 % (37.0-47.0); Hemoglobin 7.5 g/dL (11.5-15.3); Lymphocytes # 0.6 10^3/uL (0.8-4.8); Lymphocytes % 14.5 %; Mean Corpuscular HGB Conc 31.6 g/dL (30.0-36.0); Mean Corpuscular Hemoglobin 31.8 pg (28.0-34.0); Mean Corpuscular Volume 100.4 fL (81-99); Mean Platelet Volume 11.4 fL (7.4-10.4); Monocytes # 0.1 10^3/uL (0.2-0.9); Monocytes % 2.3 %; Neutrophils # 3.48 10^3/uL (1.8-7.7); Neutrophils % 81.1 %; Nucleated Red Blood Cells % 0 %; Platelet Count 149 10^3/cmm (130-400); Red Blood Count 2.36 10^6/uL (4.1-5.3); White Blood Count 4.3 10^3/uL (4.0-10.0)
[2020-10-21 05:52] LABS: Alanine Aminotransferase < 5 U/L (0-33); Alkaline Phosphatase 57 IU/L (35-105); Anion Gap 13.5 (5-19); Aspartate Amino Transferase 9 U/L (0-32); Blood Urea Nitrogen 44 mg/dL (8-23); Calcium 10.1 mg/dL (8.5-10.5); Carbon Dioxide 28 mmol/L (22-29); Chloride 96 mmol/L (98-107); Globulin 1.9 g/dL (1.3-4.6); Glucose 127 mg/dL (65-115); Osmolality Calculated 289 mOsm/kg (285-295); Potassium 4.5 mmol/L (3.5-5.1); Sodium 133 mmol/L (136-145); Total Bilirubin 0.2 mg/dL (0.15-1.2); Total Protein 4.9 g/dL (6.6-8.7)
[2020-10-21 05:53] LABS: C Reactive Protein 0.3 mg/L (0.0-4.9)
[2020-10-21] MEDS: cyanocobalamin 1,000 mcg Tablet 1000 MCG PO (08:30)
[2020-10-21] MEDS: allopurinol 100 mg Tablet PO (08:30)
[2020-10-21] MEDS: aspirin 81 mg EC Tablet PO (08:31)
[2020-10-21] MEDS: zinc gluconate 50 mg Tablet PO (08:31)
[2020-10-21] MEDS: citalopram 20 mg Tablet 40 MG PO (08:31)
[2020-10-21] MEDS: metoprolol succinate ER (24 HR) 25 mg Tablet PO (08:31)
[2020-10-21] MEDS: montelukast sodium 10 mg Tablet PO (08:31)
[2020-10-21] MEDS: FUROsemide 20 mg Tablet PO (08:31)
[2020-10-21] MEDS: ascorbic acid 500 mg Tablet PO (08:31)
[2020-10-21] MEDS: amlodipine 10 mg Tablet PO (08:31)
[2020-10-21] MEDS: cefepime 2,000 MG in sodium chloride 0.9% (plus) 50 ML 100 MG IV (08:32)
[2020-10-21] MEDS: pantoprazole DR 40 mg Tablet PO ×2 (08:34→20:13)
[2020-10-21] MEDS: folic acid 1 mg Tablet PO ×2 (08:34→20:12)
[2020-10-21] MEDS: divalproex DR 250 mg Tablet PO ×2 (08:34→20:12)
[2020-10-21] MEDS: heparin 5,000 unit/mL INJ 1 mL 5000 UNIT SUBCUT ×2 (10:45→22:10)
[2020-10-21] MEDS: cloNIDine 0.1 mg Tablet PO ×2 (10:45→22:11)
[2020-10-21] MEDS: acetaminophen 325 mg Tablet 650 MG PO (10:48)
[2020-10-21] MEDS: sennosides-docusate Tablet 1 TAB PO (10:48)
[2020-10-21] MEDS: polyethylene glycol 3350 Pkt 17 gm PO (10:49)
--- NOTE | 2020-10-21 13:02 | P.PN_ITS ---
Subjective Subjective: Interval history: started on remdisivir yesetrday, states she has more energy, moved bed to chair, took few steps with assistance Medications: Reviewed: Yes Vitals/I&O/Wt Last Vital Signs Temp 98.1 F 10/21/20 12:00 Pulse 70 10/21/20 12:00 Resp 18 10/21/20 12:00 BP 106/65 10/21/20 12:00 Pulse Ox 96 10/21/20 12:00 10/20/20 10/21/20 10/21/20 22:59 06:59 14:59 Intake Total 470 / 1000 310 / 1310 480 / 480 Output Total 500 / 500 750 / 1250 500 / 500 Balance -30 / 500 -440 / 60 -20 / -20 Weight last 48 hrs Weight 62.823 kg Weight 60.373 kg Physical Exam Narrative: EXAM NARRATIVE: GEN: Awake, alert and oriented CVS: S1S2 N RS: CTA B/L Abd: Soft, nt/nd , bs+ CAFETERIA ASSISTANT: Overall appears fatigued and deconditioned Urinary Catheter Management^: Hoff: Cath Placed During This Visit: no Reason for Continuing Indwelling Catheter: Accurate Measurement of Urinary Output in Critically Ill Patients Data : 10/21/20 04:58 10/21/20 04:58 A&P Assessment and plan (1) Pneumonia due to 2019 novel coronavirus: Patient came in with chief complaint of worsening shortness of breath and increasing oxygen requirement. 02 requirements stable however chest x-ray with interval development of left lower lobe infiltrate which may represent developing consolidation C/o worsened cough, inaility to expectorate, Continue empiric antibiotics with cefepime, She has received convalescent plasma x2 doses however with the development of infiltrates while being on steroids, remdisivir was started after extensive discussion of risks and benefits with daughter. . Should her kidney or liver function start to deteriorate we will discontinue this medication. Continue Decadron 6 mg IV push daily Convalescent plasma given over 2 days, tolerated well Vitamin C, zinc, incentive spirometer, flutter valve Albuterol, Advair, spriva Trend markers of cytokine rich Supplemental oxygen as needed, stable currently Zinc Vitamin C Anticoagulated with heparin twice daily, for hypercoagulability prophylaxis for COVID-19, however patient's thrombocytopenia, anemia, which is concerning, will continue to monitor Status: Acute (2) COPD (chronic obstructive pulmonary disease): Supplemental oxygen as needed Nebs as needed Dexamethasone Status: Acute (3) Hypertension: Blood pressure better controlled today Continue metoprolol 25 mg oral daily Norvasc 10 mg daily Clonidine 0.1 twice daily Status: Acute (4) Gout: Continue allopurinol 100 mg orally Status: Acute (5) Bipolar 1 disorder, depressed: Continue citalopram 40 mg p.o. daily Status: Acute (6) CKD (chronic kidney disease): Creatinine down to 1.8 today, discontinue fluids Avoid nephrotoxic Monitor BMP Status: Acute (7) Cancer of sigmoid: Status: Acute (8) Breast cancer: Status: Acute (9) Pancytopenia: -Hemoglobin 8.0, baseline is between 8-9, no hemodynamic compromise, no bloody or black stools -White blood cell count 3.1, neutropenia -thrombocytopenia, stable Status: Acute (10) NSTEMI (non-ST elevated myocardial infarction): -6-hour troponin 50.5, 6-hour 2.49 -EKG no acute ST-T wave changes -Echo on last admission shows EF of 70%, no regional wall motion abnormalities -Continue statin, continue aspirin 81 Status: Acute Additional A&P Information DVT prophylaxis: Heparin 5000 every 12 h daily CODE STATUS: AND Disposition: [facility] Left knee pain: Ultram, topical Voltaren gel Attestations Medical Necessity Statement*: started on iv remdisivir for COVID 19 pneumonia Coding Level of Care Code Acute Logistics Service Representative for [facility] Fw Diagnoses Pneumonia due to 2019 novel coronavirus U07.1; J12.89 COPD (chronic obstructive pulmonary disease) J44.9 Hypertension I10 Gout M10.9 Bipolar 1 disorder, depressed F31.9 CKD (chronic kidney disease) N18.9 Cancer of sigmoid C18.7 Breast cancer C50.919 Pancytopenia D61.818 NSTEMI (non-ST elevated myocardial infarction) I21.4
[2020-10-21] MEDS: remdesivir 100 MG in sodium chloride 0.9% (100 ml) 100 ML IV (17:19)
[2020-10-21] MEDS: atorvastatin 40 mg Tablet 20 MG PO (20:12)
[2020-10-21] MEDS: ALPRAZolam 0.25 mg Tablet PO (20:12)
[2020-10-21] MEDS: cholecalciferol (vitamin D3) 5,000 unit Tablet 5000 UNIT PO (20:12)
[2020-10-21] MEDS: albuterol 8 gm MDI 2 PUFF INHALATION (20:35)
[2020-10-21] MEDS: dexamethasone 4 mg/mL INJ 6 MG IVP (22:10)
[2020-10-21] MEDS: azithromycin 250 mg Tablet 500 MG PO (22:11)
[2020-10-22] VITALS (11 sets, daily range): BP systolic 109–137; BP diastolic 47–80; PULSE 52–87; RESP 15–18; TEMP 36.6–36.7; O2SAT 93–98
[2020-10-22 06:21] LABS: Alanine Aminotransferase 6 U/L (0-33); Albumin Level 3.1 g/dL (3.5-5.2); Alkaline Phosphatase 66 IU/L (35-105); Aspartate Amino Transferase 11 U/L (0-32); Blood Urea Nitrogen 51 mg/dL (8-23); Calcium 10.5 mg/dL (8.5-10.5); Carbon Dioxide 29 mmol/L (22-29); Chloride 97 mmol/L (98-107); Globulin 1.9 g/dL (1.3-4.6); Glucose 126 mg/dL (65-115); Osmolality Calculated 295 mOsm/kg (285-295); Sodium 135 mmol/L (136-145); Total Bilirubin 0.2 mg/dL (0.15-1.2)
[2020-10-22 06:25] LABS: Anion Gap 14.1 (5-19); Potassium 5.1 mmol/L (3.5-5.1)
[2020-10-22] MEDS: albuterol 8 gm MDI 2 PUFF INHALATION (08:40)
[2020-10-22] MEDS: cyanocobalamin 1,000 mcg Tablet 1000 MCG PO (08:58)
[2020-10-22] MEDS: allopurinol 100 mg Tablet PO (08:58)
[2020-10-22] MEDS: folic acid 1 mg Tablet PO ×2 (08:58→20:37)
[2020-10-22] MEDS: pantoprazole DR 40 mg Tablet PO ×2 (08:58→20:37)
[2020-10-22] MEDS: citalopram 20 mg Tablet 40 MG PO (08:58)
[2020-10-22] MEDS: amlodipine 10 mg Tablet PO (08:58)
[2020-10-22] MEDS: aspirin 81 mg EC Tablet PO (08:59)
[2020-10-22] MEDS: zinc gluconate 50 mg Tablet PO (08:59)
[2020-10-22] MEDS: ascorbic acid 500 mg Tablet PO (08:59)
[2020-10-22] MEDS: metoprolol succinate ER (24 HR) 25 mg Tablet PO (08:59)
[2020-10-22] MEDS: montelukast sodium 10 mg Tablet PO (08:59)
[2020-10-22] MEDS: sennosides-docusate Tablet 1 TAB PO (08:59)
[2020-10-22] MEDS: cefepime 2,000 MG in sodium chloride 0.9% (plus) 50 ML 100 MG IV (09:08)
[2020-10-22] MEDS: divalproex DR 250 mg Tablet PO ×2 (09:08→20:37)
[2020-10-22] MEDS: cloNIDine 0.1 mg Tablet PO (10:54)
[2020-10-22] MEDS: heparin 5,000 unit/mL INJ 1 mL 5000 UNIT SUBCUT ×2 (10:55→23:43)
--- NOTE | 2020-10-22 11:39 | PC.NURSE ---
It appears that patient's Hoff Catheter was placed on 10/18/20 according to the doctor notes. will continue to manage per Dr. Plaza.
--- NOTE | 2020-10-22 12:30 | PC.NURSE ---
Asked patient to sit on the side of her bed to eat her lunch. Patient states, I am not getting up why don't you understand I am tired. I am not hungry anyway. Encouraged patient to eat and move around to help improve her breathing. Patient states, I feel just fine laying her and resting. I told you I am tired.
--- NOTE | 2020-10-22 13:18 | P.PN_ITS ---
Subjective Subjective: Interval history: Complains of being fatigued and tired. Cough appears to be improving today. Less tachypneic appearing, however in bed. Very low spirits today, expresses frustration and feeling unwell. Remdesivir day 3 today. Kidney and liver function stable Medications: Reviewed: Yes Vitals/I&O/Wt Last Vital Signs Temp 97.9 F 10/22/20 12:00 Pulse 60 10/22/20 12:00 Resp 17 10/22/20 12:00 BP 137/80 10/22/20 12:00 Pulse Ox 98 10/22/20 12:00 10/21/20 10/22/20 10/22/20 22:59 06:59 14:59 Intake Total 720 / 1250 Output Total 300 / 800 1650 / 1650 Balance 720 / 750 -300 / 450 -1650 / -1650 Weight last 48 hrs Weight 58.74 kg Weight 62.823 kg Physical Exam Narrative: EXAM NARRATIVE: GEN: Awake, alert and oriented, chronically ill-jacques earing woman laying in bed CVS: S1S2 N RS: CTA B/L except crackles over RUL Abd: Soft, nt/nd , bs+ TIMBER HAND: no focal neuro deficits Urinary Catheter Management^: Hoff: Cath Placed During This Visit: no Reason for Continuing Indwelling Catheter: Accurate Measurement of Urinary Output in Critically Ill Patients Data : 10/21/20 04:58 10/22/20 05:22 A&P Assessment and plan (1) Pneumonia due to 2019 novel coronavirus: Development of left lower lobe infiltrate on chest x-ray from 9. Oxygen requirement stable at 1 to 2 L/min. Also had complaint of worsening cough and dyspnea which appears to be improving at this time. Then she has previously received convalescent plasma x2 doses during course of admission however with development of infiltrates while being on steroids and after CT, remdesivir was started after extensive discussion of risks and benefits with daughter. If her kidney or liver function starts to deteriorate we will discontinue this medication. Continue Decadron 6 mg IV daily CRP normalized Continue vitamin C zinc incentive spirometer and flutter valve Change albuterol to levo albuterol given that patient complaining of restlessness palpitations and headaches with albuterol. Continue Spiriva. Pulmicort added after discontinuing Advair. Repeat chest x-ray in the morning Closely monitor renal and kidney function. Status: Acute (2) COPD (chronic obstructive pulmonary disease): Supplemental oxygen as needed Nebs as needed Dexamethasone Status: Acute (3) Hypertension: Status: Acute (4) Gout: Status: Acute (5) Bipolar 1 disorder, depressed: Status: Acute (6) CKD (chronic kidney disease): Status: Acute (7) Cancer of sigmoid: Status: Acute (8) Breast cancer: Status: Acute (9) Pancytopenia: Status: Acute (10) NSTEMI (non-ST elevated myocardial infarction): Status: Acute Additional A&P Information DVT prophylaxis: Heparin 5000 every 12 h daily CODE STATUS: AND Disposition: snf Left knee pain: Ultram, topical Voltaren gel Attestations Medical Necessity Statement*: need for iv remdisivir, improving clinically, planned for discharge in the next 24-48 hrs Coding Level of Care Code Acute Hydraulic Billet Maker for g Fwd Diagnoses Pneumonia due to 2019 novel coronavirus U07.1; J12.89 COPD (chronic obstructive pulmonary disease) J44.9 Hypertension I10 Gout M10.9 Bipolar 1 disorder, depressed F31.9 CKD (chronic kidney disease) N18.9 Cancer of sigmoid C18.7 Breast cancer C50.919 Pancytopenia D61.818 NSTEMI (non-ST elevated myocardial infarction) I21.4
--- NOTE | 2020-10-22 15:27 | DCPLANNER ---
Pg 2 of IM updated and attempted review with Daughter; Funmilayo via the phone. She politely states that she knows all about that important message and does not need to be called about it again.
[2020-10-22] MEDS: remdesivir 100 MG in sodium chloride 0.9% (100 ml) 100 ML IV (17:44)
[2020-10-22] MEDS: ALPRAZolam 0.25 mg Tablet PO (20:37)
[2020-10-22] MEDS: atorvastatin 40 mg Tablet 20 MG PO (20:37)
[2020-10-22] MEDS: cholecalciferol (vitamin D3) 5,000 unit Tablet 5000 UNIT PO (20:37)
[2020-10-22] MEDS: dexamethasone 4 mg/mL INJ 6 MG IVP (23:03)
[2020-10-22] MEDS: acetaminophen 325 mg Tablet 650 MG PO (23:44)
[2020-10-23] VITALS (11 sets, daily range): BP systolic 110–140; BP diastolic 61–68; PULSE 50–67; RESP 15–18; TEMP 35.9–36.9; O2SAT 92–100
--- NOTE | 2020-10-23 04:00 | XRR_ITS ---
PROCEDURE INFORMATION: Exam: XR Chest, 1 View Exam date and time: 10/23/2020 9:17 AM Age: 80 years old Clinical indication: Shortness of breath; Additional info: Follow up lll infiltrates TECHNIQUE: Imaging protocol: XR of the chest Views: 1 view. COMPARISON: CR XR chest 1V portable [id number] 10/20/2020 5:21 AM FINDINGS: Lungs: Emphysematous change, interstitial prominence, and chronic granulomatous disease. No acute infiltrate. Pleural space: No pleural effusion. Heart/Mediastinum: borderline cardiomegaly. Bones/joints: Osteopenia and degenerative change. XR/XR chest 1V portable [id number] IMPRESSION: 1. Emphysematous change, interstitial prominence, and chronic granulomatous disease. 2. No acute infiltrate.
[2020-10-23 05:16] LABS: Basophils % 0.2 %; Hematocrit 27.1 % (37.0-47.0); Hemoglobin 8.3 g/dL (11.5-15.3); Lymphocytes % 15.6 %; Mean Corpuscular HGB Conc 30.6 g/dL (30.0-36.0); Mean Corpuscular Hemoglobin 32.5 pg (28.0-34.0); Mean Corpuscular Volume 106.3 fL (81-99); Mean Platelet Volume 11.4 fL (7.4-10.4); Monocytes # 0.3 10^3/uL (0.2-0.9); Neutrophils # 4.65 10^3/uL (1.8-7.7); Nucleated Red Blood Cells % 0 %; Platelet Count 192 10^3/cmm (130-400); Red Blood Count 2.55 10^6/uL (4.1-5.3); Red Cell Distribution Width 14.7 % (12.1-15.1); White Blood Count 6.2 10^3/uL (4.0-10.0)
[2020-10-23 05:39] LABS: Alanine Aminotransferase 6 U/L (0-33); Alkaline Phosphatase 66 IU/L (35-105); Anion Gap 14.4 (5-19); Aspartate Amino Transferase 11 U/L (0-32); Blood Urea Nitrogen 48 mg/dL (8-23); Calcium 10.6 mg/dL (8.5-10.5); Carbon Dioxide 27 mmol/L (22-29); Chloride 99 mmol/L (98-107); Glucose 113 mg/dL (65-115); Osmolality Calculated 293 mOsm/kg (285-295); Potassium 5.4 mmol/L (3.5-5.1); Sodium 135 mmol/L (136-145); Total Bilirubin 0.2 mg/dL (0.15-1.2)
[2020-10-23 07:32] LABS: Slide Review Slide Review Perform
[2020-10-23] MEDS: polyethylene glycol 3350 Pkt 17 gm PO (08:43)
[2020-10-23] MEDS: cefepime 2,000 MG in sodium chloride 0.9% (plus) 50 ML 100 MG IV (08:43)
[2020-10-23] MEDS: citalopram 20 mg Tablet 40 MG PO (08:47)
[2020-10-23] MEDS: pantoprazole DR 40 mg Tablet PO ×2 (08:47→20:22)
[2020-10-23] MEDS: zinc gluconate 50 mg Tablet PO (08:47)
[2020-10-23] MEDS: folic acid 1 mg Tablet PO ×2 (08:47→20:22)
[2020-10-23] MEDS: ascorbic acid 500 mg Tablet PO (08:48)
[2020-10-23] MEDS: amlodipine 10 mg Tablet PO (08:48)
[2020-10-23] MEDS: montelukast sodium 10 mg Tablet PO (08:48)
[2020-10-23] MEDS: metoprolol succinate ER (24 HR) 25 mg Tablet PO (08:48)
[2020-10-23] MEDS: allopurinol 100 mg Tablet PO (08:48)
[2020-10-23] MEDS: cyanocobalamin 1,000 mcg Tablet 1000 MCG PO (08:48)
[2020-10-23] MEDS: aspirin 81 mg EC Tablet PO (08:48)
[2020-10-23] MEDS: divalproex DR 250 mg Tablet PO ×2 (08:52→20:22)
[2020-10-23] MEDS: heparin 5,000 unit/mL INJ 1 mL 5000 UNIT SUBCUT ×2 (10:48→23:46)
[2020-10-23] MEDS: cloNIDine 0.1 mg Tablet PO (10:48)
--- NOTE | 2020-10-23 15:21 | PM.PN ---
Subjective Subjective: Interval history: Patient will complete the last dose of remdesivir tonight. Thus far tolerating with stable kidney and liver function. Patient continues to complain of extreme fatigue, refusing to get out of bed again today, however by all objective criteria she is improving. She remains afebrile, hemodynamically stable. Oxygen saturation 95%, brought down to room air this morning which is much better than her home oxygen requirement. Continues to perform incentive spirometry and using her flutter valve also. Will discontinue Hoff catheter today. Medications: Reviewed: Yes Vitals/I&O/Wt Last Vital Signs Temp 98.0 F 10/23/20 12:00 Pulse 57 L 10/23/20 12:00 Resp 15 10/23/20 12:00 BP 127/67 10/23/20 12:00 Pulse Ox 95 10/23/20 12:00 10/23/20 10/23/20 10/23/20 06:59 14:59 22:59 Intake Total 480 / 480 Output Total 1000 / 4050 550 / 550 Balance -1000 / -3420 -70 / -70 Weight last 48 hrs Weight 57.776 kg Weight 57.748 kg Weight 58.74 kg Physical Exam Narrative: EXAM NARRATIVE: GEN: Awake, alert and oriented, no acute distress CVS: S1S2 N RS: CTA B/L Abd: Soft, nt/nd , bs+ SENIOR INTERNATIONAL TAX MANAGER: no focal neuro deficits Urinary Catheter Management^: Hoff: Cath Placed During This Visit: no Reason for Continuing Indwelling Catheter: Acute Urinary Retention or Obstruction Data : 10/23/20 04:20 10/23/20 04:20 A&P Assessment and plan (1) Pneumonia due to 2019 novel coronavirus: Patient came in with chief complaint of worsening shortness of breath and increasing oxygen requirement. 02 requirements stable however chest x-ray with interval development of left lower lobe infiltrate which may represent developing consolidation. She had also been complaining of c/o worsened cough, inaility to expectorate. Patient had received already convalescent plasma over 2 days as she was not considered a candidate for remdesivir given low creatinine clearance. She had also been on dexamethasone 6 mg IV push since day of admission. Since she developed a left lower lobe infiltrate and had developed some worsening cough while being on the above treatment, decision was made after extensive discussion with daughter of risks and benefits to start remdesivir. She is completing 5 days of IV remdesivir this evening. Kidney and liver function have thus far remained stable. SHe also received empiric antibiotic courses most recently with cefepime. Patient has shown objective improvement by all parameters, she remains hemodynamically stable, oxygen requirement has steadily climbed down to the point where she remains on room air since this morning. Of note she requires home O2 at around 2 L/min. She has been afebrile. Cough is much improved additionally. CRP has normalized to 0.3. Patient continues to complain of extreme fatigability and weakness, encouraged to participate in PT OT however she has been refusing over the last 2 days because of weakness. I have counseled her extensively that this is likely as a result of COVID-19 infection and is one of the symptoms of viral illness, however it is important that she continue with her exercise and spirometry and flutter valve to prevent deconditioning. Taper dexamethasone to po Prednisone 30mg Convalescent plasma given over 2 days, tolerated well Vitamin C, zinc, incentive spirometer, flutter valve xopanex, Advair, spriva Supplemental oxygen as needed, down to RA this morning Vitamin C, zinc Anticoagulated with heparin twice daily, for hypercoagulability prophylaxis for COVID-19, however patient's thrombocytopenia, anemia, which is concerning, will continue to monitor Status: Acute (2) COPD (chronic obstructive pulmonary disease): not currently exacerbated Status: Acute (3) Hypertension: well controlled currently Status: Acute (4) Gout: Status: Acute (5) Bipolar 1 disorder, depressed: Status: Acute (6) CKD (chronic kidney disease): cr at baseline at 1.9 Status: Acute (7) Cancer of sigmoid: Status: Acute (8) Breast cancer: Status: Acute (9) Pancytopenia: Status: Acute (10) NSTEMI (non-ST elevated myocardial infarction): Status: Acute Additional A&P Information DVT prophylaxis: Heparin 5000 every 12 h daily CODE STATUS: AND Disposition: [facility] Left knee pain: Ultram, topical Voltaren gel Attestations Medical Necessity Statement*: Plan for discharge back to alf after completing remdesivir course tonight. Coding Level of Care Code Acute National Facilities Manager for Rosario Woodard Diagnoses Pneumonia due to 2019 novel coronavirus U07.1; J12.89 COPD (chronic obstructive pulmonary disease) J44.9 Hypertension I10 Gout M10.9 Bipolar 1 disorder, depressed F31.9 CKD (chronic kidney disease) N18.9 Cancer of sigmoid C18.7 Breast cancer C50.919 Pancytopenia D61.818 NSTEMI (non-ST elevated myocardial infarction) I21.4
--- NOTE | 2020-10-23 16:15 | PC.NURSE ---
Hoff Catheter removed at this time per orders. 400mls of urine out. Patient tolerated well.
[2020-10-23] MEDS: remdesivir 100 MG in sodium chloride 0.9% (100 ml) 100 ML IV (17:52)
--- NOTE | 2020-10-23 18:59 | PC.NURSE ---
Report to Kamille ARANA at this time.
[2020-10-23] MEDS: atorvastatin 40 mg Tablet 20 MG PO (20:22)
[2020-10-23] MEDS: ALPRAZolam 0.25 mg Tablet PO (20:22)
[2020-10-23] MEDS: cholecalciferol (vitamin D3) 5,000 unit Tablet 5000 UNIT PO (20:22)
[2020-10-24] MEDS: lanolin oint 7 gm 1 APPLIC TOPICAL (00:42)
[2020-10-24 04:00] VITALS: BP 131/55; PULSE 52; RESP 16; TEMP 35.8; O2SAT 100
[2020-10-24 08:00] VITALS: BP 130/74; PULSE 51; RESP 17; TEMP 36.6; O2SAT 100
[2020-10-24 08:40] VITALS: PULSE 63; RESP 18; O2SAT 100
[2020-10-24] MEDS: zinc gluconate 50 mg Tablet PO (08:48)
[2020-10-24] MEDS: predniSONE 20 mg Tablet 30 MG PO (08:48)
[2020-10-24] MEDS: amlodipine 10 mg Tablet PO (08:48)
[2020-10-24] MEDS: aspirin 81 mg EC Tablet PO (08:48)
[2020-10-24] MEDS: cyanocobalamin 1,000 mcg Tablet 1000 MCG PO (08:49)
[2020-10-24] MEDS: ascorbic acid 500 mg Tablet PO (08:50)
[2020-10-24] MEDS: citalopram 20 mg Tablet 40 MG PO (08:50)
[2020-10-24] MEDS: montelukast sodium 10 mg Tablet PO (08:50)
[2020-10-24] MEDS: metoprolol succinate ER (24 HR) 25 mg Tablet PO (08:50)
--- NOTE | 2020-10-24 08:50 | P.PN_ITS ---
Vitals/I&O/Wt Last Vital Signs Temp 97.8 F 10/24/20 08:00 Pulse 51 L 10/24/20 08:00 Resp 17 10/24/20 08:00 BP 130/74 10/24/20 08:00 Pulse Ox 100 10/24/20 08:00 10/23/20 10/24/20 10/24/20 22:59 06:59 14:59 Intake Total 580 / 1110 120 / 1230 Output Total 500 / 1050 Balance 80 / 60 120 / 180 Weight last 48 hrs Weight 55.837 kg Weight 57.776 kg Weight 57.748 kg Physical Exam Urinary Catheter Management^: Hoff: Cath Placed During This Visit: yes, but has since been removed by the nurse Reason for Continuing Indwelling Catheter: Decision to DC Catheter Date Urinary Catheter Removed: 10/23/20 Time Urinary Catheter Discontinued: 16:15 Data : 10/23/20 04:20 10/23/20 04:20 Coding Level of Care Code Acute Administrative Services Specialist for Rosario Woodard
[2020-10-24] MEDS: cefepime 2,000 MG in sodium chloride 0.9% (plus) 50 ML 100 MG IV (08:52)
[2020-10-24] MEDS: folic acid 1 mg Tablet PO (09:19)
[2020-10-24] MEDS: allopurinol 100 mg Tablet PO (09:19)
[2020-10-24] MEDS: divalproex DR 250 mg Tablet PO (09:19)
[2020-10-24] MEDS: pantoprazole DR 40 mg Tablet PO (09:19)
[2020-10-24 10:32] VITALS: BP 130/74
[2020-10-24] MEDS: cloNIDine 0.1 mg Tablet PO (10:32)
[2020-10-24] MEDS: heparin 5,000 unit/mL INJ 1 mL 5000 UNIT SUBCUT (10:32)
[2020-10-24 11:29] VITALS: BP 114/52; PULSE 83; RESP 18; TEMP 36.6; O2SAT 95
--- NOTE | 2020-10-24 13:01 | PM.DCS ---
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 (8) Breast cancer: Status: Acute Permanent problem details: Status post lumpectomy/radiation 1999 followed by adjuvant tamoxifen (9) Pancytopenia: Status: Acute (10) NSTEMI (non-ST elevated myocardial infarction): Status: Acute Reason for Visit Reason for Visit: Pneumonia/Trouble SOB Hospital Course Hospital Course Pleasant 80-year-old lady with history of adenocarcinoma sigmoid colon, 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 Noted troponin elevation of 50 without positive delta suspected due to demand ischemia. She was treated for COVID-19 pneumonia, also empiric antibiotic coverage for possible superimposed bacterial pneumonia, with ceftriaxone, azithromycin, and cefepime. Was treated while in the hospital with course of remdesivir, Decadron for severe COVID-19 infection. While in the hospital noted to be anemic, hemoglobin around 7.5, although this appears to be stable. Should follow-up with hematology with regards to additional work-up. Please recheck hemoglobin level. Her oxygenation is gradually improved, she wean down on oxygen supplementation to as low as 1 L nasal cannula, and intermittently even room air. Currently on 2 L. Will complete antibiotic course with Levaquin. Taper down prednisone. Continue oxygen supplementation, target saturation 88-92%. Wean down as tolerated. Continue follow-up with regards to chronic kidney disease. Consider referral to nephrology. Due to mild hyperkalemia noted at 5.4, please recheck potassium level. Maintain low potassium diet. Discussed also with her daughter. Physical Exam Const: COMMON NORMALS: no acute distress and patient oriented x3 OTHER: Sitting up in chair. Awake, alert, pleasant, conversant. Incentive spirometer and flutter valve for her which she says she has been using. She feels much better. Walked little bit today with physical therapy. Says she is fatigued, but is willing to work further with PT. HENMT: COMMON NORMALS: oropharynx normal Neck/C-Spine: COMMON NORMALS: no JVD Resp: COMMON NORMALS: normal respiratory effort and clear to auscultation bilaterally AUSCULTATION: clear to auscultation bilaterally Cardio: COMMON NORMALS: no JVD, regular rhythm, S1 normal heart sound present, S2 normal heart sound present and No murmurs present (Cardio) RHYTHM: regular rhythm HEART SOUNDS: S1 normal heart sound present and S2 normal heart sound present GI: COMMON NORMALS: Normal to inspection, nondistended, normoactive bowel sounds present, Soft to palpation and non-tender PALPATION: Yes Soft to palpation Extremity: COMMON NORMALS: no joint enlargement and no pedal edema Neuro: COMMON NORMALS: patient oriented x3 and moves all extremities Skin: COMMON NORMALS: no rashes or lesions noted GENERAL SKIN EXAM: no rashes or lesions noted Urinary Catheter Management^: Hoff: Cath Placed During This Visit: yes, but has since been removed by the nurse Reason for Continuing Indwelling Catheter: Decision to DC Catheter Date Urinary Catheter Removed: 10/23/20 Time Urinary Catheter Discontinued: 16:15 Discharge Data Data Completed and Pending: Completed Studies During Hospitalization Category Date Time Status CT chest wo con 7 1250 Urgent Cat Scan 10/13/20 19:37 Completed XR chest 1V ludin ble 17935 AM LABS Exams 10/20/20 04:00 Completed XR chest 1V ludin ble [id number] AM LABS Exams 10/23/20 04:00 Completed XR chest 1V ludin ble [id number] Routine Exams 10/15/20 07:00 Completed XR chest 1V ludin ble [id number] Urgent Exams 10/13/20 15:04 Completed Pending at discharge Category Date Time Status Basic Metabolic P anabel Routine Lab 10/24/20 08:57 Ordered Complete Blood Co unt w/Auto Routine Lab 10/24/20 08:57 Ordered Vitals: Last Vital Signs Temp 97.8 F 10/24/20 11:29 Pulse 83 10/24/20 11:29 Resp 18 10/24/20 11:29 BP 114/52 10/24/20 11:29 Pulse Ox 95 10/24/20 11:29 Discharge Plan Discharge Patient Disposition: Xfer SNF Condition: Stable Prescriptions: New amlodipine 10 mg Tablet 5 mg PO DAILY Qty: 15 RF: 0 prednisone 20 mg Tablet 20 mg PO DAILY Qty: 3 RF: 0 Spiriva with HandiHaler 18 mcg Capsule, W/Inhalation Device 18 mcg inhalation DAILY.RESPIRATORY Qty: 30 RF: 0 aspirin 81 mg Tablet,Delayed Release (Dr/Ec) 81 mg PO DAILY Qty: 30 RF: 0 benzonatate 100 mg Capsule 100 mg PO TID PRN (Reason: Cough) Qty: 30 RF: 0 levofloxacin 750 mg tablet 750 mg PO Q48H 4 Days Qty: 2 RF: 0 Continued pantoprazole [Protonix] 40 mg Tablet,Delayed Release (Dr/Ec) 40 mg PO BID@, RF: 0 levalbuterol tartrate [Xopenex HFA] 45 mcg/actuation Hfa Aerosol Inhaler 1 puff INHALATION Q6H RF: 0 divalproex 250 mg Tablet,Delayed Release (Dr/Ec) 250 mg PO BID@, RF: 0 citalopram 40 mg Tablet 40 mg PO DAILY@08 RF: 0 allopurinol 100 mg Tablet 100 mg PO DAILY@08 RF: 0 montelukast [Singulair] 10 mg Tablet 10 mg PO DAILY@08 RF: 0 acetaminophen 325 mg Tablet 650 mg PO Q6H PRN (Reason: Pain) RF: 0 Miralax 17 gram Powder In Packet 17 g PO DAILY PRN (Reason: Constipation) RF: 0 Senna-S 8.6-50 mg Tablet 1 tab PO BID PRN (Reason: Constipation) RF: 0 bisacodyl 10 mg Suppository 10 mg [place] DAILY PRN (Reason: Constipation) RF: 0 Enema Disposable 19-7 gram/118 mL Enema 118 ml [place] DAILY PRN (Reason: Constipation) RF: 0 folic acid 1 mg Tablet 1 mg PO BID@, RF: 0 metoprolol succinate 25 mg Tablet Extended Release 24 Hr 25 mg PO DAILY@08 RF: 0 paricalcitol 1 mcg Capsule 1 mcg PO DAILY@08 RF: 0 Vitamin D3 125 mcg (5,000 unit) Tablet 250 mcg PO DAILY@20 RF: 0 Pro-Stat AWC 17-100 gram-kcal/30 mL Liquid See Rx Instructions .ROUTE .COMPLEX RF: 0 Lipitor 20 mg tablet 20 mg PO DAILY@20 RF: 0 Discharge Orders: Discharge Order (Routine); Ordered 10/24/20 Ordered By: Otoniel Darden Referrals: [facility] [Outside] Dunia Rowan MD [Primary Care Provider] - 1 week (telehealth visit within 72 hours if posisble) Carlitos Frazier MD [Hospitalist] - 2 weeks (Anemia) Discharge Diet: As Directed Discharge Activity: Increase activity as tolerated, As per PT/OT instructions and Oxygen as instructed Activity Restrictions/Additional Instructions: Continue oxygen support at 2 L by nasal cannula as needed. Wean down as tolerating. May need more with exertion. Target saturation 88-92%. Continue incentive spirometer and flutter valve. Mobilize with therapy. Please maintain low potassium diet due to mildly increased potassium level, 5.4. Please recheck potassium level in 2-3 days. Avoid potassium suplementation. Monitor renal function. Please recheck hemoglobin level in 2-3 days. Continue follow up with hematology as instructed for anemia. Consider follow up with nephrology. Avoid phosphate enema. Discharge Attestations Time Spent in Discharge Care*: greater than 30 min Quality Metrics Clinical Quality Measures During this hospital stay, did patient experience: None Coding Level of Care Code Acute Technology Engineer for [facility] Fwd Diagnoses Pneumonia due to 2019 novel coronavirus U07.1; J12.89 COPD (chronic obstructive pulmonary disease) J44.9 Hypertension I10 Gout M10.9 Bipolar 1 disorder, depressed F31.9 CKD (chronic kidney disease) N18.9 Cancer of sigmoid C18.7 Breast cancer C50.919 Pancytopenia D61.818 NSTEMI (non-ST elevated myocardial infarction) I21.4
--- NOTE | 2020-10-24 13:44 | DCPLANNER ---
Since Pt's Daughter did not want to be called about the IM again -it is updated. Pt however is being d/c'd today so engineering writer will make sure Daughter is notified.
[2020-10-24 18:35] VITALS: BP 114/52; PULSE 83; RESP 18; TEMP 36.6; O2SAT 95
--- NOTE | 2020-10-26 19:39 | P.DS_ITS ---
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 (8) Breast cancer: Permanent problem details: Status post lumpectomy/radiation 1999 followed by adjuvant tamoxifen (9) Pancytopenia: Status: Acute (10) NSTEMI (non-ST elevated myocardial infarction): Status: Resolved (11) Chronic mastoiditis: Status: Acute Reason for Visit Reason for Visit: Pneumonia/Trouble SOB Hospital Course Hospital Course Pleasant 80-year-old lady with history of adenocarcinoma sigmoid colon, 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 Noted troponin elevation of 50 without positive delta suspected due to demand ischemia. She was treated for COVID-19 pneumonia, also empiric antibiotic coverage for possible superimposed bacterial pneumonia, with ceftriaxone, azithromycin, and cefepime. Was treated while in the hospital with course of remdesivir, Decadron for severe COVID-19 infection. While in the hospital noted to be anemic, hemoglobin around 7.5, although this appears to be stable. Should follow-up with hematology with regards to additional work-up. Please recheck hemoglobin level. Her oxygenation is gradually improved, she wean down on oxygen supplementation to as low as 1 L nasal cannula, and intermittently even room air. Currently on 2 L. Will complete antibiotic course with Levaquin. Taper down prednisone. Continue oxygen supplementation, target saturation 88-92%. Wean down as tolerated. Continue follow-up with regards to chronic kidney disease. Consider referral to nephrology. Due to mild hyperkalemia noted at 5.4, please recheck potassium level. Maintain low potassium diet. Discussed also with her daughter. Physical Exam Const: COMMON NORMALS: no acute distress and patient oriented x3 OTHER: Sitting up in chair. Awake, alert, pleasant. Had no complaints. HENMT: COMMON NORMALS: oropharynx normal Neck/C-Spine: COMMON NORMALS: no JVD Resp: COMMON NORMALS: normal respiratory effort and clear to auscultation bilaterally AUSCULTATION: clear to auscultation bilaterally Cardio: COMMON NORMALS: no JVD, regular rhythm, S1 normal heart sound present, S2 normal heart sound present and No murmurs present (Cardio) RHYTHM: regular rhythm HEART SOUNDS: S1 normal heart sound present and S2 normal heart sound present GI: COMMON NORMALS: Normal to inspection, nondistended, normoactive bowel sounds present, Soft to palpation and non-tender PALPATION: Yes Soft to pa lpation Extremity: COMMON NORMALS: no joint enlargement and no pedal edema Neuro: COMMON NORMALS: patient oriented x3 and moves all extremities Skin: COMMON NORMALS: no rashes or lesions noted GENERAL SKIN EXAM: no rashes or lesions noted Urinary Catheter Management^: Hoff: Cath Placed During This Visit: yes, but has since been removed by the nurse Reason for Continuing Indwelling Catheter: Decision to DC Catheter Date Urinary Catheter Removed: 10/23/20 Time Urinary Catheter Discontinued: 16:15 Discharge Data Data Completed and Pending: Completed Studies During Hospitalization Category Date Time Status CT chest wo con 7 1250 Urgent Cat Scan 10/13/20 19:37 Completed XR chest 1V ludin ble 51801 AM LABS Exams 10/20/20 04:00 Completed XR chest 1V ludin ble 99940 AM LABS Exams 10/23/20 04:00 Completed XR chest 1V ludin ble 79681 Routine Exams 10/15/20 07:00 Completed XR chest 1V ludin ble 84598 Urgent Exams 10/13/20 15:04 Completed Vitals: Last Vital Signs Temp 97.8 F 10/24/20 18:35 Pulse 83 10/24/20 18:35 Resp 18 10/24/20 18:35 BP 114/52 10/24/20 18:35 Pulse Ox 95 10/24/20 18:35 Discharge Plan Discharge Patient Disposition: [facility] Condition: Stable Prescriptions: New amlodipine 10 mg Tablet 5 mg PO DAILY Qty: 15 RF: 0 levofloxacin 750 mg tablet 750 mg PO Q48H 4 Days Qty: 2 RF: 0 benzonatate 100 mg Capsule 100 mg PO TID PRN (Reason: Cough) Qty: 30 RF: 0 aspirin 81 mg Tablet,Delayed Release (Dr/Ec) 81 mg PO DAILY Qty: 30 RF: 0 Spiriva with HandiHaler 18 mcg Capsule, W/Inhalation Device 18 mcg inhalation DAILY.RESPIRATORY Qty: 30 RF: 0 prednisone 20 mg Tablet 20 mg PO DAILY Qty: 3 RF: 0 Continued pantoprazole [Protonix] 40 mg Tablet,Delayed Release (Dr/Ec) 40 mg PO BID@08,20 RF: 0 levalbuterol tartrate [Xopenex HFA] 45 mcg/actuation Hfa Aerosol Inhaler 1 puff INHALATION Q6H RF: 0 divalproex 250 mg Tablet,Delayed Release (Dr/Ec) 250 mg PO BID@08,20 RF: 0 citalopram 40 mg Tablet 40 mg PO DAILY@08 RF: 0 allopurinol 100 mg Tablet 100 mg PO DAILY@08 RF: 0 montelukast [Singulair] 10 mg Tablet 10 mg PO DAILY@08 RF: 0 acetaminophen 325 mg Tablet 650 mg PO Q6H PRN (Reason: Pain) RF: 0 Miralax 17 gram Powder In Packet 17 g PO DAILY PRN (Reason: Constipation) RF: 0 Senna-S 8.6-50 mg Tablet 1 tab PO BID PRN (Reason: Constipation) RF: 0 bisacodyl 10 mg Suppository [address] DAILY PRN (Reason: Constipation) RF: 0 Enema Disposable 19-7 gram/118 mL Enema [address] DAILY PRN (Reason: Constipation) RF: 0 folic acid 1 mg Tablet 1 mg PO BID@08,20 RF: 0 metoprolol succinate 25 mg Tablet Extended Release 24 Hr 25 mg PO DAILY@08 RF: 0 paricalcitol 1 mcg Capsule 1 mcg PO DAILY@08 RF: 0 Vitamin D3 125 mcg (5,000 unit) Tablet 250 mcg PO DAILY@20 RF: 0 Pro-Stat AWC 17-100 gram-kcal/30 mL Liquid See Rx Instructions .ROUTE .COMPLEX RF: 0 Lipitor 20 mg tablet 20 mg PO DAILY@20 RF: 0 Discharge Orders: Discharge Order (Routine); Ordered 10/24/20 Ordered By: Otoniel Darden Referrals: [facility] [Outside] Dunia Rowan MD [Primary Care Provider] - 1 week (telehealth visit within 72 hours if posisble) Carlitos Frazier MD [Hospitalist] - 2 weeks (Anemia) Discharge Diet: As Directed Discharge Activity: Increase activity as tolerated, As per PT/OT instructions and Oxygen as instructed Activity Restrictions/Additional Instructions: Continue oxygen support at 2 L by nasal cannula as needed. Wean down as tolerating. May need more with exertion. Target saturation 88-92%. Continue incentive spirometer and flutter valve. Mobilize with therapy. Please maintain low potassium diet due to mildly increased potassium level, 5.4. Please recheck potassium level in 2-3 days. Avoid potassium suplementation. Monitor renal function. Please recheck hemoglobin level in 2-3 days. Continue follow up with hematology as instructed for anemia. Consider follow up with nephrology. Avoid phosphate enema. 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
--- NOTE | 2020-10-26 19:49 | PM.DCS ---
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 (8) Breast cancer: Permanent problem details: Status post lumpectomy/radiation 1999 followed by adjuvant tamoxifen (9) Pancytopenia: Status: Acute (10) NSTEMI (non-ST elevated myocardial infarction): Status: Resolved (11) Chronic mastoiditis: Status: Acute Reason for Visit Reason for Visit: Pneumonia/Trouble SOB Hospital Course Hospital Course Pleasant 80-year-old lady with history of adenocarcinoma sigmoid colon, 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 Noted troponin elevation of 50 without positive delta suspected due to demand ischemia. She was treated for COVID-19 pneumonia, also empiric antibiotic coverage for possible superimposed bacterial pneumonia, with ceftriaxone, azithromycin, and cefepime. Was treated while in the hospital with course of remdesivir, Decadron for severe COVID-19 infection. While in the hospital noted to be anemic, hemoglobin around 7.5, although this appears to be stable. Should follow-up with hematology with regards to additional work-up. Please recheck hemoglobin level. Her oxygenation is gradually improved, she wean down on oxygen supplementation to as low as 1 L nasal cannula, and intermittently even room air. Currently on 2 L. Will complete antibiotic course with Levaquin. Taper down prednisone. Continue oxygen supplementation, target saturation 88-92%. Wean down as tolerated. Continue follow-up with regards to chronic kidney disease. Consider referral to nephrology. Due to mild hyperkalemia noted at 5.4, please recheck potassium level. Maintain low potassium diet. Discussed also with her daughter. Physical Exam Const: COMMON NORMALS: no acute distress and patient oriented x3 OTHER: Sitting up in chair. Awake, alert, pleasant, conversant. Incentive spirometer and flutter valve for her which she says she has been using. She feels much better. Walked little bit today with physical therapy. Says she is fatigued, but is willing to work further with PT. HENMT: COMMON NORMALS: oropharynx normal Neck/C-Spine: COMMON NORMALS: no JVD Resp: COMMON NORMALS: normal respiratory effort and clear to auscultation bilaterally AUSCULTATION: clear to auscultation bilaterally Cardio: COMMON NORMALS: no JVD, regular rhythm, S1 normal heart sound present, S2 normal heart sound present and No murmurs present (Cardio) RHYTHM: regular rhythm HEART SOUNDS: S1 normal heart sound present and S2 normal heart sound present GI: COMMON NORMALS: Normal to inspection, nondistended, normoactive bowel sounds present, Soft to palpation and non-tender PALPATION: Yes Soft to palpation Extremity: COMMON NORMALS: no joint enlargement and no pedal edema Neuro: COMMON NORMALS: patient oriented x3 and moves all extremities Skin: COMMON NORMALS: no rashes or lesions noted GENERAL SKIN EXAM: no rashes or lesions noted Urinary Catheter Management^: Hoff: Cath Placed During This Visit: yes, but has since been removed by the nurse Reason for Continuing Indwelling Catheter: Decision to DC Catheter Date Urinary Catheter Removed: 10/23/20 Time Urinary Catheter Discontinued: 16:15 Discharge Data Data Completed and Pending: Completed Studies During Hospitalization Category Date Time Status CT chest wo con 7 1250 Urgent Cat Scan 10/13/20 19:37 Completed XR chest 1V ludin ble 23884 AM LABS Exams 10/20/20 04:00 Completed XR chest 1V ludin ble 42743 AM LABS Exams 10/23/20 04:00 Completed XR chest 1V ludin ble 43385 Routine Exams 10/15/20 07:00 Completed XR chest 1V ludin ble 05570 Urgent Exams 10/13/20 15:04 Completed Vitals: Last Vital Signs Temp 97.8 F 10/24/20 18:35 Pulse 83 10/24/20 18:35 Resp 18 10/24/20 18:35 BP 114/52 10/24/20 18:35 Pulse Ox 95 10/24/20 18:35 Discharge Plan Discharge Patient Disposition: Xfer SNF Condition: Stable Prescriptions: New amlodipine 10 mg Tablet 5 mg PO DAILY Qty: 15 RF: 0 levofloxacin 750 mg tablet 750 mg PO Q48H 4 Days Qty: 2 RF: 0 benzonatate 100 mg Capsule 100 mg PO TID PRN (Reason: Cough) Qty: 30 RF: 0 aspirin 81 mg Tablet,Delayed Release (Dr/Ec) 81 mg PO DAILY Qty: 30 RF: 0 Spiriva with HandiHaler 18 mcg Capsule, W/Inhalation Device 18 mcg inhalation DAILY.RESPIRATORY Qty: 30 RF: 0 prednisone 20 mg Tablet 20 mg PO DAILY Qty: 3 RF: 0 Continued pantoprazole [Protonix] 40 mg Tablet,Delayed Release (Dr/Ec) 40 mg PO BID@08,20 RF: 0 levalbuterol tartrate [Xopenex HFA] 45 mcg/actuation Hfa Aerosol Inhaler 1 puff INHALATION Q6H RF: 0 divalproex 250 mg Tablet,Delayed Release (Dr/Ec) 250 mg PO BID@08,20 RF: 0 citalopram 40 mg Tablet 40 mg PO DAILY@08 RF: 0 allopurinol 100 mg Tablet 100 mg PO DAILY@08 RF: 0 montelukast [Singulair] 10 mg Tablet 10 mg PO DAILY@08 RF: 0 acetaminophen 325 mg Tablet 650 mg PO Q6H PRN (Reason: Pain) RF: 0 Miralax 17 gram Powder In Packet 17 g PO DAILY PRN (Reason: Constipation) RF: 0 Senna-S 8.6-50 mg Tablet 1 tab PO BID PRN (Reason: Constipation) RF: 0 bisacodyl 10 mg Suppository 10 mg NM DAILY PRN (Reason: Constipation) RF: 0 Enema Disposable 19-7 gram/118 mL Enema 118 ml NM DAILY PRN (Reason: Constipation) RF: 0 folic acid 1 mg Tablet 1 mg PO BID@08,20 RF: 0 metoprolol succinate 25 mg Tablet Extended Release 24 Hr 25 mg PO DAILY@08 RF: 0 paricalcitol 1 mcg Capsule 1 mcg PO DAILY@08 RF: 0 Vitamin D3 125 mcg (5,000 unit) Tablet 250 mcg PO DAILY@20 RF: 0 Pro-Stat AWC 17-100 gram-kcal/30 mL Liquid See Rx Instructions .ROUTE .COMPLEX RF: 0 Lipitor 20 mg tablet 20 mg PO DAILY@20 RF: 0 Discharge Orders: Discharge Order (Routine); Ordered 10/24/20 Ordered By: Otoniel Darden Referrals: [facility] [Outside] Dunia Rowan MD [Primary Care Provider] - 1 week (telehealth visit within 72 hours if posisble) Carlitos Frazier MD [Hospitalist] - 2 weeks (Anemia) Discharge Diet: As Directed Discharge Activity: Increase activity as tolerated, As per PT/OT instructions and Oxygen as instructed Activity Restrictions/Additional Instructions: Continue oxygen support at 2 L by nasal cannula as needed. Wean down as tolerating. May need more with exertion. Target saturation 88-92%. Continue incentive spirometer and flutter valve. Mobilize with therapy. Please maintain low potassium diet due to mildly increased potassium level, 5.4. Please recheck potassium level in 2-3 days. Avoid potassium suplementation. Monitor renal function. Please recheck hemoglobin level in 2-3 days. Continue follow up with hematology as instructed for anemia. Consider follow up with nephrology. Avoid phosphate enema. 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
--- NOTE | 2020-10-26 19:52 | PM.DCS ---
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 (8) Breast cancer: Permanent problem details: Status post lumpectomy/radiation 1999 followed by adjuvant tamoxifen (9) Pancytopenia: Status: Acute (10) NSTEMI (non-ST elevated myocardial infarction): Status: Resolved (11) Chronic mastoiditis: Status: Acute Reason for Visit Reason for Visit: Pneumonia/Trouble SOB Hospital Course Hospital Course Pleasant 80-year-old lady with history of adenocarcinoma sigmoid colon, 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 Noted troponin elevation of 50 without positive delta suspected due to demand ischemia. She was treated for COVID-19 pneumonia, also empiric antibiotic coverage for possible superimposed bacterial pneumonia, with ceftriaxone, azithromycin, and cefepime. Was treated while in the hospital with course of remdesivir, Decadron for severe COVID-19 infection. While in the hospital noted to be anemic, hemoglobin around 7.5, although this appears to be stable. Should follow-up with hematology with regards to additional work-up. Please recheck hemoglobin level. Her oxygenation is gradually improved, she wean down on oxygen supplementation to as low as 1 L nasal cannula, and intermittently even room air. Currently on 2 L. Will complete antibiotic course with Levaquin. Taper down prednisone. Continue oxygen supplementation, target saturation 88-92%. Wean down as tolerated. Continue follow-up with regards to chronic kidney disease. Consider referral to nephrology. Due to mild hyperkalemia noted at 5.4, please recheck potassium level. Maintain low potassium diet. Discussed also with her daughter. Physical Exam Const: COMMON NORMALS: no acute distress and patient oriented x3 OTHER: Sitting up in chair. Awake, alert, pleasant, conversant. Incentive spirometer and flutter valve for her which she says she has been using. She feels much better. Walked little bit today with physical therapy. Says she is fatigued, but is willing to work further with PT. HENMT: COMMON NORMALS: oropharynx normal Neck/C-Spine: COMMON NORMALS: no JVD Resp: COMMON NORMALS: normal respiratory effort and clear to auscultation bilaterally AUSCULTATION: clear to auscultation bilaterally Cardio: COMMON NORMALS: no JVD, regular rhythm, S1 normal heart sound present, S2 normal heart sound present and No murmurs present (Cardio) RHYTHM: regular rhythm HEART SOUNDS: S1 normal heart sound present and S2 normal heart sound present GI: COMMON NORMALS: Normal to inspection, nondistended, normoactive bowel sounds present, Soft to palpation and non-tender PALPATION: Yes Soft to palpation Extremity: COMMON NORMALS: no joint enlargement and no pedal edema Neuro: COMMON NORMALS: patient oriented x3 and moves all extremities Skin: COMMON NORMALS: no rashes or lesions noted GENERAL SKIN EXAM: no rashes or lesions noted Urinary Catheter Management^: Hoff: Cath Placed During This Visit: yes, but has since been removed by the nurse Reason for Continuing Indwelling Catheter: Decision to DC Catheter Date Urinary Catheter Removed: 10/23/20 Time Urinary Catheter Discontinued: 16:15 Discharge Data Data Completed and Pending: Completed Studies During Hospitalization Category Date Time Status CT chest wo con 7 1250 Urgent Cat Scan 10/13/20 19:37 Completed XR chest 1V ludin ble 81864 AM LABS Exams 10/20/20 04:00 Completed XR chest 1V ludin ble 14144 AM LABS Exams 10/23/20 04:00 Completed XR chest 1V ludin ble 16686 Routine Exams 10/15/20 07:00 Completed XR chest 1V ludin ble 85553 Urgent Exams 10/13/20 15:04 Completed Vitals: Last Vital Signs Temp 97.8 F 10/24/20 18:35 Pulse 83 10/24/20 18:35 Resp 18 10/24/20 18:35 BP 114/52 10/24/20 18:35 Pulse Ox 95 10/24/20 18:35 Discharge Plan Discharge Patient Disposition: Xfer SNF Condition: Stable Prescriptions: New amlodipine 10 mg Tablet 5 mg PO DAILY Qty: 15 RF: 0 levofloxacin 750 mg tablet 750 mg PO Q48H 4 Days Qty: 2 RF: 0 benzonatate 100 mg Capsule 100 mg PO TID PRN (Reason: Cough) Qty: 30 RF: 0 aspirin 81 mg Tablet,Delayed Release (Dr/Ec) 81 mg PO DAILY Qty: 30 RF: 0 Spiriva with HandiHaler 18 mcg Capsule, W/Inhalation Device 18 mcg inhalation DAILY.RESPIRATORY Qty: 30 RF: 0 prednisone 20 mg Tablet 20 mg PO DAILY Qty: 3 RF: 0 Continued pantoprazole [Protonix] 40 mg Tablet,Delayed Release (Dr/Ec) 40 mg PO BID@08,20 RF: 0 levalbuterol tartrate [Xopenex HFA] 45 mcg/actuation Hfa Aerosol Inhaler 1 puff INHALATION Q6H RF: 0 divalproex 250 mg Tablet,Delayed Release (Dr/Ec) 250 mg PO BID@08,20 RF: 0 citalopram 40 mg Tablet 40 mg PO DAILY@08 RF: 0 allopurinol 100 mg Tablet 100 mg PO DAILY@08 RF: 0 montelukast [Singulair] 10 mg Tablet 10 mg PO DAILY@08 RF: 0 acetaminophen 325 mg Tablet 650 mg PO Q6H PRN (Reason: Pain) RF: 0 Miralax 17 gram Powder In Packet 17 g PO DAILY PRN (Reason: Constipation) RF: 0 Senna-S 8.6-50 mg Tablet 1 tab PO BID PRN (Reason: Constipation) RF: 0 bisacodyl 10 mg Suppository 10 mg SD DAILY PRN (Reason: Constipation) RF: 0 Enema Disposable 19-7 gram/118 mL Enema 118 ml SD DAILY PRN (Reason: Constipation) RF: 0 folic acid 1 mg Tablet 1 mg PO BID@08,20 RF: 0 metoprolol succinate 25 mg Tablet Extended Release 24 Hr 25 mg PO DAILY@08 RF: 0 paricalcitol 1 mcg Capsule 1 mcg PO DAILY@08 RF: 0 Vitamin D3 125 mcg (5,000 unit) Tablet 250 mcg PO DAILY@20 RF: 0 Pro-Stat AWC 17-100 gram-kcal/30 mL Liquid See Rx Instructions .ROUTE .COMPLEX RF: 0 Lipitor 20 mg tablet 20 mg PO DAILY@20 RF: 0 Discharge Orders: Discharge Order (Routine); Ordered 10/24/20 Ordered By: Otoniel Darden Referrals: [facility] [Outside] Dunia Rowan MD [Primary Care Provider] - 1 week (telehealth visit within 72 hours if posisble) Carlitos Frazier MD [Hospitalist] - 2 weeks (Anemia) Discharge Diet: As Directed Discharge Activity: Increase activity as tolerated, As per PT/OT instructions and Oxygen as instructed Activity Restrictions/Additional Instructions: Continue oxygen support at 2 L by nasal cannula as needed. Wean down as tolerating. May need more with exertion. Target saturation 88-92%. Continue incentive spirometer and flutter valve. Mobilize with therapy. Please maintain low potassium diet due to mildly increased potassium level, 5.4. Please recheck potassium level in 2-3 days. Avoid potassium suplementation. Monitor renal function. Please recheck hemoglobin level in 2-3 days. Continue follow up with hematology as instructed for anemia. Consider follow up with nephrology. Avoid phosphate enema. 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
== END 2020-10-24 16:30 | disposition skilled nursing facility (03) | DRG 177 ==
LOC: ER 15:54 → MEDSURG 20:02
PROVIDERS: Emergency Medicine; Family Medicine; Student in an Organized Health Care Education/Training Program; Admitting Provider Internal Medicine; Emergency Provider Family Medicine; PCP Family Medicine; Visit Provider Internal Medicine
DX: U07.1 COVID-19 (principal); J12.89 Other viral pneumonia; I21.4 Non-ST elevation (NSTEMI) myocardial infarction; J15.9 Unspecified bacterial pneumonia; C18.7 Malignant neoplasm of sigmoid colon; C78.6 Secondary malignant neoplasm of retroperitoneum and peritoneum; N18.4 Chronic kidney disease, stage 4 (severe); Q04.6 Congenital cerebral cysts; N17.9 Acute kidney failure, unspecified; F05 Delirium due to known physiological condition; D61.818 Other pancytopenia; J44.0 Chronic obstructive pulmonary disease with (acute) lower respiratory infection; M10.9 Gout, unspecified; Z99.81 Dependence on supplemental oxygen; Z90.49 Acquired absence of other specified parts of digestive tract; Z85.3 Personal history of malignant neoplasm of breast; Z92.23 Personal history of estrogen therapy; H70.10 Chronic mastoiditis, unspecified ear; I12.9 Hypertensive chronic kidney disease with stage 1 through stage 4 chronic kidney disease, or unspecified chronic kidney disease; F31.9 Bipolar disorder, unspecified; Z92.3 Personal history of irradiation; R53.82 Chronic fatigue, unspecified; Z66 Do not resuscitate; F03.90 Unspecified dementia, unspecified severity, without behavioral disturbance, psychotic disturbance, mood disturbance, and anxiety; G47.30 Sleep apnea, unspecified; Z87.891 Personal history of nicotine dependence; D69.6 Thrombocytopenia, unspecified; M25.562 Pain in left knee
CPT/HCPCS: 12345; 36415; 36430; 51702; 71045; 71250; 80053; 80500; 81001; 81003; 82550; 82728; 83605; 83735; 83880; 84100; 84145; 84484; 85025; 85378; 85610; 85651; 85730; 86140; 86850; 86900; 86927; 87426; 87804; 93005; 94640; 96372; 96375; 97110; 97116; 97162; 97530; 99282; J0456; J0610; J0692; J0696; J1100; J1644; J1815; J1940; J3475; J3535; J7030; J7050; J7512; J7614; J7626; P9017; Q0144

== ENCOUNTER 2021-06-05 13:10 | Inpatient (IN) | payer MEDICARE, MEDICAID, SELFPAY ==
[2021-06-05] VITALS (10 sets, daily range): BP systolic 161–194; BP diastolic 55–93; PULSE 59–84; RESP 18–20; TEMP 36.4; O2SAT 91–100; BMI 26.4
--- NOTE | 2021-06-05 14:05 | CT_ITS ---
WS: [id number] CT head wo con* [id number] REASON FOR EXAM: TIA? possible Left sided weakness. IV CONTRAST ADMINISTERED: Noncontrast TOTAL EXAM DLP: 1582.[address] scans at [facility] use at least one of these dose optimization techniques: automat ed exposure control; mA and/or kV adjustment per patient size (includes targeted exams where dose is matched to clinical indication); or iterative reconstruction. FINDINGS: No midline shift or other significant mass effect. No findings of intracranial hemorrhage and no extra-axial fluid collection. Moderate symmetric atrophy. 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 No acute focal brain parenchymal abnormality is bruce ntified in the cerebral hemispheres, brainstem, cerebellar hemispheres. Mild dilatation of the ventricles compatible with the degree of atrophy. The bony calvarium is intact. CT/CT head wo con* [id number] IMPRESSION: Changes of the aging brain with no acute intracranial abnormality.
--- NOTE | 2021-06-05 14:05 | XR_ITS ---
WS: [id number] XR chest 1V portable [id number] REASON FOR EXAM: reduced breath sounds FINDINGS: The heart and the mediastinum are within normal limits. Calcified granulomatous disease in both hemithoraces. No active pulmonary parenchymal or pleural disease. Bony thorax is intact. XR/XR chest 1V portable [id number] IMPRESSION: No acute chest abnormality. Chest unchanged compared to 10/23/2020.
--- NOTE | 2021-06-05 14:28 | CT_ITS ---
WS: [id number] CT chest wo con [id number] REASON FOR EXAM: hypoxia, COPD. IV CONTRAST ADMINISTERED: Noncontrast TOTAL EXAM DLP: 926.[address] scans at [facility] use at least one of these dose optimization techniques: automat ed exposure control; mA and/or kV adjustment per patient size (includes targeted exams where dose is matched to clinical indication); or iterative reconstruction. FINDINGS: Thoracic aorta is heavily calcified without aneurysmal dilatation. No mediastinal adenopathy or mass. No hilar adenopathy or mass. Pulmonary parenchyma demonstrates multiple tiny areas of lucency compatible with central lobar emphys abhi. No mass is seen. There are multiple small calcified and noncalcified nodules with calcification s in both hilar regions compatible with old granulomatous disease. There are multiple small opacities in the subpleural region of both lungs, predominating on the right . These regions are characterized by inhomogeneous irregular margins with moderate increased density interspersed with very small lucencies. No pleural fluid or other pleural finding. There is degenerative spondylosis in the thoracic spine. The bony thorax is otherwise intact. CT/CT chest wo con [id number] IMPRESSION: Inflammatory process which appears to be centered around small airways, bronchi olitis/alveolitis. The chronicity of this is unknown. The pattern of infiltrative abnormality is not suggestive of Covid.
--- NOTE | 2021-06-05 15:13 | ED_ITS ---
HPI - Altered Mental Status General: Chief Complaint: Altered Mental Status Stated Complaint: AMS Time Seen by Provider: 06/05/21 13:52 History of Present Illness: HPI narrative: The patient is a 81-year-old female with past medical history dementia, COPD, chronic kidney disease who is a [facility] resident. She was brought to the ER by EMS after she reported she is not feeling right and has slight confusion. Daughter says she is slightly confused from her baseline where she is able to talk and just has some forgetfulness. Daughter reports that she has had a cough for a few weeks and appears to be swelling in her legs. No known history of congestive heart failure that they know of but they have been told in the past that she had a large heart at one point. MD complaint: confusion and decreased responsiveness Severity: moderate Associated symptoms: Deny depression Treatments prior to arrival: oxygen Review of Systems General: Reports: 10 or more systems reviewed and unremarkable except in HPI and below Const: Reports: fatigue; Denies: fever(s) or chills Eyes: Denies: change in vision, blurry vision or eye redness ENMT: Denies: throat pain, swelling of lips/tongue, ear or mastoid pain or nasal congestion Card: Denies: chest pain, palpitations, irregular heart rhythm, edema, dyspnea on exertion or orthopnea Resp: Reports: dyspnea, non-productive cough and wheezing; Denies: productive cough GI: Denies: abdominal pain, diarrhea or GI cramping : Denies: flank pain, difficulty voiding, urinary frequency or urinary urgency Musc: Denies: neck pain, back pain, extremity pain, joint pain, joint redness, limited range of motion or muscle weakness Skin/Breast: Denies: rash, pruritus, erythema, skin pain or skin tenderness Neuro: Denies: headache(s), numbness in extremities, weakness in extremities, sensory changes, difficulty walking, dizziness, confusion or Slurred speech present Psych: Denies: anxiety or depression Endo: Denies: polyuria All/Imm: Denies: urticaria, throat swelling or tongue swelling PFSH ED PFSH: Medical History (Updated 06/05/21 @ 23:16 by Teddy Brock MD) Adenomatous polyp 2011 found on surveillance colonoscopy Bipolar 1 disorder, depressed Bipolar disorder Breast cancer Status post lumpectomy/radiation 1999 followed by adjuvant tamoxifen C. 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 Chronic fatigue CKD (chronic kidney disease) CKD (chronic kidney disease), stage IV COPD (chronic obstructive pulmonary disease) Oxygen dependent COPD (chronic obstructive pulmonary disease) DNR (do not resuscitate) Gout Hallucinations Did not tolerate Parkinson's medications in the past when this diagnosis was being entertained, discontinued hydrocodone, no organic etiology found Hypertension Mastoiditis Right-sided mastoiditis, present on MRI 2016 as well Porencephalic cyst Temporal lobe Senile dementia Daughter has requested that dementia should not be mentioned to her mother because of risk of worsening of her depression considering bipolar disorder Sleep apnea Surgical History History of low anterior resection of rectum Family History Other Family history non-contributory Social History Smoking and tobacco status: former smoker Alcohol intake: never Household members: family Housing: House Physical Exam Const: COMMON NORMALS: patient oriented x3, no limitations, alert and well nourished GENERAL APPEARANCE: cooperative, comfortable, well kempt and well developed NUTRITIONAL APPEARANCE: obese ORIENTATION/CONSCIOUSNESS: Yes awake, Yes oriented to person, Yes oriented to place and Yes oriented to time HENMT: COMMON NORMALS: normocephalic, external ears normal and Normal external nose present HEAD & SCALP: normal to inspection and normocephalic NOSE: Normal external nose present EXTERNAL EAR: Yes external ears normal MOUTH: Normal oral and palatal mucosa present THROAT: posterior oropharynx normal Eye: COMMON NORMALS: Equal, round and reactive pupils present and EOMs intact bilaterally GENERAL EYE: appearance normal, both eyes and all related structures PUPIL: Yes Equal, round and reactive pupils present Neck/C-Spine: COMMON NORMALS: full ROM, no lymphadenopathy, no meningeal signs and no JVD GENERAL: Yes normal visual inspection Lymph: LYMPHATIC: no lymphadenopathy noted Chest: COMMONS NORMALS: normal inspection of the chest and normal palpation of entire chest wall Resp: COMMON NORMALS: normal respiratory effort and No retractions EFFORT & INSPECTION: Yes able to speak in complete sentences AUSCULTATION: wheezes expiratory wheezes and throughout OTHER: mild increase work of breathing Cardio: COMMON NORMALS: no JVD, regular rate, regular rhythm, S1 normal heart sound present, S2 normal heart sound present and Peripheral pulses 2+ throughout RATE: regular rate RHYTHM: regular rhythm HEART SOUNDS: S1 normal heart sound present and S2 normal heart sound present PERIPHERAL PULSES: Peripheral pulses 2+ throughout GI: COMMON NORMALS: Normal to inspection, nondistended, normoactive bowel sounds present, Soft to palpation, non-tender and no masses INSPECTION: Yes normal to inspection PALPATION: Yes Soft to palpation : COMMON NORMALS: Yes no CVA tenderness BLADDER/KIDNEY EXAM: Yes no CVA tenderness Back/Pelvis: COMMON NORMALS: no CVA tenderness, thoracic and lumbar spine normal to inspection, no thoracic nor lumbar tenderness and thoraco-lumbar ROM normal Extremity: COMMON NORMALS: normal to inspection, full ROM, capillary refill normal, no joint enlargement and no pedal edema GENERAL: Yes normal exam except as noted OTHER: 2+ pitting edema bilateral lower extremities. Neuro: COMMON NORMALS: patient oriented x3, CN's II-XII intact bilaterally, moves all extremities, no focal motor deficits, no sensory deficits noted and gait normal SENSORIUM/ORIENTATION: Yes alert, Yes oriented to person, Yes oriented to place and Yes oriented to time MENINGEAL SIGNS: Yes no meningeal signs Psych: COMMON NORMALS: mental status grossly normal, Normal thought process present, cooperative, normal affect and speech normal APPEARANCE: Yes well kempt ATTITUDE: Yes calm SPEECH: Yes normal speech THOUGHT PROCESS: Normal thought process present Skin: COMMON NORMALS: no rashes or lesions noted GENERAL SKIN EXAM: no rashes or lesions noted Course Vital Signs: Vital signs: Vital Signs Temperature 97.6 F 06/05/21 22:00 Pulse Rate 84 06/05/21 22:00 Respiratory Rate 18 06/05/21 22:00 Blood Pressure 174/81 06/05/21 22:00 Pulse Oximetry 96 06/05/21 22:00 MDM - Altered Mental Status MDM Narrative: Medical decision making narrative: The patient is a 81-year-old female who comes to the ER with COPD wearing 3 L chronically. She comes to the ER complaining of increased shortness of breath and confusion. She has a history of dementia but her daughter reports she is slightly more confused. Her potassium came back at 5.8 as well. CO2 on the ABG showed 62.2 which is critical. She has no ABG showing her baseline CO2 level. Discussed with Dr. Plaza who accepted for admission. She was given IV steroids. Lab Data: Labs: Lab Results 06/05/21 06/05/21 06/05/21 Range/Units 15:23 16:17 16:17 WBC 7.5 (4.0-10.0) 10^3/ uL RBC 2.66 L (4.1-5.3) 10^6/u L Hgb 8.8 L (11.5-15.3) g/dL Hct 29.5 L (37.0-47.0) % MCV 110.9 H (81-99) fL MCH 33.1 (28.0-34.0) pg MCHC 29.8 L (30.0-36.0) g/dL RDW 14.1 (12.1-15.1) % Plt Count 167 (130-400) 10^3/c mm MPV 10.4 (7.4-10.4) fL Neut % (Auto) 53.7 % Lymph % (Auto) 33.9 % [place] % (Auto) 9.8 % Eos % (Auto) 2.0 % Baso % (Auto) 0.3 % Neut # (Auto) 4.04 (1.8-7.7) 10^3/u L Lymph # (Auto) 2.6 (0.8-4.8) 10^3/u L [place] # (Auto) 0.7 (0.2-0.9) 10^3/u L Eos # (Auto) 0.2 (0.0-0.8) 10^3/u L Baso # (Auto) 0.0 (0.0-0.1) 10^3/u L Nucleated RBC % (a uto) 0 % Nucleated RBCs # 0.0 /100WBC Specimen Type Arterial Sample Site Brachial, right ABG pH 7.31 L (7.35-7.45) ABG pCO2 62.2 H* (35-45) mmHg ABG pO2 159.0 H (80.0-100.0) mmH g ABG HCO3 31.3 H (22-26) mmol/L ABG Base Excess 4.0 H (-2.0-2.0) mmol/ L Teja Test N/a Hematocrit 27.6 L (37-47) % Hgb O2 Saturation 97.8 (95-100) % Carboxyhemoglobin 0.8 (0.4-20.1) %THgb Methemoglobin 1.0 (0.4-1.5) % Total Hemoglobin 9.0 L (12-16) g/dL O2 Delivery Device Nc O2 Liters/Min 3.0 % FiO2 32.0 % Scallop Dredger ID Gd Sodium 146 H (136-145) mmol/L Potassium 5.8 H (3.5-5.1) mmol/L Chloride 108 H (98-107) mmol/L Carbon Dioxide 31 H (22-29) mmol/L Anion Gap 12.8 (5-19) BUN 28 H (8-23) mg/dL Creatinine 2.0 H (0.5-0.9) mg/dL GFR Calculation Not Reportable Glucose 94 (65-115) mg/dL Calculated Osmolal ity 307 H (285-295) mOsm/k g Lactic Acid (0.5-2.2) mmol/L Calcium 9.3 (8.5-10.5) mg/dL Total Bilirubin 0.2 (0.15-1.2) mg/dL AST 9 (0-32) U/L ALT < 5 (0-33) U/L Alkaline Phosphata se 72 (35-105) IU/L Creatine Kinase 30 (26-192) U/L Troponin T Baselin e (0-10) ng/L Troponin T 120 Min [place] (0-10) ng/L Delta Troponin T (0-10) ABS# NT-Pro-B Natriuret Pep 814 H (0-450) pg/mL Total Protein 5.4 L (6.6-8.7) g/dL Albumin 3.4 L (3.5-5.2) g/dL Globulin 2.0 (1.3-4.6) g/dL SARS-CoV-2 Ag (Rap id) (Negative) 06/05/21 06/05/21 06/05/21 Range/Units 16:17 16:17 18:10 WBC (4.0-10.0) 10^3/ uL RBC (4.1-5.3) 10^6/u L Hgb (11.5-15.3) g/dL Hct (37.0-47.0) % MCV (81-99) fL MCH (28.0-34.0) pg MCHC (30.0-36.0) g/dL RDW (12.1-15.1) % Plt Count (130-400) 10^3/c mm MPV (7.4-10.4) fL Neut % (Auto) % Lymph % (Auto) % [place] % (Auto) % Eos % (Auto) % Baso % (Auto) % Neut # (Auto) (1.8-7.7) 10^3/u L Lymph # (Auto) (0.8-4.8) 10^3/u L [place] # (Auto) (0.2-0.9) 10^3/u L Eos # (Auto) (0.0-0.8) 10^3/u L Baso # (Auto) (0.0-0.1) 10^3/u L Nucleated RBC % (a uto) % Nucleated RBCs # /100WBC Specimen Type Sample Site ABG pH (7.35-7.45) ABG pCO2 (35-45) mmHg ABG pO2 (80.0-100.0) mmH g ABG HCO3 (22-26) mmol/L ABG Base Excess (-2.0-2.0) mmol/ L Teja Test Hematocrit (37-47) % Hgb O2 Saturation (95-100) % Carboxyhemoglobin (0.4-20.1) %THgb Methemoglobin (0.4-1.5) % Total Hemoglobin (12-16) g/dL O2 Delivery Device O2 Liters/Min % FiO2 % [place]ger ID Sodium (136-145) mmol/L Potassium (3.5-5.1) mmol/L Chloride (98-107) mmol/L Carbon Dioxide (22-29) mmol/L Anion Gap (5-19) BUN (8-23) mg/dL Creatinine (0.5-0.9) mg/dL GFR Calculation Glucose (65-115) mg/dL Calculated Osmolal ity (285-295) mOsm/k g Lactic Acid 1.4 (0.5-2.2) mmol/L Calcium (8.5-10.5) mg/dL Total Bilirubin (0.15-1.2) mg/dL AST (0-32) U/L ALT (0-33) U/L Alkaline Phosphata se (35-105) IU/L Creatine Kinase (26-192) U/L Troponin T Baselin e 69 H (0-10) ng/L Troponin T 120 Min [place] 68.73 H (0-10) ng/L Delta Troponin T -0.27 L (0-10) ABS# NT-Pro-B Natriuret Pep (0-450) pg/mL Total Protein (6.6-8.7) g/dL Albumin (3.5-5.2) g/dL Globulin (1.3-4.6) g/dL SARS-CoV-2 Ag (Rap id) (Negative) 06/05/21 Range/Units 18:29 WBC (4.0-10.0) 10^3/ uL RBC (4.1-5.3) 10^6/u L Hgb (11.5-15.3) g/dL Hct (37.0-47.0) % MCV (81-99) fL MCH (28.0-34.0) pg MCHC (30.0-36.0) g/dL RDW (12.1-15.1) % Plt Count (130-400) 10^3/c mm MPV (7.4-10.4) fL Neut % (Auto) % Lymph % (Auto) % [place] % (Auto) % Eos % (Auto) % Baso % (Auto) % Neut # (Auto) (1.8-7.7) 10^3/u L Lymph # (Auto) (0.8-4.8) 10^3/u L [place] # (Auto) (0.2-0.9) 10^3/u L Eos # (Auto) (0.0-0.8) 10^3/u L Baso # (Auto) (0.0-0.1) 10^3/u L Nucleated RBC % (a uto) % Nucleated RBCs # /100WBC Specimen Type Sample Site ABG pH (7.35-7.45) ABG pCO2 (35-45) mmHg ABG pO2 (80.0-100.0) mmH g ABG HCO3 (22-26) mmol/L ABG Base Excess (-2.0-2.0) mmol/ L Teja Test Hematocrit (37-47) % Hgb O2 Saturation (95-100) % Carboxyhemoglobin (0.4-20.1) %THgb Methemoglobin (0.4-1.5) % Total Hemoglobin (12-16) g/dL O2 Delivery Device O2 Liters/Min % FiO2 % [place] ID Sodium (136-145) mmol/L Potassium (3.5-5.1) mmol/L Chloride (98-107) mmol/L Carbon Dioxide (22-29) mmol/L Anion Gap (5-19) BUN (8-23) mg/dL Creatinine (0.5-0.9) mg/dL GFR Calculation Glucose (65-115) mg/dL Calculated Osmolal ity (285-295) mOsm/k g Lactic Acid (0.5-2.2) mmol/L Calcium (8.5-10.5) mg/dL Total Bilirubin (0.15-1.2) mg/dL AST (0-32) U/L ALT (0-33) U/L Alkaline Phosphata se (35-105) IU/L Creatine Kinase (26-192) U/L Troponin T Baselin e (0-10) ng/L Troponin T 120 Min [place] (0-10) ng/L Delta Troponin T (0-10) ABS# NT-Pro-B Natriuret Pep (0-450) pg/mL Total Protein (6.6-8.7) g/dL Albumin (3.5-5.2) g/dL Globulin (1.3-4.6) g/dL SARS-CoV-2 Ag (Rap id) Negative (Negative) Discharge Plan Discharge Patient Disposition: Admitted As Inpatient Admit Provider: Zoya Plaza Clinical Impression: COPD with acute exacerbation, Acute hyperkalemia, Chronic kidney disease Condition: Stable Coding Level of Care Code ED Acid Etch Operator for Chg Fwd Exam Comprehensive
[2021-06-05] MEDS: albuterol 8 gm MDI 2 PUFF INHALATION (15:26)
[2021-06-05 15:42] LABS: ABG PH Result 7.31 (7.35-7.45); Arterial Blood Gas Hematocrit 27.6 % (37-47); Blood Gas Operator Identificat GD; Blood Gas Sample Site Brachial, right; Blood Gas Sample Type Arterial; Carboxyhemoglobin 0.8 %THgb (0.4-20.1); HCO3 ABG 31.3 mmol/L (22-26); HGB O2 Sat 97.8 % (95-100); Oxygen Device NC
[2021-06-05 15:43] LABS: ABG PCO2 62.2 mmHg (35-45)
--- NOTE | 2021-06-05 16:08 | ECG_ITS ---
[facility] Test Date: 2021-06-05 Pat Name: Velasquez Montano Department: Room: Gender: Female Certified Fire Investigator: : 1940 Requested By: Teddy Brock Order Number: [id number] Caroline MD: Vicky Ness M.D. Measurements Intervals [place] Rate: 60 P: -26 ND: 153 QRS: 58 QRSD: 82 T: 68 QT: 432 QTc: 434 Interpretive Statements SINUS RHYTHM Compared to ECG 10/13/2020 18:52:47 Sinus arrhythmia no longer present Electronically Signed On 06-05-2021 22:19:36 CDT by Vicky Ness M.D. [id number]
[2021-06-05 16:30] LABS: Basophils % 0.3 %; Eosinophils # 0.2 10^3/uL (0.0-0.8); Hematocrit 29.5 % (37.0-47.0); Hemoglobin 8.8 g/dL (11.5-15.3); Lymphocytes # 2.6 10^3/uL (0.8-4.8); Lymphocytes % 33.9 %; Mean Corpuscular HGB Conc 29.8 g/dL (30.0-36.0); Mean Corpuscular Hemoglobin 33.1 pg (28.0-34.0); Mean Corpuscular Volume 110.9 fL (81-99); Mean Platelet Volume 10.4 fL (7.4-10.4); Monocytes # 0.7 10^3/uL (0.2-0.9); Monocytes % 9.8 %; Neutrophils # 4.04 10^3/uL (1.8-7.7); Neutrophils % 53.7 %; Nucleated Red Blood Cells % 0 %; Platelet Count 167 10^3/cmm (130-400); Red Blood Count 2.66 10^6/uL (4.1-5.3); Red Cell Distribution Width 14.1 % (12.1-15.1); White Blood Count 7.5 10^3/uL (4.0-10.0)
[2021-06-05 16:54] LABS: Lactic Sepsis W/Reflex 1.4 mmol/L (0.5-2.2)
[2021-06-05 16:59] LABS: Alanine Aminotransferase < 5 U/L (0-33); Albumin Level 3.4 g/dL (3.5-5.2); Alkaline Phosphatase 72 IU/L (35-105); Anion Gap 12.8 (5-19); Aspartate Amino Transferase 9 U/L (0-32); Blood Urea Nitrogen 28 mg/dL (8-23); Calcium 9.3 mg/dL (8.5-10.5); Carbon Dioxide 31 mmol/L (22-29); Chloride 108 mmol/L (98-107); Creatine Phosphokinase 30 U/L (26-192); Glucose 94 mg/dL (65-115); NT Pro B Type Natriuretic Pept 814 pg/mL (0-450); Osmolality Calculated 307 mOsm/kg (285-295); Potassium 5.8 mmol/L (3.5-5.1); Sodium 146 mmol/L (136-145); Total Bilirubin 0.2 mg/dL (0.15-1.2); Total Protein 5.4 g/dL (6.6-8.7)
[2021-06-05 17:06] LABS: Troponin(5th) Baseline 69 ng/L (0-10)
[2021-06-05 18:40] LABS: Troponin 5 2HR 68.73 ng/L (0-10)
[2021-06-05 18:48] LABS: Troponin 5 2HR Delta -0.27 ABS# (0-10)
[2021-06-05 18:59] LABS: SARS Covid-2 Antigen Negative (Negative)
[2021-06-05 20:36] LABS: Add Urine Microscopic? YES; Bilirubin Urine Neg (Negative); Blood Urine 2+ (Negative); Glucose Urine UA Norm (Normal); Ketones Urine Negative (Negative); Leukocyte Esterase Urine Trace (Negative); Nitrate Urine Negative (Negative); Protein Urine 1+ (Negative); Specific Gravity, Urine 1.005 (1.005-1.030); Urine Appearance SL Hazy (CLEAR); Urine Color Yellow (Yellow); Urobilinogen Urine Norm (Negative); pH Urine 7 (5-7)
[2021-06-05 20:37] LABS: Add Urine Culture? Yes; Amorphous Sediment Urine 1+ /hpf; Bacteria Urine 3+ /hpf; Hyaline Casts Urine 0-4 /lpf; WBC Urine 55-80 /hpf (0-5)
[2021-06-05 22:45] LABS: Troponin 5 6HR 57.92 ng/L (0-10)
[2021-06-05 22:46] LABS: Troponin 5 6HR Delta -11.08 ng/L (0-12)
--- NOTE | 2021-06-05 23:49 | P.HP_ITS ---
Providers/Chief Complaint Admitting Physician: Zoya Plaza MD Primary Care Provider: Dunia Rowan MD Chief Complaint: AMS History of Present Illness Velasquez Montano is a 81 year old female presenting today from the local correction, reportedly being sent for mild confusion noted over the last 24 to 48 hours. Patient states she is just not feeling right. Her past medical history as outlined below. Upon presentation to the ER she was noted to have hypercapnic respiratory failure, patient has known COPD, at a baseline is on 2 L/min oxygen via nasal cannula. UA positive for leuk esterase, 55-80 WBCs and 3+ bacteria. She is status post Covid infection in October 2020. Covid antigen is currently negative. CT head was unremarkable. CT chest showed bronchiolitis, likely old changes. Cr is at baseline 2.0. Na with hypernatremia at 146, hyperkalemia with K at 5.8. Review of Systems General: Reports: 10 or more systems reviewed and unremarkable except in HPI and below Const: Denies: fever(s), chills or body aches Eyes: Denies: change in vision, blurry vision or photophobia ENMT: Reports: hoarseness; Denies: throat pain, enlarged tonsils, odynophagia or nasal congestion Card: Denies: chest pain, palpitations, irregular heart rhythm, edema, swelling of feet/ankles, lightheadedness, pre-syncope, dyspnea on exertion or orthopnea Resp: Denies: dyspnea, productive cough, non-productive cough, wheezing, stridor, pain on inspiration, change in phlegm color, hemoptysis or chest congestion GI: Denies: abdominal pain, nausea, vomiting, hematemesis, coffee ground emesis, dysphagia, heartburn, diarrhea, constipation, GI cramping, change in stool character, hematochezia or melena : Denies: flank pain, difficulty voiding, dysuria, urinary frequency, urinary urgency, urinary hesitancy or hematuria Musc: Denies: neck pain, back pain, extremity pain, joint swelling, joint warmth or deformity Neuro: Denies: headache(s), numbness in extremities, weakness in extremities, sensory changes, difficulty walking, frequent falls, dizziness, vertigo, behavioral changes, Slurred speech present or seizure-like activity Psych: Denies: anxiety, depression, suicidal ideation or homicidal ideation Endo: Denies: polyuria, polydipsia, tired all the time, cold intolerance or hot flashes [place]/Lymph: Denies: easy bruising or easy bleeding Medications/Allergies Home Medications Medication Instructions Recorded Confirmed Last Taken Type allopurinol 100 mg PO DAILY@08 11/12/19 06/05/21 06/05/21 History divalproex 250 mg PO BID@08,11/12/19 06/05/21 06/05/21 History montelukast [Singulair] 10 mg PO DAILY@08 11/12/19 06/05/21 06/05/21 History levalbuterol tartrate [Xopenex HFA] 1 puff INHALATION Q6H 08/29/20 06/05/21 06/05/21 History Enema Disposable 118 ml NM DAILY PRN 10/13/20 06/05/21 Unknown History Pro-Stat AWC See Rx Instructions .ROUTE .COMPLEX 10/13/20 06/05/21 06/05/21 History atorvastatin [Lipitor] 20 mg PO DAILY@20 10/13/20 06/05/21 06/04/21 History bisacodyl 10 mg NM DAILY PRN 10/13/20 06/05/21 Unknown History folic acid 1 mg PO BID@10/13/20 06/05/21 06/05/21 History polyethylene glycol 3350 [Miralax] 17 g PO DAILY PRN 10/13/20 06/05/21 Unknown History sennosides-docusate sodium 1 tab PO BID PRN 10/13/20 06/05/21 Unknown History [Senna-S] aspirin 81 mg PO DAILY #30 tab 10/24/20 06/05/21 06/05/21 Rx benzonatate 100 mg PO TID PRN #30 cap 10/24/20 06/05/21 Unknown Rx acetaminophen 650 mg PO Q6H PRN 06/05/21 06/05/21 Unknown History albuterol sulfate 2.5 mg INHALATION Q4H PRN 06/05/21 06/05/21 Unknown History budesonide [Pulmicort Flexhaler] 2 inh INHALATION BID@,06/05/21 06/05/21 06/05/21 History citalopram 20 mg PO DAILY@0800 06/05/21 06/05/21 06/05/21 History gabapentin 100 mg PO TID@08,14,20 06/05/21 06/05/21 06/05/21 History ipratropium-albuterol 3 ml INHALATION Q4H PRN 06/05/21 06/05/21 Unknown History ondansetron HCl [Zofran] 4 mg PO Q4H PRN 06/05/21 06/05/21 Unknown History Allergies Allergy/AdvReac Type Severity Reaction Status Date / Time albuterol Allergy restlessness, Verified 10/22/20 13:29 palpitations amoxicillin Allergy ALGY-Rash Verified 10/22/20 13:28 codeine Allergy ALGY-Rash Verified 10/13/20 17:13 Penicillins Allergy ALGY-Rash Verified 10/22/20 13:28 sulfamethoxazole Allergy Unknown Verified 10/13/20 17:13 [From Bactrim] trimethoprim [From Bactrim] Allergy Unknown Verified 10/13/20 17:13 PFSH Acute PFSH: Medical History Adenomatous polyp 2011 found on surveillance colonoscopy Bipolar 1 disorder, depressed Bipolar disorder Breast cancer Status post lumpectomy/radiation 1999 followed by adjuvant tamoxifen C. 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 Chronic fatigue CKD (chronic kidney disease) CKD (chronic kidney disease), stage IV COPD (chronic obstructive pulmonary disease) Oxygen dependent COPD (chronic obstructive pulmonary disease) DNR (do not resuscitate) Gout Hallucinations Did not tolerate Parkinson's medications in the past when this diagnosis was being entertained, discontinued hydrocodone, no organic etiology found Hypertension Mastoiditis Right-sided mastoiditis, present on MRI 2015 as well Porencephalic cyst Temporal lobe Senile dementia Daughter has requested that dementia should not be mentioned to her mother be cause of risk of worsening of her depression considering bipolar disorder Sleep apnea Surgical History History of low anterior resection of rectum Family History Other Family history non-contributory Social History Smoking and tobacco status: former smoker Alcohol intake: never Household members: family Housing: House Vitals/I&O/Wt Last Vital Signs Temp 98.0 F 06/05/21 23:35 Pulse 62 06/05/21 23:35 Resp 16 06/05/21 23:35 BP 142/66 06/05/21 23:35 Pulse Ox 100 06/05/21 23:35 Weight last 48 hrs Weight 63.503 kg Physical Exam Narrative: EXAM NARRATIVE: General: No acute distress, AO x2, needs frequent redirection HEENT: PERRLA, pupils bilaterally equal and reactive, pallors not present Chest: Normal vesicular breath sounds, no added sounds, equal good air entry bilaterally CVS: S1-S2 regular, no murmurs, no tachycardia, no gallops, no rubs Abdomen: Soft, nontender, no organomegaly, bowel sounds present Neuro: No focal deficits, no facial deformity, AO x3, power 5/5 in all limbs Extremities: B/L LE pitting edema Data : 06/05/21 16:17 06/05/21 16:17 Micro: Microbiology 06/05/21 17:48 Blood Culture - Preliminary Blood SPECIMEN COLLECTED 06/05/21 16:17 Blood Culture - Preliminary Blood SPECIMEN COLLECTED A&P Assessment and plan (1) Confusion: multifactorial, likely related to hypercapnea, hypernatremia, and UTI Status: Acute (2) COPD with acute exacerbation: Duonebs every 4 hrs scheduled, budesonide scheduled inhalation Bipap as needed Prednisone 40mg po daily No gross consolidation on CT chest Rpt ABG in am Status: Acute (3) Acute hyperkalemia: insulin dextrose Rpt K Status: Acute (4) Chronic kidney disease: Cr at baseline currently Status: Acute Qualifiers: Chronic kidney disease stage: unspecified stage Qualified Code(s): N18.9 - Chronic kidney disease, unspecified (5) Hypercapnic respiratory failure: related to COPD, as above BIpap prn Status: Acute Qualifiers: Chronicity: acute on chronic Qualified Code(s): J96.22 - Acute and chronic respiratory failure with hypercapnia (6) Hypernatremia: Na 146, start 1/2 NS @ 50 cc/hr careful hydration given LE swelling Last echo from 08/2020 with LVEF 70% and normal diastolic function Status: Acute (7) UTI (urinary tract infection): ceftriaxone empirically check urine culture Status: Acute Qualifiers: Urinary tract infection type: acute cystitis Hematuria presence: without hematuria Qualified Code(s): N30.00 - Acute cystitis without hematuria Additional A&P Information DVT ppx: lovenox Attestations Medical Necessity Statement*: >2midnight anticipated for management of AMS, hypercapneic resp failure and iv abx for UTI Coding Level of Care Code 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
[2021-06-06] VITALS (14 sets, daily range): BP systolic 116–150; BP diastolic 50–72; PULSE 56–82; RESP 16–18; TEMP 36.4–37.1; O2SAT 95–100
[2021-06-06 01:33] LABS: Glucose Point of Care 154 mg/dL (70-110)
[2021-06-06] MEDS: cefTRIAXone 1,000 MG in sodium chloride 0.9% (plus) 50 ML 100 MG IV (01:43)
[2021-06-06] MEDS: sodium chloride 0.45% 1,000 ML 50 ML IV ×2 (01:43→22:46)
[2021-06-06] MEDS: enoxaparin 30 mg/0.3 mL Syringe SUBCUT (01:44)
[2021-06-06] MEDS: dextrose 50% syringe 50 mL IVP ×2 (01:57→14:47)
[2021-06-06] MEDS: insulin regular-human 10 UNIT in SYRINGE 1 EACH IVP ×2 (01:59→14:48)
[2021-06-06] MEDS: ipratropium-albuterol 3 mL Neb INHALATION ×4 (04:09→21:18)
[2021-06-06 06:04] LABS: Alanine Aminotransferase < 5 U/L (0-33); Albumin Level 3.3 g/dL (3.5-5.2); Alkaline Phosphatase 76 IU/L (35-105); Anion Gap 14.7 (5-19); Aspartate Amino Transferase 10 U/L (0-32); Blood Urea Nitrogen 29 mg/dL (8-23); Calcium 9.4 mg/dL (8.5-10.5); Carbon Dioxide 28 mmol/L (22-29); Chloride 107 mmol/L (98-107); Globulin 2.2 g/dL (1.3-4.6); Glucose 122 mg/dL (65-115); Osmolality Calculated 305 mOsm/kg (285-295); Potassium 5.7 mmol/L (3.5-5.1); Sodium 144 mmol/L (136-145); Total Bilirubin 0.2 mg/dL (0.15-1.2); Total Protein 5.5 g/dL (6.6-8.7)
[2021-06-06] MEDS: budesonide 0.5 mg/2 mL Neb INHALATION ×2 (07:54→21:19)
--- NOTE | 2021-06-06 09:37 | PC.NURSE ---
redness to buttock and heals. notified Care Nurse BO Bennett.
[2021-06-06] MEDS: montelukast sodium 10 mg Tablet PO (10:08)
[2021-06-06] MEDS: allopurinol 100 mg Tablet PO (10:08)
[2021-06-06] MEDS: citalopram 20 mg Tablet PO (10:08)
[2021-06-06] MEDS: pantoprazole DR 40 mg Tablet PO (10:08)
[2021-06-06] MEDS: aspirin 81 mg EC Tablet PO (10:08)
[2021-06-06] MEDS: divalproex DR 250 mg Tablet PO ×2 (10:08→22:46)
[2021-06-06] MEDS: gabapentin 100 mg Capsule PO ×3 (10:08→22:46)
[2021-06-06] MEDS: folic acid 1 mg Tablet PO ×2 (10:09→22:46)
--- NOTE | 2021-06-06 10:12 | PC.CHAP ---
Pastoral Care Encounter/Spiritual Assessment Type of Contact [] Declined commercial specialist visit [] Patient/Family/Request visit [] Outpatient visit [] Follow-up visit [] Physician referral [] Code/Alert [x] Routine visit [] Staff referral [] Actively dying [] Patient sleeping [] Family support [] [] Out of room [] Palliative care [] [] Receiving care in room [] Pre-surgical visit [] Trauma [] Long length of stay [] ICU visit [] Other: Relational/Emotional Strength [x] Patient feels connected with others/family/visitors/staff [] Distress [] Loneliness/isolation [] Abandonment Spirituality of Patient [x] Person of Brandy [] Attends Gnosticism of their Brandy [] Believes in Prayer [] Reads Bible or Bahai materials [] There are Spiritual issues to be addressed Transfer Operator Interventions [x] Prayer [x] Active listening [x] Non-anxious presence [] Spiritual/emotional support [] Crisis/trauma care [x] Spiritual counseling [] Bereavement support [] Provided bereavement packet [] Provided Bible/devotional materials [] Provided toy/stuffed animal, coloring book to patient or family member [] Provided Communion [] Anointing/[place] [] Salvation [x] Completed spiritual assessment [] Other: Impact on Illness or Injury [] Angry [] Fearful [] Anxious [x] Often cries [] Exhaustion [] Unable to work [] Unable to attend presybeterian [] Unable to walk/stand [] Unable to read [] Unable to drive [] Unable to eat/drink [] Unable to sleep [] Unable to be with family [] Patient intubated [] Other: Summary patient very lonely Time spent with patient 15 min
[2021-06-06] MEDS: diclofenac 1% Topical Gel 100 gm 1 APPLIC TOPICAL ×2 (14:49→22:47)
--- NOTE | 2021-06-06 18:21 | P.PN_ITS ---
Subjective Subjective: Interval history: Reviewed overnight. No acute events overnight. Patient has remained hemodynamically stable and afebrile. Today morning examination patient on 2 L oxygen's oxygen supplementation saturating 99%. She is awake, alert able to have complete conversation. Denies any nausea vomiting, headache. Complaining of pain in left knee. States she thinks she bumped her knee but not sure where. Vitals/I&O/Wt Last Vital Signs Temp 98.8 F 06/06/21 16:00 Pulse 70 06/06/21 16:00 Resp 17 06/06/21 16:00 BP 124/63 06/06/21 16:00 Pulse Ox 99 06/06/21 16:00 06/06/21 06/06/21 06/06/21 06:59 14:59 22:59 Intake Total 50.1 / 50.1 240.1 / 240.1 Balance 50.1 / 50.1 240.1 / 240.1 Weight last 48 hrs Weight 63.503 kg Physical Exam Narrative: EXAM NARRATIVE: General: No acute distress, AO x2, HEENT: PERRLA, pupils bilaterally equal and reactive, pallors not present Chest: Normal vesicular breath sounds, no added sounds, equal good air entry bilaterally CVS: S1-S2 regular, no murmurs, no tachycardia, no gallops, no rubs Abdomen: Soft, nontender, no organomegaly, bowel sounds present Neuro: No focal deficits, no facial deformity, AO x3, power 5/5 in all limbs Extremities: B/L LE pitting edema Data : 06/05/21 16:17 06/06/21 05:26 Micro: Microbiology 06/05/21 17:48 Blood Culture - Preliminary Blood NEGATIVE TO DATE 06/05/21 16:17 Blood Culture - Preliminary Blood NEGATIVE TO DATE A&P Assessment and plan (1) Confusion: Resolving. Most likely multifactorial, secondary to hyponatremia, UTI. Hypercapnia has resolved. Status: Acute (2) Hypernatremia: Sodium level improving. Currently 144 Repeat BMP in evening. Continue with half NS at 50 cc/h. careful hydration given LE swelling Last echo from 08/2020 with LVEF 70% and normal diastolic function Status: Acute (3) UTI (urinary tract infection): Urine culture pending. For now continue with ceftriaxone empirically. Blood culture preliminary negative. Will monitor for urine culture and sensitivity results and change antibiotics accordingly. Status: Acute Qualifiers: Urinary tract infection type: acute cystitis Hematuria presence: without hematuria Qualified Code(s): N30.00 - Acute cystitis without hematuria (4) Hypercapnic respiratory failure: related to COPD, as above BIpap prn Status: Acute Qualifiers: Chronicity: acute on chronic Qualified Code(s): J96.22 - Acute and chronic respiratory failure with hypercapnia (5) COPD with acute exacerbation: Duonebs every 6 hrs scheduled, budesonide scheduled inhalation Bipap as needed Prednisone 40mg po daily No gross consolidation on CT chest Rpt ABG in am Status: Acute (6) Acute hyperkalemia: Insulin 10 units or 50 cc dextrose 5% Rpt K in the evening at 6 PM. Status: Acute (7) Chronic kidney disease: Cr at baseline currently. Medical reconciliation done for nephrotoxic drugs. Monitor BMP daily. Status: Acute Qualifiers: Chronic kidney disease stage: unspecified stage Qualified Code(s): N 18.9 - Chronic kidney disease, unspecified Additional A&P Information DVT ppx: lovenox Allow natural Cardiac diet. Attestations Medical Necessity Statement*: Patient requires further hospitalization for management of altered mental status secondary to UTI, hypernatremia requiring IV fluids Time Spent in Patient Care: Greater than 35 minutes (>than 50% of time spent in counselling and/or direct pt care on unit) . Coding Level of Care Code Acute Information Services Consultant for g Fwd Diagnoses Confusion R41.0 Hypernatremia E87.0 UTI (urinary tract infection) N30.00 Urinary tract infection type: acute cystitis Hematuria presence: without hematuria Hypercapnic respiratory failure J96.22 Chronicity: acute on chronic COPD with acute exacerbation J44.1 Acute hyperkalemia E87.5 Chronic kidney disease N18.9 Chronic kidney disease stage: unspecified stage
--- NOTE | 2021-06-06 18:22 | XR_ITS ---
WS: [id number] XR knee LT 1-2V 10011 REASON FOR EXAM: pain FINDINGS: Mild narrowing in all 3 knee joint spaces. The narrowing is most significant in the patellofemoral jonatan int space. Bone density unremarkable. No focal bone lesion. No soft tissue abnormality. XR/XR knee LT 1-2V 77453 IMPRESSION: Mild changes of osteoarthritis considering age.
[2021-06-06 20:50] LABS: Blood Urea Nitrogen 34 mg/dL (8-23); Carbon Dioxide 25 mmol/L (22-29); Chloride 106 mmol/L (98-107); Glucose 110 mg/dL (65-115); Osmolality Calculated 296 mOsm/kg (285-295); Sodium 139 mmol/L (136-145)
[2021-06-06 20:51] LABS: Anion Gap 13.8 (5-19); Potassium 5.8 mmol/L (3.5-5.1)
[2021-06-06] MEDS: atorvastatin 40 mg Tablet 20 MG PO (22:45)
[2021-06-06] MEDS: vancomycin 1,000 MG in sodium chloride 0.9% 250 ML 250 MG IV (22:46)
[2021-06-07] VITALS (12 sets, daily range): BP systolic 116–137; BP diastolic 55–78; PULSE 62–112; RESP 16–18; TEMP 36.7–37.2; O2SAT 95–98
[2021-06-07] MEDS: enoxaparin 30 mg/0.3 mL Syringe SUBCUT ×2 (00:51→23:43)
[2021-06-07] MEDS: cefTRIAXone 1,000 MG in sodium chloride 0.9% (plus) 50 ML 100 MG IV ×2 (00:51→23:44)
[2021-06-07] MEDS: ipratropium-albuterol 3 mL Neb INHALATION ×2 (02:29→08:14)
[2021-06-07 06:40] LABS: Basophils % 0.3 %; Eosinophils % 0.3 %; Hematocrit 26.6 % (37.0-47.0); Hemoglobin 7.8 g/dL (11.5-15.3); Lymphocytes # 2.3 10^3/uL (0.8-4.8); Lymphocytes % 31.5 %; Mean Corpuscular HGB Conc 29.3 g/dL (30.0-36.0); Mean Platelet Volume 10.4 fL (7.4-10.4); Monocytes # 0.5 10^3/uL (0.2-0.9); Monocytes % 7.3 %; Neutrophils # 4.39 10^3/uL (1.8-7.7); Neutrophils % 60.3 %; Nucleated Red Blood Cells % 0 %; Platelet Count 170 10^3/cmm (130-400); Red Blood Count 2.44 10^6/uL (4.1-5.3); Red Cell Distribution Width 14.3 % (12.1-15.1); White Blood Count 7.3 10^3/uL (4.0-10.0)
--- NOTE | 2021-06-07 07:27 | PC.NURSE ---
06/06/21 2100 pt refused repeat blood cultures, this nurse educated pt importance of redrawing labs and pt continued to refuse. abx administered as ordered
[2021-06-07] MEDS: budesonide 0.5 mg/2 mL Neb INHALATION ×2 (08:15→20:35)
[2021-06-07 08:19] LABS: Alanine Aminotransferase < 5 U/L (0-33); Albumin Level 3.1 g/dL (3.5-5.2); Alkaline Phosphatase 70 IU/L (35-105); Anion Gap 12.7 (5-19); Aspartate Amino Transferase 7 U/L (0-32); Blood Urea Nitrogen 33 mg/dL (8-23); Calcium 9.3 mg/dL (8.5-10.5); Carbon Dioxide 27 mmol/L (22-29); Chloride 108 mmol/L (98-107); Globulin 2.4 g/dL (1.3-4.6); Glucose 79 mg/dL (65-115); Osmolality Calculated 302 mOsm/kg (285-295); Potassium 4.7 mmol/L (3.5-5.1); Sodium 143 mmol/L (136-145); Total Bilirubin 0.2 mg/dL (0.15-1.2); Total Protein 5.5 g/dL (6.6-8.7)
[2021-06-07] MEDS: aspirin 81 mg EC Tablet PO (11:10)
[2021-06-07] MEDS: montelukast sodium 10 mg Tablet PO (11:11)
[2021-06-07] MEDS: citalopram 20 mg Tablet PO (11:11)
[2021-06-07] MEDS: divalproex DR 250 mg Tablet PO ×2 (11:11→21:01)
[2021-06-07] MEDS: folic acid 1 mg Tablet PO ×2 (11:11→21:00)
[2021-06-07] MEDS: pantoprazole DR 40 mg Tablet PO (11:11)
[2021-06-07] MEDS: gabapentin 100 mg Capsule PO ×3 (11:11→21:00)
[2021-06-07] MEDS: allopurinol 100 mg Tablet PO (11:11)
[2021-06-07] MEDS: diclofenac 1% Topical Gel 100 gm 1 APPLIC TOPICAL ×4 (11:12→21:00)
[2021-06-07] MEDS: levalbuterol 0.63 mg/3 mL Neb INHALATION ×2 (14:32→20:35)
--- NOTE | 2021-06-07 16:50 | P.PN_ITS ---
Subjective Subjective: Interval history: No acute events overnight. Patient has remained hemodynamically stable and afebrile. Today morning examination lying comfortably in bed. Able to complete conversation. Sats are 96% on room air. States pain in the knee is better now. Vitals/I&O/Wt Last Vital Signs Temp 98.3 F 06/07/21 16:00 Pulse 73 06/07/21 16:00 Resp 18 06/07/21 16:00 BP 129/69 06/07/21 16:00 Pulse Ox 96 06/07/21 16:00 06/07/21 06/07/21 06/07/21 06:59 14:59 22:59 Intake Total 300 / 1780.1 320 / 320 700 / 1020 Balance 300 / 1780.1 320 / 320 700 / 1020 Physical Exam Narrative: EXAM NARRATIVE: General: No acute distress, AO x2, HEENT: PERRLA, pupils bilaterally equal and reactive, pallors not present Chest: Normal vesicular breath sounds, no added sounds, equal good air entry bilaterally CVS: S1-S2 regular, no murmurs, no tachycardia, no gallops, no rubs Abdomen: Soft, nontender, no organomegaly, bowel sounds present Neuro: No focal deficits, no facial deformity, AO x3, power 5/5 in all limbs Extremities: B/L LE pitting edema Data : 06/07/21 05:50 06/07/21 07:20 Micro: Microbiology 06/05/21 17:48 Blood Culture - Preliminary Blood 06/05/21 20:20 Urine Culture - Preliminary Urine,Clean Catch Gram Negative Rods 06/07/21 05:58 Blood Culture - Preliminary Blood SPECIMEN COLLECTED 06/07/21 05:50 Blood Culture - Preliminary Blood SPECIMEN COLLECTED 06/05/21 16:17 Blood Culture - Preliminary Blood NEGATIVE TO DATE A&P Assessment and plan (1) Confusion: Resolving. Most likely multifactorial, secondary to hyponatremia, UTI. Hypercapnia has resolved. Status: Acute (2) Hypernatremia: Sodium level improving. Currently 143 Repeat BMP daily for now. Continue with half NS at 50 cc/h. careful hydration given LE swelling Last echo from 08/2020 with LVEF 70% and normal diastolic function Status: Acute (3) UTI (urinary tract infection): Urine culture gram-negative rods. Speciation and sensitivity awaited. For now continue with ceftriaxone empirically. Status: Acute Qualifiers: Urinary tract infection type: acute cystitis Hematuria presence: without hematuria Qualified Code(s): N30.00 - Acute cystitis without hematuria (4) Hypercapnic respiratory failure: related to COPD, as above BIpap prn Status: Acute Qualifiers: Chronicity: acute on chronic Qualified Code(s): J96.22 - Acute and chronic respiratory failure with hypercapnia (5) COPD with acute exacerbation: Levalbuterol every 6 hours., Budesonide twice daily. Spiriva daily. Bipap as needed Prednisone 40mg po daily No gross consolidation on CT chest Status: Acute (6) Acute hyperkalemia: Resolved. Status: Acute (7) Chronic kidney disease: Cr at baseline currently. Medical reconciliation done for nephrotoxic drugs. Monitor BMP daily. Status: Acute Qualifiers: Chronic kidney disease stage: unspecified stage Qualified Code(s): N18.9 - Chronic kidney disease, unspecified Additional A&P Information Blood cultures from admission 1-3 bottles positive for GPC. Most likely contaminant. Repeat blood cultures have been sent. Patient has remained hemodynamically stable afebrile on ceftriaxone. Patient given 1 dose of vancomycin yesterday. For now we will hold off on further vancomycin. Anemia: Chronic. Hemoglobin baseline. Check iron panel, vitamin B12, folate levels. DVT ppx: lovenox Allow natural Cardiac diet. Attestations Medical Necessity Statement*: Further hospitalization for management of hypernatremia, UTI, COPD exacerbation. Time Spent in Patient Care: Greater than 35 minutes (>than 50% of time s pent in counselling and/or direct pt care on unit) . 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
[2021-06-07 19:50] LABS: Iron 76 ug/dL (37-145); Total Iron Binding Capacity 223 mcg/dl; Unsaturated Iron Binding 147 ug/dL (112-347); Vitamin B12 626 pg/mL (232-1245)
[2021-06-07] MEDS: atorvastatin 40 mg Tablet 20 MG PO (21:00)
[2021-06-07 21:37] LABS: Folate Level > 20.0 ng/mL (4.8-37.3)
[2021-06-08] VITALS (10 sets, daily range): BP systolic 124–170; BP diastolic 64–72; PULSE 67–78; RESP 16–18; TEMP 36.7–37; O2SAT 96–97
[2021-06-08] MEDS: levalbuterol 0.63 mg/3 mL Neb INHALATION ×3 (02:08→14:07)
--- NOTE | 2021-06-08 05:50 | PC.NURSE ---
SHIFT SUMMARY Has done well tonight. No resp distress noted. O2 has remained at 1l per NC. Has confusion but is cooperative with care. Incont of urine with depends changed. Has been assisted with repositioning as well.
[2021-06-08 05:52] LABS: Alanine Aminotransferase < 5 U/L (0-33); Albumin Level 2.9 g/dL (3.5-5.2); Alkaline Phosphatase 64 IU/L (35-105); Aspartate Amino Transferase 9 U/L (0-32); Blood Urea Nitrogen 31 mg/dL (8-23); Calcium 9.1 mg/dL (8.5-10.5); Carbon Dioxide 27 mmol/L (22-29); Chloride 108 mmol/L (98-107); Globulin 2.3 g/dL (1.3-4.6); Glucose 79 mg/dL (65-115); Osmolality Calculated 297 mOsm/kg (285-295); Sodium 141 mmol/L (136-145); Total Bilirubin 0.2 mg/dL (0.15-1.2); Total Protein 5.2 g/dL (6.6-8.7)
[2021-06-08] MEDS: budesonide 0.5 mg/2 mL Neb INHALATION (09:00)
[2021-06-08] MEDS: allopurinol 100 mg Tablet PO (09:41)
[2021-06-08] MEDS: citalopram 20 mg Tablet PO (09:41)
[2021-06-08] MEDS: folic acid 1 mg Tablet PO (09:41)
[2021-06-08] MEDS: gabapentin 100 mg Capsule PO (09:41)
[2021-06-08] MEDS: divalproex DR 250 mg Tablet PO (09:41)
[2021-06-08] MEDS: aspirin 81 mg EC Tablet PO (09:42)
[2021-06-08] MEDS: predniSONE 20 mg Tablet PO (09:42)
[2021-06-08] MEDS: montelukast sodium 10 mg Tablet PO (09:42)
[2021-06-08] MEDS: lidocaine 5% Patch 1 PATCH TOPICAL (09:42)
[2021-06-08] MEDS: pantoprazole DR 40 mg Tablet PO (09:42)
[2021-06-08] MEDS: diclofenac 1% Topical Gel 100 gm 1 APPLIC TOPICAL (10:13)
--- NOTE | 2021-06-08 11:45 | P.DS_ITS ---
Discharge Providers Date of Admission: 06/05/21 19:49 Date of Discharge: June 08, 2021 Attending Provider at Admission: Zoya Plaza MD Attending Provider at Discharge: Kamaljit Jacobsen MD Primary Care Provider: Dunia Rowan MD Diagnoses at Discharge Discharge Diagnosis (1) Confusion: Status: Acute (2) Hypernatremia: Status: Acute (3) UTI (urinary tract infection): Status: Acute Qualifiers: Urinary tract infection type: acute cystitis Hematuria presence: without hematuria Qualified Code(s): N30.00 - Acute cystitis without hematuria (4) Hypercapnic respiratory failure: Status: Acute Qualifiers: Chronicity: acute on chronic Qualified Code(s): J96.22 - Acute and chronic respiratory failure with hypercapnia (5) COPD with acute exacerbation: Status: Acute (6) Acute hyperkalemia: Status: Acute (7) Chronic kidney disease: Status: Acute Qualifiers: Chronic kidney disease stage: unspecified stage Qualified Code(s): N18.9 - Chronic kidney disease, unspecified Reason for Visit Reason for Visit: [facility] Hospital Course Hospital Course Velasquez Montano is a 81 year old female presenting [facility] local [facility], reportedly being sent for mild confusion noted over the last 24 to 48 hours. Patient states she is just not feeling right. Her past medical history as outlined below. Upon presentation to the ER she was noted to have hypercapnic respiratory failure, patient has known COPD, at a baseline is on 2 L/min oxygen via nasal cannula. UA positive for leuk esterase, 55-80 WBCs and 3+ bacteria. She is status post Covid infection in October 2020. Covid antigen is currently negative. CT head was unremarkable. CT chest showed bronchiolitis, likely old changes. Cr is at baseline 2.0. Na with hypernatremia at 146, hyperkalemia with K at 5.8. Patient admitted to hospital for management of altered mental status most likely secondary to UTI causing dehydration and hypernatremia. She was treated with IV hydration to which she responded well at sodium levels came down appropriately. She is B[place] on broad-spectrum antibiotics and urine culture eventually grew Proteus mirabilis. She was started on elation treatment with steroid for COPD exacerbation. Her hospital stay was otherwise unremarkable. She has been discharged hemodynamically stable condition with advised to take levofloxacin for 5 more days to finish a course of antibiotics for UTI and oral steroids for 3 more days for COPD exacerbation. Patient has been encouraged in detail to make sure she maintains her oral hydration well. During hospitalization patient hemoglobin remained stable. Physical Exam Narrative: EXAM NARRATIVE: General: No acute distress, AO x2, HEENT: PERRLA, pupils bilaterally equal and reactive, pallors not present Chest: Normal vesicular breath sounds, no added sounds, equal good air entry bilaterally CVS: S1-S2 regular, no murmurs, no tachycardia, no gallops, no rubs Abdomen: Soft, nontender, no organomegaly, bowel sounds present Neuro: No focal deficits, no facial deformity, AO x3, power 5/5 in all limbs Extremities: B/L LE pitting edema Discharge Data Data Completed and Pending: Completed Studies During Hospitalization Category Date Time Status CT chest wo con 7 1250 Urgent Cat Scan 06/05/21 14:[address] head wo con* 7 0450 Urgent Cat Scan 06/05/21 14:05 Completed XR chest 1V ludin ble [id number] Urgent Exams 06/05/21 14:05 Completed XR knee LT 1-2V 7 3560 Routine Exams 06/06/21 18:22 Completed Pending at discharge Category Date Time Status Blood Culture Sta t Lab 06/05/21 16:17 Results Blood Culture Sta t Lab 06/06/21 20:03 Results Labs from last 24 hours 06/08/21 06/07/21 06/07/21 05:08 07:20 07:20 Sodium 141 Potassium 5.0 Chloride 108 H Carbon Dioxide 27 Anion Gap 11.0 BUN 31 H Creatinine 2.1 H GFR Calculation Not Reportable Glucose 79 Calculated Osmolal ity 297 H Calcium 9.1 Iron 76 TIBC 223 % Saturation 34.0 Unsat Iron Binding 147 Total Bilirubin 0.2 AST 9 ALT < 5 Alkaline Phosphata se 64 Total Protein 5.2 L Albumin 2.9 L Globulin 2.3 Vitamin B12 626 Folate > 20.0 Addt'l Data from Hospital Stay: Laboratory Results WBC 7.3 10^3/uL (4.0- 10.0) 06/07/21 05:50 RBC 2.44 10^6/uL (4.1 -5.3) L 06/07/21 05:50 Hgb 7.8 g/dL (11.5-15 .3) L 06/07/21 05:50 Hct 26.6 % (37.0-47.0 ) L 06/07/21 05:50 MCV 109.0 fL (81-99) H 06/07/21 05:50 MCH 32.0 pg (28.0-34. 0) 06/07/21 05:50 MCHC 29.3 g/dL (30.0-3 6.0) L 06/07/21 05:50 RDW 14.3 % (12.1-15.1 ) 06/07/21 05:50 Plt Count 170 10^3/cmm (130 -400) 06/07/21 05:50 MPV 10.4 fL (7.4-10.4 ) 06/07/21 05:50 Neut % (Auto) 60.3 % 06/07/21 05:50 Lymph % (Auto) 31.5 % 06/07/21 05:50 [place] % (Auto) 7.3 % 06/07/21 05:50 Eos % (Auto) 0.3 % 06/07/21 05:50 Baso % (Auto) 0.3 % 06/07/21 05:50 Neut # (Auto) 4.39 10^3/uL (1.8 -7.7) 06/07/21 05:50 Lymph # (Auto) 2.3 10^3/uL (0.8- 4.8) 06/07/21 05:50 [place] # (Auto) 0.5 10^3/uL (0.2- 0.9) 06/07/21 05:50 Eos # (Auto) 0.0 10^3/uL (0.0- 0.8) 06/07/21 05:50 Baso # (Auto) 0.0 10^3/uL (0.0- 0.1) 06/07/21 05:50 Nucleated RBC % (a uto) 0 % 06/07/21 05:50 Nucleated RBCs # 0.0 /100WBC 06/07/21 05:50 Specimen Type Arterial 06/05/21 15:23 Sample Site Brachial, right 06/05/21 15:23 ABG pH 7.31 (7.35-7.45) L 06/05/21 15:23 ABG pCO2 62.2 mmHg (35-45) H* 06/05/21 15:23 ABG pO2 159.0 mmHg (80.0- 100.0) H 06/05/21 15:23 ABG HCO3 31.3 mmol/L (22-2 6) H 06/05/21 15:23 ABG Base Excess 4.0 mmol/L (-2.0- 2.0) H 06/05/21 15:23 Teja Test N/a 06/05/21 15:23 Hematocrit 27.6 % (37-47) L 06/05/21 15:23 Hgb O2 Saturation 97.8 % (95-100) 06/05/21 15:23 Carboxyhemoglobin 0.8 %THgb (0.4-20 .1) 06/05/21 15:23 Methemoglobin 1.0 % (0.4-1.5) 06/05/21 15:23 Total Hemoglobin 9.0 g/dL (12-16) L 06/05/21 15:23 O2 Delivery Device Nc 06/05/21 15:23 O2 Liters/Min 3.0 % 06/05/21 15:23 FiO2 32.0 % 06/05/21 15:23 Derrick Car Operator ID Gd 06/05/21 15:23 Sodium 141 mmol/L (136-1 45) 06/08/21 05:08 Potassium 5.0 mmol/L (3.5-5 .1) 06/08/21 05:08 Chloride 108 mmol/L (98-10 7) H 06/08/21 05:08 Carbon Dioxide 27 mmol/L (22-29) 06/08/21 05:08 Anion Gap 11.0 (5-19) 06/08/21 05:08 BUN 31 mg/dL (8-23) H 06/08/21 05:08 Creatinine 2.1 mg/dL (0.5-0. 9) H 06/08/21 05:08 GFR Calculation Not Reportable 06/08/21 05:08 Glucose 79 mg/dL (65-115) 06/08/21 05:08 POC Glucose 154 mg/dL (70-110 ) H 06/06/21 01:29 Calculated Osmolal ity 297 mOsm/kg (285- 295) H 06/08/21 05:08 Lactic Acid 1.4 mmol/L (0.5-2 .2) 06/05/21 16:17 Calcium 9.1 mg/dL (8.5-10 .5) 06/08/21 05:08 Iron 76 ug/dL (37-145) 06/07/21 07:20 TIBC 223 mcg/dl 06/07/21 07:20 % Saturation 34.0 % (20-50) 06/07/21 07:20 Unsat Iron Binding 147 ug/dL (112-34 7) 06/07/21 07:20 Total Bilirubin 0.2 mg/dL (0.15-1 .2) 06/08/21 05:08 AST 9 U/L (0-32) 06/08/21 05:08 ALT < 5 U/L (0-33) 06/08/21 05:08 Alkaline Phosphata se 64 IU/L (35-105) 06/08/21 05:08 Creatine Kinase 30 U/L (26-192) 06/05/21 16:17 Troponin T Baselin e 69 ng/L (0-10) H 06/05/21 16:17 Troponin T 120 Min [place] 68.73 ng/L (0-10) H 06/05/21 18:10 Delta Troponin T -0.27 ABS# (0-10) L 06/05/21 18:10 Troponin T Hi Sens 6Hr 57.92 ng/L (0-10) H 06/05/21 22:19 Troponin T Hi Sens 6Hr Delta -11.08 ng/L (0-12 ) L 06/05/21 22:19 NT-Pro-B Natriuret Pep 814 pg/mL (0-450) H 06/05/21 16:17 Total Protein 5.2 g/dL (6.6-8.7 ) L 06/08/21 05:08 Albumin 2.9 g/dL (3.5-5.2 ) L 06/08/21 05:08 Globulin 2.3 g/dL (1.3-4.6 ) 06/08/21 05:08 Vitamin B12 626 pg/mL (232-12 45) 06/07/21 07:20 Folate > 20.0 ng/mL (4.8 -37.3) 06/07/21 07:20 Urine Color Yellow (Yellow) 06/05/21 20:20 Urine Appearance Sl hazy (CLEAR) 06/05/21 20:20 Urine pH 7 (5-7) 06/05/21 20:20 Ur Specific Gravit y 1.005 (1.005-1.0 30) 06/05/21 20:20 Urine Protein 1+ (Negative) H 06/05/21 20:20 Urine Glucose (UA) Norm (Normal) 06/05/21 20:20 Urine Ketones Negative (Negati ve) 06/05/21 20:20 Urine Blood 2+ (Negative) H 06/05/21 20:20 Urine Nitrate Negative (Negati ve) 06/05/21 20:20 Urine Bilirubin Neg (Negative) 06/05/21 20:20 Urine Urobilinogen Norm mg/dL (Negat jonathan) 06/05/21 20:20 Ur Leukocyte Myrna ase Trace (Negative) H 06/05/21 20:20 Urine RBC 5-10 /hpf (0-2) H 06/05/21 20:20 Urine WBC 55-80 /hpf (0-5) H 06/05/21 20:20 Ur Squamous Epith Cells 5-10 /hpf (0-5) H 06/05/21 20:20 Amorphous Sediment 1+ /hpf 06/05/21 20:20 Urine Bacteria 3+ /hpf (NONE) H 06/05/21 20:20 Hyaline Casts 0-4 /lpf H 06/05/21 20:20 SARS-CoV-2 Ag (Rap id) Negative (Negati ve) 06/05/21 18:29 Impressions Chest X-Ray 06/05/21 14:05 IMPRESSION: No acute chest abnormality. Chest unchanged compared to 10/23/2020. Head CT 06/05/21 14:05 IMPRESSION: Changes of the aging brain with no acute intracranial abnormality. Chest CT 06/05/21 14:28 IMPRESSION: Inflammatory process which appears to be centered around small airways, bronchiolitis/alveolitis. The chronicity of this is unknown. The pattern of infiltrative abnormality is not suggestive of Covid. Knee X-Ray 06/06/21 18:22 IMPRESSION: Mild changes of osteoarthritis considering age. Microbiology 06/05/21 17:48 Blood Blood Culture - Preliminary Coagulase negativ staphylococc 06/05/21 20:20 Urine,Clean Catch Urine Culture - Final Proteus mirabilis esbl 06/07/21 21:35 Nose MRSA Culture - Final 06/07/21 05:58 Blood Blood Culture - Preliminary NEGATIVE TO DATE 06/07/21 05:50 Blood Blood Culture - Preliminary NEGATIVE TO DATE 06/05/21 16:17 Blood Blood Culture - Preliminary NEGATIVE TO DATE Vitals: Last Vital Signs Temp 98.6 F 06/08/21 07:53 Pulse 71 06/08/21 09:09 Resp 18 06/08/21 09:00 BP 170/68 06/08/21 07:53 Pulse Ox 97 06/08/21 09:00 Discharge Plan Discharge Patient Disposition: Xfer [facility] Condition: Stable Prescriptions: New prednisone 20 mg Tablet 20 mg PO DAILY Qty: 5 RF: 0 levofloxacin 500 mg tablet 500 mg PO Q48H 5 Days Qty: 3 RF: 0 pantoprazole 40 mg Tablet,Delayed Release (Dr/Ec) 40 mg PO DAILY 15 Days Qty: 15 RF: 0 Continued levalbuterol tartrate [Xopenex HFA] 45 mcg/actuation Hfa Aerosol Inhaler 1 puff INHALATION Q6H RF: 0 Zofran 4 mg Tablet 4 mg PO Q4H PRN (Reason: Nausea) RF: 0 acetaminophen 650 mg Tablet Extended Release 650 mg PO Q6H PRN (Reason: Pain) RF: 0 citalopram 20 mg Tablet 20 mg PO DAILY@0800 RF: 0 gabapentin 100 mg Capsule 100 mg PO TID@08,,20 RF: 0 Pulmicort Flexhaler 180 mcg/actuation Aerosol Powdr Breath Activated 2 inh INHALATION BID@, RF: 0 ipratropium-albuterol 0.5 mg-3 mg(2.5 mg base)/3 mL Solution For Nebulization 3 ml INHALATION Q4H PRN (Reason: Shortness Of Breath) RF: 0 albuterol sulfate 2.5 mg /3 mL (0.083 %) Solution For Nebulization 2.5 mg INHALATION Q4H PRN (Reason: Shortness Of Breath) RF: 0 divalproex 250 mg Tablet,Delayed Release (Dr/Ec) 250 mg PO BID@08,20 RF: 0 allopurinol 100 mg Tablet 100 mg PO DAILY@08 RF: 0 montelukast [Singulair] 10 mg Tablet 10 mg PO DAILY@08 RF: 0 polyethylene glycol 3350 [Miralax] 17 gram Powder In Packet 17 g PO DAILY PRN (Reason: Constipation) RF: 0 sennosides-docusate sodium [Senna-S] 8.6-50 mg Tablet 1 tab PO BID PRN (Reason: Constipation) RF: 0 bisacodyl 10 mg Suppository 10 mg WI DAILY PRN (Reason: Constipation) RF: 0 Enema Disposable 19-7 gram/118 mL Enema 118 ml WI DAILY PRN (Reason: Constipation) RF: 0 folic acid 1 mg Tablet 1 mg PO BID@08,20 RF: 0 Pro-Stat AWC 17-100 gram-kcal/30 mL Liquid See Rx Instructions .ROUTE .COMPLEX RF: 0 atorvastatin [Lipitor] 20 mg tablet 20 mg PO DAILY@20 RF: 0 benzonatate 100 mg Capsule 100 mg PO TID PRN (Reason: Cough) Qty: 30 RF: 0 aspirin 81 mg Tablet,Delayed Release (Dr/Ec) 81 mg PO DAILY Qty: 30 RF: 0 Discharge Orders: Discharge Order (Routine); Ordered 06/08/21 Ordered By: Kamaljit Jacobsen Discharge Diet: Cardiac Discharge Activity: Resume usual activity Patient Instructions: Opioid Safety Activity Restrictions/Additional Instructions: Please take levofloxacin every other day for 3 more doses to finish a course of antibiotics for UTI. Please make sure you maintain your oral hydration well. Please make sure you drink 2 to 3 gallons of liquid every day. Please repeat BMP in 3 days. Discharge Attestations Time Spent in Discharge Care*: greater than 30 min Specific Discharge Activities: educating patient, discussing with pcp/other providers, discussing with outsole caser/social workers/dc planners, documenting/other paperwork and evaluating patient/reviewing data Status at Discharge: Cognitive status at discharge: mildly impaired cognition , Behavioral status at discharge: cooperative , Functional status at discharge: uses cane/walker Overall status at discharge: patient is back to baseline Quality Metrics Clinical Quality Measures During this hospital stay, did patient experience: None Coding Level of Care Code Acute g DC note Diagnoses Confusion R41.0 Hypernatremia E87.0 UTI (urinary tract infection) N30.00 Urinary tract infection type: acute cystitis Hematuria presence: without hematuria Hypercapnic respiratory failure J96.22 Chronicity: acute on chronic COPD with acute exacerbation J44.1 Acute hyperkalemia E87.5 Chronic kidney disease N18.9 Chronic kidney disease stage: unspecified stage
--- NOTE | 2021-06-08 12:01 | PC.SOCIAL ---
IMM update IMM updated with family Aura listed on PHI. Verbalized an understanding. Pg 2 Copy provided at bedside for patient. Initialled, dated, timed, and placed in chart.
== END 2021-06-08 15:14 | disposition skilled nursing facility (03) | DRG 190 ==
LOC: ER 20:49 → MEDSURG 21:08
PROVIDERS: Admitting Provider Student in an Organized Health Care Education/Training Program; Emergency Provider Family Medicine; PCP Family Medicine; Visit Provider Student in an Organized Health Care Education/Training Program
DX: J44.1 Chronic obstructive pulmonary disease with (acute) exacerbation (principal); J96.22 Acute and chronic respiratory failure with hypercapnia; E87.0 Hyperosmolality and hypernatremia; N18.4 Chronic kidney disease, stage 4 (severe); N30.00 Acute cystitis without hematuria; Z86.16 Personal history of COVID-19; E87.5 Hyperkalemia; F31.9 Bipolar disorder, unspecified; Z85.3 Personal history of malignant neoplasm of breast; Z92.3 Personal history of irradiation; Z92.23 Personal history of estrogen therapy; Z85.038 Personal history of other malignant neoplasm of large intestine; I12.9 Hypertensive chronic kidney disease with stage 1 through stage 4 chronic kidney disease, or unspecified chronic kidney disease; Z99.81 Dependence on supplemental oxygen; Z66 Do not resuscitate; M10.9 Gout, unspecified; F03.90 Unspecified dementia, unspecified severity, without behavioral disturbance, psychotic disturbance, mood disturbance, and anxiety; G47.30 Sleep apnea, unspecified; Z79.82 Long term (current) use of aspirin; Z79.51 Long term (current) use of inhaled steroids; B96.4 Proteus (mirabilis) (morganii) as the cause of diseases classified elsewhere; E86.0 Dehydration; D63.1 Anemia in chronic kidney disease; M25.562 Pain in left knee; Z87.891 Personal history of nicotine dependence
CPT/HCPCS: 36415; 36416; 36600; 70450; 71045; 71250; 73560; 80048; 80053; 81001; 82550; 82607; 82746; 82805; 82962; 83540; 83550; 83605; 83880; 84484; 85025; 87040; 87077; 87086; 87186; 87205; 87426; 87641; 93005; 94640; 94664; 96372; 96374; 99285; J0696; J1650; J1815; J2930; J3370; J3535; J7050; J7512; J7614; J7626

== ENCOUNTER 2022-01-19 13:49 | Inpatient (IN) | payer MEDICARE, MEDICAID, SELFPAY ==
[2022-01-19] VITALS (12 sets, daily range): BP systolic 99–169; BP diastolic 44–77; PULSE 64–101; RESP 16–24; TEMP 36.8–37.1; O2SAT 93–98; BMI 37.8
--- NOTE | 2022-01-19 13:50 | XR_ITS ---
WS: [id number] Portable AP upright chest, 01/19/2022 Clinical Data: chest pain Comparison: Portable chest, 06/05/2021 Findings: No masses or effusions are seen. There are small granulomatous nodules throughout the lungs which were better seen on the CT chest of 06/05/2021. The heart is normal. The pulmonary vascularity is not increased. No pneumonia or pneumothorax is seen. Monitor leads are on the chest wall. XR/XR chest 1V portable [id number] Impression: Old granulomatous disease.
--- NOTE | 2022-01-19 13:51 | ECG_ITS ---
[facility] Test Date: 2022-01-19 Pat Name: Velasquez Montano Department: Room: Gender: Female Legal Administrative Assistant: : 1940 Requested By: Mango Cisneros Order Number: [id number] Caroline MD: Harley Santana M.D. Measurements Intervals [place] Rate: 84 P: MT: QRS: 67 QRSD: 72 T: 71 QT: 375 QTc: 445 Interpretive Statements SUPRAVENTRICULAR RHYTHM Compared to ECG 06/05/2021 18:10:02 Supraventricular rhythm now present Sinus rhythm no longer present Electronically Signed On 01-21-2022 15:47:18 CDT by Harley Santana M.D. [id number]
--- NOTE | 2022-01-19 14:48 | ED_ITS ---
HPI - General Adult General: Chief complaint: Chest Pain Stated complaint: CHEST PAIN Time Seen by Provider: 01/19/22 13:49 History of Present Illness: Patient is a 81-year-old female with a history of COPD on oxygen, bipolar disorder, C. difficile colitis, CKD who presents the emergency room for evaluation of chest pain x1 day in setting generalized weakness and cough x1 week. Per patient's daughter, patient has had productive cough yesterday. Patient received DuoNeb treatment with significant provement symptom. However, this morning, patient was observed to have chest pressure about 1 hour half ago. Patient daughter became concerned brought patient here for an evaluation. Onset:1 week of generalized weakness/cough, 1 day of chest pain Duration:chest pain 1 episode lasting for 10-15 minutes Location:intermediate Severity: mild/moderate Associated symptoms: Reports chest pain and dyspnea; Deny nausea, rash, palpitations or vomiting Review of Systems Const: Denies: fever(s) or chills Eyes: Denies: change in vision ENMT: Denies: mouth pain Card: Reports: chest pain; Denies: palpitations Resp: Reports: dyspnea and productive cough GI: Denies: abdominal pain, nausea, vomiting or diarrhea : Denies: dysuria Musc: Denies: extremity pain Skin/Breast: Denies: rash or new lesions Neuro: Denies: weakness in extremities Psych: Reports: other (Normal mood) [place]/Lymph: Denies: easy bruising PFSH ED PFSH: Medical History (Updated 01/19/22 @ 20:22 by Kamaljit Jacobsen MD) Adenomatous polyp 2011 found on surveillance colonoscopy Aspiration pneumonia Bipolar 1 disorder, depressed Bipolar disorder Breast cancer Status post lumpectomy/radiation 1999 followed by adjuvant tamoxifen C. 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 Chronic fatigue CKD (chronic kidney disease), stage IV Confusion COPD (chronic obstructive pulmonary disease) Oxygen dependent COPD (chronic obstructive pulmonary disease) COPD with acute exacerbation DNR (do not resuscitate) Dyslipidemia Gout Hallucinations Did not tolerate Parkinson's medications in the past when this diagnosis was being entertained, discontinued hydrocodone, no organic etiology found Hypercapnic respiratory failure Hypertension Mastoiditis Right-sided mastoiditis, present on MRI 2015 as well Pancytopenia Porencephalic cyst Temporal lobe Senile dementia Daughter has requested that dementia should not be mentioned to her mother because of risk of worsening of her depression considering bipolar disorder Sleep apnea Surgical History History of low anterior resection of rectum Family History Other Family history non-contributory Social History Smoking and tobacco status: former smoker Alcohol intake: never Household members: family Housing: House Physical Exam Const: COMMON NORMALS: alert HENMT: COMMON NORMALS: atraumatic HEAD & SCALP: atraumatic MOUTH: moist mucous membranes not abnormal Eye: COMMON NORMALS: EOMs intact bilaterally and conjunctivae normal CONJUNCTIVA: Yes conjunctivae normal Neck/C-Spine: COMMON NORMALS: full ROM and supple Resp: COMMON NORMALS: normal respiratory effort OTHER: +bilateral wheezes Cardio: COMMON NORMALS: regular rate RATE: regular rate GI: COMMON NORMALS: Soft to palpation and non-tender PALPATION: Yes Soft to palpation Extremity: COMMON NORMALS: full ROM Neuro: SENSORIUM/ORIENTATION: Yes alert MOTOR EXAM: No Abnormal motor strength present and Other motor observations present (no focal motor deficits) Psych: COMMON NORMALS: speech normal SPEECH: Yes normal speech MOOD & AFFECT: Yes euthymic mood Course Vital Signs: Vital signs: Vital Signs Temperature 98.7 F 01/19/22 13:57 Pulse Rate 81 01/19/22 20:30 Respiratory Rate 16 01/19/22 20:09 Blood Pressure 141/71 01/19/22 20:30 Pulse Oximetry 98 01/19/22 20:30 [facility] - General Adult Medical Decision Making 81-year-old female presents emergency room with complaints of chest pain x1 hour in the setting generalized weakness and dyspnea x1 week. On exam, patient is hemodynamically stable, wheezing on exam bilaterally. Patient received DuoNeb, Solu-Medrol, and Tylenol. She continues to be wheezing bilaterally right treatment. X-ray chest not show any signs of focal pathology. White count of 15.8. Ova pending. Troponin delta less than 5. Patient continues to have respiratory wheezes. Will be admitted to hospital for COPD exacerbation. Disposition: admission Lab Data : 01/19/22 15:01 01/19/22 15:01 Radiology Impressions Chest X-Ray 01/19/22 17:42 IMPRESSION: 1. Right upper lobe 16 mm nodule, similar to prior exam from 01/19/2022, however, perhaps mildly more prominent compared to 06/05/2021 chest radiograph, as well as a somewhat more prominent left upper lobe 9.8 mm nodule, a nonemergent chest CT could further evaluate these. 2. Cardiomegaly. Laboratory Results WBC 15.8 10^3/uL (4.0-10.0) H 01/19/22 15:01 RBC 2.99 10^6/uL (4.1-5.3) L 01/19/22 15:01 Hgb 9.6 g/dL (11.5-15.3) L 01/19/22 15:01 Hct 32.5 % (37.0-47.0) L 01/19/22 15:01 MCV 108.7 fl (81-99) H 01/19/22 15:01 MCH 32.1 pg (28.0-34.0) 01/19/22 15:01 MCHC 29.5 g/dL (30.0-36.0) L 01/19/22 15:01 RDW 14.1 % (12.1-15.1) 01/19/22 15:01 Plt Count 171 10^3/cmm (130-400) 01/19/22 15:01 MPV 10.5 fL (7.4-10.4) H 01/19/22 15:01 Neut % (Auto) 81.7 % 01/19/22 15:01 Lymph % (Auto) 8.8 % 01/19/22 15:01 [place] % (Auto) 8.2 % 01/19/22 15:01 Eos % (Auto) 0.6 % 01/19/22 15:01 Baso % (Auto) 0.3 % 01/19/22 15:01 Neut # (Auto) 12.89 10^3/uL (1.8-7.7) H 01/19/22 15:01 Lymph # (Auto) 1.4 10^3/uL (0.8-4.8) 01/19/22 15:01 [place] # (Auto) 1.3 10^3/uL (0.2-0.9) H 01/19/22 15:01 Eos # (Auto) 0.1 10^3/uL (0.0-0.8) 01/19/22 15:01 Baso # (Auto) 0.0 10^3/uL (0.0-0.1) 01/19/22 15:01 Nucleated RBC % (auto) 0 % 01/19/22 15:01 Nucleated RBCs # 0.0 /100WBC 01/19/22 15:01 Sodium 144 mmol/L (136-145) 01/19/22 15:01 Potassium 5.4 mmol/L (3.5-5.1) H 01/19/22 15:01 Chloride 102 mmol/L (98-107) 01/19/22 15:01 Carbon Dioxide 27 mmol/L (22-29) 01/19/22 15:01 Anion Gap 20.4 (5-19) H 01/19/22 15:01 BUN 53 mg/dL (8-23) H 01/19/22 15:01 Creatinine 2.3 mg/dL (0.5-0.9) H 01/19/22 15:01 GFR Calculation Not Reportable 01/19/22 15:01 Glucose 99 mg/dL (65-115) 01/19/22 15:01 Calculated Osmolality 312 mOsm/kg (285-295) H 01/19/22 15:01 Calcium 9.0 mg/dL (8.5-10.5) 01/19/22 15:01 Troponin T Baseline 71 ng/L (0-10) H 01/19/22 15:01 Troponin T 120 Minute 73.04 ng/L (0-10) H 01/19/22 16:45 Delta Troponin T 2.04 ABS# (0-10) 01/19/22 16:45 NT-Pro-B Natriuret Pep 615 pg/mL (0-450) H 01/19/22 18:55 Procalcitonin 0.32 ng/mL (0-0.5) 01/19/22 18:55 TSH 0.97 uIU/mL (0.27-4.20) 01/19/22 18:55 Imaging Data Other Imaging: Radiologist's impression: [address] [place] [address] XRay Report Signed Patient: Velasquez Montano Unit #: [id number] : 1940 Age/Sex: 81 / F ADM Date: 01/19/22 Loc: ER Room/Bed: Attending Dr: Ordering Provider/Ordering MD: Mango Cisneros MD Date of Service: 01/19/22 Procedure(s): XR chest 1V portable [id number] Accession Number(s): [id number] Report Number: [id number] WS: [id number] Portable AP upright chest, 01/19/2022 Clinical Data: chest pain Comparison: Portable chest, 06/05/2021 Findings: No masses or effusions are seen. There are small granulomatous nodules throughout the lungs which were better seen on the CT chest of 06/05/2021. The heart is normal. The pulmonary vascularity is not increased. No pneumonia or pneumothorax is seen. Monitor leads are on the chest wall. XR/XR chest 1V portable [id number] Impression: Old granulomatous disease. ? Dictated By: Sandra Maynard MD Signed By: Sandra Maynard MD Signed Date/Time: 01/19/22 1423 DD/ 1417 Discharge Plan Discharge Patient Disposition: Admitted As Inpatient Admit Provider: Kamaljit Jacobsen Clinical Impression: Dyspnea, Chest pain, Wheezing, Atrial fibrillation with RVR, Asthma exacerbati on in COPD Condition: Stable Coding Level of Care Code ED Cheese Production Supervisor for Chg Fwd Exam Comprehensive
[2022-01-19 15:15] LABS: Basophils % 0.3 %; Eosinophils # 0.1 10^3/uL (0.0-0.8); Eosinophils % 0.6 %; Hematocrit 32.5 % (37.0-47.0); Hemoglobin 9.6 g/dL (11.5-15.3); Lymphocytes # 1.4 10^3/uL (0.8-4.8); Lymphocytes % 8.8 %; Mean Corpuscular HGB Conc 29.5 g/dL (30.0-36.0); Mean Corpuscular Hemoglobin 32.1 pg (28.0-34.0); Mean Corpuscular Volume 108.7 fl (81-99); Mean Platelet Volume 10.5 fL (7.4-10.4); Monocytes # 1.3 10^3/uL (0.2-0.9); Monocytes % 8.2 %; Neutrophils # 12.89 10^3/uL (1.8-7.7); Neutrophils % 81.7 %; Nucleated Red Blood Cells % 0 %; Platelet Count 171 10^3/cmm (130-400); Red Blood Count 2.99 10^6/uL (4.1-5.3); Red Cell Distribution Width 14.1 % (12.1-15.1); White Blood Count 15.8 10^3/uL (4.0-10.0)
[2022-01-19] MEDS: aspirin 325 mg Tablet PO (15:38)
[2022-01-19 15:44] LABS: Troponin(5th) Baseline 71 ng/L (0-10)
--- NOTE | 2022-01-19 15:51 | ECG_ITS ---
[facility] Test Date: 2022-01-19 Pat Name: Velasquez Montano Department: Room: Gender: Female [employer] E Business Developer: : 1940 Requested By: Manog Cisneros Order Number: [id number] Reading MD: Harley Santana M.D. Measurements Intervals [place] Rate: 87 P: 13 CT: 150 QRS: 63 QRSD: 73 T: 54 QT: 381 QTc: 460 Interpretive Statements SINUS RHYTHM Compared to ECG 01/19/2022 14:20:06 Supraventricular rhythm no longer present Electronically Signed On 01-21-2022 15:55:49 CDT by Harley Santana M.D. [id number]
[2022-01-19 16:00] LABS: Blood Urea Nitrogen 53 mg/dL (8-23); Carbon Dioxide 27 mmol/L (22-29); Chloride 102 mmol/L (98-107); Glucose 99 mg/dL (65-115); Osmolality Calculated 312 mOsm/kg (285-295); Sodium 144 mmol/L (136-145)
[2022-01-19 16:13] LABS: Anion Gap 20.4 (5-19); Potassium 5.4 mmol/L (3.5-5.1)
[2022-01-19 17:23] LABS: Troponin 5 2HR 73.04 ng/L (0-10)
[2022-01-19 17:28] LABS: Troponin 5 2HR Delta 2.04 ABS# (0-10)
--- NOTE | 2022-01-19 17:42 | XRR_ITS ---
PROCEDURE INFORMATION: Exam: XR Chest Exam date and time: 01/19/2022 5:42 PM Age: 81 years old Clinical indication: Shortness of breath; Additional info: Eval for pneumonia TECHNIQUE: Imaging protocol: XR of the chest. Views: 2 views. COMPARISON: CR XR chest 1V portable [id number] 01/19/2022 2:12 PM FINDINGS: Lungs: Right upper lobe 16 mm nodule, similar to prior exam from 01/19/2022, however, perhaps mildly more prominent compared to 06/05/2021 chest radiograph, as well as a somewhat more prominent left upper lobe 9.8 mm nodule, a nonemergent chest CT could further evaluate these. Pleural spaces: Unremarkable. No pleural effusion. No pneumothorax. Heart/Mediastinum: Cardiomegaly. Bones/joints: Unremarkable. XR/XR chest 2V* [id number] IMPRESSION: 1. Right upper lobe 16 mm nodule, similar to prior exam from 01/19/2022, however, perhaps mildly more prominent compared to 06/05/2021 chest radiograph, as well as a somewhat more prominent left upper lobe 9.8 mm nodule, a nonemergent chest CT could further evaluate these. 2. Cardiomegaly.
[2022-01-19] MEDS: ipratropium-albuterol 3 mL Neb INHALATION (18:06)
[2022-01-19] MEDS: metoprolol tartrate 1 mg/1 mL SDV 5 mL 5 MG IVP (19:21)
[2022-01-19] MEDS: metoprolol tartrate 50 mg Tablet PO (19:23)
--- NOTE | 2022-01-19 19:38 | CTR_ITS ---
PROCEDURE INFORMATION: Exam: CT Chest Without Contrast; Diagnostic Exam date and time: 01/19/2022 7:38 PM Age: 81 years old Clinical indication: Chest pressure; Patient HX: Left sided chest pain with cough and congestion. History of copd. ; Additional info: Hypoxia, chf vs cap TECHNIQUE: Imaging protocol: Diagnostic computed tomography of the chest without contrast. Radiation optimization: All CT scans at this facility use at least one of these dose optimization techniques: automated exposure control; mA and/or kV adjustment per patient size (includes targeted exams where dose is matched to clinical indication); or iterative reconstruction. COMPARISON: CT chest wo con [id number] 06/05/2021 3:17 PM RADIATION DOSE METRICS: Total DLP (mGy-cm): 787.59 FINDINGS: Lungs: In the right upper lobe there are 2 predominantly solid but partially subsolid nodules. The the more peripheral nodule measures 1.2 x 0.9 cm and previously measured 1.1 x 0.9 cm. The more anterior nodule currently measures 1.3 x 1.1 cm and previously measured 1.4 x 0.9 cm indicating minimal if any change. In the left upper lobe there is an unchanged sub cm nodule as well as several micro nodules. In the right lower lobe there are several new nodular densities measuring up to 1.5 cm. In the left lower lobe there is a new hazy airspace opacity in the posterior basal segment as well as several new focal subsolid opacities. All these nodules and opacities are new since 2019 except for a left lower lobe 3 mm noncalcified nodule. Pleural spaces: Unremarkable. No pneumothorax. No pleural effusion. Heart: There are numerous calcified plaques throughout the coronary arteries. Aorta: The thoracic aorta is heavily calcified but is normal in size. Lymph nodes: Unremarkable. No enlarged lymph nodes. Spleen: Overall spleen size is normal. There is a chronic 1.5 cm nonspecific splenic hypodensity. Adrenal glands: There are bilateral chronic solid and slightly calcified adrenal masses which are unchanged in size. In addition there is a fatty left adrenal mass measuring 1.8 cm consistent with myelolipoma. Bones/joints: Unremarkable. No acute fracture. Soft tissues: Unremarkable. CT/CT chest wo con [id number] IMPRESSION: 1. Multiple bilateral solid, sub solid and mixed solid and subsolid nodules and opacities. Overall the process has increased since May 2021 and is new since 2019. The overall findings are suspicious for metastatic disease, much less likely primary lung disease.. Differential would include a prolonged inflammatory process such as sarcoidosis. Further evaluation for potential malignancy in the abdomen/pelvis is recommended if not previously performed 2. Unchanged chronic bilateral adrenal nodules and left adrenal myelolipoma COMMENTS: Consistent with the [employer]'s Incidental Findings Committee white paper (J Am Sonny Radiol 2017): For any incidental adrenal lesion greater than 1 cm but less than 4 cm classified in this report as benign, likely benign, or containing fat (including classification as an adenoma or myelolipoma), no follow-up imaging is recommended per consensus recommendations based on imaging criteria. Further lab evaluation could be pursued if warranted based on clinical findings.
--- NOTE | 2022-01-19 19:51 | ECG_ITS ---
[facility] Test Date: 2022-01-19 Pat Name: Velasquez Montano Department: Room: 108 Gender: Female Cryptologic Support Specialist: : [id number] Requested By: Mango Cisneros Order Number: [id number] Caroline MD: Harley Santana M.D. Measurements Intervals [place] Rate: 90 P: HI: QRS: 46 QRSD: 72 T: 56 QT: 369 QTc: 453 Interpretive Statements ATRIAL FIBRILLATION Compared to ECG 01/19/2022 15:35:08 Sinus rhythm no longer present Electronically Signed On 01-21-2022 15:55:20 CDT by Harley Santana M.D. [id number]
[2022-01-19 19:59] LABS: Thyroid Stimulating Hormone 0.97 uIU/mL (0.27-4.20)
[2022-01-19 20:00] LABS: NT Pro B Type Natriuretic Pept 615 pg/mL (0-450); Procalcitonin 0.32 ng/mL (0-0.5)
[2022-01-19] MEDS: FUROsemide 10 mg/mL SDV 10mL 60 MG IVP (20:11)
[2022-01-19] MEDS: cefTRIAXone 1,000 MG in sodium chloride 0.9% (plus) 50 ML 100 MG IV (20:19)
--- NOTE | 2022-01-19 20:19 | PM.HP ---
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 In the ER she was found to be mildly tachypneic with a white count of 15,000 hence medicine was consulted for admission and further evaluation. In the ER patient was also found to have an episode of A. fib with RVR with heart rate going up to 150s for which she was given oral metoprolol. Examination patient is lying comfortably in bed with heart rate running in 70s with occasionally going up to 130s for few seconds, on 2 L saturating 96%. Patient is mildly confused which is her baseline. She is alert and oriented to self, place. She states she has been having occasional episodes of palpitation. Denies any chest pain on exertion. Complains of heartburn. States she feels breathless on and off. Denies any fever. In the ER she was found to have a white count of 15.8, hemoglobin of 9.6, MCV of 108, platelet count of 171, sodium of 154, potassium of 5.4, creatinine of 2.3, BUN of 53, baseline troponin of 71 with delta of 2 in 2 hours, UA negative for any signs of infection Review of Systems General: Reports: 10 or more systems reviewed and unremarkable except in HPI and below Const: Denies: fever(s), chills, body aches, change in appetite, change in weight, malaise, night sweats, diaphoresis, change in sleep pattern, daytime sleepiness or snoring Eyes: Denies: change in vision, blurry vision, photophobia, eye discomfort or eye discharge ENMT: Denies: throat pain, enlarged tonsils, hoarseness, mouth pain, oral sores, dry mouth, tinnitus, nasal congestion or post nasal drip Card: Denies: chest pain, palpitations, irregular heart rhythm, edema, swelling of feet/ankles, lightheadedness, syncope, pre-syncope, dyspnea on exertion, orthopnea, leg pain with exertion or acrocyanosis Resp: Denies: dyspnea, productive cough, non-productive cough, wheezing, stridor, pain on inspiration, change in phlegm color, hemoptysis or chest congestion GI: Denies: abdominal pain, nausea, vomiting, hematemesis, coffee ground emesis, dysphagia, heartburn, diarrhea, constipation, bloating, GI cramping, change in bowel habits, pain on defecation, hematochezia or melena : Denies: flank pain, dysuria, urinary frequency, urinary urgency, urinary hesitancy, nocturia or hematuria Musc: Denies: neck pain, back pain, extremity pain, joint pain, joint swelling, joint redness, joint stiffness or limited range of motion Neuro: Denies: headache(s), numbness in extremities, weakness in extremities, sensory changes, lack of coordination, difficulty walking, frequent falls, dizziness, vertigo, confusion, Slurred speech present, difficulty communicating thoughts or seizure-like activity Psych: Denies: anxiety, depression, mood swings, panic attacks, hopelessness or irritability Endo: Denies: polyuria, polydipsia, tired all the time, cold intolerance, excessive sweating, flushing or heat intolerance Chapito/Lymph: Denies: easy bruising or easy bleeding All/Imm: Denies: tongue swelling, facial swelling or acute wheezing Medications/Allergies Home Medications Medication Instructions Recorded Confirmed Last Taken Type allopurinol 100 mg tablet 100 mg PO DAILY@11/12/19 01/19/22 01/19/22 08:00 History divalproex 250 mg tablet,delayed 250 mg PO BID@11/12/19 01/19/22 01/19/22 08:00 History release montelukast 10 mg tablet 10 mg PO DAILY@11/12/19 01/19/22 01/19/22 08:00 History (Rejiir) levalbuterol tartrate 45 1 puff INHALATION Q6H 08/29/20 01/19/22 01/19/22 06:00 History mcg/actuation aerosol inhaler (Xopenex HFA) amino acids-protein hydrolysate 17 See Rx Instructions .ROUTE .COMPLEX 10/13/20 01/19/22 01/19/22 08:00 History gram-100 kcal/30 mL oral liquid (Pro-Stat AWC) atorvastatin 20 mg tablet (Lipitor) 20 mg PO DAILY@20 10/13/20 01/19/22 01/18/22 20:00 History bisacodyl 10 mg rectal suppository 10 mg DC DAILY PRN 10/13/20 01/19/22 Unknown History folic acid 1 mg tablet 1 mg PO BID@10/13/20 01/19/22 01/19/22 08:00 History polyethylene glycol 3350 17 gram 17 g PO DAILY PRN 10/13/20 01/19/22 Unknown History oral powder packet (Miralax) sennosides 8.6 mg-docusate sodium 1 tab PO BID PRN 10/13/20 01/19/22 01/16/22 06:35 History 50 mg tablet (Senna-S) sodium phosphates 19 gram-7 118 ml DC DAILY PRN 10/13/20 01/19/22 Unknown History gram/118 mL enema (Enema Disposable) aspirin 81 mg tablet,delayed 81 mg PO DAILY #30 tab 10/24/20 01/19/22 01/19/22 08:00 Rx release benzonatate 100 mg capsule 100 mg PO TID PRN #30 cap 10/24/20 01/19/22 Unknown Rx acetaminophen 650 mg 650 mg PO Q6H PRN 06/05/21 01/19/22 01/18/22 12:15 History tablet,extended release albuterol sulfate 2.5 mg INHALATION Q4H PRN 06/05/21 01/19/22 01/19/22 12:00 History budesonide 180 mcg/actuation 2 inh INHALATION BID@06/05/21 01/19/22 01/19/22 08:00 History breath activated powder inhaler (Pulmicort Flexhaler) citalopram 20 mg tablet 20 mg PO DAILY@0800 06/05/21 01/19/22 01/19/22 08:00 History gabapentin 100 mg capsule 100 mg PO TID@,06/05/21 01/19/22 01/19/22 12:00 History ipratropium 0.5 mg-albuterol 3 mg 3 ml INHALATION Q4H PRN 06/05/21 01/19/22 01/19/22 12:30 History (2.5 mg base)/3 mL nebulization soln ondansetron HCl 4 mg tablet 4 mg PO Q4H PRN 06/05/21 01/19/22 Unknown History (Zofran) furosemide 20 mg tablet 20 mg PO DAILY 01/19/22 01/19/22 01/19/22 08:00 History nystatin 100,000 unit/gram topical 100,000 unit TOPICAL DAILY 01/19/22 01/19/22 01/19/22 08:00 History cream pantoprazole 40 mg tablet,delayed 40 mg PO DAILY 01/19/22 01/19/22 01/19/22 08:00 History release tissue resp fact-shark rosanne oil 1 applic DC PRN PRN 01/19/22 01/19/22 Unknown History rectal cream Allergies Allergy/AdvReac Type Severity Reaction Status Date / Time albuterol Allergy restlessness, Verified 01/19/22 13:51 palpitations amoxicillin Allergy ALGY-Rash Verified 01/19/22 13:51 codeine Allergy ALGY-Rash Verified 01/19/22 13:51 Penicillins Allergy ALGY-Rash Verified 01/19/22 13:51 sulfamethoxazole Allergy Unknown Verified 01/19/22 13:51 [From Bactrim] trimethoprim [From Bactrim] Allergy Unknown Verified 01/19/22 13:51 PFSH Acute PFSH: Medical History (Updated 01/19/22 @ 22:13 by Kamaljit Jacobsen MD) Adenomatous polyp 2011 found on surveillance colonoscopy Aspiration pneumonia Bipolar 1 disorder, depressed Bipolar disorder Breast cancer Status post lumpectomy/radiation 1999 followed by adjuvant tamoxifen C. 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 Chronic fatigue CKD (chronic kidney disease), stage IV Confusion COPD (chronic obstructive pulmonary disease) Oxygen dependent COPD (chronic obstructive pulmonary disease) COPD with acute exacerbation DNR (do not resuscitate) Dyslipidemia Gout Hallucinations Did not tolerate Parkinson's medications in the past when this diagnosis was being entertained, discontinued hydrocodone, no organic etiology found Hypercapnic respiratory failure Hypertension Mastoiditis Right-sided mastoiditis, present on MRI 2015 as well Pancytopenia Porencephalic cyst Temporal lobe Pulmonary nodule 1 cm or greater in diameter Senile dementia Daughter has requested that dementia should not be mentioned to her mother because of risk of worsening of her depression considering bipolar disorder Sleep apnea Surgical History History of low anterior resection of rectum Family History Other Family history non-contributory Social History Smoking and tobacco status: former smoker Alcohol intake: never Household members: family Housing: House Vitals/I&O/Wt Last Vital Signs Temp 98.7 F 01/19/22 13:57 Pulse 64 01/19/22 20:09 Resp 16 01/19/22 20:09 BP 141/71 01/19/22 20:09 Pulse Ox 96 01/19/22 20:09 Weight last 48 hrs Weight 90.718 kg Physical Exam Narrative: General: No acute distress, AO x slow to respond, forgetful HEENT: PERRLA, pupils bilaterally equal and reactive Chest: Bilateral bronchial breath sounds, expiratory wheeze all over the lung bajwa occasionally CVS: S1-S2 irregularly irregular, no murmurs, no tachycardia, no gallops, no rubs Abdomen: Soft, nontender, no organomegaly, bowel sounds present Neuro: No focal deficits, no facial deformity, AO x3, power 5/5 in all limbs Data : 01/19/22 15:01 01/19/22 15:01 Micro: Microbiology 01/19/22 19:35 Blood Culture - Preliminary Blood SPECIMEN COLLECTED 01/19/22 19:40 Blood Culture - Preliminary Blood SPECIMEN COLLECTED A&P Assessment and plan (1) COVID-19: Status: Acute (2) Atrial fibrillation with RVR: Status: Acute (3) Diastolic congestive heart failure: Status: Acute (4) COPD (chronic obstructive pulmonary disease): Status: Acute (5) Wheezing: Status: Acute (6) Dyspnea: Status: Acute (7) CKD (chronic kidney disease), stage IV: Status: Acute (8) DNR (do not resuscitate): Status: Acute (9) Pulmonary nodule 1 cm or greater in diameter: Status: Acute Plan Shortness of breath: Patient is at her baseline oxygen supplementation. Chronically she is on 2 L. Currently on 1.5 L saturating more than 92%. Most likely a combination of mild COPD exacerbation along with congestive heart failure. Found to be COVID-[address] chest without contrast appreciated. No active consolidations currently. Check procalcitonin, proBNP, sputum culture, urine Legionella, bacterial antigen, blood culture, MRSA swab. Dexamethasone 6 mg IV daily. Hold off on starting remdesivir for now given patient is at baseline oxygen supplementation without any active signs of Covid on CT imaging. Vitamin C, zinc. Ipratropium, Xopenex every 6 hour, budesonide twice daily. Pneumonia unlikely but for now start patient on treatment with ceftriaxone and azithromycin to cover for community-acquired pneumonia. Will de-escalate antibiotics quickly if patient remains hemodynamically stable and afebrile. 60 mg IV Lasix given in the ER. Check echocardiogram. Fluid restriction. Strict input output charting, daily weights. Hoff catheterization. IV Lasix 40 mg daily. CKD stage IV: Creatinine at baseline. Atrial fibrillation with rapid ventricular response: Most likely cause for congestive heart failure. Not on rate limiting drug. Start on Cardizem 30 mg every 6 hourly. Will uptitrate accordingly. Not on anticoagulation given advanced age, history of falls. Chest pain: Troponin mildly elevated without any significant delta. Most likely type II PR. Check A1c, lipid panel. Continue home dose of statin, aspirin. Patient will most likely benefit from an outpatient stress test. Pulmonary nodule more than 1 cm: Granulomatous disease versus metastasis. As seen on CT chest. Chronic. Seems to be progressive as compared to both CT scan. Does have a history of malignancy in the past. Most likely need a bronchoscopy with possible biopsy as an outpatient once recovered from COVID-19. Check SERGEI level, TELLO panel, ESR, CRP. Continue other chronic medication. Check A1c, lipid panel, vitamin B12, folate level. CODE STATUS: DNR/DNI. Protonix for PUD prophylaxis. Cardiac diet. Attestations Medical Necessity Statement*: Admission for more than 2 midnights for management of COVID-19, shortness of breath secondary to COVID-19, congestive heart failure, atrial fibrillation with rapid ventricular response. Time Spent in Patient Care: Greater than 35 minutes Coding Level of Care Code Acute Hide Trimmer for [facility] Fwd History Comprehensive Exam Comprehensive Medical Decision Making High Complexity Diagnoses Wheezing R06.2 Dyspnea R06.00 COPD (chronic obstructive pulmonary disease) J44.9 Atrial fibrillation with RVR I48.91 CKD (chronic kidney disease), stage IV N18.4 DNR (do not resuscitate) Z66 COVID-19 U07.1 Diastolic congestive heart failure I50.30 Pulmonary nodule 1 cm or greater in diameter R91.1
[2022-01-19 20:56] LABS: Blood Urine 2+ (Negative); Glucose Urine UA 1+ (Normal); Ketones Urine Negative (Negative); Nitrate Urine Negative (Negative); Protein Urine 1+ (Negative); Specific Gravity, Urine 1.005 (1.005-1.030); Urine Appearance Hazy (CLEAR); Urine Color Yellow (Yellow); pH Urine 6.5 (5-7)
[2022-01-19 20:57] LABS: Add Urine Culture? No; Add Urine Microscopic? YES; Bilirubin Urine Neg (Negative); Leukocyte Esterase Urine Negative (Negative); RBC Urine 0-4 /hpf (0-2); Squamous Epithelial Cell Urine 0-4 /hpf (0-5); Urobilinogen Urine Neg (Negative)
[2022-01-19 21:26] LABS: Adenovirus Not Detected (NOT DETECT); Chlamydia Pneumoniae Not Detected (NOT DETECT); Coronavirus 229E,HKU1,NL63,OC4 Detected (NOT DETECT); Human Metapneumovirus Not Detected (NOT DETECT); Human Rhinovirus/Enterovirus Not Detected (NOT DETECT); Influenza A Not Detected (NOT DETECT); Influenza A H1 Not Detected (NOT DETECT); Influenza A H1-2009 Not Detected (NOT DETECT); Influenza A H3 Not Detected (NOT DETECT); Influenza B Not Detected (NOT DETECT); Mycoplasma Pneumoniae Not Detected (NOT DETECT); Parainfluenza Virus Type 1 Not Detected (NOT DETECT); Parainfluenza Virus Type 2 Not Detected (NOT DETECT); Parainfluenza Virus Type 3 Not Detected (NOT DETECT); Parainfluenza Virus Type 4 Not Detected (NOT DETECT); Respiratory Syncytial Virus A Not Detected (NOT DETECT); Respiratory Syncytial Virus B Not Detected (NOT DETECT); SARS-COV-2 Not Detected (NOT DETECT)
[2022-01-19] MEDS: levalbuterol 0.63 mg/3 mL Neb INHALATION (21:48)
[2022-01-19] MEDS: budesonide 0.5 mg/2 mL Neb INHALATION (21:48)
[2022-01-19 21:55] LABS: C Reactive Protein 23.8 mg/L (0.0-4.9)
[2022-01-19] MEDS: ipratropium 0.5 mg/2.5 mL Neb INHALATION (21:56)
[2022-01-19 22:05] LABS: Erythrocyte Sedimentation Rate 26 mm/hr (0-15)
[2022-01-19] MEDS: dilTIAZem 30 mg Tablet PO ×2 (22:06→22:14)
[2022-01-19] MEDS: azithromycin 250 mg Tablet 500 MG PO (22:12)
[2022-01-19] MEDS: folic acid 1 mg Tablet PO (22:13)
[2022-01-19] MEDS: heparin 5,000 unit/mL INJ 1 mL 5000 UNIT SUBCUT (22:14)
[2022-01-19] MEDS: ascorbic acid 500 mg Tablet 1000 MG PO (22:20)
[2022-01-19] MEDS: gabapentin 100 mg Capsule PO (22:21)
[2022-01-19 22:41] LABS: Iron 14 ug/dL (37-145); Total Iron Binding Capacity 233 mcg/dl; Unsaturated Iron Binding 219 ug/dL (112-347)
[2022-01-19 23:11] LABS: Vitamin B12 557 pg/mL (232-1245)
[2022-01-20] VITALS (26 sets, daily range): BP systolic 97–159; BP diastolic 39–87; PULSE 49–125; RESP 16–26; TEMP 36.6; O2SAT 91–98; BMI 36.6
[2022-01-20 05:13] LABS: C Reactive Protein 55.7 mg/L (0.0-4.9); Chol HDL Ratio 2.31 mg/dL (0.0-4.40); Cholesterol 143 mg/dL (0-200); HDL Cholesterol 62 mg/dL (60-100); LDL Cholesterol Calculated 70 mg/dL (50-129); Magnesium 1.9 mg/dL (1.7-2.3); Phosphorus 3.1 mg/dL (2.5-4.5); Triglycerides 53 mg/dL (0-150); VLDL Cholestrol Calculation 11 mg/dL (0-30)
[2022-01-20 05:24] LABS: Estmated Average Glucose 97
[2022-01-20 05:28] LABS: D Dimer 1.11 ug/mIFEU (0-0.59)
--- NOTE | 2022-01-20 06:00 | XRR_ITS ---
PROCEDURE INFORMATION: Exam: XR Chest Exam date and time: 01/20/2022 6:00 AM Age: 81 years old Clinical indication: Shortness of breath; Additional info: Covid TECHNIQUE: Imaging protocol: XR of the chest. Views: 1 view. COMPARISON: 1. CT chest wo con [id number] 01/19/2022 7:52 PM 2. CR (CHEST, ) 01/19/2022 5:44 PM FINDINGS: Lungs: Again noted are the nodular densities in the right lung which are similar to what was present on the recent CT scan of the chest. No new pulmonary infiltrates have developed since the previous chest x-ray. Pleural spaces: Unremarkable. No pleural effusion. No pneumothorax. Heart/Mediastinum: Unremarkable. No cardiomegaly. Bones/joints: Unremarkable. XR/XR chest 1V portable [id number] IMPRESSION: Stable appearance of the nodular opacities in right lung. No significant change since previous chest x-ray from 01/19/2022.
[2022-01-20] MEDS: sucralfate 1 gm/10 mL Oral Liq UDC PO ×4 (06:10→20:19)
[2022-01-20 06:20] LABS: Folate Level > 20.0 ng/mL (4.8-37.3)
[2022-01-20 06:46] LABS: ABG PH Result 7.38 (7.35-7.45); Alveolar-Arterial Oxygen Gradi 0.5 mmHg (5-10); Arterial Blood Gas Hematocrit 24.9 % (37-47); Base Excess ABG 7.3 mmol/L (-2.0-2.0); Blood Gas Allen Test Pos; Blood Gas Sample Site Radial, left; Blood Gas Sample Type Arterial; Carboxyhemoglobin 1.3 %THgb (0.4-20.1); HCO3 ABG 33.5 mmol/L (22-26); HGB O2 Sat 93.6 % (95-100); Ionized Calcium Level - ABG 1.3 mmol/L (1.1-1.4); Methemoglobin 1.3 % (0.4-1.5); Oxygen Device NC; PO2 ABG 77.9 mmHg (80.0-100.0); Potassium Level - ABG 5.2 mmol/L (3.5-5.0); Total Hemoglobin 8.1 g/dL (12-16)
[2022-01-20 06:47] LABS: Blood Gas LPM 1.5 %
--- NOTE | 2022-01-20 07:00 | PC.NURSE ---
recieved report from night coordinator. Reviewed poc. bedside asessment done with night nurse, pt responds to voice, appears to be at her baseline neuro assessment according to dr at bedside. No needs identified at this time. call light and bedside table in reach.
[2022-01-20] MEDS: benzonatate 100 mg Capsule PO ×3 (08:16→20:19)
[2022-01-20] MEDS: aspirin 81 mg EC Tablet PO (08:16)
[2022-01-20] MEDS: montelukast sodium 10 mg Tablet PO (08:16)
[2022-01-20] MEDS: gabapentin 100 mg Capsule PO ×3 (08:16→20:19)
[2022-01-20] MEDS: divalproex DR 250 mg Tablet PO ×2 (08:16→20:19)
[2022-01-20] MEDS: azithromycin 250 mg Tablet 500 MG PO (08:16)
[2022-01-20] MEDS: zinc gluconate 50 mg Tablet PO (08:16)
[2022-01-20] MEDS: ascorbic acid 500 mg Tablet 1000 MG PO ×2 (08:17→17:54)
[2022-01-20] MEDS: citalopram 20 mg Tablet PO (08:17)
[2022-01-20] MEDS: pantoprazole DR 40 mg Tablet PO ×2 (08:17→17:53)
[2022-01-20] MEDS: folic acid 1 mg Tablet PO ×2 (08:17→20:19)
[2022-01-20] MEDS: ferrous gluconate 324 mg Tablet PO ×2 (08:17→17:53)
[2022-01-20] MEDS: allopurinol 100 mg Tablet PO (08:17)
[2022-01-20] MEDS: FUROsemide 10 mg/mL SDV 4mL 40 MG IVP (08:17)
[2022-01-20] MEDS: dexamethasone 10 mg/mL INJ 6 MG IVP (08:18)
[2022-01-20] MEDS: budesonide 0.5 mg/2 mL Neb INHALATION ×2 (08:23→20:52)
[2022-01-20] MEDS: levalbuterol 0.63 mg/3 mL Neb INHALATION ×3 (08:23→20:52)
[2022-01-20] MEDS: ipratropium 0.5 mg/2.5 mL Neb INHALATION ×3 (08:23→20:52)
--- NOTE | 2022-01-20 08:59 | USR_ITS ---
PROCEDURE INFORMATION: Exam: US Duplex Lower Extremity Veins, Bilateral Exam date and time: 01/20/2022 8:59 AM Age: 81 years old Clinical indication: Abnormal findings; Abnormal lab test; Elevated d-dimer; Additional info: Elevated dimer TECHNIQUE: Imaging protocol: Real-time Duplex ultrasound of the bilateral extremities with 2-D patel scale, color Doppler flow and spectral waveform analysis with image documentation. Complete exam focused on the bilateral lower extremity veins. COMPARISON: US Renal Kidney Structu* [id number] 03/01/2015 1:01 PM FINDINGS: Right deep veins: Unremarkable. The common femoral, femoral, proximal profunda femoral and popliteal veins are patent without thrombus. Normal Doppler waveforms. Normal compressibility and/or augmentation response. Right superficial veins: Saphenofemoral junction is patent without thrombus. Left deep veins: Unremarkable. The common femoral, femoral, proximal profunda femoral and popliteal veins are patent without thrombus. Normal Doppler waveforms. Normal compressibility and/or augmentation response. Left superficial veins: Saphenofemoral junction is patent without thrombus. Soft tissues: Unremarkable. US/CV venous duplex [facility] [id number] IMPRESSION: No evidence of deep vein thrombosis.
[2022-01-20 10:31] LABS: Basophils % 0.2 %; Hematocrit 28.2 % (37.0-47.0); Hemoglobin 8.3 g/dL (11.5-15.3); Lymphocytes # 1.4 10^3/uL (0.8-4.8); Lymphocytes % 11.2 %; Mean Corpuscular HGB Conc 29.4 g/dL (30.0-36.0); Mean Corpuscular Hemoglobin 32.4 pg (28.0-34.0); Mean Corpuscular Volume 110.2 fl (81-99); Mean Platelet Volume 10.5 fL (7.4-10.4); Monocytes # 0.4 10^3/uL (0.2-0.9); Monocytes % 3.3 %; Neutrophils # 10.88 10^3/uL (1.8-7.7); Neutrophils % 84.7 %; Nucleated Red Blood Cells % 0 %; Platelet Count 199 10^3/cmm (130-400); Red Blood Count 2.56 10^6/uL (4.1-5.3); Red Cell Distribution Width 13.8 % (12.1-15.1); White Blood Count 12.8 10^3/uL (4.0-10.0)
[2022-01-20 10:59] LABS: Alanine Aminotransferase 6 U/L (0-33); Albumin Level 3.6 g/dL (3.5-5.2); Alkaline Phosphatase 83 IU/L (35-105); Anion Gap 15.3 (5-19); Aspartate Amino Transferase 11 U/L (0-32); Blood Urea Nitrogen 60 mg/dL (8-23); Calcium 9.4 mg/dL (8.5-10.5); Carbon Dioxide 29 mmol/L (22-29); Chloride 101 mmol/L (98-107); Globulin 3.2 g/dL (1.3-4.6); Glucose 130 mg/dL (65-115); Osmolality Calculated 309 mOsm/kg (285-295); Potassium 5.3 mmol/L (3.5-5.1); Sodium 140 mmol/L (136-145); Total Bilirubin 0.2 mg/dL (0.15-1.2); Total Protein 6.8 g/dL (6.6-8.7)
[2022-01-20] MEDS: dilTIAZem 30 mg Tablet PO (11:19)
[2022-01-20] MEDS: heparin 5,000 unit/mL INJ 1 mL 5000 UNIT SUBCUT (11:19)
[2022-01-20] MEDS: acetaminophen 325 mg Tablet 650 MG PO (14:12)
--- NOTE | 2022-01-20 15:19 | P.PN_ITS ---
Subjective Subjective: No events overnight. Patient has remained afebrile. Currently on 1.5 L saturating more than 92%. States he is feeling better from breathing point of view but feeling weak and has generalized malaise. Overnight she received 50 mg of metoprolol and 30 mg of Cardizem for tachycardia. Most of her heart rates have remained in high 50s. Currently heart of 55 bpm. Vitals/I&O/Wt Last Vital Signs Temp 98.3 F 01/19/22 21:01 Pulse 54 L 01/20/22 14:00 Resp 19 H 01/20/22 12:00 BP 122/83 01/20/22 12:00 Pulse Ox 96 01/20/22 12:00 01/20/22 01/20/22 01/20/22 06:59 14:59 22:59 Intake Total 250 / 300 450 / 450 Output Total 700 / 700 Balance -450 / -400 450 / 450 Weight last 48 hrs Weight 90.718 kg Weight 90.718 kg Physical Exam Narrative: General: No acute distress, AO x slow to respond, forgetful HEENT: PERRLA, pupils bilaterally equal and reactive Chest: Bilateral bronchial breath sounds, expiratory wheeze all over the lung bajwa occasionally CVS: S1-S2 irregularly irregular, no murmurs, no tachycardia, no gallops, no rubs Abdomen: Soft, nontender, no organomegaly, bowel sounds present Neuro: No focal deficits, no facial deformity, AO x3, power 5/5 in all limbs Urinary Catheter Management: Hoff: Cath Placed During This Visit: yes Reason for Continuing Indwelling Catheter: Accurate Measurement of Urinary Output in Critically Ill Patients Urinary Catheter Date of Insertion: 01/19/22 Urinary Catheter Time of Insertion: 22:45 Data : 01/20/22 09:50 01/20/22 09:50 Micro: Microbiology 01/19/22 20:00 MRSA Culture - Final Nose 01/19/22 20:00 Bacterial Antigens - Final Urine Kidney 01/19/22 21:50 Gram Stain - Final Sputum - Expectorated Sputum 01/19/22 20:00 Legionella Urinary Antigen - Final Urethra 01/19/22 19:35 Blood Culture - Preliminary Blood SPECIMEN COLLECTED 01/19/22 19:40 Blood Culture - Preliminary Blood SPECIMEN COLLECTED A&P Assessment and plan (1) Other coronavirus as the cause of diseases classified elsewhere: Status: Acute (2) Atrial fibrillation with RVR: Status: Acute (3) Diastolic congestive heart failure: Status: Acute (4) COPD (chronic obstructive pulmonary disease): Status: Acute (5) Wheezing: Status: Acute (6) Dyspnea: Status: Acute (7) CKD (chronic kidney disease), stage IV: Status: Acute (8) DNR (do not resuscitate): Status: Acute (9) Pulmonary nodule 1 cm or greater in diameter: Status: Acute (10) Bradycardia: Status: Acute Plan Shortness of breath: Patient is at her baseline oxygen supplementation. Chronically she is on 2 L. Currently on 1.5 L saturating more than 92%. Most likely a combination of mild COPD exacerbation secondary to coronavirus infection other than COVID-19 along with congestive heart failure because of atrial fibrillation. CT chest without contrast appreciated. No active consolidations currently. Pro-Santhosh negative, proBNP mildly elevated, urine Legionella, bacterial antigen negative. MRSA swab negative. Sputum culture pending. Solu-Medrol 40 mg IV every 12 hourly. Ipratropium, Xopenex every 6 hour, budesonide twice daily. Pneumonia unlikely but for now start patient on treatment with ceftriaxone and azithromycin to cover for community-acquired pneumonia. Will de-escalate antibiotics quickly if patient remains hemodynamically stable and afebrile. Echocardiogram pending. Fluid restriction. Strict input output charting, daily weights. Hoff catheterization. Got IV 40 mg Lasix today. Switch to 40 mg oral Lasix from tomorrow. CKD stage IV: Baseline creatinine 2.1-2.5. Creatinine at baseline. Atrial fibrillation with rapid ventricular response: Most likely cause for congestive heart failure. Not on rate limiting drug. Having bradycardia. Switch to Cardizem 30 mg every 8 hourly as needed for heart rate of more than 100 bpm. Not on anticoagulation given advanced age, history of falls. Chest pain: Troponin mildly elevated without any significant delta. Most likely type II [place]. Appreciate A1c, lipid panel. Continue home dose of statin, aspirin. Patient will most likely benefit from an outpatient stress test. Pulmonary nodule more than 1 cm: Granulomatous disease versus metastasis. As seen on CT chest. Chronic. Seems to be progressive as compared to both CT scan. Does have a history of malignancy in the past. Most likely need a bronchoscopy with possible biopsy as an outpatient. Check SERGEI level, TELLO panel, ESR, CRP. Continue other chronic medication. CODE STATUS: DNR/DNI. Protonix for PUD prophylaxis. Cardiac diet. Attestations Medical Necessity Statement*: Requires further hospitalization for management of shortness of breath, generalized malaise secondary to COPD exacerbation from viral infection, congestive heart failure in setting of atrial fibrillation rapid ventricular response. Time Spent in Patient Care: Greater than 35 minutes Coding Level of Care Code Acute Health Program Manager for [facility] Fwd Diagnoses Atrial fibrillation with RVR I48.91 Diastolic congestive heart failure I50.30 COPD (chronic obstructive pulmonary disease) J44.9 Wheezing R06.2 Dyspnea R06.00 CKD (chronic kidney disease), stage IV N18.4 DNR (do not resuscitate) Z66 Pulmonary nodule 1 cm or greater in diameter R91.1 Other coronavirus as the cause of diseases classified elsewhere B97.29 Bradycardia R00.1
[2022-01-20] MEDS: TRAMadol 50 mg Tablet PO (15:33)
--- NOTE | 2022-01-20 17:04 | PC.NURSE ---
pt finally fell asleep. family left.
[2022-01-20] MEDS: fluticasone nasal spray 16gm Btl 1 SPRAY NASAL (17:53)
[2022-01-20] MEDS: cefTRIAXone 1,000 MG in sodium chloride 0.9% (plus) 50 ML 100 MG IV (17:54)
--- NOTE | 2022-01-20 19:32 | USCV_ITS ---
Velasquez Montano Age: 81 Gender: F : 1940 Exam Date: 01/20/2022 14:13 Ordering Phys: Kamaljit Jacobsen MD Technologist: Candace Jordan [place] [facility] [place]: Afib, CHF, Pulm HTN BP: 142 / 58 HR: 52 Rhythm: Sinus Technical Quality: Technically difficult study MEASUREMENTS (Male / Female) Normal Values 2D ECHO LV Diastolic Diameter PLAX 3.0 cm 4.2 - 5.9 / 3.9 - 5.3 cm LV Systolic Diameter PLAX 2.0 cm IVS Diastolic Thickness 1.2 cm 0.6 - 1.0 / 0.6 - 0.9 cm IVS Systolic Thickness 1.7 cm LVPW Diastolic Thickness 1.2 cm 0.6 - 1.0 / 0.6 - 0.9 cm LVPW Systolic Thickness 1.4 cm LVOT Diameter 2.0 cm LV Ejection Fraction 2D Teich 64.0 % LV Ejection Fraction MOD 2C 54.0 % LV Ejection Fraction 2C AL 55.7 % LA Diameter 3.0 cm Aorta at Sinotubular Diameter 1.8 cm M-MODE Aortic Annulus Diameter 2.9 cm LA Ao Ratio MM 1.1 MV E Point Septal Separation 0.2 cm DOPPLER AV Peak Velocity 85.0 cm/s LVOT Peak Velocity 75.0 cm/s AV Area Cont Eq vti 3.0 cm squared AV Area Cont Eq pk 2.8 cm squared MV Area PHT 3.3 cm squared Mitral E to A Ratio 0.8 MV E' Velocity 49.0 cm/s Mitral E to MV E' Ratio 12.7 Mitral E to LV E' Lateral Ratio 12.5 Mitral E to LV E' Septal Ratio 12.8 TR Peak Velocity 214.0 cm/s TR Peak Gradient 18.3 mmHg Right Atrial Pressure 8.0 mmHg Pulmonary Artery Systolic Pressu 26.3 mmHg PV Peak Velocity 107.0 cm/s RV Acceleration Time 0.2 s RV Ejection Time 0.4 s RV AcT/ET 0.4 FINDINGS Left Ventricle Normal left ventricular size. LV systolic function is normal with EF of 55-60%. No regional wall motion abnormalities noted. Grade 1 diastolic dysfunction. Right Ventricle The right ventricle is normal in size and function Right Atrium Not well visualized Left Atrium The left atrium is normal in size. Mitral Valve Mild mitral annular calcification. There is no mitral regurgitation. Aortic Valve Not well visualized. No significant stenosis. There is no aortic regurgitation. Tricuspid Valve Grossly normal. No significant regurgitation. Pulmonic Valve Not well-visualized Pericardium Normal pericardium without effusion. Aorta Normal ascending aorta dimension. CONCLUSIONS Technically limited quality echocardiogram because of poor ultrasonic windows LV systolic function is normal with EF 55 to 60%. Grade 1 diastolic dysfunction. Mild mitral annular calcification. Compared to prior echocardiogram from 09/03/2020, patient now has grade 1 diastolic dysfunction Harley Santana MD (Electronically Signed) Final Date: 21 January 2022 10:17 S
[2022-01-20] MEDS: atorvastatin 40 mg Tablet 20 MG PO (20:19)
[2022-01-21] VITALS (17 sets, daily range): BP systolic 123–163; BP diastolic 60–78; PULSE 59–117; RESP 14–22; TEMP 36.1–36.7; O2SAT 94–97; BMI 36.6
[2022-01-21] MEDS: levalbuterol 0.63 mg/3 mL Neb INHALATION ×3 (04:14→14:33)
[2022-01-21] MEDS: ipratropium 0.5 mg/2.5 mL Neb INHALATION ×4 (04:14→20:42)
[2022-01-21 05:21] LABS: Basophils % 0.1 %; Hematocrit 28.5 % (37.0-47.0); Hemoglobin 8.6 g/dL (11.5-15.3); Lymphocytes # 1.3 10^3/uL (0.8-4.8); Lymphocytes % 14.4 %; Mean Corpuscular HGB Conc 30.2 g/dL (30.0-36.0); Mean Corpuscular Hemoglobin 32.1 pg (28.0-34.0); Mean Corpuscular Volume 106.3 fl (81-99); Mean Platelet Volume 11.1 fL (7.4-10.4); Monocytes # 0.1 10^3/uL (0.2-0.9); Monocytes % 1.4 %; Neutrophils # 7.63 10^3/uL (1.8-7.7); Neutrophils % 83.3 %; Nucleated Red Blood Cells % 0 %; Platelet Count 220 10^3/cmm (130-400); Red Blood Count 2.68 10^6/uL (4.1-5.3); Red Cell Distribution Width 13.6 % (12.1-15.1); White Blood Count 9.2 10^3/uL (4.0-10.0)
[2022-01-21 05:38] LABS: Alanine Aminotransferase 8 U/L (0-33); Albumin Level 3.4 g/dL (3.5-5.2); Alkaline Phosphatase 86 IU/L (35-105); Aspartate Amino Transferase 14 U/L (0-32); Blood Urea Nitrogen 68 mg/dL (8-23); Calcium 9.9 mg/dL (8.5-10.5); Carbon Dioxide 28 mmol/L (22-29); Chloride 100 mmol/L (98-107); Globulin 3.7 g/dL (1.3-4.6); Glucose 137 mg/dL (65-115); Osmolality Calculated 310 mOsm/kg (285-295); Sodium 139 mmol/L (136-145); Total Bilirubin 0.2 mg/dL (0.15-1.2); Total Protein 7.1 g/dL (6.6-8.7)
[2022-01-21 05:40] LABS: Anion Gap 16.4 (5-19); Potassium 5.4 mmol/L (3.5-5.1)
[2022-01-21 05:58] LABS: Slide Review Slide Review Perform
[2022-01-21] MEDS: sucralfate 1 gm/10 mL Oral Liq UDC PO ×4 (05:58→21:13)
[2022-01-21] MEDS: azithromycin 250 mg Tablet 500 MG PO (08:36)
[2022-01-21] MEDS: ferrous gluconate 324 mg Tablet PO ×2 (08:36→18:06)
[2022-01-21] MEDS: folic acid 1 mg Tablet PO ×2 (08:37→21:12)
[2022-01-21] MEDS: dilTIAZem 30 mg Tablet PO ×2 (08:37→18:07)
[2022-01-21] MEDS: zinc gluconate 50 mg Tablet PO (08:37)
[2022-01-21] MEDS: allopurinol 100 mg Tablet PO (08:37)
[2022-01-21] MEDS: aspirin 81 mg EC Tablet PO (08:37)
[2022-01-21] MEDS: ascorbic acid 500 mg Tablet 1000 MG PO ×2 (08:37→18:08)
[2022-01-21] MEDS: pantoprazole DR 40 mg Tablet PO ×2 (08:38→18:08)
[2022-01-21] MEDS: citalopram 20 mg Tablet PO (08:38)
[2022-01-21] MEDS: gabapentin 100 mg Capsule PO ×3 (08:38→21:11)
[2022-01-21] MEDS: benzonatate 100 mg Capsule PO ×3 (08:38→21:13)
[2022-01-21] MEDS: divalproex DR 250 mg Tablet PO ×2 (08:38→21:11)
[2022-01-21] MEDS: nystatin cream 30 gm 1 APPLIC TOPICAL (08:39)
[2022-01-21] MEDS: montelukast sodium 10 mg Tablet PO (08:39)
[2022-01-21] MEDS: fluticasone nasal spray 16gm Btl 1 SPRAY NASAL ×2 (08:40→18:08)
[2022-01-21] MEDS: heparin 5,000 unit/mL INJ 1 mL 5000 UNIT SUBCUT ×2 (08:40→21:13)
[2022-01-21] MEDS: budesonide 0.5 mg/2 mL Neb INHALATION ×2 (08:44→20:41)
--- NOTE | 2022-01-21 14:02 | PM.PN ---
Subjective Subjective: No acute events overnight. Patient denies any nausea, vomiting, headache. States she is feeling better than yesterday. Overnight has remained hemodynamically stable with occasionally heart rate going up more than 100. Given Cardizem 30 mg today. Asking if she can be discharged tomorrow rather than today. States she likes the care she gets to the hospital. Vitals/I&O/Wt Last Vital Signs Temp 98.1 F 01/21/22 04:15 Pulse 99 01/21/22 08:52 Resp 18 01/21/22 08:52 BP 151/76 01/21/22 08:00 Pulse Ox 96 01/21/22 08:52 01/20/22 01/21/22 01/21/22 21:59 06:59 14:59 Intake Total 720 / 720 Output Total 350 / 350 Balance 370 / 370 Weight last 48 hrs Weight 90.718 kg Weight 90.718 kg Weight 90.718 kg Physical Exam Narrative: General: No acute distress, AO x 3slow to respond, forgetful HEENT: PERRLA, pupils bilaterally equal and reactive Chest: Bilateral bronchial breath sounds, expiratory wheeze all over the lung bajwa occasionally CVS: S1-S2 irregularly irregular, no murmurs, no tachycardia, no gallops, no rubs Abdomen: Soft, nontender, no organomegaly, bowel sounds present Neuro: No focal deficits, no facial deformity, AO x3, power 5/5 in all limbs Urinary Catheter Management: Hoff: Cath Placed During This Visit: yes, but has since been removed by the nurse Reason for Continuing Indwelling Catheter: Accurate Measurement of Urinary Output in Critically Ill Patients Urinary Catheter Date of Insertion: 01/19/22 Urinary Catheter Time of Insertion: 22:45 Date Urinary Catheter Removed: 01/21/22 Time Urinary Catheter Discontinued: 10:05 Data : 01/21/22 04:52 01/21/22 04:52 Micro: Microbiology 01/19/22 21:50 Gram Stain - Final Sputum - Expectorated Sputum Sputum Culture - Preliminary 01/19/22 19:40 Blood Culture - Preliminary Blood NEGATIVE TO DATE 01/19/22 19:35 Blood Culture - Preliminary Blood NEGATIVE TO DATE 01/19/22 20:00 MRSA Culture - Final Nose 01/19/22 20:00 Bacterial Antigens - Final Urine Kidney A&P Assessment and plan (1) Other coronavirus as the cause of diseases classified elsewhere: Status: Acute (2) Atrial fibrillation with RVR: Status: Acute (3) Diastolic congestive heart failure: Status: Acute (4) COPD (chronic obstructive pulmonary disease): Status: Acute (5) Wheezing: Status: Acute (6) Dyspnea: Status: Acute (7) CKD (chronic kidney disease), stage IV: Status: Acute (8) DNR (do not resuscitate): Status: Acute (9) Pulmonary nodule 1 cm or greater in diameter: Status: Acute (10) Bradycardia: Status: Acute Plan Shortness of breath: Patient is at her baseline oxygen supplementation. Chronically she is on 2 L. Currently on 1.5 L saturating more than 92%. Most likely a combination of mild COPD exacerbation secondary to coronavirus infection other than COVID-19 along with congestive heart failure because of atrial fibrillation. CT chest without contrast appreciated. No active consolidations currently. Pro-Santhosh negative, proBNP mildly elevated, urine Legionella, bacterial antigen negative. MRSA swab negative. Sputum culture pending. Prednisone 40 mg oral daily. Will do a quick taper. Ipratropium, Xopenex every 6 hour, budesonide twice daily. Pneumonia unlikely but for now start patient on treatment with ceftriaxone and azithromycin to cover for community-acquired pneumonia. Will de-escalate antibiotics quickly if patient remains hemodynamically stable and afebrile. Echocardiogram appreciated. Fluid restriction. Strict input output charting, daily weights. Hoff catheterization. IV 40 mg Lasix once. Switch to 40 mg oral Lasix from tomorrow. CKD stage IV: Baseline creatinine 2.1-2.5. Creatinine at baseline. Hyperkalemia: D50, 10 units insulin. Repeat BMP in a.m. Atrial fibrillation with rapid ventricular response: Most likely cause for congestive heart failure. Having occasional episodes of bradycardia. Cardizem 30 mg twice daily. If patient has bradycardia will consult cardiology for possible pacemaker implantation for tachybradycardia syndrome. Not on anticoagulation given advanced age, history of falls. Chest pain: Troponin mildly elevated without any significant delta. Most likely type II [place]. Appreciate A1c, lipid panel. Continue home dose of statin, aspirin. Patient will most likely benefit from an outpatient stress test. Pulmonary nodule more than 1 cm: Granulomatous disease versus metastasis. As seen on CT chest. Chronic. Seems to be progressive as compared to both CT scan. Does have a history of malignancy in the past. Most likely need a bronchoscopy with possible biopsy as an outpatient. Check SERGEI level, TELLO panel, ESR, CRP. Continue other chronic medication. CODE STATUS: DNR/DNI. Protonix for PUD prophylaxis. Cardiac diet. 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
[2022-01-21] MEDS: FUROsemide 10 mg/mL SDV 4mL 40 MG IVP (14:44)
[2022-01-21] MEDS: predniSONE 20 mg Tablet 40 MG PO (14:44)
[2022-01-21] MEDS: cefTRIAXone 1,000 MG in sodium chloride 0.9% (plus) 50 ML 100 MG IV (21:11)
[2022-01-21] MEDS: atorvastatin 40 mg Tablet 20 MG PO (21:12)
[2022-01-22] VITALS (15 sets, daily range): BP systolic 146–177; BP diastolic 61–77; PULSE 63–77; RESP 16–22; TEMP 36.3–36.5; O2SAT 91–98
[2022-01-22] MEDS: levalbuterol 0.63 mg/3 mL Neb INHALATION ×4 (02:49→20:24)
[2022-01-22] MEDS: ipratropium 0.5 mg/2.5 mL Neb INHALATION ×4 (02:49→20:23)
[2022-01-22 04:46] LABS: Basophils % 0.1 %; Hematocrit 32.8 % (37.0-47.0); Hemoglobin 9.6 g/dL (11.5-15.3); Lymphocytes # 1.5 10^3/uL (0.8-4.8); Lymphocytes % 10.8 %; Mean Corpuscular HGB Conc 29.3 g/dL (30.0-36.0); Mean Corpuscular Hemoglobin 31.8 pg (28.0-34.0); Mean Corpuscular Volume 108.6 fl (81-99); Mean Platelet Volume 10.7 fL (7.4-10.4); Monocytes # 0.6 10^3/uL (0.2-0.9); Neutrophils # 11.67 10^3/uL (1.8-7.7); Neutrophils % 84.5 %; Nucleated Red Blood Cells % 0 %; Platelet Count 270 10^3/cmm (130-400); Red Blood Count 3.02 10^6/uL (4.1-5.3); Red Cell Distribution Width 13.5 % (12.1-15.1); White Blood Count 13.8 10^3/uL (4.0-10.0)
[2022-01-22 04:58] LABS: Alanine Aminotransferase 16 U/L (0-33); Albumin Level 3.6 g/dL (3.5-5.2); Alkaline Phosphatase 87 IU/L (35-105); Anion Gap 19.8 (5-19); Aspartate Amino Transferase 22 U/L (0-32); Blood Urea Nitrogen 78 mg/dL (8-23); C Reactive Protein 13.4 mg/L (0.0-4.9); Calcium 9.3 mg/dL (8.5-10.5); Carbon Dioxide 24 mmol/L (22-29); Chloride 100 mmol/L (98-107); Globulin 3.2 g/dL (1.3-4.6); Glucose 131 mg/dL (65-115); Osmolality Calculated 313 mOsm/kg (285-295); Potassium 4.8 mmol/L (3.5-5.1); Sodium 139 mmol/L (136-145); Total Bilirubin 0.2 mg/dL (0.15-1.2); Total Protein 6.8 g/dL (6.6-8.7)
--- NOTE | 2022-01-22 05:23 | PC.NURSE ---
Shift Note Frequent safety and comfort rounds continue. Orders and/or nursing care completed as indicated. Patient monitored for response to intervention and treatment(s). Education provided includes IV antibiotics and why they are giving to her. Patient and/or corporate representative verbalized understanding. Will continue to monitor.
--- NOTE | 2022-01-22 07:00 | XR_ITS ---
WS: [id number] Portable AP upright chest, 01/22/2022 Clinical Data: covid Comparison: Portable chest, 01/20/2022 Findings: There are patchy nodular densities throughout the lungs which are probable granulomatous ca lcifications. The heart is slightly enlarged. The aortic arch and descending thoracic aorta show tort uosity No pneumonia or pneumothorax is seen. There are monitor leads on the chest wall. XR/XR chest 1V portable [id number] Impression: 1. No change in old granulomatous disease. 2. Cardiomegaly
[2022-01-22] MEDS: budesonide 0.5 mg/2 mL Neb INHALATION ×2 (08:33→20:23)
[2022-01-22] MEDS: citalopram 20 mg Tablet PO (08:54)
[2022-01-22] MEDS: allopurinol 100 mg Tablet PO (08:54)
[2022-01-22] MEDS: divalproex DR 250 mg Tablet PO ×2 (08:55→21:12)
[2022-01-22] MEDS: folic acid 1 mg Tablet PO ×2 (08:55→21:13)
[2022-01-22] MEDS: ferrous gluconate 324 mg Tablet PO ×2 (08:55→17:43)
[2022-01-22] MEDS: FUROsemide 40 mg Tablet PO (08:56)
[2022-01-22] MEDS: aspirin 81 mg EC Tablet PO (08:56)
[2022-01-22] MEDS: gabapentin 100 mg Capsule PO ×3 (08:56→21:13)
[2022-01-22] MEDS: montelukast sodium 10 mg Tablet PO (08:56)
[2022-01-22] MEDS: ascorbic acid 500 mg Tablet 1000 MG PO ×2 (08:56→17:43)
[2022-01-22] MEDS: pantoprazole DR 40 mg Tablet PO ×2 (08:57→17:44)
[2022-01-22] MEDS: dilTIAZem 30 mg Tablet PO ×2 (08:57→17:43)
[2022-01-22] MEDS: predniSONE 20 mg Tablet 40 MG PO (08:57)
[2022-01-22] MEDS: zinc gluconate 50 mg Tablet PO (08:57)
[2022-01-22] MEDS: azithromycin 250 mg Tablet 500 MG PO (08:57)
[2022-01-22] MEDS: benzonatate 100 mg Capsule PO ×3 (08:57→21:13)
[2022-01-22] MEDS: nystatin cream 30 gm 1 APPLIC TOPICAL (08:58)
--- NOTE | 2022-01-22 09:04 | PC.SOCIAL ---
IMM Update Pg. 2 of IMM updated and reviewed with patient's daughter Crystal over the phone, who verbalized understanding. Copy provided at bedside.
[2022-01-22] MEDS: heparin 5,000 unit/mL INJ 1 mL 5000 UNIT SUBCUT ×2 (10:25→21:13)
--- NOTE | 2022-01-22 20:20 | PM.PN ---
Subjective Subjective: STILL HAS SOME sob. PT UNABLE TO PROVIDE ANY HISTORY. Vitals/I&O/Wt Last Vital Signs Temp 97.5 F L 01/22/22 19:51 Pulse 66 01/22/22 19:51 Resp 22 H 01/22/22 19:51 BP 146/77 01/22/22 19:51 Pulse Ox 97 01/22/22 19:51 01/22/22 01/22/22 01/22/22 06:59 14:59 22:59 Intake Total 50 / 1070 120 / 120 Output Total 1 Balance 50 / -830 117 / 117 -1 / 116 Weight last 48 hrs Weight 90.718 kg Weight 90.718 kg Physical Exam Narrative: General: No acute distress, AO x 3sl ow to respond, for getful HEENT: PERR LA, pupils bilater ally equal and maricel ctive Chest: BS de creased basally, C ourse throughout C VS: S1-S2 irregula rly irregular, no murmurs, no tachyc ardia, no gallops, no rubs Abdomen: Soft, nontender, n o organomegaly, madeline wel sounds present Neuro: No focal d eficits, no facial deformity, AO x3, power 5/5 in all limbs :?? Hoff: Cath Placed During This Visit : yes, but has sin ce been removed by the nurse Reason for Continuing Ind welling Catheter: Accurate Measureme nt of Urinary Outp ut in Critically I ll Patients Urinar y Catheter Date of Insertion: Urinary Cathete r Time of Insertio n: 22:45 Date Urin reshma Catheter Remov ed: 01/21/22 Time Urinary Catheter D iscontinued: 10:05 Urinary Catheter Management: Hoff: Cath Placed During This Visit: yes, but has since been removed by the nurse Reason for Continuing Indwelling Catheter: Accurate Measurement of Urinary Output in Critically Ill Patients Urinary Catheter Date of Insertion: 01/19/22 Urinary Catheter Time of Insertion: 22:45 Date Urinary Catheter Removed: 01/21/22 Time Urinary Catheter Discontinued: 10:05 Data : 01/22/22 03:54 01/22/22 03:54 Micro: Microbiology 01/19/22 21:50 Gram Stain - Final Sputum - Expectorated Sputum Sputum Culture - Final A&P Assessment and plan (1) Other coronavirus as the cause of diseases classified elsewhere: Status: Resolved (2) COPD (chronic obstructive pulmonary disease): Status: Acute (3) Diastolic congestive heart failure: Status: Acute (4) CKD (chronic kidney disease), stage IV: Status: Acute (5) Atrial fibrillation with RVR: Status: Acute (6) Bradycardia: Status: Resolved Plan Shortness of breath: Patient is at her baseline oxygen supplementation.? Chronically she is on 2 L.? Currently on 1.5 L saturating more than 92%. Most likely a combination of mild COPD exacerbation secondary to coronavirus infection other than COVID-19 along with congestive heart failure because of atrial fibrillation. CT chest without contrast appreciated.? No active consolidations currently. Pro-Santhosh negative, proBNP mildly elevated, urine Legionella, bacterial antigen negative.? MRSA swab negative. Sputum culture pending. Prednisone 40 mg oral daily.? Will do a quick taper. Ipratropium, Xopenex every 6 hour, budesonide twice daily. Pneumonia unlikely but for now start patient on treatment with ceftriaxone and azithromycin to cover for community-acquired pneumonia.? Will de-escalate antibiotics quickly if patient remains hemodynamically stable and afebrile. Echocardiogram appreciated. Fluid restriction. Strict input output charting, daily weights.? Hoff catheterization. IV 40 mg Lasix once.? Switch to 40 mg oral Lasix from tomorrow. CKD stage IV: Baseline creatinine 2.1-2.5. Creatinine at baseline. Hyperkalemia: D50, 10 units insulin. Repeat BMP in a.m. Atrial fibrillation with rapid ventricular response: Most likely cause for congestive heart failure. Having occasional episodes of bradycardia. Cardizem 30 mg twice daily.? If patient has bradycardia will consult cardiology for possible pacemaker implantation for tachybradycardia syndrome. Not on anticoagulation given advanced age, history of falls. Chest pain: Troponin mildly elevated without any significant delta. Most likely type II [place]. Appreciate A1c, lipid panel. Continue home dose of statin, aspirin. Patient will most likely benefit from an outpatient stress test. Pulmonary nodule more than 1 cm: Granulomatous disease versus metastasis.? As seen on CT chest.? Chronic.? Seems to be progressive as compared to both CT scan. Does have a history of malignancy in the past. Most likely need a bronchoscopy with possible biopsy as an outpatient. Check SERGEI level, TELLO panel, ESR, CRP. Attestations Medical Necessity Statement*: Pt 's condition is still guarded and needs continued acute care. 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
[2022-01-22] MEDS: cefTRIAXone 1,000 MG in sodium chloride 0.9% (plus) 50 ML 100 MG IV (21:11)
[2022-01-22] MEDS: atorvastatin 40 mg Tablet 20 MG PO (21:12)
[2022-01-22] MEDS: sucralfate 1 gm/10 mL Oral Liq UDC PO (21:13)
[2022-01-23] VITALS (11 sets, daily range): BP systolic 118–163; BP diastolic 41–71; PULSE 62–90; RESP 15–20; TEMP 36.4–36.8; O2SAT 92–97
[2022-01-23] MEDS: ipratropium 0.5 mg/2.5 mL Neb INHALATION ×2 (03:03→08:40)
[2022-01-23] MEDS: levalbuterol 0.63 mg/3 mL Neb INHALATION ×2 (03:03→08:40)
[2022-01-23] MEDS: budesonide 0.5 mg/2 mL Neb INHALATION (08:40)
[2022-01-23] MEDS: ferrous gluconate 324 mg Tablet PO (09:13)
[2022-01-23] MEDS: benzonatate 100 mg Capsule PO ×2 (09:14→14:15)
[2022-01-23] MEDS: zinc gluconate 50 mg Tablet PO (09:14)
[2022-01-23] MEDS: montelukast sodium 10 mg Tablet PO (09:14)
[2022-01-23] MEDS: pantoprazole DR 40 mg Tablet PO (09:14)
[2022-01-23] MEDS: folic acid 1 mg Tablet PO (09:14)
[2022-01-23] MEDS: azithromycin 250 mg Tablet 500 MG PO (09:14)
[2022-01-23] MEDS: ascorbic acid 500 mg Tablet 1000 MG PO (09:15)
[2022-01-23] MEDS: dilTIAZem 30 mg Tablet PO (09:15)
[2022-01-23] MEDS: aspirin 81 mg EC Tablet PO (09:15)
[2022-01-23] MEDS: predniSONE 20 mg Tablet 40 MG PO (09:15)
[2022-01-23] MEDS: divalproex DR 250 mg Tablet PO (09:17)
[2022-01-23] MEDS: allopurinol 100 mg Tablet PO (09:18)
[2022-01-23] MEDS: FUROsemide 40 mg Tablet PO (09:18)
[2022-01-23] MEDS: citalopram 20 mg Tablet PO (09:18)
[2022-01-23] MEDS: gabapentin 100 mg Capsule PO ×2 (09:18→14:15)
[2022-01-23] MEDS: nystatin cream 30 gm 1 APPLIC TOPICAL (09:20)
[2022-01-23] MEDS: heparin 5,000 unit/mL INJ 1 mL 5000 UNIT SUBCUT (09:30)
--- NOTE | 2022-01-23 10:06 | P.DS_ITS ---
Discharge Providers Date of Admission: 01/19/22 19:37 Date of Discharge: January 23, 2022 Attending Provider at Admission: Kamaljit Jacobsen MD Attending Provider at Discharge: Jesus Montero MD Primary Care Provider: Dunia Rowan MD Diagnoses at Discharge Discharge Diagnosis (1) Other coronavirus as the cause of diseases classified elsewhere: Status: Acute (2) Atrial fibrillation with RVR: Status: Acute (3) Diastolic congestive heart failure: Status: Acute (4) COPD (chronic obstructive pulmonary disease): Status: Acute Permanent problem details: Oxygen dependent (5) Wheezing: Status: Acute (6) Dyspnea: Status: Acute (7) CKD (chronic kidney disease), stage IV: Status: Acute (8) DNR (do not resuscitate): Status: Acute (9) Pulmonary nodule 1 cm or greater in diameter: Status: Acute (10) Bradycardia: Status: Acute Reason for Visit Reason for Visit: CHEST PAIN Hospital Course Hospital Course Velasquez Montano is a 81 year old female, long-term resident at [facility] with past medical history of COPD on chronically 2 L, sleep apnea not on CPAP atrial fibrillation not on anticoagulation because of possible history of fall, mild Alzheimer's, CKD stage IV with baseline creatinine of 2.3, adenocarcinoma of sigmoid colon with metastasis to mesentery s/p left anterior resection, remote history of breast cancer, anemia, COVID-19 in 2019, ESBL Proteus UTI who presented to the ER today from long-term because of epigastric chest pain which she had while she was eating her meals in afternoon.? In the ER she was found to be mildly tachypneic with a white count of 15,000 hence medicine was consulted for admission and further evaluation. In the ER patient was also found to have an episode of A. fib with RVR with heart rate going up to 150s for which she was given oral metoprolol. Examination patient is lying comfortably in bed with heart rate running in 70s with occasionally going up to 130s for few seconds, on 2 L saturating 96%.? Patient is mildly confused which is her baseline.? She is alert and oriented to self, place.? She states she has been having occasional episodes of palpitation.? Denies any chest pain on exertion.? Complains of heartburn.? States she feels breathless on and off.? Denies any fever. In the ER she was found to have a white count of 15.8, hemoglobin of 9.6, MCV of 108, platelet count of 171, sodium of 154, potassium of 5.4, creatinine of 2.3, BUN of 53, baseline troponin of 71 with delta of 2 in 2 hours, UA negative for any signs of infection. Pt was admitted to the [facility] . She was managed initially w/ Rocephine and Azithromycin. Blood C/S were negative. She was suspected to have Ac Exacerbation of COPD w/ possible viral PNA and diastolic CHF. Her respiratory symptoms improved w/ aggresive bronchodilator therapy, steroids and Lasix. Pt had developed new onset Atrial Fibrillation and was controlled w/ Cardizem. She however developed asymptomatic bradycardia but this improved and was tolerating the Cardizem. Pt was making progress. She will return to her NH facility. Physical Exam Narrative: NAD CVS: S1S2, RRR, Mur (-) Resp: Decreased BS basally, few exp scaterred Rhonchi Abd: Soft, NT, BS+ Edema+ STEWARD/STEWARDESS ECONOMY CLASS: A&Ox3. Non focal Urinary Catheter Management: Hoff: Cath Placed During This Visit: yes, but has since been removed by the nurse Reason for Continuing Indwelling Catheter: Accurate Measurement of Urinary Output in Critically Ill Patients Urinary Catheter Date of Insertion: 01/19/22 Urinary Catheter Time of Insertion: 22:45 Date Urinary Catheter Removed: 01/21/22 Time Urinary Catheter Discontinued: 10:05 Discharge Data Studies Completed and Pending Completed Studies During Hospitalization Category Date Time Status CT chest wo con [id number] Urgent Cat Scan 01/19/22 19:38 Completed XR chest 1V portable [id number] Q48H Exams 01/20/22 06:00 Completed XR chest 1V portable [id number] Q48H Exams 01/22/22 07:00 Completed XR chest 1V portable [id number] Urgent Exams 01/19/22 13:50 Completed XR chest 2V* [id number] Stat Exams 01/19/22 17:42 [place] [id number] Routine Ultrasound 01/20/22 08:59 Completed CV. echo complete* [id number] Routine Ultrasound 01/20/22 19:32 Completed Pending at discharge Category Date Time Status XR chest 1V portable [id number] Q48H Exams 01/24/22 07:00 Ordered Angiotensin Converting Enzyme Routine Lab 01/19/22 21:40 Received Blood Culture Stat Lab 01/19/22 19:35 Results [facility] Profile Routine Lab 01/19/22 21:40 Received Radiology Impressions Chest CT 01/19/22 19:38 IMPRESSION: 1. Multiple bilateral solid, sub solid and mixed solid and subsolid nodules and opacities. Overall the process has increased since May 2021 and is new since 2019. The overall findings are suspicious for metastatic disease, much less likely primary lung disease.. Differential would include a prolonged inflammatory process such as sarcoidosis. Further evaluation for potential malignancy in the abdomen/pelvis is recommended if not previously performed 2. Unchanged chronic bilateral adrenal nodules and left adrenal myelolipoma COMMENTS: Consistent with the [employer]'s Incidental Findings Committee white paper (J Am Sonny Radiol 2017): For any incidental adrenal lesion greater than 1 cm but less than 4 cm classified in this report as benign, likely benign, or containing fat (including classification as an adenoma or myelolipoma), no follow-up imaging is recommended per consensus recommendations based on imaging criteria. Further lab evaluation could be pursued if warranted based on clinical findings. Venous Duplex 01/20/22 08:59 IMPRESSION: No evidence of deep vein thrombosis. Chest X-Ray 01/22/22 07:00 Impression: 1. No change in old granulomatous disease. 2. Cardiomegaly Laboratory Results WBC 13.8 10^3/uL (4.0-10.0) H 01/22/22 03:54 RBC 3.02 10^6/uL (4.1-5.3) L 01/22/22 03:54 Hgb 9.6 g/dL (11.5-15.3) L 01/22/22 03:54 Hct 32.8 % (37.0-47.0) L 01/22/22 03:54 MCV 108.6 fl (81-99) H 01/22/22 03:54 MCH 31.8 pg (28.0-34.0) 01/22/22 03:54 MCHC 29.3 g/dL (30.0-36.0) L 01/22/22 03:54 RDW 13.5 % (12.1-15.1) 01/22/22 03:54 Plt Count 270 10^3/cmm (130-400) 01/22/22 03:54 MPV 10.7 fL (7.4-10.4) H 01/22/22 03:54 Neut % (Auto) 84.5 % 01/22/22 03:54 Lymph % (Auto) 10.8 % 01/22/22 03:54 [place] % (Auto) 4.0 % 01/22/22 03:54 Eos % (Auto) 0.0 % 01/22/22 03:54 Baso % (Auto) 0.1 % 01/22/22 03:54 Neut # (Auto) 11.67 10^3/uL (1.8-7.7) H 01/22/22 03:54 Lymph # (Auto) 1.5 10^3/uL (0.8-4.8) 01/22/22 03:54 [place] # (Auto) 0.6 10^3/uL (0.2-0.9) 01/22/22 03:54 Eos # (Auto) 0.0 10^3/uL (0.0-0.8) 01/22/22 03:54 Baso # (Auto) 0.0 10^3/uL (0.0-0.1) 01/22/22 03:54 Nucleated RBC % (auto) 0 % 01/22/22 03:54 Nucleated RBCs # 0.0 /100WBC 01/22/22 03:54 ESR 26 mm/hr (0-15) H 01/19/22 21:40 D-Dimer 1.60 ug/mIFEU (0-0.59) H 01/22/22 03:54 Specimen Type Arterial 01/20/22 06:34 Sample Site Radial, left 01/20/22 06:34 ABG pH 7.38 (7.35-7.45) 01/20/22 06:34 ABG pCO2 57.0 mmHg (35-45) H 01/20/22 06:34 ABG pO2 77.9 mmHg (80.0-100.0) L 01/20/22 06:34 ABG HCO3 33.5 mmol/L (22-26) H 01/20/22 06:34 ABG O2 Saturation 96.0 01/20/22 06:34 ABG Base Excess 7.3 mmol/L (-2.0-2.0) H 01/20/22 06:34 Teja Test Pos 01/20/22 06:34 A-a O2 Gradient 0.5 mmHg (5-10) L 01/20/22 06:34 Hematocrit 24.9 % (37-47) L 01/20/22 06:34 Hgb O2 Saturation 93.6 % (95-100) L 01/20/22 06:34 Carboxyhemoglobin 1.3 %THgb (0.4-20.1) 01/20/22 06:34 Methemoglobin 1.3 % (0.4-1.5) 01/20/22 06:34 Total Hemoglobin 8.1 g/dL (12-16) L 01/20/22 06:34 Sodium 145.0 mmol/L (131-143) H 01/20/22 06:34 Potassium 5.2 mmol/L (3.5-5.0) H 01/20/22 06:34 Glucose 128.0 mg/dL (70-115) H 01/20/22 06:34 Ionized Calcium 1.3 mmol/L (1.1-1.4) 01/20/22 06:34 O2 Delivery Device Nc 01/20/22 06:34 O2 Liters/Min 1.5 % 01/20/22 06:34 [employer] ID Buttr 01/20/22 06:34 Sodium 139 mmol/L (136-145) 01/22/22 03:54 Potassium 4.8 mmol/L (3.5-5.1) 01/22/22 03:54 Chloride 100 mmol/L (98-107) 01/22/22 03:54 Carbon Dioxide 24 mmol/L (22-29) 01/22/22 03:54 Anion Gap 19.8 (5-19) H 01/22/22 03:54 BUN 78 mg/dL (8-23) H 01/22/22 03:54 Creatinine 2.4 mg/dL (0.5-0.9) H 01/22/22 03:54 GFR Calculation Not Reportable 01/22/22 03:54 Glucose 131 mg/dL (65-115) H 01/22/22 03:54 Estimat Average Glucose 97 01/20/22 04:03 Hemoglobin A1c 5.0 % (4.0-6.0) 01/20/22 04:03 Calculated Osmolality 313 mOsm/kg (285-295) H 01/22/22 03:54 Calcium 9.3 mg/dL (8.5-10.5) 01/22/22 03:54 Phosphorus 3.1 mg/dL (2.5-4.5) 01/20/22 04:03 Magnesium 1.9 mg/dL (1.7-2.3) 01/20/22 04:03 Iron 14 ug/dL (37-145) L 01/19/22 20:37 TIBC 233 mcg/dl 01/19/22 20:37 % Saturation 6.0 % (20-50) L 01/19/22 20:37 Unsat Iron Binding 219 ug/dL (112-347) 01/19/22 20:37 Total Bilirubin 0.2 mg/dL (0.15-1.2) 01/22/22 03:54 AST 22 U/L (0-32) 01/22/22 03:54 ALT 16 U/L (0-33) 01/22/22 03:54 Alkaline Phosphatase 87 IU/L (35-105) 01/22/22 03:54 Troponin T Baseline 71 ng/L (0-10) H 01/19/22 15:01 Troponin T 120 Minute 73.04 ng/L (0-10) H 01/19/22 16:45 Delta Troponin T 2.04 ABS# (0-10) 01/19/22 16:45 Troponin T Hi Sens 6Hr 71.60 ng/L (0-10) H 01/19/22 20:37 Troponin T Hi Sens 6Hr Delta 0.60 ng/L (0-12) 01/19/22 20:37 C-Reactive Protein 13.4 mg/L (0.0-4.9) H 01/22/22 03:54 NT-Pro-B Natriuret Pep 615 pg/mL (0-450) H 01/19/22 18:55 Total Protein 6.8 g/dL (6.6-8.7) 01/22/22 03:54 Albumin 3.6 g/dL (3.5-5.2) 01/22/22 03:54 Globulin 3.2 g/dL (1.3-4.6) 01/22/22 03:54 Triglycerides 53 mg/dL (0-150) 01/20/22 04:03 Cholesterol 143 mg/dL (0-200) 01/20/22 04:03 LDL Cholesterol, Calc 70 mg/dL (50-129) 01/20/22 04:03 Total VLDL Cholesterol 11 mg/dL (0-30) 01/20/22 04:03 HDL Cholesterol 62 mg/dL (60-100) 01/20/22 04:03 Cholesterol/HDL Ratio 2.31 mg/dL (0.0-4.40) 01/20/22 04:03 Vitamin B12 557 pg/mL (232-1245) 01/19/22 20:37 Folate > 20.0 ng/mL (4.8-37.3) 01/20/22 04:03 Procalcitonin 0.32 ng/mL (0-0.5) 01/19/22 18:55 TSH 0.97 uIU/mL (0.27-4.20) 01/19/22 18:55 Urine Color Yellow (Yellow) 01/19/22 20:00 Urine Appearance Hazy (CLEAR) A 01/19/22 20:00 Urine pH 6.5 (5-7) 01/19/22 20:00 Ur Specific [place] 1.005 (1.005-1.030) 01/19/22 20:00 Urine Protein 1+ (Negative) H 01/19/22 20:00 Urine Glucose (UA) 1+ (Normal) H 01/19/22 20:00 Urine Ketones Negative (Negative) 01/19/22 20:00 Urine Blood 2+ (Negative) H 01/19/22 20:00 Urine Nitrate Negative (Negative) 01/19/22 20:00 Urine Bilirubin Neg (Negative) 01/19/22 20:00 Urine Urobilinogen Neg mg/dL (Negative) 01/19/22 20:00 Ur Leukocyte Esterase Negative (Negative) 01/19/22 20:00 Urine RBC 0-4 /hpf (0-2) H 01/19/22 20:00 Urine WBC None /hpf (0-5) 01/19/22 20:00 Ur Squamous Epith Cells 0-4 /hpf (0-5) H 01/19/22 20:00 Amorphous Sediment Not Reportable 01/19/22 20:00 Urine Bacteria None /hpf (NONE) 01/19/22 20:00 Coronavirus 229E (PCR) Detected (NOT DETECT) A 03/11/22 19:29 SARS-CoV-2 (PCR) Not detected (NOT DETECT) 01/19/22 19:29 Vitals Last Vital Signs Temp 97.5 F L 01/23/22 07:53 Pulse 88 01/23/22 08:49 Resp 20 H 01/23/22 08:49 BP 163/61 01/23/22 07:53 Pulse Ox 96 01/23/22 08:49 Discharge Plan Discharge Patient Disposition: Home Condition: Stable Prescriptions: New ferrous gluconate 324 mg (37.5 mg iron) Tablet 324 mg PO BIDWM Qty: 60 0RF ipratropium bromide 0.02 % Solution 0.5 mg inhalation Q6H.RESPIRATORY Qty: 1 0RF prednisone 20 mg Tablet 40 mg PO DAILY Qty: 2 0RF furosemide 40 mg Tablet 40 mg PO DAILY@0800 Qty: 30 0RF sucralfate 100 mg/mL Suspension 1 g PO AC&BEDTIME Qty: 120 0RF fluticasone propionate 50 mcg/actuation Latty,Suspension 1 spray nasal BID Qty: 1 0RF diltiazem HCl 30 mg Tablet 30 mg PO BID MDD 60 Qty: 60 0RF Continued levalbuterol tartrate [Xopenex HFA] 45 mcg/actuation Hfa Aerosol Inhaler 1 puff INHALATION Q6H 0RF Rx Instructions: TAKES AT 0:00, 06:00, 12:00, 18:00 ondansetron HCl [Zofran] 4 mg Tablet 4 mg PO Q4H PRN (Reason: Nausea) 0RF acetaminophen 650 mg Tablet Extended Release 650 mg PO Q6H PRN (Reason: Pain) 0RF citalopram 20 mg Tablet 20 mg PO DAILY@0800 0RF gabapentin 100 mg Capsule 100 mg PO TID@08,,20 0RF Pulmicort Flexhaler 180 mcg/actuation Aerosol Powdr Breath Activated 2 inh INHALATION BID@08,20 0RF albuterol sulfate 2.5 mg /3 mL (0.083 %) Solution For Nebulization 2.5 mg INHALATION Q4H PRN (Reason: Shortness Of Breath) 0RF pantoprazole 40 mg tablet,delayed release (DR/EC) 40 mg PO DAILY 0RF nystatin 100,000 unit/gram cream 100,000 unit TOPICAL DAILY 0RF Rx Instructions: apply to abdominal folds topically everyday and evening Hemorrhoid Cream Cream 1 applic ND PRN PRN (Reason: Hemorrhoids) 0RF divalproex 250 mg Tablet,Delayed Release (Dr/Ec) 250 mg PO BID@08,20 0RF allopurinol 100 mg Tablet 100 mg PO DAILY@08 0RF montelukast [Singulair] 10 mg Tablet 10 mg PO DAILY@08 0RF polyethylene glycol 3350 [Miralax] 17 gram Powder In Packet 17 g PO DAILY PRN (Reason: Constipation) 0RF sennosides-docusate sodium [Senna-S] 8.6-50 mg Tablet 1 tab PO BID PRN (Reason: Constipation) 0RF bisacodyl 10 mg Suppository 10 mg ND DAILY PRN (Reason: Constipation) 0RF Enema Disposable 19-7 gram/118 mL Enema 118 ml ND DAILY PRN (Reason: Constipation) 0RF folic acid 1 mg Tablet 1 mg PO BID@08,20 0RF Pro-Stat AWC 17-100 gram-kcal/30 mL Liquid See Rx Instructions .ROUTE .COMPLEX 0RF Rx Instructions: 15ML PO BID@08,20 atorvastatin [Lipitor] 20 mg tablet 20 mg PO DAILY@20 0RF benzonatate 100 mg Capsule 100 mg PO TID PRN (Reason: Cough) Qty: 30 0RF aspirin 81 mg Tablet,Delayed Release (Dr/Ec) 81 mg PO DAILY Qty: 30 0RF Discontinued ipratropium-albuterol 0.5 mg-3 mg(2.5 mg base)/3 mL Solution For Nebulization 3 ml INHALATION Q4H PRN (Reason: Shortness Of Breath) 0RF furosemide 20 mg tablet 20 mg PO DAILY 0RF Referrals: [facility] [Outside] Dunia Rowan MD [Primary Care Provider] - Discharge Diet: Cardiac Discharge Activity: Resume usual activity Patient Instructions: Opioid Safety Discharge Attestations Status at Discharge: Cognitive status at discharge: mildly impaired cognition , Behavioral status at discharge: cooperative , Coding Level of Care Code Acute Chg FW DC note Diagnoses Other coronavirus as the cause of diseases classified elsewhere B97.29 Atrial fibrillation with RVR I48.91 Diastolic congestive heart failure I50.30 COPD (chronic obstructive pulmonary disease) J44.9 Wheezing R06.2 Dyspnea R06.00 CKD (chronic kidney disease), stage IV N18.4 DNR (do not resuscitate) Z66 Pulmonary nodule 1 cm or greater in diameter R91.1 Bradycardia R00.1
--- NOTE | 2022-01-23 10:31 | P.DS_ITS ---
Discharge Providers Date of Admission: 01/19/22 19:37 Date of Discharge: January 23, 2022 Attending Provider at Admission: Kamaljit Jacobsen MD Attending Provider at Discharge: Jesus Montero MD Primary Care Provider: Dunia Rowan MD Diagnoses at Discharge Discharge Diagnosis (1) Other coronavirus as the cause of diseases classified elsewhere: Status: Acute (2) Atrial fibrillation with RVR: Status: Acute (3) Diastolic congestive heart failure: Status: Acute (4) COPD (chronic obstructive pulmonary disease): Status: Acute Permanent problem details: Oxygen dependent (5) Wheezing: Status: Acute (6) Dyspnea: Status: Acute (7) CKD (chronic kidney disease), stage IV: Status: Acute (8) DNR (do not resuscitate): Status: Acute (9) Pulmonary nodule 1 cm or greater in diameter: Status: Acute (10) Bradycardia: Status: Acute Reason for Visit Reason for Visit: CHEST PAIN Hospital Course Hospital Course Velasquez Montano is a 81 year old female, [facility] resident at [facility] with past medical history of COPD on chronically 2 L, sleep apnea not on CPAP atrial fibrillation not on anticoagulation because of possible history of fall, mild Alzheimer's, CKD stage IV with baseline creatinine of 2.3, adenocarcinoma of sigmoid colon with metastasis to mesentery s/p left anterior resection, remote history of breast cancer, anemia, COVID-19 in 2019, ESBL Proteus UTI who presented [facility] the ER today [facility] because of epigastric chest pain which she had while she was eating her meals in afternoon.? In the ER she was found to be mildly tachypneic with a white count of 15,000 hence medicine was consulted for admission and further evaluation. In the ER patient was also found to have an episode of A. fib with RVR with heart rate going up to 150s for which she was given oral metoprolol. Examination patient is lying comfortably in bed with heart rate running in 70s with occasionally going up to 130s for few seconds, on 2 L saturating 96%.? Patient is mildly confused which is her baseline.? She is alert and oriented to self, place.? She states she has been having occasional episodes of palpitation.? Denies any chest pain on exertion.? Complains of heartburn.? States she feels breathless on and off.? Denies any fever. In the ER she was found to have a white count of 15.8, hemoglobin of 9.6, MCV of 108, platelet count of 171, sodium of 154, potassium of 5.4, creatinine of 2.3, BUN of 53, baseline troponin of 71 with delta of 2 in 2 hours, UA negative for any signs of infection. Pt was admitted to the [facility] . She was managed initially w/ Rocephine and Azithromycin. Blood C/S were negative. She was suspected to have Ac Exacerbation of COPD w/ possible viral PNA and diastolic CHF. Her respiratory symptoms improved w/ aggresive bronchodilator therapy, steroids and Lasix. Pt had developed new onset Atrial Fibrillation and was controlled w/ Cardizem. She however developed asymptomatic bradycardia but this improved and was tolerating the Cardizem. Pt was making progress. She will return to her NH facility. Physical Exam Urinary Catheter Management: Hoff: Cath Placed During This Visit: yes, but has since been removed by the nurse Reason for Continuing Indwelling Catheter: Accurate Measurement of Urinary Output in Critically Ill Patients Urinary Catheter Date of Insertion: 01/19/22 Urinary Catheter Time of Insertion: 22:45 Date Urinary Catheter Removed: 01/21/22 Time Urinary Catheter Discontinued: 10:05 Discharge Data Studies Completed and Pending Completed Studies During Hospitalization Category Date Time Status CT chest wo con [id number] Urgent Cat Scan 01/19/22 19:38 Completed XR chest 1V portable [id number] Q48H Exams 01/20/22 06:00 Completed XR chest 1V portable [id number] Q48H Exams 01/22/22 07:00 Completed XR chest 1V portable [id number] Urgent Exams 01/19/22 13:50 Completed XR chest 2V* [id number] Stat Exams 01/19/22 17:42 [place] [id number] Routine Ultrasound 01/20/22 08:59 Completed CV. echo complete* [id number] Routine Ultrasound 01/20/22 19:32 Completed Pending at discharge Category Date Time Status XR chest 1V portable [id number] Q48H Exams 01/24/22 07:00 Ordered Angiotensin Converting Enzyme Routine Lab 01/19/22 21:40 Received Blood Culture Stat Lab 01/19/22 19:35 Results [facility] Profile Routine Lab 01/19/22 21:40 Received Radiology Impressions Chest CT 01/19/22 19:38 IMPRESSION: 1. Multiple bilateral solid, sub solid and mixed solid and subsolid nodules and opacities. Overall the process has increased since May 2021 and is new since 2019. The overall findings are suspicious for metastatic disease, much less likely primary lung disease.. Differential would include a prolonged inflammatory process such as sarcoidosis. Further evaluation for potential malignancy in the abdomen/pelvis is recommended if not previously performed 2. Unchanged chronic bilateral adrenal nodules and left adrenal myelolipoma COMMENTS: Consistent with the [employer]'s Incidental Findings Committee white paper (J Am Sonny Radiol 2017): For any incidental adrenal lesion greater than 1 cm but less than 4 cm classified in this report as benign, likely benign, or containing fat (including classification as an adenoma or myelolipoma), no follow-up imaging is recommended per consensus recommendations based on imaging criteria. Further lab evaluation could be pursued if warranted based on clinical findings. Venous Duplex 01/20/22 08:59 IMPRESSION: No evidence of deep vein thrombosis. Chest X-Ray 01/22/22 07:00 Impression: 1. No change in old granulomatous disease. 2. Cardiomegaly Laboratory Results WBC 13.8 10^3/uL (4.0-10.0) H 01/22/22 03:54 RBC 3.02 10^6/uL (4.1-5.3) L 01/22/22 03:54 Hgb 9.6 g/dL (11.5-15.3) L 01/22/22 03:54 Hct 32.8 % (37.0-47.0) L 01/22/22 03:54 MCV 108.6 fl (81-99) H 01/22/22 03:54 MCH 31.8 pg (28.0-34.0) 01/22/22 03:54 MCHC 29.3 g/dL (30.0-36.0) L 01/22/22 03:54 RDW 13.5 % (12.1-15.1) 01/22/22 03:54 Plt Count 270 10^3/cmm (130-400) 01/22/22 03:54 MPV 10.7 fL (7.4-10.4) H 01/22/22 03:54 Neut % (Auto) 84.5 % 01/22/22 03:54 Lymph % (Auto) 10.8 % 01/22/22 03:54 [place] % (Auto) 4.0 % 01/22/22 03:54 Eos % (Auto) 0.0 % 01/22/22 03:54 Baso % (Auto) 0.1 % 01/22/22 03:54 Neut # (Auto) 11.67 10^3/uL (1.8-7.7) H 01/22/22 03:54 Lymph # (Auto) 1.5 10^3/uL (0.8-4.8) 01/22/22 03:54 [place] # (Auto) 0.6 10^3/uL (0.2-0.9) 01/22/22 03:54 Eos # (Auto) 0.0 10^3/uL (0.0-0.8) 01/22/22 03:54 Baso # (Auto) 0.0 10^3/uL (0.0-0.1) 01/22/22 03:54 Nucleated RBC % (auto) 0 % 01/22/22 03:54 Nucleated RBCs # 0.0 /100WBC 01/22/22 03:54 ESR 26 mm/hr (0-15) H 01/19/22 21:40 D-Dimer 1.60 ug/mIFEU (0-0.59) H 01/22/22 03:54 Specimen Type Arterial 01/20/22 06:34 Sample Site Radial, left 01/20/22 06:34 ABG pH 7.38 (7.35-7.45) 01/20/22 06:34 ABG pCO2 57.0 mmHg (35-45) H 01/20/22 06:34 ABG pO2 77.9 mmHg (80.0-100.0) L 01/20/22 06:34 ABG HCO3 33.5 mmol/L (22-26) H 01/20/22 06:34 ABG O2 Saturation 96.0 01/20/22 06:34 ABG Base Excess 7.3 mmol/L (-2.0-2.0) H 01/20/22 06:34 Teja Test Pos 01/20/22 06:34 A-a O2 Gradient 0.5 mmHg (5-10) L 01/20/22 06:34 Hematocrit 24.9 % (37-47) L 01/20/22 06:34 Hgb O2 Saturation 93.6 % (95-100) L 01/20/22 06:34 Carboxyhemoglobin 1.3 %THgb (0.4-20.1) 01/20/22 06:34 Methemoglobin 1.3 % (0.4-1.5) 01/20/22 06:34 Total Hemoglobin 8.1 g/dL (12-16) L 01/20/22 06:34 Sodium 145.0 mmol/L (131-143) H 01/20/22 06:34 Potassium 5.2 mmol/L (3.5-5.0) H 01/20/22 06:34 Glucose 128.0 mg/dL (70-115) H 01/20/22 06:34 Ionized Calcium 1.3 mmol/L (1.1-1.4) 01/20/22 06:34 O2 Delivery Device Nc 01/20/22 06:34 O2 Liters/Min 1.5 % 01/20/22 06:34 Auto Bumper Mechanic ID Buttr 01/20/22 06:34 Sodium 139 mmol/L (136-145) 01/22/22 03:54 Potassium 4.8 mmol/L (3.5-5.1) 01/22/22 03:54 Chloride 100 mmol/L (98-107) 01/22/22 03:54 Carbon Dioxide 24 mmol/L (22-29) 01/22/22 03:54 Anion Gap 19.8 (5-19) H 01/22/22 03:54 BUN 78 mg/dL (8-23) H 01/22/22 03:54 Creatinine 2.4 mg/dL (0.5-0.9) H 01/22/22 03:54 GFR Calculation Not Reportable 01/22/22 03:54 Glucose 131 mg/dL (65-115) H 01/22/22 03:54 Estimat Average Glucose 97 01/20/22 04:03 Hemoglobin A1c 5.0 % (4.0-6.0) 01/20/22 04:03 Calculated Osmolality 313 mOsm/kg (285-295) H 01/22/22 03:54 Calcium 9.3 mg/dL (8.5-10.5) 01/22/22 03:54 Phosphorus 3.1 mg/dL (2.5-4.5) 01/20/22 04:03 Magnesium 1.9 mg/dL (1.7-2.3) 01/20/22 04:03 Iron 14 ug/dL (37-145) L 01/19/22 20:37 TIBC 233 mcg/dl 01/19/22 20:37 % Saturation 6.0 % (20-50) L 01/19/22 20:37 Unsat Iron Binding 219 ug/dL (112-347) 01/19/22 20:37 Total Bilirubin 0.2 mg/dL (0.15-1.2) 01/22/22 03:54 AST 22 U/L (0-32) 01/22/22 03:54 ALT 16 U/L (0-33) 01/22/22 03:54 Alkaline Phosphatase 87 IU/L (35-105) 01/22/22 03:54 Troponin T Baseline 71 ng/L (0-10) H 01/19/22 15:01 Troponin T 120 Minute 73.04 ng/L (0-10) H 01/19/22 16:45 Delta Troponin T 2.04 ABS# (0-10) 01/19/22 16:45 Troponin T Hi Sens 6Hr 71.60 ng/L (0-10) H 01/19/22 20:37 Troponin T Hi Sens 6Hr Delta 0.60 ng/L (0-12) 01/19/22 20:37 C-Reactive Protein 13.4 mg/L (0.0-4.9) H 01/22/22 03:54 NT-Pro-B Natriuret Pep 615 pg/mL (0-450) H 01/19/22 18:55 Total Protein 6.8 g/dL (6.6-8.7) 01/22/22 03:54 Albumin 3.6 g/dL (3.5-5.2) 01/22/22 03:54 Globulin 3.2 g/dL (1.3-4.6) 01/22/22 03:54 Triglycerides 53 mg/dL (0-150) 01/20/22 04:03 Cholesterol 143 mg/dL (0-200) 01/20/22 04:03 LDL Cholesterol, Calc 70 mg/dL (50-129) 01/20/22 04:03 Total VLDL Cholesterol 11 mg/dL (0-30) 01/20/22 04:03 HDL Cholesterol 62 mg/dL (60-100) 01/20/22 04:03 Cholesterol/HDL Ratio 2.31 mg/dL (0.0-4.40) 01/20/22 04:03 Vitamin B12 557 pg/mL (232-1245) 01/19/22 20:37 Folate > 20.0 ng/mL (4.8-37.3) 01/20/22 04:03 Procalcitonin 0.32 ng/mL (0-0.5) 01/19/22 18:55 TSH 0.97 uIU/mL (0.27-4.20) 01/19/22 18:55 Urine Color Yellow (Yellow) 01/19/22 20:00 Urine Appearance Hazy (CLEAR) A 01/19/22 20:00 Urine pH 6.5 (5-7) 01/19/22 20:00 Ur Specific [place] 1.005 (1.005-1.030) 01/19/22 20:00 Urine Protein 1+ (Negative) H 01/19/22 20:00 Urine Glucose (UA) 1+ (Normal) H 01/19/22 20:00 Urine Ketones Negative (Negative) 01/19/22 20:00 Urine Blood 2+ (Negative) H 01/19/22 20:00 Urine Nitrate Negative (Negative) 01/19/22 20:00 Urine Bilirubin Neg (Negative) 01/19/22 20:00 Urine Urobilinogen Neg mg/dL (Negative) 01/19/22 20:00 Ur Leukocyte Esterase Negative (Negative) 01/19/22 20:00 Urine RBC 0-4 /hpf (0-2) H 01/19/22 20:00 Urine WBC None /hpf (0-5) 01/19/22 20:00 Ur Squamous Epith Cells 0-4 /hpf (0-5) H 01/19/22 20:00 Amorphous Sediment Not Reportable 01/19/22 20:00 Urine Bacteria None /hpf (NONE) 01/19/22 20:00 Coronavirus 229E (PCR) Detected (NOT DETECT) A 01/19/22 19:29 SARS-CoV-2 (PCR) Not detected (NOT DETECT) 01/19/22 19:29 Vitals Last Vital Signs Temp 97.5 F L 01/23/22 07:53 Pulse 88 01/23/22 08:49 Resp 20 H 01/23/22 08:49 BP 163/61 01/23/22 07:53 Pulse Ox 96 01/23/22 08:49 Discharge Plan Discharge Patient Disposition: Home Condition: Stable Prescriptions: New diltiazem HCl 30 mg Tablet 30 mg PO BID MDD 60 Qty: 60 0RF ferrous gluconate 324 mg (37.5 mg iron) Tablet 324 mg PO BIDWM Qty: 60 0RF furosemide 40 mg Tablet 40 mg PO DAILY@0800 Qty: 30 0RF fluticasone propionate 50 mcg/actuation Dexter,Suspension 1 spray nasal BID Qty: 1 0RF ipratropium bromide 0.02 % Solution 0.5 mg inhalation Q6H.RESPIRATORY Qty: 1 0RF sucralfate 100 mg/mL Suspension 1 g PO AC&BEDTIME Qty: 120 0RF prednisone 20 mg Tablet 40 mg PO DAILY Qty: 2 0RF Continued levalbuterol tartrate [Xopenex HFA] 45 mcg/actuation Hfa Aerosol Inhaler 1 puff INHALATION Q6H 0RF Rx Instructions: TAKES AT 0:00, 06:00, 12:00, 18:00 ondansetron HCl [Zofran] 4 mg Tablet 4 mg PO Q4H PRN (Reason: Nausea) 0RF acetaminophen 650 mg Tablet Extended Release 650 mg PO Q6H PRN (Reason: Pain) 0RF citalopram 20 mg Tablet 20 mg PO DAILY@0800 0RF gabapentin 100 mg Capsule 100 mg PO TID@08,14,20 0RF Pulmicort Flexhaler 180 mcg/actuation Aerosol Powdr Breath Activated 2 inh INHALATION BID@08,20 0RF albuterol sulfate 2.5 mg /3 mL (0.083 %) Solution For Nebulization 2.5 mg INHALATION Q4H PRN (Reason: Shortness Of Breath) 0RF pantoprazole 40 mg tablet,delayed release (DR/EC) 40 mg PO DAILY 0RF nystatin 100,000 unit/gram cream 100,000 unit TOPICAL DAILY 0RF Rx Instructions: apply to abdominal folds topically everyday and evening tissue resp fact-shark rosanne oil Cream 1 applic OH PRN PRN (Reason: Hemorrhoids) 0RF divalproex 250 mg Tablet,Delayed Release (Dr/Ec) 250 mg PO BID@08,20 0RF allopurinol 100 mg Tablet 100 mg PO DAILY@08 0RF montelukast [Singulair] 10 mg Tablet 10 mg PO DAILY@08 0RF polyethylene glycol 3350 [Miralax] 17 gram Powder In Packet 17 g PO DAILY PRN (Reason: Constipation) 0RF sennosides-docusate sodium [Senna-S] 8.6-50 mg Tablet 1 tab PO BID PRN (Reason: Constipation) 0RF bisacodyl 10 mg Suppository 10 mg OH DAILY PRN (Reason: Constipation) 0RF Enema Disposable 19-7 gram/118 mL Enema 118 ml OH DAILY PRN (Reason: Constipation) 0RF folic acid 1 mg Tablet 1 mg PO BID@08,20 0RF Pro-Stat AWC 17-100 gram-kcal/30 mL Liquid See Rx Instructions .ROUTE .COMPLEX 0RF Rx Instructions: 15ML PO BID@08,20 atorvastatin [Lipitor] 20 mg tablet 20 mg PO DAILY@20 0RF benzonatate 100 mg Capsule 100 mg PO TID PRN (Reason: Cough) Qty: 30 0RF aspirin 81 mg Tablet,Delayed Release (Dr/Ec) 81 mg PO DAILY Qty: 30 0RF Discontinued ipratropium-albuterol 0.5 mg-3 mg(2.5 mg base)/3 mL Solution For Nebulization 3 ml INHALATION Q4H PRN (Reason: Shortness Of Breath) 0RF furosemide 20 mg tablet 20 mg PO DAILY 0RF Discharge Orders: Discharge Order (Routine); Ordered 01/23/22 Ordered By: Jesus Montero Referrals: [facility] [Outside] Dunia Rowan MD [Primary Care Provider] - Discharge Diet: Cardiac Discharge Activity: Resume usual activity Patient Instructions: Opioid Safety Discharge Attestations Time Spent in Discharge Care*: greater than 30 min Status at Discharge: Cognitive status at discharge: mildly impaired cognition , Behavioral status at discharge: cooperative , Quality Metrics Clinical Quality Measures [ No reported AMI, CVA or VTE this stay] Coding Level of Care Code Acute Chg FW DC note Diagnoses Other coronavirus as the cause of diseases classified elsewhere B97.29 Atrial fibrillation with RVR I48.91 Diastolic congestive heart failure I50.30 COPD (chronic obstructive pulmonary disease) J44.9 Wheezing R06.2 Dyspnea R06.00 CKD (chronic kidney disease), stage IV N18.4 DNR (do not resuscitate) Z66 Pulmonary nodule 1 cm or greater in diameter R91.1 Bradycardia R00.1
[2022-01-23 12:12] LABS: Angiotensin Converting Enzyme 22 U/L (9-67)
[2022-01-23 14:12] LABS: Anti-Double Strand DNA AB <1 IU/mL; Jo-1 Antibody <1.0 NEG AI (<1.0 NEG); SM/RNP Antibodies <1.0 NEG AI (<1.0 NEG); SS-B/LA IGG <1.0 NEG AI (<1.0 NEG); Scleroderma Ab(Scl-70) Ab <1.0 NEG AI (<1.0 NEG); Ss-A/Ro Igg <1.0 NEG AI (<1.0 NEG)
--- NOTE | 2022-01-24 00:55 | PC.NURSE ---
Patient discharged mid-day yesterday. See previous notes. On coming in for this RN's shift, I was told that she was waiting for an ambulance. Phototypesetter Operator was told that [facility] at [phone] ([place] [id number]) would be picking up patient by ambulance to bring back to [facility] and that if they were not here within an hour to call them back. This RN phone back to [facility] and was told I would be tansferred to a refining supervisor however was on hold for 63 minutes. Phoned them again from another line and was immediately transferred to Piano Regulator Alfonso, ID # [id number] who stated that I will put this through right now as the trip has now been canceled and it will have to be re-submitted. Alfonso apologized for the wait on hold and confirmed he could see where the trip was ordered. After about an hour, This RN spoke to Reception Manager and gave information to her. Reception Manager phoned back and stated that shrimp picker time was 0200 and new trip number was [id number]. Apparently the appointment was made but it was not assigned to anyone. They will attempt to get it done now.
--- NOTE | 2022-01-24 07:23 | PC.NURSE ---
Bedside report was received from BO Lamar. Patient was discharged yesterday around noon according to report from night nurse. Patient reportedly was awaiting transport from [facility] and class b truck driver left with another patient and did not return. [facility] called around 0700am today, stating they will be here to pick patient up withing 30-45min. Patient has already been discharged from the system. Nurse will continue to do hourly rounding on patient until she has left the facility.
--- NOTE | 2022-01-24 07:52 | PC.NURSE ---
[facility] has arrived to take patient back to facility. Patient left via stretcher. All belongings were sent with patient. Nothing was left in room. Patient stable upon departure.
== END 2022-01-23 17:31 | disposition skilled nursing facility (03) | DRG 190 ==
LOC: ER 19:40 → CSU 19:55
PROVIDERS: Admitting Provider Student in an Organized Health Care Education/Training Program; Emergency Provider Emergency Medicine; PCP Family Medicine; Visit Provider Internal Medicine
DX: J44.1 Chronic obstructive pulmonary disease with (acute) exacerbation (principal); J18.9 Pneumonia, unspecified organism; I13.0 Hypertensive heart and chronic kidney disease with heart failure and stage 1 through stage 4 chronic kidney disease, or unspecified chronic kidney disease; N18.4 Chronic kidney disease, stage 4 (severe); I50.30 Unspecified diastolic (congestive) heart failure; J44.0 Chronic obstructive pulmonary disease with (acute) lower respiratory infection; B97.29 Other coronavirus as the cause of diseases classified elsewhere; Z99.81 Dependence on supplemental oxygen; F31.9 Bipolar disorder, unspecified; Z85.3 Personal history of malignant neoplasm of breast; Z92.3 Personal history of irradiation; Z92.21 Personal history of antineoplastic chemotherapy; Z85.038 Personal history of other malignant neoplasm of large intestine; R53.82 Chronic fatigue, unspecified; Z66 Do not resuscitate; E78.5 Hyperlipidemia, unspecified; M10.9 Gout, unspecified; G30.1 Alzheimer's disease with late onset; F02.80 Dementia in other diseases classified elsewhere, unspecified severity, without behavioral disturbance, psychotic disturbance, mood disturbance, and anxiety; G47.30 Sleep apnea, unspecified; Z90.49 Acquired absence of other specified parts of digestive tract; Z87.891 Personal history of nicotine dependence; I48.91 Unspecified atrial fibrillation; Z79.82 Long term (current) use of aspirin; Z79.51 Long term (current) use of inhaled steroids; E87.5 Hyperkalemia; R91.8 Other nonspecific abnormal finding of lung field; Z87.440 Personal history of urinary (tract) infections; Z86.16 Personal history of COVID-19; D63.1 Anemia in chronic kidney disease
CPT/HCPCS: 36415; 36600; 51702; 71045; 71046; 71250; 80048; 80051; 80053; 80061; 81001; 82164; 82330; 82607; 82746; 82805; 83036; 83540; 83550; 83735; 83880; 84100; 84145; 84443; 84484; 85025; 85378; 85651; 86140; 86225; 86235; 86403; 87040; 87070; 87205; 87449; 87635; 87641; 92523; 92526; 92610; 93005; 93306; 93970; 94640; 96372; 96374; 96375; 99285; J0696; J1100; J1644; J1815; J1940; J2920; J2930; J3490; J7512; J7614; J7626; J7644; J7799; Q0144

== ENCOUNTER → 2022-02-22 07:39 | Day surgery (SDC) | payer MEDICARE, MEDICAID, SELFPAY ==
[2022-02-22] VITALS (9 sets, daily range): BP systolic 104–160; BP diastolic 51–102; PULSE 62–73; RESP 18; TEMP 36.3–36.9; O2SAT 98–100
[2022-02-22 08:52] LABS: Hematocrit 26.3 % (37.0-47.0); Hemoglobin 7.7 g/dL (11.5-15.3)
[2022-02-22] MEDS: sodium chloride 0.9% (100 ml) 100 ML 10 ML ×2 (10:00→12:20)
== END ==
PROVIDERS: PCP Family Medicine; Visit Provider Nurse Practitioner Family
DX: D63.1 Anemia in chronic kidney disease (principal)
CPT/HCPCS: 36415; 36430; 85014; 85018; 86850; 86900; 86920; P9016; P9040

== ENCOUNTER 2022-06-07 12:18 | Inpatient (IN) | payer MEDICARE, MEDICAID, SELFPAY ==
[2022-06-07] VITALS (13 sets, daily range): BP systolic 146–195; BP diastolic 61–114; PULSE 55–99; RESP 12–21; TEMP 36.4–36.9; O2SAT 95–100; BMI 29.2; BMI 31.5
--- NOTE | 2022-06-07 13:49 | CT_ITS ---
WS: [id number] CT HEAD NONCONTRAST HISTORY: AMS TECHNIQUE: Contiguous axial imaging performed through the brain in 2.5 mm imaging. Bone and soft tiss ue windows. Sagittal and coronal reformats reviewed. All CT scans at [facility] use at least one of these dose optimization techniques: automated exposure control; mA and/or kV adjustment per pa tient size (includes targeted exams where dose is matched to clinical indication); or iterative recon struction. DLP: 1070.48 mGy.cm COMPARISON: 06/05/2021 No acute intracranial hemorrhage, midline shift or mass effect. Moderate atrophy and advanced small vessel ischemic disease with multiple bilateral lacunar infarcts. No acute area of sulcal effacement. Ventricles: Normal size with no hydrocephalus. No inferior displacement of cerebellar tonsils. Paranasal sinuses: As visualized are clear. Mastoid air cells: Small amount of fluid in the sphenoid sinuses. Calvarium and scalp: Skull is intact with no soft tissue edema or swelling. CT/CT head wo con* [id number] IMPRESSION: 1. No acute intracranial hemorrhage or edema. 2. Moderate atrophy and advanced small vessel ischemic disease with multiple c hronic lacunar infarcts.
--- NOTE | 2022-06-07 13:49 | XR_ITS ---
WS: [id number] Exam: XR chest 1V portable [id number] Date/Time of Exam: 06/07/2022 1:49 PM Reason For Exam: dyspnea/cough Comparison 01/22/2022. The lungs are fully expanded. There are ill-defined nodular densities in the mid and lower right lung and also probably in the left retrocardiac region. No pleural effusion or pneumothorax. The heart is enlarged but unchanged in size. The mediastinum is normal in contour. Bony structures are intact. XR/XR chest 1V portable [id number] IMPRESSION: 1. Ill-defined soft tissue nodules in the mid and lower right lung and probably the left retrocardiac region. This may represent metastatic pulmonary disease. 2. Cardiac enlargement unchanged. No acute infiltrate.
--- NOTE | 2022-06-07 14:12 | ECG_ITS ---
[facility] Test Date: 2022-06-07 Pat Name: Velasquez Montano Department: Room: Gender: Female Receptionist Scheduler: : 1940 Requested By: Ahsan Wolff Order Number: [id number] Caroline MD: Yanick Cash M.D. Measurements Intervals [facility] Rate: 64 P: 66 MT: 156 QRS: 66 QRSD: 94 T: 63 QT: 295 QTc: 306 Interpretive Statements SINUS RHYTHM NONSPECIFIC T-WAVE ABNORMALITY Compared to ECG 01/19/2022 22:18:22 T-wave abnormality now present Atrial fibrillation no longer present Electronically Signed On 06-07-2022 21:28:43 CDT by Yanick Cash M.D. [id number]
[2022-06-07 14:48] LABS: Basophils % 0.2 %; Eosinophils # 0.1 10^3/uL (0.0-0.8); Eosinophils % 0.5 %; Hematocrit 24.8 % (37.0-47.0); Hemoglobin 7.2 g/dL (11.5-15.3); Lymphocytes # 1.8 10^3/uL (0.8-4.8); Lymphocytes % 16.1 %; Mean Corpuscular Volume 106.9 fl (81-99); Mean Platelet Volume 10.8 fL (7.4-10.4); Monocytes # 0.8 10^3/uL (0.2-0.9); Monocytes % 7.3 %; Neutrophils # 8.48 10^3/uL (1.8-7.7); Neutrophils % 75.5 %; Nucleated Red Blood Cells % 0 %; Platelet Count 155 10^3/cmm (130-400); Red Blood Count 2.32 10^6/uL (4.1-5.3); Red Cell Distribution Width 13.3 % (12.1-15.1); White Blood Count 11.2 10^3/uL (4.0-10.0)
[2022-06-07 14:54] LABS: Add Urine Microscopic? YES; Bilirubin Urine Neg (Negative); Blood Urine 2+ (Negative); Glucose Urine UA Norm (Normal); Ketones Urine Negative (Negative); Leukocyte Esterase Urine Negative (Negative); Nitrate Urine Negative (Negative); Protein Urine 1+ (Negative); Urine Appearance Clear (CLEAR); Urine Color Yellow (Yellow); Urobilinogen Urine Norm (Negative); pH Urine 6 (5-7)
[2022-06-07 15:00] LABS: Lactic Sepsis W/Reflex 0.5 mmol/L (0.5-2.2)
[2022-06-07 15:01] LABS: Add Urine Culture? Yes; RBC Urine 0-4 /hpf (0-2); Squamous Epithelial Cell Urine 0-4 /hpf (0-5)
--- NOTE | 2022-06-07 15:18 | W.ED.AMS ---
HPI - Altered Mental Status General: Chief Complaint: Altered Mental Status Stated Complaint: ALTERED LOC Time Seen by Provider: 06/07/22 13:14 Source: patient Mode of arrival: ambulatory Limitations: no limitations History of Present Illness: 82-year-old female presents via EMS with altered mental status. She usually lives at the [place] [facility] and she has a history of atrial fibrillation she is not on any anticoagulation. 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 Daughter states that today she suddenly was poorly responsive whereas normally is able to take her for rides out of the [place] [facility] and she will interact make phone calls to talk to them. No reports hematochezia or melena. She is responsive to painful stimuli initially. [facility] ED PFSH: Medical History (Updated 06/12/22 @ 00:01 by ) Adenomatous polyp 2011 found on surveillance colonoscopy Aspiration pneumonia Bipolar 1 disorder, depressed Bipolar disorder Breast cancer Status post lumpectomy/radiation 1999 followed by adjuvant tamoxifen C. 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 Chronic fatigue CKD (chronic kidney disease), stage IV Confusion COPD (chronic obstructive pulmonary disease) Oxygen dependent COPD (chronic obstructive pulmonary disease) COPD with acute exacerbation DNR (do not resuscitate) Dyslipidemia Gout Hallucinations Did not tolerate Parkinson's medications in the past when this diagnosis was being entertained, discontinued hydrocodone, no organic etiology found Hypercapnic respiratory failure Hypertension Mastoiditis Right-sided mastoiditis, present on MRI 2015 as well Pancytopenia Porencephalic cyst Temporal lobe Pulmonary nodule 1 cm or greater in diameter Senile dementia Daughter has requested that dementia should not be mentioned to her mother because of risk of worsening of her depression considering bipolar disorder Sleep apnea Surgical History History of low anterior resection of rectum Family History Other Family history non-contributory Social History Smoking and tobacco status: former smoker Alcohol intake: never Household members: family Housing: House Physical Exam Urinary Catheter Management: Hoff: Cath Placed During This Visit: yes Urinary Catheter Date of Insertion: 06/07/22 Course Vital Signs: Vital signs: Vital Signs Temperature 97.9 F 06/11/22 16:22 Pulse Rate 63 06/11/22 16:22 Respiratory Rate 16 06/11/22 16:22 Blood Pressure 157/68 06/11/22 16:22 Pulse Oximetry 96 06/11/22 16:22 Oxygen Delivery Me thod 06/11/22 15:55 Oxygen Flow Rate 2 06/11/22 10:04 Fraction of Inspir ed Oxygen 30 06/09/22 23:01 MDM - Altered Mental Status Lab Data : 06/09/22 16:29 06/09/22 16:29 Radiology Impressions Chest X-Ray 06/07/22 13:49 IMPRESSION: 1. Ill-defined soft tissue nodules in the mid and lower right lung and probably the left retrocardiac region. This may represent metastatic pulmonary disease. 2. Cardiac enlargement unchanged. No acute infiltrate. Head CT 06/07/22 13:49 IMPRESSION: 1. No acute intracranial hemorrhage or edema. 2. Moderate atrophy and advanced small vessel ischemic disease with multiple chronic lacunar infarcts. Chest CT 06/07/22 16:43 IMPRESSION: Further progression of nonspecific patchy ground-glass lesions in the lungs with lower lobe predominance. Suspect atypical pneumonia features. Laboratory Results WBC 11.2 10^3/uL (4.0-10.0) H 06/07/22 14:08 RBC 2.32 10^6/uL (4.1-5.3) L 06/07/22 14:08 Hgb 7.2 g/dL (11.5-15.3) L 06/07/22 14:08 Hct 24.8 % (37.0-47.0) L 06/07/22 14:08 MCV 106.9 fl (81-99) H 06/07/22 14:08 MCH 31.0 pg (28.0-34.0) 06/07/22 14:08 MCHC 29.0 g/dL (30.0-36.0) L 06/07/22 14:08 RDW 13.3 % (12.1-15.1) 06/07/22 14:08 Plt Count 155 10^3/cmm (130-400) 06/07/22 14:08 MPV 10.8 fL (7.4-10.4) H 06/07/22 14:08 Neut % (Auto) 75.5 % 06/07/22 14:08 Lymph % (Auto) 16.1 % 06/07/22 14:08 [place] % (Auto) 7.3 % 06/07/22 14:08 Eos % (Auto) 0.5 % 06/07/22 14:08 Baso % (Auto) 0.2 % 06/07/22 14:08 Neut # (Auto) 8.48 10^3/uL (1.8-7.7) H 06/07/22 14:08 Lymph # (Auto) 1.8 10^3/uL (0.8-4.8) 06/07/22 14:08 [place] # (Auto) 0.8 10^3/uL (0.2-0.9) 06/07/22 14:08 Eos # (Auto) 0.1 10^3/uL (0.0-0.8) 06/07/22 14:08 Baso # (Auto) 0.0 10^3/uL (0.0-0.1) 06/07/22 14:08 Nucleated RBC % (auto) 0 % 06/07/22 14:08 Nucleated RBCs # 0.0 /100WBC 06/07/22 14:08 Specimen Type Arterial 06/07/22 15:20 Sample Site Radial, right 06/07/22 15:20 ABG pH 7.40 (7.35-7.45) 06/07/22 15:20 ABG pCO2 72.8 mmHg (35-45) H* 06/07/22 15:20 ABG pO2 107.0 mmHg (80.0-100.0) H 06/07/22 15:20 ABG HCO3 44.9 mmol/L (22-26) H 06/07/22 15:20 ABG O2 Saturation 99.1 06/07/22 15:20 ABG Base Excess 17.1 mmol/L (-2.0-2.0) H 06/07/22 15:20 Teja Test Pos 06/07/22 15:20 A-a O2 Gradient 0.5 mmHg (5-10) L 06/07/22 15:20 Hematocrit 32.5 % (37-47) L 06/07/22 15:20 Hgb O2 Saturation 98.0 % (95-100) 06/07/22 15:20 Carboxyhemoglobin 1.1 %THgb (0.4-20.1) 06/07/22 15:20 Methemoglobin 0.0 % (0.4-1.5) L 06/07/22 15:20 Total Hemoglobin 10.6 g/dL (12-16) L 06/07/22 15:20 Sodium 151.0 mmol/L (131-143) H 06/07/22 15:20 Potassium 3.0 mmol/L (3.5-5.0) L 06/07/22 15:20 Glucose 95.0 mg/dL (70-115) 06/07/22 15:20 Ionized Calcium 1.3 mmol/L (1.1-1.4) 06/07/22 15:20 O2 Delivery Device Nc 06/07/22 15:20 O2 Liters/Min 2.0 % 06/07/22 15:20 FiO2 28.0 % 06/07/22 15:20 Operating Room Technician ID glc 06/07/22 15:20 Sodium 147 mmol/L (136-145) H 06/07/22 14:08 Potassium 2.9 mmol/L (3.5-5.1) L 06/07/22 14:08 Chloride 100 mmol/L (98-107) 06/07/22 14:08 Carbon Dioxide 43 mmol/L (22-29) H* 06/07/22 14:08 Anion Gap 6.9 (5-19) 06/07/22 14:08 BUN 38 mg/dL (8-23) H 06/07/22 14:08 Creatinine 1.8 mg/dL (0.5-0.9) H 06/07/22 14:08 GFR Calculation Not Reportable 06/07/22 14:08 Glucose 91 mg/dL (65-115) 06/07/22 14:08 Calculated Osmolality 313 mOsm/kg (285-295) H 06/07/22 14:08 Lactic Acid 0.5 mmol/L (0.5-2.2) 06/07/22 14:08 Calcium 9.7 mg/dL (8.5-10.5) 06/07/22 14:08 Magnesium 1.7 mg/dL (1.7-2.3) 06/07/22 14:08 Total Bilirubin 0.3 mg/dL (0.15-1.2) 06/07/22 14:08 AST 12 U/L (0-32) 06/07/22 14:08 ALT 6 U/L (0-33) 06/07/22 14:08 Alkaline Phosphatase 95 IU/L (35-105) 06/07/22 14:08 Creatine Kinase 68 U/L (26-192) 06/07/22 14:08 Troponin T Baseline 117 ng/L (0-10) H* 06/07/22 14:08 NT-Pro-B Natriuret Pep 2912 pg/mL (0-450) H 06/07/22 14:08 Total Protein 6.0 g/dL (6.6-8.7) L 06/07/22 14:08 Albumin 3.3 g/dL (3.5-5.2) L 06/07/22 14:08 Globulin 2.7 g/dL (1.3-4.6) 06/07/22 14:08 Lipase 11 U/L (13-60) L 06/07/22 14:08 Urine Color Yellow (Yellow) 06/07/22 14:30 Urine Appearance Clear (CLEAR) 06/07/22 14:30 Urine pH 6 (5-7) 06/07/22 14:30 Ur Specific [place] 1.010 (1.005-1.030) 06/07/22 14:30 Urine Protein 1+ (Negative) H 06/07/22 14:30 Urine Glucose (UA) Norm (Normal) 06/07/22 14:30 Urine Ketones Negative (Negative) 06/07/22 14:30 Urine Blood 2+ (Negative) H 06/07/22 14:30 Urine Nitrate Negative (Negative) 06/07/22 14:30 Urine Bilirubin Neg (Negative) 06/07/22 14:30 Urine Urobilinogen Norm mg/dL (Negative) 06/07/22 14:30 Ur Leukocyte Esterase Negative (Negative) 06/07/22 14:30 Urine RBC 0-4 /hpf (0-2) H 06/07/22 14:30 Urine WBC 10-15 /hpf (0-5) H 06/07/22 14:30 Ur Squamous Epith Cells 0-4 /hpf (0-5) H 06/07/22 14:30 Amorphous Sediment Not Reportable 06/07/22 14:30 Urine Bacteria None /hpf (NONE) 06/07/22 14:30 Discharge Plan Discharge Patient Disposition: Admitted As Inpatient Admit Provider: Kamaljit Jacobsen Condition: Stable Discharge Diet: Cardiac Discharge Activity: Resume usual activity and Increase activity as tolerated Coding Level of Care Code ED Sound Ranging Crewmember for Rosario Woodard
[2022-06-07 15:21] LABS: Troponin(5th) Baseline 117 ng/L (0-10)
[2022-06-07 15:25] LABS: Alanine Aminotransferase 6 U/L (0-33); Albumin Level 3.3 g/dL (3.5-5.2); Alkaline Phosphatase 95 IU/L (35-105); Anion Gap 6.9 (5-19); Aspartate Amino Transferase 12 U/L (0-32); Blood Urea Nitrogen 38 mg/dL (8-23); Calcium 9.7 mg/dL (8.5-10.5); Chloride 100 mmol/L (98-107); Creatine Phosphokinase 68 U/L (26-192); Globulin 2.7 g/dL (1.3-4.6); Glucose 91 mg/dL (65-115); Lipase 11 U/L (13-60); Magnesium 1.7 mg/dL (1.7-2.3); NT Pro B Type Natriuretic Pept 2912 pg/mL (0-450); Osmolality Calculated 313 mOsm/kg (285-295); Sodium 147 mmol/L (136-145); Total Bilirubin 0.3 mg/dL (0.15-1.2)
[2022-06-07 15:30] LABS: Carbon Dioxide 43 mmol/L (22-29); Potassium 2.9 mmol/L (3.5-5.1)
[2022-06-07 15:32] LABS: Alveolar-Arterial Oxygen Gradi 0.5 mmHg (5-10); Arterial Blood Gas Hematocrit 32.5 % (37-47); Base Excess ABG 17.1 mmol/L (-2.0-2.0); Blood Gas Allen Test Pos; Blood Gas Operator Identificat glc; Blood Gas Sample Site Radial, right; Blood Gas Sample Type Arterial; Carboxyhemoglobin 1.1 %THgb (0.4-20.1); HCO3 ABG 44.9 mmol/L (22-26); Ionized Calcium Level - ABG 1.3 mmol/L (1.1-1.4); Oxygen Device NC; Oxygen Saturation ABG 99.1; Total Hemoglobin 10.6 g/dL (12-16)
[2022-06-07 15:33] LABS: ABG PCO2 72.8 mmHg (35-45)
--- NOTE | 2022-06-07 15:49 | ECG_ITS ---
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 Measurements Intervals [place] Rate: 60 P: -23 WA: 148 QRS: 55 QRSD: 90 T: 47 QT: 349 QTc: 350 Interpretive Statements SINUS RHYTHM NONSPECIFIC T-WAVE ABNORMALITY Compared to ECG 06/07/2022 14:12:39 No significant changes Electronically Signed On 06-08-2022 10:39:20 CDT by Vicky Ness M.D. [id number]
[2022-06-07] MEDS: cefTRIAXone 1,000 MG in sodium chloride 0.9% (plus) 50 ML 100 MG IV (16:17)
[2022-06-07 16:25] LABS: Troponin 5 2HR Delta -4.3 ABS# (0-10)
[2022-06-07 16:30] LABS: Troponin 5 2HR 112.7 ng/L (0-10)
--- NOTE | 2022-06-07 16:33 | P.HP_ITS ---
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 History taken from daughter who is at bedside. With the daughter patient has been getting more confused for last 3 to 4 days. She did get a chest x-ray done at the prison few days ago after which she was started antibiotics which seems to be doxycycline as per medical reconciliation. Today when the daughter went to see her patient was less responsive, hunched in the wheelchair so she was brought to the ER. As per the daughter patient has been complaining of generalized malaise for last 1 to 2 days. Denies any diarrhea, nausea, bleeding, hematemesis or melena. As per daughter patient has required multiple transfusions in the past with most recently around 2 to 3 months ago. In the ER patient was found to have hypercapnia, hypernatremia for which she was placed on BiPAP and started on IV fluids D5 NS. On examination patient is on BiPAP, waking up. Saturating 96%, blood pressure 190/60 with a heart rate of 60 bpm Review of Systems General: Reports: ROS unobtainable due to medical condition Medications/Allergies Home Medications Medication Instructions Recorded Confirmed Last Taken Type allopurinol 100 mg tablet 100 mg PO DAILY@11/12/19 06/07/22 06/07/22 History divalproex 250 mg tablet,delayed 250 mg PO BID@11/12/19 06/07/22 06/07/22 History release montelukast 10 mg tablet 10 mg PO DAILY@11/12/19 06/07/22 06/07/22 History (Singulair) levalbuterol tartrate 45 1 puff inhalation Q6H 08/29/20 06/07/22 06/07/22 History mcg/actuation aerosol inhaler (Xopenex HFA) amino acids-protein hydrolysate 17 See Rx Instructions .Route .COMPLEX 10/13/20 06/07/22 06/07/22 History gram-100 kcal/30 mL oral liquid (Pro-Stat AWC) atorvastatin 20 mg tablet (Lipitor) 20 mg PO DAILY@20 10/13/20 06/07/22 06/06/22 History bisacodyl 10 mg rectal suppository 10 mg [place] DAILY PRN Constipation 10/13/20 06/07/22 02/21/22 History folic acid 1 mg tablet 1 mg PO BID@,10/13/20 06/07/22 06/07/22 History polyethylene glycol 3350 17 gram 17 g PO DAILY PRN Constipation 10/13/20 06/07/22 02/21/22 History oral powder packet (Miralax) sennosides 8.6 mg-docusate sodium 1 tab PO BID PRN Constipation 10/13/20 06/07/22 02/21/22 History 50 mg tablet (Senna-S) sodium phosphates 19 gram-7 118 ml [place] DAILY PRN Constipation 10/13/20 06/07/22 02/21/22 History gram/118 mL enema (Enema Disposable) aspirin 81 mg tablet,delayed 81 mg PO DAILY #30 tabs 10/24/20 06/07/22 06/07/22 Rx release benzonatate 100 mg capsule 100 mg PO TID PRN Cough #30 caps 10/24/20 06/07/22 02/21/22 Rx acetaminophen 650 mg 650 mg PO Q6H PRN Pain 06/05/21 06/07/22 02/21/22 History tablet,extended release albuterol sulfate 2.5 mg inhalation Q4H PRN 06/05/21 06/07/22 02/21/22 History Shortness Of Breath budesonide 180 mcg/actuation 2 inh inhalation BID@,06/05/21 06/07/22 06/07/22 History breath activated powder inhaler (Pulmicort Flexhaler) citalopram 20 mg tablet 20 mg PO DAILY@0800 06/05/21 06/07/22 06/07/22 History gabapentin 100 mg capsule 100 mg PO TID@08,,06/05/21 06/07/22 06/07/22 History pantoprazole 40 mg tablet,delayed 40 mg PO DAILY 01/19/22 06/07/22 06/07/22 History release diltiazem HCl 30 mg tablet 30 mg PO BID Atrial fibrillation 01/23/22 06/07/22 06/07/22 Rx #60 tabs furosemide 40 mg tablet 40 mg PO DAILY@0800 #30 tabs 01/23/22 06/07/22 06/07/22 Rx ipratropium bromide 0.02 % 0.5 mg (2.5 mL) inhalation 01/23/22 06/07/22 06/07/22 Rx solution for inhalation Q6H.RESPIRATORY #1 mL sucralfate 100 mg/mL oral 1 g (10 mL) PO AC&BEDTIME #120 mL 01/23/22 06/07/22 06/07/22 Rx suspension diclofenac sodium 1 % topical gel 2 g topical BID PRN Pain 06/07/22 06/07/22 Unknown History doxycycline hyclate 100 mg tablet 100 mg PO BID 06/07/22 06/07/22 06/07/22 History ferrous gluconate 324 mg (37.5 mg 324 mg PO BID anemia 06/07/22 06/07/22 06/06/22 History iron) tablet ondansetron 4 mg disintegrating 4 mg PO Q4H PRN Nausea 06/07/22 06/07/22 Unknown History tablet phenylephrine 0.25 %-mineral oil 1 applic [place] DAILY PRN Hemorrhoids 06/07/22 06/07/22 Unknown History 14 %-petrolatm 74.9 % rectal ointment (Preparation H) Allergies Allergy/AdvReac Type Severity Reaction Status Date / Time albuterol Allergy restlessness, Verified 06/07/22 14:43 palpitations amoxicillin Allergy ALGY-Rash Verified 06/07/22 14:43 codeine Allergy ALGY-Rash Verified 06/07/22 14:43 Penicillins Allergy ALGY-Rash Verified 06/07/22 14:43 sulfamethoxazole Allergy Unknown Verified 06/07/22 14:43 [From Bactrim] trimethoprim [From Bactrim] Allergy Unknown Verified 06/07/22 14:43 PFSH Acute PFSH: Medical History (Updated 06/07/22 @ 17:07 by Kamaljit Jacobsen MD) Adenomatous polyp 2011 found on surveillance colonoscopy Aspiration pneumonia Bipolar 1 disorder, depressed Bipolar disorder Breast cancer Status post lumpectomy/radiation 1999 followed by adjuvant tamoxifen C. 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 Chronic fatigue CKD (chronic kidney disease), stage IV Confusion COPD (chronic obstructive pulmonary disease) Oxygen dependent COPD (chronic obstructive pulmonary disease) COPD with acute exacerbation DNR (do not resuscitate) Dyslipidemia Gout Hallucinations Did not tolerate Parkinson's medications in the past when this diagnosis was being entertained, discontinued hydrocodone, no organic etiology found Hypercapnic respiratory failure Hypertension Mastoiditis Right-sided mastoiditis, present on MRI 2015 as well Pancytopenia Porencephalic cyst Temporal lobe Pulmonary nodule 1 cm or greater in diameter Senile dementia Daughter has requested that dementia should not be mentioned to her mother because of risk of worsening of her depression considering bipolar disorder Sleep apnea Surgical History History of low anterior resection of rectum Family History Other Family history non-contributory Social History Smoking and tobacco status: former smoker Alcohol intake: never Household members: family Housing: House Vitals/I&O/Wt Last Vital Signs Temp 98.5 F 06/07/22 13:11 Pulse 60 06/07/22 15:55 Resp 16 06/07/22 13:11 BP 182/63 06/07/22 13:11 Pulse Ox 96 06/07/22 15:55 O2 Del Method Nasal Cannula 06/07/22 13:11 O2 Flow Rate 3 06/07/22 13:11 FiO2 30 06/07/22 15:55 Weight last 48 hrs Weight 72.575 kg Physical Exam Narrative: EXAM NARRATIVE: General: No acute distress, on BiPAP, drowsy but arousable HEENT: PERRLA, pupils bilaterally equal and reactive Chest: Bilateral bronchial breath sounds, coarse crackles present all over the lung field, occasional rhonchi present both lung bajwa CVS: S1-S2 regular, no murmurs, no tachycardia, no gallops, no rubs Abdomen: Soft, nontender, no organomegaly, bowel sounds present, morbidly obese Neuro: No focal deficits, no facial deformity, all limbs Urinary Catheter Management: Hoff: Cath Placed During This Visit: yes Urinary Catheter Date of Insertion: 06/07/22 Data : 06/07/22 14:08 06/07/22 14:08 Micro: Microbiology 06/07/22 14:55 Blood Culture - Preliminary Blood SPECIMEN COLLECTED 06/07/22 14:55 Blood Culture - Preliminary Blood SPECIMEN COLLECTED A&P Assessment and plan (1) AMS (altered mental status): Status: Acute (2) Hypercapnic respiratory failure: Status: Acute Qualifiers: Chronicity: acute on chronic Qualified Code(s): J96.22 - Acute and chronic respiratory failure with hypercapnia (3) Hypernatremia: Status: Acute (4) COPD (chronic obstructive pulmonary disease): Status: Acute (5) Diastolic congestive heart failure: Status: Acute (6) CKD (chronic kidney disease), stage IV: Status: Acute (7) Atrial fibrillation with RVR: Status: Acute (8) DNR (do not resuscitate): Status: Acute Plan Altered mental status most likely secondary to hypercapnia and hypernatremia. Cannot rule underlying pneumonia. No UTI as per urinalysis. BiPAP ventilation. Repeat ABG in AM. Check ammonia level, vitamin B12, folate, TSH. Hypercapnia most likely secondary to COPD exacerbation which could be secondary to viral bronchitis versus pneumonia. Ipratropium and Xopenex every 6 hour, budesonide twice daily. Solu-Medrol 40 mg every 8 hourly. Possibility of a lung mass on chest x-ray. Will do CT chest without contrast to rule out mass versus consolidation. For now start patient on vancomycin and imipenem. Patient is allergic to penicillin. Start on azithromycin to cover for atypical. Check sputum culture, urine Legionella, bacterial antigen, MRSA swab, COVID-19 antigen, procalcitonin. Patient does have history of diastolic heart failure but currently looks slightly dehydrated. D5 NS at 50 cc/h for 1 bag. Watch for fluid overload. CKD: Creatinine at baseline. Continue to monitor daily. Atrial fibrillation: Rate controlled. Continuing home dose of Cardizem. Not on anticoagulation given history of falls. Anemia: Hemoglobin 7.2. As per daughter patient has had multiple transfusions in the past. 1 unit of blood transfusion ordered in the ER. Check iron panel, folate, B12. Continue other chronic oral medications. DNR/DNI. N.p.o. overnight. Protonix for PUD prophylaxis. Heparin 5000 every 12 hourly for DVT prophylaxis. Attestations Medical Necessity Statement*: Admit patient for more than 2 midnights for management of altered mental status secondary to hypercapnia and hyponatremia while pneumonia is ruled out Coding Level of Care Code Acute Radiation / Chemistry Technician for g Fwd Diagnoses AMS (altered mental status) R41.82 Hypercapnic respiratory failure J96.22 Chronicity: acute on chronic Hypernatremia E87.0 COPD (chronic obstructive pulmonary disease) J44.9 Diastolic congestive heart failure I50.30 CKD (chronic kidney disease), stage IV N18.4 Atrial fibrillation with RVR I48.91 DNR (do not resuscitate) Z66
--- NOTE | 2022-06-07 16:43 | CTR_ITS ---
PROCEDURE INFORMATION: Exam: CT Chest Without Contrast; Diagnostic Exam date and time: 06/07/2022 6:01 PM Age: 82 years old Clinical indication: Dyspnea; Additional info: Hypercapnic resp faliure TECHNIQUE: Imaging protocol: Diagnostic computed tomography of the chest without contrast. Radiation optimization: All CT scans at this facility use at least one of these dose optimization techniques: automated exposure control; mA and/or kV adjustment per patient size (includes targeted exams where dose is matched to clinical indication); or iterative reconstruction. COMPARISON: CT chest [facility] [id number] 01/19/2022 7:52 PM RADIATION DOSE METRICS: Total DLP (mGy-cm): 517.78 FINDINGS: Lungs: Patchy irregular ground-glass nodular foci randomly distributed in both lungs. Lesions are present in the upper lobes, however lesions are more predominant in the peripheral areas of the lower lobes. Upper lobe lesions are stable when compared with 01/19/2022. There is progression in the lower lobe lesions with increased number of lesions. Mild degree of lower lobe atelectasis also present. Negative for endobronchial obstruction. Pleural spaces: Trace left-sided pleural effusion. Negative for pneumothorax. Heart: Unremarkable. No cardiomegaly. No pericardial effusion. Lymph nodes: Unremarkable. No enlarged lymph nodes. Vasculature: Calcified plaques throughout thoracic aorta. Negative for aneurysm. Bones/joints: The thoracic spine demonstrates moderate degenerative changes at multiple levels. Soft tissues: Unremarkable. CT/CT chest [facility] [id number] IMPRESSION: Further progression of nonspecific patchy ground-glass lesions in the lungs with lower lobe predominance. Suspect atypical pneumonia features.
[2022-06-07 18:04] LABS: Procalcitonin 0.38 ng/mL (0-0.5)
[2022-06-07] MEDS: potassium chloride premix 100 ML 25 MEQ IV (18:48)
[2022-06-07] MEDS: heparin 5,000 unit/mL INJ 1 mL 5000 UNIT SUBCUT (18:48)
[2022-06-07] MEDS: dilTIAZem 30 mg Tablet PO (18:49)
[2022-06-07] MEDS: D5-NS 0.45% + KCL 20 mEq 20 MEQ/1,000 ML BAG 100 MEQ IV (18:49)
[2022-06-07 18:53] LABS: Iron 18 ug/dL (37-145); Percent Saturation 10.8 % (20-50); Total Iron Binding Capacity 166 mcg/dl; Unsaturated Iron Binding 148 ug/dL (112-347)
[2022-06-07 19:02] LABS: Ammonia 29 umol/L (11-51)
[2022-06-07 19:10] LABS: Vitamin B12 534 pg/mL (232-1245)
[2022-06-07 19:14] LABS: Thyroid Stimulating Hormone 1.09 uIU/mL (0.27-4.20)
[2022-06-07] MEDS: vancomycin 1,000 MG in sodium chloride 0.9% 250 ML 250 MG IV (19:40)
--- NOTE | 2022-06-07 19:41 | PC.NURSE ---
Addendum entered by Antonietta Coon LPN 06/08/22 03:50: entered in error by previous nurse Original Note: physician notified of time of ,
--- NOTE | 2022-06-07 19:49 | ECG_ITS ---
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 Measurements Intervals [place] Rate: 64 P: 66 [place]: 155 QRS: 53 QRSD: 88 T: 47 QT: 457 QTc: 475 Interpretive Statements SINUS RHYTHM Compared to ECG 06/07/2022 16:24:23 T-wave abnormality no longer present Electronically Signed On 06-08-2022 10:37:21 CDT by Vicky Ness M.D. [id number]
[2022-06-07 21:15] LABS: Troponin 5 6HR Delta -4.9 ng/L (0-12)
[2022-06-07 21:16] LABS: Troponin 5 6HR 112.1 ng/L (0-10)
[2022-06-07] MEDS: atorvastatin 40 mg Tablet 20 MG PO (21:43)
[2022-06-07] MEDS: sucralfate 1 gm/10 mL Oral Liq UDC PO (21:43)
[2022-06-07] MEDS: folic acid 1 mg Tablet PO (21:44)
[2022-06-07] MEDS: gabapentin 100 mg Capsule PO (21:44)
[2022-06-07] MEDS: divalproex DR 250 mg Tablet PO (21:47)
[2022-06-07] MEDS: budesonide 0.5 mg/2 mL Neb INHALATION (22:02)
[2022-06-07] MEDS: ipratropium 0.5 mg/2.5 mL Neb INHALATION (22:03)
[2022-06-08] VITALS (20 sets, daily range): BP systolic 116–198; BP diastolic 63–79; PULSE 52–84; RESP 12–24; TEMP 36.4–37.2; O2SAT 92–100
[2022-06-08] MEDS: ipratropium 0.5 mg/2.5 mL Neb INHALATION ×4 (04:08→20:52)
[2022-06-08] MEDS: sucralfate 1 gm/10 mL Oral Liq UDC PO ×4 (06:12→20:46)
[2022-06-08] MEDS: heparin 5,000 unit/mL INJ 1 mL 5000 UNIT SUBCUT ×2 (06:12→17:31)
[2022-06-08] MEDS: sodium chloride 0.9% (100 ml) 100 ML (06:17)
[2022-06-08 06:19] LABS: Folate Level > 20.0 ng/mL (4.8-37.3)
[2022-06-08] MEDS: budesonide 0.5 mg/2 mL Neb INHALATION ×2 (08:12→20:52)
[2022-06-08] MEDS: levalbuterol 0.63 mg/3 mL Neb INHALATION ×3 (08:12→20:52)
[2022-06-08] MEDS: docusate sodium 100 mg Capsule PO ×2 (08:26→17:31)
[2022-06-08] MEDS: pantoprazole DR 40 mg Tablet PO (08:26)
[2022-06-08] MEDS: dilTIAZem 30 mg Tablet PO ×2 (08:26→17:31)
[2022-06-08] MEDS: aspirin 81 mg EC Tablet PO (08:26)
[2022-06-08] MEDS: folic acid 1 mg Tablet PO ×2 (08:26→20:45)
[2022-06-08] MEDS: ferrous gluconate 324 mg Tablet PO ×2 (08:26→17:31)
[2022-06-08] MEDS: allopurinol 100 mg Tablet PO (08:26)
[2022-06-08] MEDS: gabapentin 100 mg Capsule PO ×3 (08:26→20:45)
[2022-06-08] MEDS: citalopram 20 mg Tablet PO (08:26)
[2022-06-08] MEDS: azithromycin 500 MG in sodium chloride 0.9% 250 ML 250 MG IV (08:33)
[2022-06-08] MEDS: divalproex DR 250 mg Tablet PO (09:19)
--- NOTE | 2022-06-08 09:54 | PC.CHAP ---
Pastoral Care Encounter/Spiritual Assessment Type of Contact [] Declined seater grinder visit [] Patient/Family/Request visit [] Outpatient visit [] Follow-up visit [] Physician referral [] Code/Alert [x] Routine visit [] Staff referral [] Actively dying [] Patient sleeping [] Family support [] [] Out of room [] Palliative care [] [] Receiving care in room [] Pre-surgical visit [] Trauma [] Long length of stay [] ICU visit [] Other: Relational/Emotional Strength [] Patient feels connected with others/family/visitors/staff [] Distress [] Loneliness/isolation [] Abandonment Spirituality of Patient [x] Person of Brandy [] Attends Church of their Brandy [x] Believes in Prayer [] Reads Bible or Confucianism materials [] There are Spiritual issues to be addressed Director Operations Broadcast Interventions [x] Prayer [x] Active listening [] Non-anxious presence [] Spiritual/emotional support [] Crisis/trauma care [] Spiritual counseling [] Bereavement support [] Provided bereavement packet [] Provided Bible/devotional materials [] Provided toy/stuffed animal, coloring book to patient or family member [] Provided Communion [] Anointing/[place] [] Salvation [x] Completed spiritual assessment [] Other: Impact on Illness or Injury [] Angry [] Fearful [] Anxious [] Often cries [] Exhaustion [] Unable to work [] Unable to attend anabaptism [] Unable to walk/stand [] Unable to read [] Unable to drive [] Unable to eat/drink [] Unable to sleep [] Unable to be with family [] Patient intubated [] Other: Summary Time spent with patient 10 min
[2022-06-08 10:06] LABS: ABG PH Result 7.43 (7.35-7.45); Arterial Blood Gas Hematocrit 30.2 % (37-47); Base Excess ABG 14.2 mmol/L (-2.0-2.0); Blood Gas Allen Test Pos; Blood Gas Sample Type Arterial; Carboxyhemoglobin 1.2 %THgb (0.4-20.1); HCO3 ABG 40.6 mmol/L (22-26); HGB O2 Sat 95.7 % (95-100); Ionized Calcium Level - ABG 1.3 mmol/L (1.1-1.4); Methemoglobin 1.2 % (0.4-1.5); Oxygen Saturation ABG 98.1; PO2 ABG 91.2 mmHg (80.0-100.0); Potassium Level - ABG 3.7 mmol/L (3.5-5.0); Total Hemoglobin 9.9 g/dL (12-16)
[2022-06-08 10:07] LABS: Alveolar-Arterial Oxygen Gradi 4.5 mmHg (5-10); Blood Gas Operator Identificat ED; Blood Gas Sample Site Radial, left; Oxygen Device NC
[2022-06-08 10:09] LABS: ABG PCO2 61.2 mmHg (35-45)
[2022-06-08 11:39] LABS: Basophils % 0.1 %; Hematocrit 30.6 % (37.0-47.0); Hemoglobin 9.3 g/dL (11.5-15.3); Lymphocytes # 0.6 10^3/uL (0.8-4.8); Lymphocytes % 8.1 %; Mean Corpuscular HGB Conc 30.4 g/dL (30.0-36.0); Mean Corpuscular Volume 98.7 fl (81-99); Monocytes # 0.2 10^3/uL (0.2-0.9); Monocytes % 2.6 %; Neutrophils # 6.36 10^3/uL (1.8-7.7); Neutrophils % 88.5 %; Nucleated Red Blood Cells % 0 %; Platelet Count 150 10^3/cmm (130-400); Red Cell Distribution Width 17.4 % (12.1-15.1); White Blood Count 7.2 10^3/uL (4.0-10.0)
[2022-06-08 12:07] LABS: Alanine Aminotransferase 8 U/L (0-33); Albumin Level 2.9 g/dL (3.5-5.2); Alkaline Phosphatase 105 IU/L (35-105); Anion Gap 10.6 (5-19); Aspartate Amino Transferase 13 U/L (0-32); Blood Urea Nitrogen 41 mg/dL (8-23); Carbon Dioxide 37 mmol/L (22-29); Chloride 100 mmol/L (98-107); Globulin 3.1 g/dL (1.3-4.6); Glucose 182 mg/dL (65-115); Osmolality Calculated 313 mOsm/kg (285-295); Potassium 3.6 mmol/L (3.5-5.1); Sodium 144 mmol/L (136-145); Total Bilirubin 0.4 mg/dL (0.15-1.2)
[2022-06-08 12:08] LABS: Magnesium 1.7 mg/dL (1.7-2.3)
[2022-06-08 12:21] LABS: Estmated Average Glucose 91; Hemoglobin A1C 4.8 % (4.0-6.0)
--- NOTE | 2022-06-08 13:19 | P.PN_ITS ---
Subjective Subjective: No acute events overnight. Patient was on BiPAP overnight. Today morning on examination on 1 L saturating more than 95%. Is awake and alert. Able to have complete conversation. States he does not like being on BiPAP because it is agreeable to be on BiPAP overnight when sleeping. Denies any n ausea, vomiting, headache. Daughter at bedside. Vitals/I&O/Wt Last Vital Signs Temp 98.4 F 06/08/22 11:44 Pulse 60 06/08/22 11:44 Resp 18 06/08/22 11:44 BP 191/65 06/08/22 11:44 Pulse Ox 99 06/08/22 11:44 O2 Del Method 06/08/22 08:16 O2 Flow Rate 1 06/08/22 08:16 FiO2 30 06/08/22 04:09 06/07/22 06/08/22 06/08/22 22:59 06:59 14:59 Intake Total 500 / 500 1100 / 1600 600 / 600 Output Total 255 / 255 Balance 245 / 245 1100 / 1345 600 / 600 Weight last 48 hrs Weight 80.484 kg Weight 78.245 kg Weight 72.575 kg Physical Exam Narrative: EXAM NARRATIVE: General: No acute distress, awake and alert, back at baseline mentation HEENT: PERRLA, pupils bilaterally equal and reactive Chest: Bilateral bronchial breath sounds, coarse crackles present all over the lung field, occasional rhonchi present both lung bajwa CVS: S1-S2 regular, no murmurs, no tachycardia, no gallops, no rubs Abdomen: Soft, nontender, no organomegaly, bowel sounds present, morbidly obese Neuro: No focal deficits, no facial deformity, all limbs Urinary Catheter Management: Hoff: Cath Placed During This Visit: yes Reason for Continuing Indwelling Catheter: Acute Urinary Retention or Obstruction Urinary Catheter Date of Insertion: 06/07/22 Data : 06/08/22 11:12 06/08/22 11:12 Micro: Microbiology 06/07/22 18:25 Bacterial Antigens - Final Urine Kidney 06/07/22 14:30 Legionella Urinary Antigen - Final Urine Catheterized 06/07/22 14:55 Blood Culture - Preliminary Blood SPECIMEN COLLECTED 06/07/22 14:55 Blood Culture - Preliminary Blood SPECIMEN COLLECTED A&P Assessment and plan (1) AMS (altered mental status): Status: Acute (2) Hypercapnic respiratory failure: Status: Acute Qualifiers: Chronicity: acute on chronic Qualified Code(s): J96.22 - Acute and chronic respiratory failure with hypercapnia (3) Hypernatremia: Status: Acute (4) COPD (chronic obstructive pulmonary disease): Status: Acute (5) Diastolic congestive heart failure: Status: Acute (6) CKD (chronic kidney disease), stage IV: Status: Acute (7) Atrial fibrillation with RVR: Status: Acute (8) DNR (do not resuscitate): Status: Acute Plan Altered mental status: Most likely secondary to hypercapnia and hypernatremia secondary to COPD exacerbation from possible pneumonia. Repeat ABG. BiPAP ventilation nightly. Patient is agreeable for now. Ipratropium and Xopenex every 6 hour, budesonide twice daily. Wean Solu-Medrol to 40 mg every [address] results. MRSA negative in the past. Stop vancomycin. Continue with imipenem and azithromycin. We will finish a 3-day course of azithromycin. Sputum culture pending, urine Legionella, bacterial antigen negative. High suspicion of aspiration pneumonia. Discussed in detail with patient and daughter at bedside. Discussed about doing a modified barium swallow and modifying diet accordingly. Daughter states even if it shows that diet needs to be modified patient would rather be on a regular diet to enjoy life. Both melvin mendez and daughter are agreeable and understand that this this puts her at a higher risk of pneumonias. We will continue with regular diet and hold off on further evaluation for speech. Patient does have history of diastolic heart failure but currently looks slightly dehydrated. D5 NS at 50 cc/h for 1 bag. Watch for fluid overload. CKD: Creatinine at baseline. Continue to monitor daily. Atrial fibrillation: Rate controlled. Continuing home dose of Cardizem. Not on anticoagulation given history of falls. High blood pressures: Goal blood pressure less than 140/90 mmHg. Patient already on Cardizem at home for atrial fibrillation. Start on hydralazine 25 3 times daily. Cannot use SERGEI inhibitor given history of advanced age and CKD. Anemia: Hemoglobin responded appropriately. As per daughter patient has had multiple transfusions in the past. 1 unit of blood transfusion ordered in the ER. Will start on oral iron supplementation. Continue other chronic oral medications. DNR/DNI. Regular diet Protonix for PUD prophylaxis. Heparin 5000 every 12 hourly for DVT prophylaxis. 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
[2022-06-08] MEDS: hyDRALAzine 25 mg Tablet PO ×2 (14:46→20:45)
[2022-06-08] MEDS: atorvastatin 40 mg Tablet 20 MG PO (20:51)
[2022-06-09] VITALS (17 sets, daily range): BP systolic 120–210; BP diastolic 69–94; PULSE 49–63; RESP 13–20; TEMP 36.4–36.9; O2SAT 97–100
[2022-06-09] MEDS: hyDRALAzine 20 mg/mL INJ 1 mL 10 MG IVP (01:17)
[2022-06-09] MEDS: levalbuterol 0.63 mg/3 mL Neb INHALATION ×4 (02:35→22:58)
[2022-06-09] MEDS: ipratropium 0.5 mg/2.5 mL Neb INHALATION ×4 (02:35→22:57)
[2022-06-09] MEDS: sucralfate 1 gm/10 mL Oral Liq UDC PO ×4 (05:38→20:18)
[2022-06-09] MEDS: heparin 5,000 unit/mL INJ 1 mL 5000 UNIT SUBCUT ×2 (05:38→17:36)
[2022-06-09] MEDS: budesonide 0.5 mg/2 mL Neb INHALATION ×2 (08:16→22:58)
[2022-06-09] MEDS: citalopram 20 mg Tablet PO (09:17)
[2022-06-09] MEDS: aspirin 81 mg EC Tablet PO (09:17)
[2022-06-09] MEDS: docusate sodium 100 mg Capsule PO ×2 (09:17→17:36)
[2022-06-09] MEDS: dilTIAZem 30 mg Tablet PO ×2 (09:17→17:36)
[2022-06-09] MEDS: ferrous gluconate 324 mg Tablet PO ×2 (09:17→17:36)
[2022-06-09] MEDS: pantoprazole DR 40 mg Tablet PO (09:18)
[2022-06-09] MEDS: hyDRALAzine 25 mg Tablet PO ×2 (09:18→11:20)
[2022-06-09] MEDS: allopurinol 100 mg Tablet PO (09:18)
[2022-06-09] MEDS: azithromycin 500 MG in sodium chloride 0.9% 250 ML 250 MG IV (09:21)
[2022-06-09] MEDS: gabapentin 100 mg Capsule PO ×3 (09:26→19:37)
[2022-06-09] MEDS: folic acid 1 mg Tablet PO ×2 (09:26→19:36)
[2022-06-09] MEDS: divalproex DR 250 mg Tablet PO ×2 (09:26→19:35)
--- NOTE | 2022-06-09 11:39 | PC.NURSE ---
nurse was notified about high blood pressure
--- NOTE | 2022-06-09 14:43 | PM.PN ---
Subjective Subjective: No events overnight. Patient was on BiPAP as per the RN for 3 to 4 hours overnight. Today morning examination awake and alert laying comfortably in bed on 2 L saturating 100%. Blood pressures continue to remain on the higher side. Somehow no blood work drawn today. Vitals/I&O/Wt Last Vital Signs Temp 98.4 F 06/09/22 11:39 Pulse 55 L 06/09/22 14:00 Resp 17 06/09/22 11:39 BP 191/77 06/09/22 11:39 Pulse Ox 100 06/09/22 11:39 O2 Del Method 06/09/22 11:39 O2 Flow Rate 2 06/09/22 11:39 FiO2 30 06/09/22 02:36 06/08/22 06/09/22 06/09/22 22:59 06:59 14:59 Intake Total 580 / 1520 100 / 1620 690 / 690 Output Total 600 / 600 Balance -20 / 920 100 / 1020 690 / 690 Weight last 48 hrs Weight 80.24 kg Weight 80.484 kg Weight 78.245 kg Physical Exam Narrative: EXAM NARRATIVE: General: No acute distress, awake and alert, back at baseline mentation HEENT: PERRLA, pupils bilaterally equal and reactive Chest: Bilateral bronchial breath sounds, coarse crackles present all over the lung field, occasional rhonchi present both lung bajwa CVS: S1-S2 regular, no murmurs, no tachycardia, no gallops, no rubs Abdomen: Soft, nontender, no organomegaly, bowel sounds present, morbidly obese Neuro: No focal deficits, no facial deformity, all limbs Urinary Catheter Management: Hoff: Cath Placed During This Visit: yes Reason for Continuing Indwelling Catheter: Other Urinary Catheter Date of Insertion: 06/07/22 Data : 06/08/22 11:12 06/08/22 11:12 Micro: Microbiology 06/07/22 14:55 Blood Culture - Preliminary Blood NEGATIVE TO DATE 06/07/22 14:55 Blood Culture - Preliminary Blood NEGATIVE TO DATE 06/07/22 14:30 Urine Culture - Final Urine,Clean Catch Strep agalactiae - (group b) A&P Assessment and plan (1) AMS (altered mental status): Status: Acute (2) Hypercapnic respiratory failure: Status: Acute Qualifiers: Chronicity: acute on chronic Qualified Code(s): J96.22 - Acute and chronic respiratory failure with hypercapnia (3) Hypernatremia: Status: Acute (4) COPD (chronic obstructive pulmonary disease): Status: Acute (5) Diastolic congestive heart failure: Status: Acute (6) CKD (chronic kidney disease), stage IV: Status: Acute (7) Atrial fibrillation with RVR: Status: Acute (8) DNR (do not resuscitate): Status: Acute Plan Altered mental status: Most likely secondary to hypercapnia and hypernatremia secondary to COPD exacerbation from possible pneumonia. Repeat ABG. BiPAP ventilation nightly. Patient is agreeable for now. Ipratropium and Xopenex every 6 hour, budesonide twice daily. Wean Solu-Medrol to 40 mg every [address] results. MRSA negative in the past. Stop vancomycin. Continue with imipenem and azithromycin. We will finish a 3-day course of azithromycin. Sputum culture pending, urine Legionella, bacterial antigen negative. High suspicion of aspiration pneumonia. Discussed in detail with patient and daughter at bedside. Discussed about doing a modified barium swallow and modifying diet accordingly. Daughter states even if it shows that diet needs to be modified patient would rather be on a regular diet to enjoy life. Both patient and daughter are agreeable and understand that this this puts her at a higher risk of pneumonias. We will continue with regular diet and hold off on further evaluation for speech. Patient does have history of diastolic heart failure but currently looks slightly dehydrated. D5 NS at 50 cc/h for 1 bag. Watch for fluid overload. CKD: Creatinine at baseline. Continue to monitor daily. Atrial fibrillation: Rate controlled. Continuing home dose of Cardizem. Not on anticoagulation given history of falls. High blood pressures: Goal blood pressure less than 140/90 mmHg. Patient already on Cardizem at home for atrial fibrillation. Start on hydralazine 25 3 times daily. Cannot use SERGEI inhibitor given history of advanced age and CKD. Anemia: Hemoglobin responded appropriately. As per daughter patient has had multiple transfusions in the past. 1 unit of blood transfusion ordered in the ER. Will start on oral iron supplementation. Continue other chronic oral medications. DNR/DNI. Regular diet Protonix for PUD prophylaxis. Heparin 5000 every 12 hourly for DVT prophylaxis. Plan for the day: Continue with imipenem and azithromycin. Follow-up culture results. Follow-up labs from today as no blood work reported yet. Stop IV fluids. Increase hydralazine to 50 mg 3 times daily. If needed can add clonidine. Goal blood pressure less than 140/90 mmHg. Wean down Solu-Medrol to 40 mg daily. DC Hoff catheter. Discharge planning: Plan to discharge back to SNF within next 24 hours if patient continues to remain hemodynamically stable, afebrile on oral antibiotics. 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
[2022-06-09] MEDS: hyDRALAzine 25 mg Tablet 75 MG PO ×2 (15:02→20:18)
[2022-06-09 16:43] LABS: Hematocrit 32.4 % (37.0-47.0); Hemoglobin 9.9 g/dL (11.5-15.3); Lymphocytes # 0.8 10^3/uL (0.8-4.8); Lymphocytes % 9.2 %; Mean Corpuscular HGB Conc 30.6 g/dL (30.0-36.0); Mean Corpuscular Hemoglobin 30.5 pg (28.0-34.0); Mean Corpuscular Volume 99.7 fl (81-99); Monocytes # 0.2 10^3/uL (0.2-0.9); Monocytes % 2.8 %; Neutrophils # 7.24 10^3/uL (1.8-7.7); Neutrophils % 87.3 %; Nucleated Red Blood Cells % 0 %; Platelet Count 203 10^3/cmm (130-400); Red Blood Count 3.25 10^6/uL (4.1-5.3); Red Cell Distribution Width 16.7 % (12.1-15.1); White Blood Count 8.3 10^3/uL (4.0-10.0)
[2022-06-09 17:10] LABS: Alanine Aminotransferase 11 U/L (0-33); Albumin Level 2.9 g/dL (3.5-5.2); Alkaline Phosphatase 101 IU/L (35-105); Anion Gap 10.7 (5-19); Aspartate Amino Transferase 14 U/L (0-32); Blood Urea Nitrogen 47 mg/dL (8-23); Calcium 10.3 mg/dL (8.5-10.5); Carbon Dioxide 37 mmol/L (22-29); Chloride 100 mmol/L (98-107); Globulin 2.9 g/dL (1.3-4.6); Glucose 115 mg/dL (65-115); Osmolality Calculated 311 mOsm/kg (285-295); Potassium 3.7 mmol/L (3.5-5.1); Sodium 144 mmol/L (136-145); Total Bilirubin 0.3 mg/dL (0.15-1.2); Total Protein 5.8 g/dL (6.6-8.7)
[2022-06-09] MEDS: acetaminophen 325 mg Tablet 650 MG PO (19:35)
[2022-06-09] MEDS: atorvastatin 40 mg Tablet 20 MG PO (19:36)
[2022-06-10] VITALS (13 sets, daily range): BP systolic 140–184; BP diastolic 70–79; PULSE 51–69; RESP 15–18; TEMP 36.2–36.8; O2SAT 97–100
[2022-06-10 00:38] LABS: SARS Covid-2 Antigen Negative (Negative)
[2022-06-10] MEDS: heparin 5,000 unit/mL INJ 1 mL 5000 UNIT SUBCUT ×2 (05:36→17:35)
[2022-06-10] MEDS: sucralfate 1 gm/10 mL Oral Liq UDC PO ×4 (05:36→21:02)
--- NOTE | 2022-06-10 08:43 | PC.SOCIAL ---
IMM UPDATED IMM dated and initialed copy given to patient and placed in chart.
[2022-06-10] MEDS: levalbuterol 0.63 mg/3 mL Neb INHALATION ×3 (08:53→20:31)
[2022-06-10] MEDS: budesonide 0.5 mg/2 mL Neb INHALATION ×2 (08:53→20:31)
[2022-06-10] MEDS: ipratropium 0.5 mg/2.5 mL Neb INHALATION ×3 (08:53→20:31)
[2022-06-10] MEDS: pantoprazole DR 40 mg Tablet PO (09:58)
[2022-06-10] MEDS: ferrous gluconate 324 mg Tablet PO ×2 (09:58→17:35)
[2022-06-10] MEDS: hyDRALAzine 25 mg Tablet 75 MG PO ×3 (09:58→21:02)
[2022-06-10] MEDS: citalopram 20 mg Tablet PO (09:58)
[2022-06-10] MEDS: docusate sodium 100 mg Capsule PO ×2 (09:58→17:35)
[2022-06-10] MEDS: dilTIAZem 30 mg Tablet PO ×2 (09:58→17:35)
[2022-06-10] MEDS: allopurinol 100 mg Tablet PO (09:59)
[2022-06-10] MEDS: azithromycin 500 MG in sodium chloride 0.9% 250 ML 250 MG IV (09:59)
[2022-06-10] MEDS: divalproex DR 250 mg Tablet PO ×2 (10:06→20:59)
[2022-06-10] MEDS: gabapentin 100 mg Capsule PO ×3 (10:07→21:00)
[2022-06-10] MEDS: folic acid 1 mg Tablet PO ×2 (10:07→21:00)
[2022-06-10] MEDS: aspirin 81 mg EC Tablet PO (10:07)
--- NOTE | 2022-06-10 11:14 | P.DS_ITS ---
Discharge Providers Date of Admission: 06/07/22 15:25 Date of Discharge: June 10, 2022 Attending Provider at Admission: Kamaljit Jacobsen MD Attending Provider at Discharge: Kamaljit Jacobsen MD Primary Care Provider: Dunia Rowan MD Diagnoses at Discharge Discharge Diagnosis (1) AMS (altered mental status): Status: Acute (2) Hypercapnic respiratory failure: Status: Acute Qualifiers: Chronicity: acute on chronic Qualified Code(s): J96.22 - Acute and chronic respiratory failure with hypercapnia (3) Hypernatremia: Status: Acute (4) COPD (chronic obstructive pulmonary disease): Status: Acute Permanent problem details: Oxygen dependent (5) Diastolic congestive heart failure: Status: Acute (6) CKD (chronic kidney disease), stage IV: Status: Acute (7) Atrial fibrillation with RVR: Status: Acute (8) DNR (do not resuscitate): Status: Acute Reason for Visit Reason for Visit: ALTERED LOC Hospital Course Hospital Course ignacio Montano is a 82 year old female, senior care resident at [facility] with past medical history of COPD on chronically 2 L, sleep apnea not on CPAP atrial fibrillation not on anticoagulation because of possible history of fall, mild Alzheimer's, CKD stage IV with baseline creatinine of 2.3, adenocarcinoma of 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 History taken from daughter who is at bedside. With the daughter patient has been getting more confused for last 3 to 4 days.? She did get a chest x-ray done at the senior care few days ago after which she was started antibiotics which seems to be doxycycline as per medical reconciliation.? Today when the daughter went to see her patient was less responsive, hunched in the wheelchair so she was brought to the ER.? As per the daughter patient has been complaining of generalized malaise for last 1 to 2 days.? Denies any diarrhea, nausea, bleeding, hematemesis or melena.? As per daughter patient has required multiple transfusions in the past with most recently around 2 to 3 months ago. In the ER patient was found to have hypercapnia, hypernatremia for which she was placed on BiPAP and started on IV fluids D5 NS. On examination patient is on BiPAP, waking up.? Saturating 96%, blood pressure 190/60 with a heart rate of 60 bpm Patient admitted to hospital further evaluation and management. She was started on broad-spectrum antibiotics, BiPAP ventilation. On admission there was concern for slight dehydration which was corrected by IV fluids. She responded well to the treatment and has been back to her baseline mentation for last 2 days. Blood cultures remain negative during hospitalization. There is a High suspicion of aspiration pneumonia. Discussed in detail with patient and daughter at bedside. Discussed about doing a modified barium swallow and modifying diet accordingly. Daughter states even if it shows that diet needs to be modified patient would rather be on a regular diet to enjoy life. Both patient and daughter are agreeable and understand that this this puts her at a higher risk of pneumonias. We will continue with regular diet and hold off on further evaluation for speech. During hospitalization she was found to have elevated blood pressures for which antihypertensives were added. Blood pressures are still high but controlled. Patient is been discharged back to senior care in hemodynamically stable condition on oral antibiotics for 5 more days. She is also sent home on oral s teroid taper as directed. She is to continue taking her blood pressure daily at the senior care for further adjustment of antihypertensives. Physical Exam Narrative: EXAM NARRATIVE: General: No acute distress, awake and alert, back at baseline mentation HEENT: PERRLA, pupils bilaterally equal and reactive Chest: Bilateral bronchial breath sounds, coarse crackles present all over the lung field, occasional rhonchi present both lung bajwa CVS: S1-S2 regular, no murmurs, no tachycardia, no gallops, no rubs Abdomen: Soft, nontender, no organomegaly, bowel sounds present, morbidly obese Neuro: No focal deficits, no facial deformity, all limbs Urinary Catheter Management: Hoff: Cath Placed During This Visit: yes, but has since been removed by the nurse Reason for Continuing Indwelling Catheter: Does Not Meet Criteria Urinary Catheter Date of Insertion: 06/07/22 Date Urinary Catheter Removed: 06/09/22 Time Urinary Catheter Discontinued: 16:32 Discharge Data Studies Completed and Pending Completed Studies During Hospitalization Category Date Time Status CT chest wo con [id number] Urgent Cat Scan 06/07/22 16:[address] head wo con* [id number] Stat Cat Scan 06/07/22 13:49 Completed XR chest 1V portable [id number] Stat Exams 06/07/22 13:49 Completed Pending at discharge Category Date Time Status Blood Culture Stat Lab 06/07/22 14:55 Results Sputum Culture and Gram Stain Stat Lab 06/07/22 16:43 Uncollected Radiology Impressions Chest X-Ray 06/07/22 13:49 IMPRESSION: 1. Ill-defined soft tissue nodules in the mid and lower right lung and probably the left retrocardiac region. This may represent metastatic pulmonary disease. 2. Cardiac enlargement unchanged. No acute infiltrate. Head CT 06/07/22 13:49 IMPRESSION: 1. No acute intracranial hemorrhage or edema. 2. Moderate atrophy and advanced small vessel ischemic disease with multiple chronic lacunar infarcts. Chest CT 06/07/22 16:43 IMPRESSION: Further progression of nonspecific patchy ground-glass lesions in the lungs with lower lobe predominance. Suspect atypical pneumonia features. Laboratory Results WBC 8.3 10^3/uL (4.0-10.0) 06/09/22 16:29 RBC 3.25 10^6/uL (4.1-5.3) L 06/09/22 16:29 Hgb 9.9 g/dL (11.5-15.3) L 06/09/22 16:29 Hct 32.4 % (37.0-47.0) L 06/09/22 16:29 MCV 99.7 fl (81-99) H 06/09/22 16:29 MCH 30.5 pg (28.0-34.0) 06/09/22 16:29 MCHC 30.6 g/dL (30.0-36.0) 06/09/22 16:29 RDW 16.7 % (12.1-15.1) H 06/09/22 16:29 Plt Count 203 10^3/cmm (130-400) D 06/09/22 16:29 MPV 11.0 fL (7.4-10.4) H 06/09/22 16:29 Neut % (Auto) 87.3 % 06/09/22 16:29 Lymph % (Auto) 9.2 % 06/09/22 16:29 [place] % (Auto) 2.8 % 06/09/22 16:29 Eos % (Auto) 0.0 % 06/09/22 16:29 Baso % (Auto) 0.0 % 06/09/22 16: Neut # (Auto) 7.24 10^3/uL (1.8-7.7) 06/09/22 16: Lymph # (Auto) 0.8 10^3/uL (0.8-4.8) 06/09/22 16: [place] # (Auto) 0.2 10^3/uL (0.2-0.9) 06/09/22 16: Eos # (Auto) 0.0 10^3/uL (0.0-0.8) 06/09/22 16: Baso # (Auto) 0.0 10^3/uL (0.0-0.1) 06/09/22 16: Nucleated RBC % (auto) 0 % 06/09/22 16: Nucleated RBCs # 0.0 /100WBC 06/09/22 16:29 Specimen Type Arterial 06/08/22 09:56 Sample Site Radial, left 06/08/22 09:56 ABG pH 7.43 (7.35-7.45) 06/08/22 09:56 ABG pCO2 61.2 mmHg (35-45) H* 06/08/22 09:56 ABG pO2 91.2 mmHg (80.0-100.0) 06/08/22 09:56 ABG HCO3 40.6 mmol/L (22-26) H 06/08/22 09:56 ABG O2 Saturation 98.1 06/08/22 09:56 ABG Base Excess 14.2 mmol/L (-2.0-2.0) H 06/08/22 09:56 Teja Test Pos 06/08/22 09:56 A-a O2 Gradient 4.5 mmHg (5-10) L 06/08/22 09:56 Hematocrit 30.2 % (37-47) L 06/08/22 09:56 Hgb O2 Saturation 95.7 % (95-100) 06/08/22 09:56 Carboxyhemoglobin 1.2 %THgb (0.4-20.1) 06/08/22 09:56 Methemoglobin 1.2 % (0.4-1.5) 06/08/22 09:56 Total Hemoglobin 9.9 g/dL (12-16) L 06/08/22 09:56 Sodium 147.0 mmol/L (131-143) H 06/08/22 09:56 Potassium 3.7 mmol/L (3.5-5.0) 06/08/22 09:56 Glucose 167.0 mg/dL (70-115) H 06/08/22 09:56 Ionized Calcium 1.3 mmol/L (1.1-1.4) 06/08/22 09:56 O2 Delivery Device Nc 06/08/22 09:56 O2 Liters/Min 2.0 % 06/08/22 09:56 FiO2 28.0 % 06/08/22 09:56 [employer]ate [employer] Belt ID Ed 06/08/22 09:56 Sodium 144 mmol/L (136-145) 06/09/22 16:29 Potassium 3.7 mmol/L (3.5-5.1) 06/09/22 16:29 Chloride 100 mmol/L (98-107) 06/09/22 16:29 Carbon Dioxide 37 mmol/L (22-29) H 06/09/22 16:29 Anion Gap 10.7 (5-19) 06/09/22 16:29 BUN 47 mg/dL (8-23) H 06/09/22 16:29 Creatinine 1.8 mg/dL (0.5-0.9) H 06/09/22 16:29 GFR Calculation Not Reportable 06/09/22 16:29 Glucose 115 mg/dL (65-115) 06/09/22 16:29 Estimat Average Glucose 91 06/08/22 11:12 Hemoglobin A1c 4.8 % (4.0-6.0) 06/08/22 11:12 Calculated Osmolality 311 mOsm/kg (285-295) H 06/09/22 16:29 Lactic Acid 0.5 mmol/L (0.5-2.2) 06/07/22 14:08 Calcium 10.3 mg/dL (8.5-10.5) 06/09/22 16:29 Phosphorus 2.0 mg/dL (2.5-4.5) L 06/08/22 11:12 Magnesium 1.7 mg/dL (1.7-2.3) 06/08/22 11:12 Iron 18 ug/dL (37-145) L 06/07/22 15:38 TIBC 166 mcg/dl 06/07/22 15:38 % Saturation 10.8 % (20-50) L 06/07/22 15:38 Unsat Iron Binding 148 ug/dL (112-347) 06/07/22 15:38 Total Bilirubin 0.3 mg/dL (0.15-1.2) 06/09/22 16:29 AST 14 U/L (0-32) 06/09/22 16:29 ALT 11 U/L (0-33) 06/09/22 16:29 Alkaline Phosphatase 101 IU/L (35-105) 06/09/22 16:29 Ammonia 29 umol/L (11-51) 06/07/22 18:30 Creatine Kinase 68 U/L (26-192) 06/07/22 14:08 Troponin T Baseline 117 ng/L (0-10) H* 06/07/22 14:08 Troponin T 120 Minute 112.7 ng/L (0-10) H 06/07/22 15:38 Delta Troponin T -4.3 ABS# (0-10) L 06/07/22 15:38 Troponin T Hi Sens 6Hr 112.1 ng/L (0-10) H 06/07/22 20:05 Troponin T Hi Sens 6Hr Delta -4.9 ng/L (0-12) L 06/07/22 20:05 NT-Pro-B Natriuret Pep 2912 pg/mL (0-450) H 06/07/22 14:08 Total Protein 5.8 g/dL (6.6-8.7) L 06/09/22 16:29 Albumin 2.9 g/dL (3.5-5.2) L 06/09/22 16:29 Globulin 2.9 g/dL (1.3-4.6) 06/09/22 16:29 Lipase 11 U/L (13-60) L 06/07/22 14:08 Vitamin B12 534 pg/mL (232-1245) 06/07/22 15:38 Folate > 20.0 ng/mL (4.8-37.3) 06/07/22 18:30 Procalcitonin 0.38 ng/mL (0-0.5) 06/07/22 15:38 TSH 1.09 uIU/mL (0.27-4.20) 06/07/22 18:30 Urine Color Yellow (Yellow) 06/07/22 14:30 Urine Appearance Clear (CLEAR) 06/07/22 14:30 Urine pH 6 (5-7) 06/07/22 14:30 Ur Specific Joshua 1.010 (1.005-1.030) 06/07/22 14:30 Urine Protein 1+ (Negative) H 06/07/22 14:30 Urine Glucose (UA) Norm (Normal) 06/07/22 14:30 Urine Ketones Negative (Negative) 06/07/22 14:30 Urine Blood 2+ (Negative) H 06/07/22 14:30 Urine Nitrate Negative (Negative) 06/07/22 14:30 Urine Bilirubin Neg (Negative) 06/07/22 14:30 Urine Urobilinogen Norm mg/dL (Negative) 06/07/22 14:30 Ur Leukocyte Esterase Negative (Negative) 06/07/22 14:30 Urine RBC 0-4 /hpf (0-2) H 06/07/22 14:30 Urine WBC 10-15 /hpf (0-5) H 06/07/22 14:30 Ur Squamous Epith Cells 0-4 /hpf (0-5) H 06/07/22 14:30 Amorphous Sediment Not Reportable 06/07/22 14:30 Urine Bacteria None /hpf (NONE) 06/07/22 14:30 SARS-CoV-2 Ag (Rapid) Negative (Negative) 06/09/22 23:55 Blood Type O Positive 06/07/22 16:23 Rho(D) Type Positive 06/07/22 16:23 Antibody Screen Negative 06/07/22 16:23 Crossmatch See Detail 06/07/22 16:23 Vitals Last Vital Signs Temp 98.0 F 06/10/22 07:41 Pulse 69 06/10/22 08:53 Resp 18 06/10/22 08:53 BP 184/79 06/10/22 07:41 Pulse Ox 98 06/10/22 08:53 O2 Del Method 06/10/22 08:53 O2 Flow Rate 2 06/10/22 08:53 FiO2 30 06/09/22 23:01 Discharge Plan Discharge Patient Disposition: Xfer SNF Condition: Stable Prescriptions: New cephalexin 500 mg capsule 500 mg PO Q12H 5 Days Qty: 10 0RF prednisone 10 mg tablet See Taper PO DAILY Qty: 45 0RF Taper: predniSONE 60-10 60 mg Daily for 2 Days and 0 Hour 50 mg Daily for 2 Days and 0 Hour 40 mg Daily for 2 Days and 0 Hour 30 mg Daily for 2 Days and 0 Hour 20 mg Daily for 2 Days and 0 Hour 10 mg Daily for 2 Days and 0 Hour hydralazine 25 mg Tablet 75 mg PO TID 30 Days Qty: 270 0RF Continued levalbuterol tartrate [Xopenex HFA] 45 mcg/actuation Hfa Aerosol Inhaler 1 puff INHALATION Q6H Rx Instructions: TAKES AT 0:00, 06:00, 12:00, 18:00 acetaminophen 650 mg Tablet Extended Release 650 mg PO Q6H PRN (Reason: Pain) citalopram 20 mg Tablet 20 mg PO DAILY@0800 gabapentin 100 mg Capsule 100 mg PO TID@08,14,20 Pulmicort Flexhaler 180 mcg/actuation Aerosol Powdr Breath Activated 2 inh INHALATION BID@08,20 albuterol sulfate 2.5 mg /3 mL (0.083 %) Solution For Nebulization 2.5 mg INHALATION Q4H PRN (Reason: Shortness Of Breath) pantoprazole 40 mg tablet,delayed release (DR/EC) 40 mg PO DAILY diltiazem HCl 30 mg Tablet 30 mg PO BID MDD 60 Qty: 60 0RF furosemide 40 mg Tablet 40 mg PO DAILY@0800 Qty: 30 0RF ipratropium bromide 0.02 % Solution 0.5 mg inhalation Q6H.RESPIRATORY Qty: 1 0RF sucralfate 100 mg/mL Suspension 1 g PO AC&BEDTIME Qty: 120 0RF divalproex 250 mg Tablet,Delayed Release (Dr/Ec) 250 mg PO BID@08,20 allopurinol 100 mg Tablet 100 mg PO DAILY@08 montelukast [Singulair] 10 mg Tablet 10 mg PO DAILY@08 polyethylene glycol 3350 [Miralax] 17 gram Powder In Packet 17 g PO DAILY PRN (Reason: Constipation) sennosides-docusate sodium [Senna-S] 8.6-50 mg Tablet 1 tab PO BID PRN (Reason: Constipation) bisacodyl 10 mg Suppository 10 mg WA DAILY PRN (Reason: Constipation) Enema Disposable 19-7 gram/118 mL Enema 118 ml WA DAILY PRN (Reason: Constipation) folic acid 1 mg Tablet 1 mg PO BID@, Pro-Stat AWC 17-100 gram-kcal/30 mL Liquid See Rx Instructions .ROUTE .COMPLEX Rx Instructions: 15ML PO BID@, atorvastatin [Lipitor] 20 mg tablet 20 mg PO DAILY@20 benzonatate 100 mg Capsule 100 mg PO TID PRN (Reason: Cough) Qty: 30 0RF aspirin 81 mg Tablet,Delayed Release (Dr/Ec) 81 mg PO DAILY Qty: 30 0RF diclofenac sodium 1 % Gel 2 g TOPICAL BID PRN (Reason: Pain) Rx Instructions: apply to single elbow, wrist or hand; for hand includes palm/fingers/back of hand Preparation H 0.25-14-74.9 % Ointment 1 applic WA DAILY PRN (Reason: Hemorrhoids) ondansetron 4 mg Tablet,Disintegrating 4 mg PO Q4H PRN (Reason: Nausea) doxycycline hyclate 100 mg tablet 100 mg PO BID ferrous gluconate 324 mg (37.5 mg iron) tablet 324 mg PO BID Discharge Orders: Discharge Order (Routine); Ordered 06/10/22 Ordered By: Kamaljit Jacobsen Referrals: [facility] [Outside] Dunia Rowan MD [Primary Care Provider] - 4-7 days Discharge Diet: Cardiac Discharge Activity: Resume usual activity and Increase activity as tolerated Patient Instructions: Opioid Safety Activity Restrictions/Additional Instructions: Take Keflex which is the antibiotic for next 5 days. Hydralazine is a blood pressure medication which you should take 3 times a day. Take prednisone as directed. Check your blood pressure daily and maintain a blood pressure diary and follow- up with primary care provider within next 1 week. Try to use BiPAP nightly as possible Discharge Attestations Time Spent in Discharge Care*: greater than 30 min Specific Discharge Activities: educating patient, educating and/or supporting family/caregiver, discussing with registered nurse hh case manager/social workers/dc planners, documenting/other paperwork and evaluating patient/reviewing data Status at Discharge: Cognitive status at discharge: mildly impaired cognition , Behavioral status at discharge: cooperative , Functional status at discharge: wheelchair bound , Overall status at discharge: patient is back to baseline Quality Metrics Clinical Quality Measures [ No reported AMI, CVA or VTE this stay] Coding Level of Care Code Acute Chg FW DC note Diagnoses AMS (altered mental status) R41.82 Hypercapnic respiratory failure J96.22 Chronicity: acute on chronic Hypernatremia E87.0 COPD (chronic obstructive pulmonary disease) J44.9 Diastolic congestive heart failure I50.30 CKD (chronic kidney disease), stage IV N18.4 Atrial fibrillation with RVR I48.91 DNR (do not resuscitate) Z66
[2022-06-10] MEDS: atorvastatin 40 mg Tablet 20 MG PO (21:03)
[2022-06-11] VITALS (9 sets, daily range): BP systolic 147–183; BP diastolic 62–72; PULSE 53–70; RESP 15–18; TEMP 36.1–36.6; O2SAT 96–99
[2022-06-11] MEDS: sucralfate 1 gm/10 mL Oral Liq UDC PO (06:24)
[2022-06-11] MEDS: heparin 5,000 unit/mL INJ 1 mL 5000 UNIT SUBCUT (06:24)
[2022-06-11] MEDS: docusate sodium 100 mg Capsule PO (09:43)
[2022-06-11] MEDS: ferrous gluconate 324 mg Tablet PO (09:43)
[2022-06-11] MEDS: dilTIAZem 30 mg Tablet PO (09:43)
[2022-06-11] MEDS: hyDRALAzine 25 mg Tablet 75 MG PO ×2 (09:43→15:44)
[2022-06-11] MEDS: pantoprazole DR 40 mg Tablet PO (09:44)
[2022-06-11] MEDS: aspirin 81 mg EC Tablet PO (09:44)
[2022-06-11] MEDS: citalopram 20 mg Tablet PO (09:44)
[2022-06-11] MEDS: allopurinol 100 mg Tablet PO (09:44)
[2022-06-11] MEDS: azithromycin 500 MG in sodium chloride 0.9% 250 ML 250 MG IV (09:44)
[2022-06-11] MEDS: folic acid 1 mg Tablet PO (09:49)
[2022-06-11] MEDS: gabapentin 100 mg Capsule PO (09:49)
[2022-06-11] MEDS: divalproex DR 250 mg Tablet PO (09:49)
[2022-06-11] MEDS: budesonide 0.5 mg/2 mL Neb INHALATION (10:04)
[2022-06-11] MEDS: levalbuterol 0.63 mg/3 mL Neb INHALATION (10:04)
[2022-06-11] MEDS: ipratropium 0.5 mg/2.5 mL Neb INHALATION (10:04)
--- NOTE | 2022-06-14 06:58 | ED_ITS ---
HPI - General Adult General: Chief complaint: Altered Mental Status Stated complaint: ALTERED LOC Time Seen by Provider: 06/07/22 13:14 Source: EMS Mode of arrival: EMS Limitations: altered mental status History of Present Illness: 82-year-old female presents via EMS with altered mental status. She usually lives at the shelter and she has a history of atrial fibrillation she is not on any anticoagulation. 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 Daughter states that today she suddenly was poorly responsive whereas normally is able to take her for rides out of the shelter and she will interact make phone calls to talk to them. No reports hematochezia or melena. She is responsive to painful stimuli initially. Onset (ago): hour(s) Severity: moderate Relieving factors: none Exacerbating factors: none Associated symptoms: Reports confusion, decreased appetite, malaise, nausea and weakness; Deny chest pain, cough, diaphoresis, dyspnea, fevers/chills, headache(s), rash, palpitations, seizures, short of breath, syncope or vomiting Treatments prior to arrival: none Review of Systems Const: Reports: malaise; Denies: fever(s), chills or diaphoresis Card: Denies: chest pain, palpitations or syncope Resp: Denies: dyspnea GI: Reports: nausea; Denies: abdominal pain or vomiting : Reports: dysuria; Denies: flank pain Skin/Breast: Denies: rash or pruritus Neuro: Reports: confusion; Denies: headache(s) PFS ED PFSH: Medical History Adenomatous polyp 2012 found on surveillance colonoscopy Aspiration pneumonia Bipolar 1 disorder, depressed Bipolar disorder Breast cancer Status post lumpectomy/radiation 1999 followed by adjuvant tamoxifen C. 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 Chronic fatigue CKD (chronic kidney disease), stage IV Confusion COPD (chronic obstructive pulmonary disease) Oxygen dependent COPD (chronic obstructive pulmonary disease) COPD with acute exacerbation DNR (do not resuscitate) Dyslipidemia Gout Hallucinations Did not tolerate Parkinson's medications in the past when this diagnosis was being entertained, discontinued hydrocodone, no organic etiology found Hypercapnic respiratory failure Hypertension Mastoiditis Right-sided mastoiditis, present on MRI 2016 as well Pancytopenia Porencephalic cyst Temporal lobe Pulmonary nodule 1 cm or greater in diameter Senile dementia Daughter has requested that dementia should not be mentioned to her mother because of risk of worsening of her depression considering bipolar disorder Sleep apnea Surgical History History of low anterior resection of rectum Family History Other Family history non-contributory Social History Smoking and tobacco status: former smoker Alcohol intake: never Household members: family Housing: House Physical Exam Const: COMMON NORMALS: no acute distress GENERAL APPEARANCE: cooperative and comfortable ORIENTATION/CONSCIOUSNESS: Yes awake HENMT: COMMON NORMALS: normocephalic and atraumatic HEAD & SCALP: normocephalic and atraumatic Resp: COMMON NORMALS: normal respiratory effort, No retractions, No use of accessory muscles and clear to auscultation bilaterally AUSCULTATION: clear to auscultation bilaterally Cardio: COMMON NORMALS: regular rate, regular rhythm and No murmurs present (Cardio) RATE: regular rate RHYTHM: regular rhythm GI: COMMON NORMALS: Soft to palpation and No hepatosplenomegaly present AU SCULTATION: Yes normoactive bowel sounds PALPATION: Yes Soft to palpation, No Tenderness to palpation present (GI), No Guarding due to palpation present (GI) and Yes No hepatosplenomegaly present Extremity: COMMON NORMALS: normal to inspection, capillary refill normal, no clubbing, cyanosis or edema, no calf tenderness and no pedal edema Skin: COMMON NORMALS: no rashes or lesions noted GENERAL SKIN EXAM: no rashes or lesions noted Course Vital Signs: Vital signs: Vital Signs Temperature 97.9 F 06/11/22 16:22 Pulse Rate 63 06/11/22 16:22 Respiratory Rate 16 06/11/22 16:22 Blood Pressure 157/68 06/11/22 16:22 Pulse Oximetry 96 06/11/22 16:22 Oxygen Delivery Me thod 06/11/22 15:55 Oxygen Flow Rate 2 06/11/22 10:04 Fraction of Inspir ed Oxygen 30 06/09/22 23:01 MDM - General Adult Medical Decision Making Labs imaging and EKG reviewed as found on the chart. There is an multiple ongoing issues think her primary issue with hypercapnic respiratory failure we will start her on BiPAP. She does have some hypernatremia as well. Her atrial fibrillation is well controlled not in acute congestive heart failure at this point. Discussed with hospitalist orders written Medical Records I reviewed the patient's medical records. Lab Data I reviewed the patient's lab results. : 06/09/22 16:29 06/09/22 16:29 Radiology Impressions Chest X-Ray 06/07/22 13:49 IMPRESSION: 1. Ill-defined soft tissue nodules in the mid and lower right lung and probably the left retrocardiac region. This may represent metastatic pulmonary disease. 2. Cardiac enlargement unchanged. No acute infiltrate. Head CT 06/07/22 13:49 IMPRESSION: 1. No acute intracranial hemorrhage or edema. 2. Moderate atrophy and advanced small vessel ischemic disease with multiple chronic lacunar infarcts. Chest CT 06/07/22 16:43 IMPRESSION: Further progression of nonspecific patchy ground-glass lesions in the lungs with lower lobe predominance. Suspect atypical pneumonia features. Laboratory Results WBC 11.2 10^3/uL (4.0-10.0) H 06/07/22 14:08 RBC 2.32 10^6/uL (4.1-5.3) L 06/07/22 14:08 Hgb 7.2 g/dL (11.5-15.3) L 06/07/22 14:08 Hct 24.8 % (37.0-47.0) L 06/07/22 14:08 MCV 106.9 fl (81-99) H 06/07/22 14:08 MCH 31.0 pg (28.0-34.0) 06/07/22 14:08 MCHC 29.0 g/dL (30.0-36.0) L 06/07/22 14:08 RDW 13.3 % (12.1-15.1) 06/07/22 14:08 Plt Count 155 10^3/cmm (130-400) 06/07/22 14:08 MPV 10.8 fL (7.4-10.4) H 06/07/22 14:08 Neut % (Auto) 75.5 % 06/07/22 14:08 Lymph % (Auto) 16.1 % 06/07/22 14:08 Hughes % (Auto) 7.3 % 06/07/22 14:08 Eos % (Auto) 0.5 % 06/07/22 14:08 Baso % (Auto) 0.2 % 06/07/22 14:08 Neut # (Auto) 8.48 10^3/uL (1.8-7.7) H 06/07/22 14:08 Lymph # (Auto) 1.8 10^3/uL (0.8-4.8) 06/07/22 14:08 Hughes # (Auto) 0.8 10^3/uL (0.2-0.9) 06/07/22 14:08 Eos # (Auto) 0.1 10^3/uL (0.0-0.8) 06/07/22 14:08 Baso # (Auto) 0.0 10^3/uL (0.0-0.1) 06/07/22 14:08 Nucleated RBC % (auto) 0 % 06/07/22 14:08 Nucleated RBCs # 0.0 /100WBC 06/07/22 14:08 Specimen Type Arterial 06/07/22 15:20 Sample Site Radial, right 06/07/22 15:20 ABG pH 7.40 (7.35-7.45) 06/07/22 15:20 ABG pCO2 72.8 mmHg (35-45) H* 06/07/22 15:20 ABG pO2 107.0 mmHg (80.0-100.0) H 06/07/22 15:20 ABG HCO3 44.9 mmol/L (22-26) H 06/07/22 15:20 ABG O2 Saturation 99.1 06/07/22 15:20 ABG Base Excess 17.1 mmol/L (-2.0-2.0) H 06/07/22 15:20 Teja Test Pos 06/07/22 15:20 A-a O2 Gradient 0.5 mmHg (5-10) L 06/07/22 15:20 Hematocrit 32.5 % (37-47) L 06/07/22 15:20 Hgb O2 Saturation 98.0 % (95-100) 06/07/22 15:20 Carboxyhemoglobin 1.1 %THgb (0.4-20.1) 06/07/22 15:20 Methemoglobin 0.0 % (0.4-1.5) L 06/07/22 15:20 Total Hemoglobin 10.6 g/dL (12-16) L 06/07/22 15:20 Sodium 151.0 mmol/L (131-143) H 06/07/22 15:20 Potassium 3.0 mmol/L (3.5-5.0) L 06/07/22 15:20 Glucose 95.0 mg/dL (70-115) 06/07/22 15:20 Ionized Calcium 1.3 mmol/L (1.1-1.4) 06/07/22 15:20 O2 Delivery Device Nc 06/07/22 15:20 O2 Liters/Min 2.0 % 06/07/22 15:20 FiO2 28.0 % 06/07/22 15:20 Financial Services Specialist ID glc 06/07/22 15:20 Sodium 147 mmol/L (136-145) H 06/07/22 14:08 Potassium 2.9 mmol/L (3.5-5.1) L 06/07/22 14:08 Chloride 100 mmol/L (98-107) 06/07/22 14:08 Carbon Dioxide 43 mmol/L (22-29) H* 06/07/22 14:08 Anion Gap 6.9 (5-19) 06/07/22 14:08 BUN 38 mg/dL (8-23) H 06/07/22 14:08 Creatinine 1.8 mg/dL (0.5-0.9) H 06/07/22 14:08 GFR Calculation Not Reportable 06/07/22 14:08 Glucose 91 mg/dL (65-115) 06/07/22 14:08 Calculated Osmolality 313 mOsm/kg (285-295) H 06/07/22 14:08 Lactic Acid 0.5 mmol/L (0.5-2.2) 06/07/22 14:08 Calcium 9.7 mg/dL (8.5-10.5) 06/07/22 14:08 Magnesium 1.7 mg/dL (1.7-2.3) 06/07/22 14:08 Total Bilirubin 0.3 mg/dL (0.15-1.2) 06/07/22 14:08 AST 12 U/L (0-32) 06/07/22 14:08 ALT 6 U/L (0-33) 06/07/22 14:08 Alkaline Phosphatase 95 IU/L (35-105) 06/07/22 14:08 Creatine Kinase 68 U/L (26-192) 06/07/22 14:08 Troponin T Baseline 117 ng/L (0-10) H* 06/07/22 14:08 NT-Pro-B Natriuret Pep 2912 pg/mL (0-450) H 06/07/22 14:08 Total Protein 6.0 g/dL (6.6-8.7) L 06/07/22 14:08 Albumin 3.3 g/dL (3.5-5.2) L 06/07/22 14:08 Globulin 2.7 g/dL (1.3-4.6) 06/07/22 14:08 Lipase 11 U/L (13-60) L 06/07/22 14:08 Urine Color Yellow (Yellow) 06/07/22 14:30 Urine Appearance Clear (CLEAR) 06/07/22 14:30 Urine pH 6 (5-7) 06/07/22 14:30 Ur Specific Hudson 1.010 (1.005-1.030) 06/07/22 14:30 Urine Protein 1+ (Negative) H 06/07/22 14:30 Urine Glucose (UA) Norm (Normal) 06/07/22 14:30 Urine Ketones Negative (Negative) 06/07/22 14:30 Urine Blood 2+ (Negative) H 06/07/22 14:30 Urine Nitrate Negative (Negative) 06/07/22 14:30 Urine Bilirubin Neg (Negative) 06/07/22 14:30 Urine Urobilinogen Norm mg/dL (Negative) 06/07/22 14:30 Ur Leukocyte Esterase Negative (Negative) 06/07/22 14:30 Urine RBC 0-4 /hpf (0-2) H 06/07/22 14:30 Urine WBC 10-15 /hpf (0-5) H 06/07/22 14:30 Ur Squamous Epith Cells 0-4 /hpf (0-5) H 06/07/22 14:30 Amorphous Sediment Not Reportable 06/07/22 14:30 Urine Bacteria None /hpf (NONE) 06/07/22 14:30 Discharge Plan Discharge Patient Disposition: Admitted As Inpatient Admit Provider: Kamaljit Jacobsen Clinical Impression: Hypercapnic respiratory failure, COPD (chronic obstructive pulmonary disease), Acute kidney injury superimposed on chronic kidney disease, Diastolic congestive heart failure, AMS (altered mental status), Hypernatremia, Atrial fibrillation Condition: Stable Coding Level of Care Code ED Internet Database Specialist for Rosario Woodard
== END 2022-06-11 16:23 | disposition skilled nursing facility (03) | DRG 177 ==
LOC: ER 15:21 → MEDSURG 16:40
PROVIDERS: Admitting Provider Student in an Organized Health Care Education/Training Program; Emergency Provider Family Medicine; PCP Family Medicine; Visit Provider Internal Medicine
DX: J69.0 Pneumonitis due to inhalation of food and vomit (principal); J96.22 Acute and chronic respiratory failure with hypercapnia; E87.0 Hyperosmolality and hypernatremia; N18.4 Chronic kidney disease, stage 4 (severe); J44.1 Chronic obstructive pulmonary disease with (acute) exacerbation; I13.0 Hypertensive heart and chronic kidney disease with heart failure and stage 1 through stage 4 chronic kidney disease, or unspecified chronic kidney disease; I50.32 Chronic diastolic (congestive) heart failure; R41.82 Altered mental status, unspecified; E86.0 Dehydration; D63.1 Anemia in chronic kidney disease; G47.30 Sleep apnea, unspecified; I48.91 Unspecified atrial fibrillation; G30.9 Alzheimer's disease, unspecified; F02.80 Dementia in other diseases classified elsewhere, unspecified severity, without behavioral disturbance, psychotic disturbance, mood disturbance, and anxiety; Z99.81 Dependence on supplemental oxygen; Z91.81 History of falling; Z87.891 Personal history of nicotine dependence; Z66 Do not resuscitate; Z90.49 Acquired absence of other specified parts of digestive tract; Z85.038 Personal history of other malignant neoplasm of large intestine; Z85.3 Personal history of malignant neoplasm of breast
CPT/HCPCS: 36415; 36430; 36600; 51702; 70450; 71045; 71250; 80051; 80053; 81001; 82140; 82330; 82550; 82607; 82746; 82805; 83036; 83540; 83550; 83605; 83690; 83735; 83880; 84100; 84145; 84443; 84484; 85025; 86403; 86850; 86900; 86920; 87040; 87086; 87426; 87449; 93005; 94640; 94660; 94664; 94762; 96365; 96372; 99291; J0360; J0456; J0696; J0743; J1644; J2920; J3370; J3480; J7050; J7614; J7626; J7644; P9016

== ENCOUNTER 2022-06-22 10:59 | Outpatient (CLI) | payer MEDICARE, MEDICAID, SELFPAY ==
[2022-06-22 12:09] LABS: Potassium 3.5 mmol/L (3.5-5.1)
== END 2022-06-22 11:00 | disposition home or self-care (01) ==
LOC: LAB 11:00
PROVIDERS: PCP Family Medicine; Visit Provider Nurse Practitioner Family
DX: Z01.89 Encounter for other specified special examinations (principal)
CPT/HCPCS: 84132